=== PATIENT | female | born 1980 | race African-American/Black ===

== ENCOUNTER 2024-04-05 18:01 | Inpatient (IN) | payer OTHER, SELFPAY ==
--- NOTE | ~2024-04-05 | XR_ITS ---
EXAMINATION: LEFT KNEE, LEFT TIB-FIB, LEFT FOOT CLINICAL INFORMATION: Trauma with fall COMPARISON: None available. TECHNIQUE: 2 views left knee, 2 views left tib-fib, 3 views left foot FINDINGS: Knee and tib-fib: Mild tricompartmental degenerative changes are seen. A small joint effusion is present. No fractures or chondrocalcinosis. Foot: There is an avulsion fracture involving the medial cuboid. No other fractures are seen. XR/XR foot LT 2V IMPRESSION: 1. Avulsion fracture medial cuboid. 2. Mild tricompartmental degenerative changes in the knee with small joint effusion. Electronically signed by: Joseph Morelos MD 04/14/2024 06:46 PM EST
--- NOTE | ~2024-04-05 | US_ITS ---
EXAMINATION: US TRIPLEX LOWER EXTREMITY, LEFT CLINICAL INFORMATION: Left lower extremity edema. Evaluate for deep vein thrombosis. COMPARISON: None available. TECHNIQUE: Color-flow triplex imaging with spectral analysis and compression Doppler were performed on the left lower extremity. FINDINGS: Respiratory variation, normal compression and augmented flow are noted throughout the left lower extremity. The visualized common femoral vein, superficial femoral vein, profunda femoral vein, popliteal vein and midcalf peroneal and posterior tibial venous segments show no evidence of deep venous thrombosis. There is no Cabrera's cyst. Unremarkable left inguinal lymph nodes. US/US venous duplex LE LT IMPRESSION: No evidence of deep venous thrombosis involving the left lower extremity. Electronically signed by: Freddie Chavez MD 04/14/2024 04:44 PM [facility]
--- NOTE | ~2024-04-05 | XR_ITS ---
EXAMINATION: LEFT KNEE, LEFT TIB-FIB, LEFT FOOT CLINICAL INFORMATION: Trauma with fall COMPARISON: None available. TECHNIQUE: 2 views left knee, 2 views left tib-fib, 3 views left foot FINDINGS: Knee and tib-fib: Mild tricompartmental degenerative changes are seen. A small joint effusion is present. No fractures or chondrocalcinosis. Foot: There is an avulsion fracture involving the medial cuboid. No other fractures are seen. XR/XR knee LT 2V IMPRESSION: 1. Avulsion fracture medial cuboid. 2. Mild tricompartmental degenerative changes in the knee with small joint effusion. Electronically signed by: Joseph Morelos MD 04/14/2024 06:46 PM EST
--- NOTE | ~2024-04-05 | XR_ITS ---
EXAMINATION: LEFT KNEE, LEFT TIB-FIB, LEFT FOOT CLINICAL INFORMATION: Trauma with fall COMPARISON: None available. TECHNIQUE: 2 views left knee, 2 views left tib-fib, 3 views left foot FINDINGS: Knee and tib-fib: Mild tricompartmental degenerative changes are seen. A small joint effusion is present. No fractures or chondrocalcinosis. Foot: There is an avulsion fracture involving the medial cuboid. No other fractures are seen. XR/XR tibia fibula LT 2V IMPRESSION: 1. Avulsion fracture medial cuboid. 2. Mild tricompartmental degenerative changes in the knee with small joint effusion. Electronically signed by: Joseph Morelos MD 04/14/2024 06:46 PM [facility]
--- NOTE | 2024-04-05 18:33 | ED.GENADULT ---
HPI - General Adult General Chief complaint: Psychiatric Symptoms Stated complaint: BEHAVIORAL ISSUES Time Seen by Provider: 04/05/24 18:26 Source: patient, EMS and RN notes reviewed Limitations: other ( disorganized) History of Present Illness HPI narrative: 44-year-old female presents via EMS after she was found outside of [facility]. Apparently the patient was just discharged from there. The patient is thought process is very disorganized. Patient denies any suicidal homicidal ideation. Patient also reports that she is 2 months . She is refusing any further evaluation. Related Data Home Medications ?Medication ?Instructions ?Recorded ?Confirmed aripiprazole 20 mg tablet 20 mg PO DAILY 04/05/24 04/05/24 bictegravir 50 mg-emtricitabine 1 tab PO DAILY 04/05/24 04/05/24 200 mg-tenofovir alafenam 25 mg tablet clonidine HCl 0.1 mg tablet 0.1 mg PO BID 04/05/24 04/05/24 divalproex 125 mg tablet,delayed 125 mg PO BIDWM@0800,1700 Mood 04/05/24 04/05/24 release gabapentin 300 mg capsule 300 mg PO TID 04/05/24 04/05/24 hydroxyzine pamoate 50 mg capsule 50 mg PO Q4H PRN Pain, 04/05/24 04/05/24 Moderate-Severe prazosin 2 mg capsule 2 mg PO BEDTIME 04/05/24 04/05/24 rifaximin 550 mg tablet 550 mg PO Q12H 04/05/24 04/05/24 Allergies Allergy/AdvReac Type Severity Reaction Status Date / Time No Known Allergies Allergy Verified 04/05/24 18:41 Review of Systems Review of Systems: Yes Unobtainable due to mental status [facility] Past Medical History Source: unable to obtain Social History Social History Unable to assess alcohol history related to: Refusing to respond Use of substances other than those prescribed or required for medical reasons: Refusing to respond Advance Directives: No Advance Directives Information Provided: No Patient : No Physical Exam ED Vital Signs: Vital Signs - 24 hr 04/05/24 18:37 04/05/24 18:43 Temperature 98.4 F Pulse Rate 102 H Respiratory Rate 16 16 Blood Pressure 131/84 Pulse Oximetry 99 Oxygen Delivery Method Room Air BMI result Body Mass Index 19.4 Const Other: Alert and awake, semi cooperative. Resp Auscultation: clear to auscultation bilaterally Cardio Rate: regular rate Psych Other: Alert to person and place Course Course Course Narrative: patient was seen and evaluated by the behavioral team. Patient will be brought into the hospital for further evaluation and psychiatric management. Medications Administered Discontinued Medications Generic Name Dose Route Start Last Admin Trade Name Humbleq PRN Reason Stop Dose Admin Ketorolac Tromethamine 15 mg 04/05/24 22:45 04/05/24 23:41 Ketorolac Tromethamine 15 Mg/Ml Vial IM 04/05/24 22:46 Not Given ONCE ONE Lorazepam 2 mg 04/05/24 22:45 04/05/24 22:58 Lorazepam 1 Mg Tablet PO 04/05/24 22:46 2 mg ONCE ONE Administration Medical Decision Making Medical Decision Making [facility] Narrative: 44-year-old female with recent admission to [facility]. Disorganized behavior at this time refusing all labs and interventions. She will be seen by the behavioral health team. Differential Diagnosis Differential Diagnoses: The differential diagnosis associated with the presentation includes Acute psychosis Disorganized behavior Polysubstance use Metabolic abnormality Admission/Observation Consideration of admission/observation: Escalation of care including admission/observation considered Consult Healthcare Provider Management of the patient was discussed with: Behavioral Health Provider Lab Data Patient refused all imaging and labs Social Determinants Patient?s care significantly limited by Social Determinants of Health including: Problems related to primary support group Discharge Plan Discharge Clinical Impression: Schizophrenia, acute Patient Disposition: Admitted As Inpatient Interventions: [place]-Suicide Risk Severity Scale Last Done: 04/05/24 18:43 Admission Worksheet (ED) Last Done: 04/05/24 23:43 Discharge Date/Time: 04/05/24 23:46
[2024-04-05 18:37] VITALS: BP 131/84; BP 137/78; PULSE 102; PULSE 105; RESP 16; TEMP 36.9; O2SAT 99; BMI 19.4
[2024-04-05 18:43] VITALS: RESP 16
--- NOTE | 2024-04-05 18:44 | PC.NURSE ---
Patient comes in from [facility]. Apparently she was discharged at 11am this morning, she received a lyft back to her house in [place] but exited the lyft because she believed the lyft was bringing her to the wrong place. Pt reports she made it back to [facility] and was trying to communicate with people to get home. However, she reports she was communicating telepathically . Pt appears disorganized upon arrival, hyperfocused on her belongings. Pt initially refused to give up her belongings, security needed to go hands on with patient. Patient did eventually tire changer with this RN and Security. Pt also appears to be having auditory hallucinations in regards to her . Pt is sitting in chair by nurses station, refusing to get up at this time. PA came to bedside to eval patient
--- NOTE | 2024-04-05 19:09 | PC.NURSE ---
patient seated in milieu nonverbal, uncooperative presently refusing to move from chair after triage. patient appears in no acute distress presently.
--- NOTE | 2024-04-05 19:44 | PC.NURSE ---
patient wanted me to inform registration not to add her social security number to chart. she alleges shes and provided med list but states shes on 150mg methadone, med list doesnt include methadone. continuing research.
--- NOTE | 2024-04-05 19:49 | PC.NURSE ---
client adjourned to room, provided snacks and warm malgorzata
--- NOTE | 2024-04-05 20:38 | PC.NURSE ---
client approached again for labs met w resistance i need to drink mores fluids . will continue to approach.
--- NOTE | 2024-04-05 21:51 | PHA.MEDREC ---
Addendum entered by William Steiner RPh 04/05/24 21:56: Med rec reviewed Original Note: Pharmacy Consult ? Medication Reconciliation Pharmacy has completed the medication reconciliation. Confirmed med rec with list provided by Alise.
[2024-04-05] MEDS: LORazepam 1 MG TABLET 2 MG PO (22:58)
[2024-04-06] VITALS: BP 143/73; PULSE 68; RESP 16; TEMP 36.7; O2SAT 97
--- NOTE | 2024-04-06 05:26 | PC.ADMIT ---
Pt is a 44yo female who arrived from ED BH pod at 2345 for disorganized behavior. Pt oriented to self and situation only at this time. Per report pt was D/C from [facility] 04/05/24 at 0800. During transport back home pt left Lyft vehicle because pt believed the vehicle was taking pt to the wrong place. Pt managed to find a way back to [facility] where pt was picked up by police. Per report pt told police that she was trying to ask for another ride home by way of telepathy. Pt is cooperative with admission, skin check remarkable for multiple scars to upper forearms and antecubitals which pt says are related to prior drug use. Pt also states I'm two months along, you know, so I need to do whatever is best for the baby , pt refused labwork multiple times in ED, HCG quant ordered. Pt requesting methadone and lorazepam throughout admission. No methadone was given to patient during stay per [facility]. Pt walks mostly bent forward due to chronic back pain In three places for which pt is requesting to add oxycodone and lorazepam to regimen. Pt repeating answered questions throughout admission process, but easily redirected to conversation. Placed on 15 minute checks.
[2024-04-06 08:00] VITALS: BP 129/62; PULSE 101; RESP 16; TEMP 36.9; O2SAT 100
[2024-04-06 08:50] VITALS: BP 129/62
[2024-04-06] MEDS: ARIPiprazole 20 MG TABLET PO (08:50)
[2024-04-06] MEDS: cloNIDine HCL 0.1 MG TABLET PO ×2 (08:50→21:16)
[2024-04-06] MEDS: Gabapentin 300 MG CAPSULE PO ×3 (08:50→21:17)
[2024-04-06] MEDS: rifAXIMin 550 MG TABLET PO ×2 (08:50→21:18)
[2024-04-06 08:52] LABS: Estimated Average Glucose 94 mg/dL; Hemoglobin A1C 72.9002 umol/L; Hemoglobin A1c % 4.9 % (<6.0); Total Hemoglobin (HGBA1C) 2462.1884 umol/L
[2024-04-06] MEDS: Acetaminophen 325 MG TABLET 650 MG PO ×3 (08:53→21:27)
[2024-04-06] MEDS: Divalproex Sodium Sprinkles 125 MG CAP.DR.SPR PO (08:53)
[2024-04-06] MEDS: hydrOXYzine HCL 25 MG TABLET PO ×3 (08:53→21:28)
[2024-04-06 09:07] LABS: Cholesterol 81 mg/dL (<200); HDL Cholesterol 29 mg/dL (>40); LDL Cholesterol Calculated 40 mg/dL (<100); Triglycerides 61 mg/dL (<150)
[2024-04-06 09:18] LABS: HCG Quantitative < 2 mIU/mL
[2024-04-06 09:25] LABS: Free T4 (Free Thyroxine) 1.18 ng/dL (0.71-1.85); Thyroid Stimulating Hormone 3.31 uIU/mL (0.32-4.0)
[2024-04-06 10:07] LABS: Folate 17.9 ng/mL (> or = 4.0); Vitamin B12 1173 pg/mL (200-900)
--- NOTE | 2024-04-06 10:29 | HO.PSYADMNOT ---
HPI Date of Service: 04/06/24 Chief Complaint: mental health crisis Sources of Information: patient interviewed, chart reviewed and crisis/core team assessment reviewed HPI Subjective Notes: Section 12B Healthcare Proxy: No Guardianship: No Medical Problems Affecting Mental Status: Yes (co pain - ) Narrative: 44 yo AAF who just got dced from [facility] and then jumped out of ride to home when she thought she was being brought to wrong address, ended up walking back to [facility] and was picked up by ambulance and brought to [facility]- where patient was found to be psychotic and delusional co of being 2 months and bent over in pain-- Also discussing telepathy and requesting methadone, curtis Says she is on a show called killing time and that the content producer was giving her methadone who was a nurse at [facility]. Pt was fairly focused on getting methadone or some pain med toradol - bent over in jones had a paper bag with left of her lunch When we went to her room, very disorganzied, lunch tray on bed and remnants to food there as well - Past Psychiatric History: Recent [facility] hospitalization Medical Evaluation Reviewed: Yes pt was uncooperative with exam would be helpful to get [facility] record pt from [facility] Narrative: not clear- Family History: unknown patient not good historian at this time Social History: unknown patient not good historian at this time Substance History: denies Trauma History: unknown patient not good historian at this time Diagnostics Vital Signs (24Hr): Vital Signs - 24 hr 04/05/24 18:37 04/05/24 18:43 04/06/24 00:00 Temperature 98.4 F 98.0 F Pulse Rate 102 H 68 Respiratory Rate 16 16 16 Blood Pressure 131/84 143/73 H Pulse Oximetry 99 97 Oxygen Delivery Method Room Air Room Air 04/06/24 08:00 04/06/24 08:50 Temperature 98.5 F Pulse Rate 101 H Respiratory Rate 16 Blood Pressure 129/62 129/62 Pulse Oximetry 100 Oxygen Delivery Method BMI result Body Mass Index 19.4 Labs Labs: Laboratory Results - last 48 hr 04/06/24 08:31 Estimat Average Glucose 94 Hemoglobin A1c % 4.9 Triglycerides 61 Cholesterol 81 LDL Cholesterol, Calc 40 HDL Cholesterol 29 L Vitamin B12 1173 H Folate 17.9 TSH 3.31 Free T4 1.18 Beta HCG, Quant < 2 Meds/Allergies Meds Home Medications ?Medication ?Instructions ?Recorded ?Confirmed ?Type aripiprazole 20 mg tablet 20 mg PO DAILY 04/05/24 04/05/24 History bictegravir 50 mg-emtricitabine 1 tab PO DAILY 04/05/24 04/05/24 History 200 mg-tenofovir alafenam 25 mg tablet clonidine HCl 0.1 mg tablet 0.1 mg PO BID 04/05/24 04/05/24 History divalproex 125 mg tablet,delayed 125 mg PO BIDWM@0800,1700 Mood 04/05/24 04/05/24 History release gabapentin 300 mg capsule 300 mg PO TID 04/05/24 04/05/24 History hydroxyzine pamoate 50 mg capsule 50 mg PO Q4H PRN Pain, 04/05/24 04/05/24 History Moderate-Severe prazosin 2 mg capsule 2 mg PO BEDTIME 04/05/24 04/05/24 History rifaximin 550 mg tablet 550 mg PO Q12H 04/05/24 04/05/24 History Narrative: ? bacterial treatment for ecoli with rifaximin hx of hiv med also high B12 concerning Allergies Allergies Allergy/AdvReac Type Severity Reaction Status Date / Time No Known Allergies Allergy Verified 04/05/24 18:41 Mental Status Exam Mental Status Exam Patient Appearance: Disheveled, Unkempt and Bizarre (standing bent over in jones, or when walking) Patient Orientation: Person Level of Consciousness: Awake Patient Behavior: Resistive to Care and Poor Eye Contact Behavior Comments: odd posture, odd behavior Mood Description: Blunted Ability to Follow Directions: Poor Speech Pattern: Mumbled and Poor Articulation Delusions: Grandiose Thought Process: Disoriented (disorganized not disoriented) Thought Content: positive for Disorganized Depressive Symptoms: Difficulty Concentrating and Back Pain Abnormal Motor Activity Signs and Symptoms: Restlessness Judgement: Poor Assessment & Plan Assessment & Plan (1) Schizophrenia, acute undifferentiated: Status: Acute Code(s): F20.3 - Undifferentiated schizophrenia (2) Back pain: Status: Acute Code(s): M54.9 - Dorsalgia, unspecified Assessment and Plan: requesting methadone- ? 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 [place] Plan Very confused 44 yo with ? hx hiv/bacterial ecoli- with very bizarre and disorganzied behavior and thoughts, believes she is on a show on [employer]time with a content producer and that content producer was giving her methadone- Pt very poor historian further information needed from collateral- Abilify 20mg doesn't seem to be making much of a dent- also we need to discover if underlying hiv how long and if there are any links with that and her mental state- generally we have very little information except for bizarre behavior and disorganization of thought. This behavior puts patient at risk due to jumping out of car and thoughts so disorganized not able to communicate or follow through on dc plan from [facility] Patient educated on: medical condition (told her I would give her dicoflenac for back pain) Informed Consent: further education needed Reason for continued inpatient stay Substantial Risk for: harm to self, inability to function and rapid decompensation Statement Statement: I have reviewed the history and physical and performed a pertinent examination on my patient. No changes have occurred unless specified. If the History and Physical was not performed prior to admission, the Hospitalist's service will be consulted for completing the admission physical. Time Spent With Patient Time: Total time managing care of this patient today ____ minutes.
[2024-04-06] MEDS: Nicotine 14 MG PATCH.TD24 TRANSDERMA (14:05)
[2024-04-06] MEDS: Bictegrav/Emtricit/Tenofov Ala TABLET 1 TAB PO (17:34)
[2024-04-06] MEDS: Diclofenac Sodium Delayed Rel 50 MG TABLET.DR PO (17:34)
[2024-04-06 21:10] VITALS: BP 111/58; PULSE 97; TEMP 36.8
[2024-04-06 21:16] VITALS: BP 111/58
[2024-04-06 21:18] VITALS: BP 111/58
[2024-04-06] MEDS: Prazosin HCL 1 MG CAPSULE 2 MG PO (21:18)
[2024-04-07] MEDS: hydrOXYzine HCL 25 MG TABLET PO ×2 (04:44→15:18)
[2024-04-07] MEDS: Acetaminophen 325 MG TABLET 975 MG PO ×3 (04:44→21:08)
[2024-04-07 08:00] VITALS: BP 153/96; PULSE 112; RESP 16; TEMP 36.5; O2SAT 100
[2024-04-07 08:37] VITALS: BP 153/96
[2024-04-07] MEDS: Diclofenac Sodium Delayed Rel 50 MG TABLET.DR PO ×2 (08:37→17:34)
[2024-04-07] MEDS: rifAXIMin 550 MG TABLET PO ×2 (08:37→20:58)
[2024-04-07] MEDS: Gabapentin 300 MG CAPSULE PO ×3 (08:37→20:58)
[2024-04-07] MEDS: ARIPiprazole 20 MG TABLET PO (08:37)
[2024-04-07] MEDS: cloNIDine HCL 0.1 MG TABLET PO ×2 (08:37→20:58)
[2024-04-07] MEDS: Nicotine 14 MG PATCH.TD24 TRANSDERMA (08:46)
[2024-04-07] MEDS: Bictegrav/Emtricit/Tenofov Ala TABLET 1 TAB PO (08:52)
--- NOTE | 2024-04-07 12:02 | P.PNPSI_ITS ---
Subjective Subjective Date of Service: 04/07/24 Reason For Visit: mental health crisis Subjective Notes: Conditional Voluntary Healthcare Proxy: No Guardianship: No Medical Problems Affecting Mental Status: No Interim History: 44 yo AAF who continues to be bent over most of the time- reports wanting 3 day- though I thought she was on 12b the ER doc put her on cv- brought that to her- she also reported various medications she was supposed to be on and wasn't continuing to insist she is on methadone- had nurses call [facility] where she says she [facility] - but no information was forwarded from [facility] reporting methadone- and pt does not appear in withdrawl from opiates- She does however continue quite psychotic saying things likethat numerous people where trying to kill her- nurse showed me list of people she thinks - including someone named ki who she thinks is going to shoot her- When I asked patient about this she said no Ki is a friend who is coming to visit her today- - Medication Compliance: Yes Side effects from medications: No Attending Groups: No Review of Systems Acute medical concerns: Yes ongoing co back pain patient walks around unit bent over- Medical Review of Systems: unchanged Mental Status Exam Mental Status Exam Patient Appearance: Unkempt Patient Orientation: Person, Place and Situation Level of Consciousness: Awake Patient Behavior: Guarded, Posturing, Suspicious, Wandering and Anxious Mood Description: Apprehensive Affect Description: Blunted Patient Cognition Impaired: No Ability to Follow Directions: Fair Speech Pattern: Mumbled Hallucinations: None Delusions: Paranoid Ideation Thought Process: Illogical and Distracted Thought Content: positive for Disorganized Depressive Symptoms: Muscle Tension and Back Pain Abnormal Motor Activity Signs and Symptoms: Muscle Rigidity Judgement: Poor Diagnostics Vital Signs (24Hr): Vital Signs - 24 hr 04/06/24 21:10 04/06/24 21:16 04/06/24 21:18 Temperature 98.2 F Pulse Rate 97 Respiratory Rate Blood Pressure 111/58 L 111/58 L 111/58 L Pulse Oximetry 04/07/24 08:00 04/07/24 08:37 Temperature 97.7 F Pulse Rate 112 H Respiratory Rate 16 Blood Pressure 153/96 H 153/96 H Pulse Oximetry 100 BMI result Body Mass Index 19.4 Labs Labs: Laboratory Results - last 48 hr 04/06/24 08:31 Estimat Average Glucose 94 Hemoglobin A1c % 4.9 Triglycerides 61 Cholesterol 81 LDL Cholesterol, Calc 40 HDL Cholesterol 29 L Vitamin B12 1173 H Folate 17.9 TSH 3.31 Free T4 1.18 Beta HCG, Quant < 2 Medications Medications Current Medications Acetaminophen (Acetaminophen 325 Mg Tablet) 975 mg PO Q6H PRN PRN Reason: pain (pain scale 1-10) Last Admin: 04/07/24 04:44 Dose: 975 mg Al Hydroxide/Mg Hydroxide (Magnesium Hydrox/Alum Hydrox 30 Ml Oral.Susp) 30 ml PO Q6H PRN PRN Reason: Heartburn/Nausea Aripiprazole (Aripiprazole 20 Mg Tablet) 20 mg PO DAILY [facility] Last Admin: 04/07/24 08:37 Dose: 20 mg Bictegravir/Emtricitabine/Tenofovir (Bictegrav/Emtricit/Tenofov Ala Tablet) 1 tab PO DAILY [facility] Last Admin: 04/07/24 08:52 Dose: 1 tab Clonidine HCl (Clonidine Hcl 0.1 Mg Tablet) 0.1 mg PO BID [facility]; Protocol Last Admin: 04/07/24 08:37 Dose: 0.1 mg Diclofenac Sodium (Diclofenac Sodium Delayed Rel 50 Mg Tablet.) 50 mg PO BIDWM [facility] Last Admin: 04/07/24 08:37 Dose: 50 mg Divalproex Sodium (Divalproex Sodium Sprinkles 125 Mg Cap.Spr) 125 mg PO BIDWM@0800,1700 [facility] Last Admin: 04/07/24 08:52 Dose: Not Given Gabapentin (Gabapentin 300 Mg Capsule) 300 mg PO TID [facility] Last Admin: 04/07/24 08:37 Dose: 300 mg Hydroxyzine HCl (Hydroxyzine Hcl 25 Mg Tablet) 25 mg PO Q6H PRN PRN Reason: Anxiety Last Admin: 04/07/24 04:44 Dose: 25 mg Magnesium Hydroxide (Milk Of Magnesia 30 Ml Oral.Susp) 30 ml PO DAILY PRN PRN Reason: Constipation Nicotine (Nicotine 14 Mg Patch.Td24) 14 mg TRANSDERMA DAILY [facility] Last Admin: 04/07/24 08:46 Dose: 14 mg Nicotine Polacrilex (Nicotine Polacrilex 2 Mg Gum) 2 mg BUCCAL Q2H PRN PRN Reason: Nicotine Cravings Nicotine Polacrilex (Nicotine Polacrilex 2 Mg Gum) 4 mg BUCCAL Q2H PRN PRN Reason: Nicotine Cravings Prazosin HCl (Prazosin Hcl 1 Mg Capsule) 2 mg PO BEDTIME [facility]; Protocol Last Admin: 04/06/24 21:18 Dose: 2 mg Rifaximin (Rifaximin 550 Mg Tablet) 550 mg PO BID [facility] Last Admin: 04/07/24 08:37 Dose: 550 mg Trazodone HCl (Trazodone Hcl 50 Mg Tablet) 50 mg PO BEDTIME MRX1 PRN PRN Reason: Insomnia Allergies Allergies Allergy/AdvReac Type Severity Reaction Status Date / Time No Known Allergies Allergy Verified 04/05/24 18:41 Assessment & Plan Assessment & Plan (1) Schizophrenia, acute undifferentiated: Status: Acute Code(s): F20.3 - Undifferentiated schizophrenia (2) Back pain: Status: Acute Code(s): M54.9 - Dorsalgia, unspecified Assessment and Plan: requesting methadone- ? 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 [place] 04/07- we need [facility] call [facility] and see if she was on methadone what she was on and when last dose- Plan Very confused 44 yo with ? hx hiv/bacterial ecoli- with very bizarre and disorganzied behavior and thoughts, believes she is on a show on [employer] with a digital content producer and that digital content producer was giving her methadone- Pt very poor historian further information needed from collateral- Abilify 20mg doesn't seem to be making much of a dent- also we need to discover if underlying hiv how long and if there are any links with that and her mental state- generally we have very little information except for bizarre behavior and disorganization of thought. This behavior puts patient at risk due to jumping out of car and thoughts so disorganized not able to communicate or follow through on dc plan from [facility] 04/07- given lidocaine patches and flexeril- will request hospitalist to come assess back pain- fu with collateral data tomorrow- Patient educated on: medication risk/benefits Informed Consent: further education needed Reason for continued inpatient stay Substantial Risk for: inability to function and rapid decompensation Time Spent With Patient Time: Total time managing care of this patient today ____ minutes.
--- NOTE | 2024-04-07 19:04 | PC.NURSE ---
Per María she should be on the following medications--baclofen, flexeril, aldactone, lasix, lactulose, vyvanse, (will take adderall at equivalent dose if vyvanse not available) ativan, olanzepine, percocet, lidocaine patches and methadone. She reports she used to dose at [facility] in [place] months ago, my broadcast producer has been giving it to me herself since then . Dr Osmel modi.
[2024-04-07 19:50] VITALS: BP 130/80; PULSE 111; RESP 15; O2SAT 98
--- NOTE | 2024-04-07 20:30 | PC.NURSE ---
pt approached this remote mortgage underwriter
[2024-04-07] MEDS: Prazosin HCL 1 MG CAPSULE 2 MG PO (20:58)
[2024-04-07] MEDS: Cyclobenzaprine HCl 5 MG TABLET PO (21:07)
[2024-04-07] MEDS: Lidocaine 4 % Patch ADH..PATCH 2 PATCH TRANSDERMA (21:09)
--- NOTE | 2024-04-08 00:11 | PC.NURSE ---
At approximately 2305 on 04/07/24, patient made multiple calls to 911 reporting that her life was in danger due to a firearm being present on the unit. She reports a aerodynamic consultant by the name of Herlinda has said firearm and she was holding onto it because she was trying to steal a check for $20 millon. Security arrived to unit to assess situation, spoke with patient and this law writer. Patient admitted to knowing that there was no firearm on unit, but continued to make paranoid nonsensical statements. This law writer spoke with Edgar GAUTAM and notified overnight supervisor reactor fueling. This law writer also spoke with patient and reassured safety, and if she had any concerns throughout the night to please notify this law writer instead of calling police. Patient agreed.
[2024-04-08] MEDS: Nicotine Polacrilex 2 MG GUM 4 MG BUCCAL (05:05)
[2024-04-08] MEDS: Acetaminophen 325 MG TABLET 975 MG PO ×3 (05:07→21:33)
[2024-04-08] MEDS: hydrOXYzine HCL 25 MG TABLET PO ×3 (05:07→17:36)
[2024-04-08 08:00] VITALS: BP 122/68; PULSE 99; RESP 16; TEMP 36.3; O2SAT 100
[2024-04-08] MEDS: rifAXIMin 550 MG TABLET PO ×2 (08:40→21:20)
[2024-04-08] MEDS: ARIPiprazole 20 MG TABLET PO (08:40)
[2024-04-08] MEDS: Bictegrav/Emtricit/Tenofov Ala TABLET 1 TAB PO (08:40)
[2024-04-08] MEDS: Gabapentin 300 MG CAPSULE PO ×3 (08:40→21:20)
[2024-04-08] MEDS: cloNIDine HCL 0.1 MG TABLET PO ×2 (08:40→21:20)
[2024-04-08] MEDS: Diclofenac Sodium Delayed Rel 50 MG TABLET.DR PO ×2 (08:40→17:36)
[2024-04-08] MEDS: Nicotine 14 MG PATCH.TD24 TRANSDERMA (08:41)
[2024-04-08] MEDS: Lidocaine 4 % Patch ADH..PATCH 2 PATCH TRANSDERMA (08:46)
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
[2024-04-08 20:00] VITALS: BP 135/72; PULSE 123; TEMP 36.9; O2SAT 100
[2024-04-08 21:20] VITALS: BP 135/72
[2024-04-08 21:21] VITALS: BP 135/72
[2024-04-08] MEDS: Prazosin HCL 1 MG CAPSULE 2 MG PO (21:21)
[2024-04-08 21:30] VITALS: PULSE 116; O2SAT 98
[2024-04-08] MEDS: Cyclobenzaprine HCl 5 MG TABLET PO (21:34)
[2024-04-09] MEDS: Acetaminophen 325 MG TABLET 975 MG PO ×2 (05:41→14:25)
[2024-04-09] MEDS: Gabapentin 300 MG CAPSULE PO ×3 (09:12→20:57)
[2024-04-09] MEDS: Bictegrav/Emtricit/Tenofov Ala TABLET 1 TAB PO (09:12)
[2024-04-09] MEDS: ARIPiprazole 20 MG TABLET PO (09:12)
[2024-04-09] MEDS: Diclofenac Sodium Delayed Rel 50 MG TABLET.DR PO ×2 (09:12→17:31)
[2024-04-09] MEDS: rifAXIMin 550 MG TABLET PO ×2 (09:12→20:57)
[2024-04-09 09:13] VITALS: BP 137/67
[2024-04-09] MEDS: Nicotine 14 MG PATCH.TD24 TRANSDERMA (09:13)
[2024-04-09] MEDS: cloNIDine HCL 0.1 MG TABLET PO ×2 (09:13→20:57)
[2024-04-09] MEDS: Lidocaine 4 % Patch ADH..PATCH 2 PATCH TRANSDERMA (09:13)
[2024-04-09 09:28] VITALS: BP 137/67; PULSE 111; TEMP 36.8; O2SAT 100
--- NOTE | 2024-04-09 09:42 | P.PNPSI_ITS ---
Subjective Subjective Date of Service: 04/09/24 Reason For Visit: mental health crisis Interim History: Met with patient; discussed with team Patient difficult with which to engage, irritable and dismissive. Patient does not want to talk and refused to sign any release of information for us to get collateral. Later she reported that while in the shower she had a bloody clot fall from her vagina and said it was spotting from her . Patient did not respond to reality testing that her test is negative. UA ordered Mental Status Exam Mental Status Exam Narrative: Pt is alert and oriented; behavior is guarded, irritable, though calm; patient is not in distress; dressed in casual attire, unkempt and malodorous; walks with back hunched; mood is described as ok though affect constricted; eye contact limited; Speech is normal rate, volume and prosody and not pressured; no psychomotor agitation/retardation present; thought process is goal directed; Thought content is on various delusional thinking, some grandiose; denies any SI/HI. Internally preoccupied though denies AH. Patients insight and judgment impaired Diagnostics Vital Signs (24Hr): Vital Signs - 24 hr 04/08/24 20:00 04/08/24 21:20 04/08/24 21:21 Temperature 98.5 F Pulse Rate 123 H Blood Pressure 135/72 135/72 135/72 Pulse Oximetry 100 Oxygen Delivery Method Room Air 04/08/24 21:30 04/09/24 09:13 04/09/24 09:28 Temperature 98.2 F Pulse Rate 116 H 111 H Blood Pressure 137/67 137/67 Pulse Oximetry 98 100 Oxygen Delivery Method Room Air Room Air BMI result Body Mass Index 19.4 Medications Medications Current Medications Acetaminophen (Acetaminophen 325 Mg Tablet) 975 mg PO Q6H PRN PRN Reason: pain (pain scale 1-10) Last Admin: 04/09/24 05:41 Dose: 975 mg Al Hydroxide/Mg Hydroxide (Magnesium Hydrox/Alum Hydrox 30 Ml Oral.Susp) 30 ml PO Q6H PRN PRN Reason: Heartburn/Nausea Aripiprazole (Aripiprazole 20 Mg Tablet) 20 mg PO DAILY [facility] Last Admin: 04/09/24 09:12 Dose: 20 mg Bictegravir/Emtricitabine/Tenofovir (Bictegrav/Emtricit/Tenofov Ala Tablet) 1 tab PO DAILY [facility] Last Admin: 04/09/24 09:12 Dose: 1 tab Clonidine HCl (Clonidine Hcl 0.1 Mg Tablet) 0.1 mg PO BID [facility]; Protocol Last Admin: 04/09/24 09:13 Dose: 0.1 mg Cyclobenzaprine HCl (Cyclobenzaprine Hcl 5 Mg Tablet) 5 mg PO BEDTIME PRN PRN Reason: back spasm Last Admin: 04/08/24 21:34 Dose: 5 mg Diclofenac Sodium (Diclofenac Sodium Delayed Rel 50 Mg Tablet.Dr) 50 mg PO BIDWM [facility] Last Admin: 04/09/24 09:12 Dose: 50 mg Divalproex Sodium (Divalproex Sodium Sprinkles 125 Mg Cap.Dr.Spr) 125 mg PO BIDWM@0800,1700 [facility] Last Admin: 04/08/24 18:01 Dose: Not Given Gabapentin (Gabapentin 300 Mg Capsule) 300 mg PO TID [facility] Last Admin: 04/09/24 09:12 Dose: 300 mg Hydroxyzine HCl (Hydroxyzine Hcl 25 Mg Tablet) 25 mg PO Q6H PRN PRN Reason: Anxiety Last Admin: 04/08/24 17:36 Dose: 25 mg Lidocaine (Lidocaine 4 % Patch Adh..Patch) 2 patch TRANSDERMA DAILY [facility]; Protocol Last Admin: 04/09/24 09:13 Dose: 2 patch Magnesium Hydroxide (Milk Of Magnesia 30 Ml Oral.Susp) 30 ml PO DAILY PRN PRN Reason: Constipation Nicotine (Nicotine 14 Mg Patch.Td24) 14 mg TRANSDERMA DAILY [facility] Last Admin: 04/09/24 09:13 Dose: 14 mg Nicotine Polacrilex (Nicotine Polacrilex 2 Mg Gum) 2 mg BUCCAL Q2H PRN PRN Reason: Nicotine Cravings Nicotine Polacrilex (Nicotine Polacrilex 2 Mg Gum) 4 mg BUCCAL Q2H PRN PRN Reason: Nicotine Cravings Last Admin: 04/08/24 05:05 Dose: 4 mg Prazosin HCl (Prazosin Hcl 1 Mg Capsule) 2 mg PO BEDTIME [facility]; Protocol Last Admin: 04/08/24 21:21 Dose: 2 mg Rifaximin (Rifaximin 550 Mg Tablet) 550 mg PO BID [facility] Last Admin: 04/09/24 09:12 Dose: 550 mg Trazodone HCl (Trazodone Hcl 50 Mg Tablet) 50 mg PO BEDTIME MRX1 PRN PRN Reason: Insomnia Allergies Allergies Allergy/AdvReac Type Severity Reaction Status Date / Time No Known Allergies Allergy Verified 04/05/24 18:41 Assessment & Plan Assessment & Plan (1) Schizophrenia, acute undifferentiated: Status: Acute Code(s): F20.3 - Undifferentiated schizophrenia (2) Back pain: Status: Acute Code(s): M54.9 - Dorsalgia, unspecified Assessment and Plan: requesting methadone- ? of hx of opiate do , agreed to give patient diclofenac- with meals- last opiate on real estate valuer was 2022 for oxy - Pt reports moved from ? [place] 04/07- we need to call [facility] and see if she was on methadone what she was on and when last dose- Plan Very confused 44 yo with ? hx hiv/bacterial ecoli- with very bizarre and disorganzied behavior and thoughts, believes she is on a show on showtime with a morning show newscast producer and that morning show newscast producer was giving her methadone- Pt very poor historian further information needed from collateral- Abilify 20mg doesn't seem to be making much of a dent- also we need to discover if underlying hiv how long and if there are any links with that and her mental state- generally we have very little information except for bizarre behavior and disorganization of thought. This behavior puts patient at risk due to jumping out of car and thoughts so disorganized not able to communicate or follow through on dc plan from [facility] COURSE: 04/07- given lidocaine patches and flexeril- will request hospitalist to come assess back pain- fu with collateral data tomorrow- 04/08 last evening called 911, saying staff had firearm, that staff was stealing $20,000,000. Grabbed trash bag of nurse stand, looking for 20million check. Patient remains confused and disorganized; she tells typewriter operator automatic that she is on a TV show. When asked where she wants to go to when she leaves the hospital, she says she owns 4 houses which she bought this past week, with the help of her training and development assistant whom is also a part of the TV show; typewriter operator automatic asked how this was possible given the fact that she was on an inpatient unit however patient dismissed this inquiry. Patient also says she has a device under her skin that her family put their that lets people know how she is doing. She says she does not mind the device however it should be a legal. Patient says she thinks she is being discharged today. Director [employer] explained this was not the case. About 5 minutes later she again said I am being discharged today; typewriter operator automatic inquired however patient did not remember previous conversation. -Regarding medication she said she thinks Abilify is helpful, that perhaps it helps her to think more clearly since she has ADHD and is supposed to be on Vyvanse. She agrees to long-acting injectable 04/09 Later she reported that while in the shower she had a bloody clot fall from her vagina and said it was spotting from her . Patient did not respond to reality testing that her test is negative. UA ordered -proving difficult to get collateral find historical information Formulation/clinical reasoning: Patient remains delusional and does not appear to be able to take care of herself in the community hence her quick return to the hospital. Could really use collateral. Not sure if current medication regimen is what was started at [facility] or if it is a regimen she has been stabilized in the past. Will continue for now Plan: CV Q 15 minute checks Continue Abilify 20 mg daily Continue Clonidine 0.1 mg b.i.d. Continue Depakote Sprinkles 125 mg b.i.d. Continue Gabapentin 300 mg t.i.d. Continue Prazosin 2 mg q.h.s. Continue Rifaximin 550 mg b.i.d. Continue Biktarvy 1 mg daily Patient educated on: diagnosis and medication risk/benefits Informed Consent: understands, does not understand and further education needed Reason for continued inpatient stay Substantial Risk for: inability to function Time Spent With Patient Time: Total time managing care of this patient today ____ minutes.
[2024-04-09] MEDS: hydrOXYzine HCL 25 MG TABLET PO (14:25)
[2024-04-09 19:36] VITALS: BP 130/70; PULSE 110; RESP 16; TEMP 36.8; O2SAT 100
[2024-04-09] MEDS: Prazosin HCL 1 MG CAPSULE 2 MG PO (20:57)
[2024-04-10 08:00] VITALS: BP 140/69; PULSE 104; TEMP 36.8; O2SAT 100
[2024-04-10] MEDS: Lidocaine 4 % Patch ADH..PATCH 2 PATCH TRANSDERMA (08:40)
[2024-04-10] MEDS: Nicotine 14 MG PATCH.TD24 TRANSDERMA (08:40)
[2024-04-10] MEDS: Acetaminophen 325 MG TABLET 975 MG PO ×2 (08:41→15:38)
[2024-04-10] MEDS: Bictegrav/Emtricit/Tenofov Ala TABLET 1 TAB PO (08:41)
[2024-04-10] MEDS: cloNIDine HCL 0.1 MG TABLET PO (08:42)
[2024-04-10] MEDS: ARIPiprazole 20 MG TABLET PO (08:42)
[2024-04-10] MEDS: rifAXIMin 550 MG TABLET PO ×2 (08:42→20:16)
[2024-04-10] MEDS: Gabapentin 300 MG CAPSULE PO ×3 (08:42→20:16)
[2024-04-10] MEDS: Diclofenac Sodium Delayed Rel 50 MG TABLET.DR PO ×2 (08:42→17:18)
[2024-04-10] MEDS: Divalproex Sodium Sprinkles 125 MG CAP.DR.SPR PO ×2 (08:51→18:51)
[2024-04-10] MEDS: Cyclobenzaprine HCl 10 MG TABLET PO (14:54)
[2024-04-10] MEDS: hydrOXYzine HCL 25 MG TABLET PO (15:39)
--- NOTE | 2024-04-10 17:49 | P.PNPSI_ITS ---
Subjective Subjective Date of Service: 04/10/24 Reason For Visit: mental health crisis Interim History: Met with patient; discussed with team Patient more pleasant today and agreed to sign release of information. Also gave permission to call her uncle.. Dad Uche Harmon whom she says lives locally and gave typewriter assembler a phone number. Initially typewriter assembler asked about the TV program she had mentioned earlier. She says it is ongoing but she is not involved in it right now. Later patient came up and found typewriter assembler to explain that she is still involved in an asked if typewriter assembler could make an accommodation for her while on the unit. Patient says Abilizfy was started at [facility]; she is not sure if it is helping her mood, though she increase it has improved a little, and asks for to be increased. She gave a list of other medications she has been on including lactulose which she says is for her liver, saying she has liver cirrhosis from history of alcoholism; clonidine, gabapentin, baclofen and Ativan. Typing Bookkeeper listed several antipsychotic medications but patient denies having taken any of them Mental Status Exam Mental Status Exam Narrative: Pt is alert and oriented; behavior is cooperative, calm, friendly; patient is not in distress; dressed in casual attire, with adequate hygiene; walks with back hunched; mood is described as ok and affect constricted; eye contact limited; Speech is normal rate, volume and prosody and not pressured; no psychomotor agitation/retardation present; thought process is goal directed; Thought content is on various delusional thoughts (; implanted device; part of a reality TV show called killers ); denies any SI/HI. Internally preoccupied though denies AH. Patients insight and judgment impaired Diagnostics Vital Signs (24Hr): Vital Signs - 24 hr 04/09/24 19:36 04/10/24 08:00 Temperature 98.3 F 98.3 F Pulse Rate 110 H 104 H Respiratory Rate 16 Blood Pressure 130/70 140/69 H Pulse Oximetry 100 100 Oxygen Delivery Method Room Air Room Air BMI result Body Mass Index 19.4 Medications Medications Current Medications Acetaminophen (Acetaminophen 325 Mg Tablet) 975 mg PO Q6H PRN PRN Reason: pain (pain scale 1-10) Last Admin: 04/10/24 15:38 Dose: 975 mg Al Hydroxide/Mg Hydroxide (Magnesium Hydrox/Alum Hydrox 30 Ml Oral.Susp) 30 ml PO Q6H PRN PRN Reason: Heartburn/Nausea Aripiprazole (Aripiprazole 20 Mg Tablet) 20 mg PO DAILY [facility] Last Admin: 04/10/24 08:42 Dose: 20 mg Bictegravir/Emtricitabine/Tenofovir (Bictegrav/Emtricit/Tenofov Ala Tablet) 1 tab PO DAILY [facility] Last Admin: 04/10/24 08:41 Dose: 1 tab Clonidine HCl (Clonidine Hcl 0.1 Mg Tablet) 0.1 mg PO BID [facility]; Protocol Last Admin: 04/10/24 08:42 Dose: 0.1 mg Cyclobenzaprine HCl (Cyclobenzaprine Hcl 5 Mg Tablet) 5 mg PO BEDTIME PRN PRN Reason: back spasm Last Admin: 04/08/24 21:34 Dose: 5 mg Cyclobenzaprine HCl (Cyclobenzaprine Hcl 10 Mg Tablet) 10 mg PO TID PRN PRN Reason: Muscle Spasm Last Admin: 04/10/24 14:54 Dose: 10 mg Diclofenac Sodium (Diclofenac Sodium Delayed Rel 50 Mg Tablet.) 50 mg PO BIDWM [facility] Last Admin: 04/10/24 17:18 Dose: 50 mg Divalproex Sodium (Divalproex Sodium Sprinkles 125 Mg Cap.Spr) 125 mg PO BIDWM@0800,1700 [facility] Last Admin: 04/10/24 08:51 Dose: 125 mg Gabapentin (Gabapentin 300 Mg Capsule) 300 mg PO TID [facility] Last Admin: 04/10/24 14:54 Dose: 300 mg Hydroxyzine HCl (Hydroxyzine Hcl 25 Mg Tablet) 25 mg PO Q6H PRN PRN Reason: Anxiety Last Admin: 04/10/24 15:39 Dose: 25 mg Lidocaine (Lidocaine 4 % Patch Adh..Patch) 2 patch TRANSDERMA DAILY [facility]; Protocol Last Admin: 04/10/24 08:40 Dose: 2 patch Magnesium Hydroxide (Milk Of Magnesia 30 Ml Oral.Susp) 30 ml PO DAILY PRN PRN Reason: Constipation Nicotine (Nicotine 14 Mg Patch.Td24) 14 mg TRANSDERMA DAILY [facility] Last Admin: 04/10/24 08:40 Dose: 14 mg Nicotine Polacrilex (Nicotine Polacrilex 2 Mg Gum) 2 mg BUCCAL Q2H PRN PRN Reason: Nicotine Cravings Nicotine Polacrilex (Nicotine Polacrilex 2 Mg Gum) 4 mg BUCCAL Q2H PRN PRN Reason: Nicotine Cravings Last Admin: 04/08/24 05:05 Dose: 4 mg Prazosin HCl (Prazosin Hcl 1 Mg Capsule) 2 mg PO BEDTIME [facility]; Protocol Last Admin: 04/09/24 20:57 Dose: 2 mg Rifaximin (Rifaximin 550 Mg Tablet) 550 mg PO BID [facility] Last Admin: 04/10/24 08:42 Dose: 550 mg Trazodone HCl (Trazodone Hcl 50 Mg Tablet) 50 mg PO BEDTIME MRX1 PRN PRN Reason: Insomnia Allergies Allergies Allergy/AdvReac Type Severity Reaction Status Date / Time No Known Allergies Allergy Verified 04/05/24 18:41 Assessment & Plan Assessment & Plan (1) Schizophrenia, acute undifferentiated: Status: Acute Code(s): F20.3 - Undifferentiated schizophrenia (2) Back pain: Status: Acute Code(s): M54.9 - Dorsalgia, unspecified Assessment and Plan: requesting methadone- ? of hx of opiate do , agreed to give patient diclofenac- with meals- last opiate on bereavement counselor was 2022 for oxy - Pt reports moved from [facility] 04/07- we need to call [employer] and see if she was on methadone what she was on and when last dose- Plan Very confused 44 yo with ? hx hiv/bacterial ecoli- with very bizarre and disorganzied behavior and thoughts, believes she is on a show on [employer]time with a marketing producer and that marketing producer was giving her methadone- Pt very poor historian further information needed from collateral- Abilify 20mg doesn't seem to be making much of a dent- also we need to discover if underlying hiv how long and if there are any links with that and her mental state- generally we have very little information except for bizarre behavior and disorganization of thought. This behavior puts patient at risk due to jumping out of car and thoughts so disorganized not able to communicate or follow through on dc plan from [facility] COURSE: 04/07- given lidocaine patches and flexeril- will request hospitalist to come assess back pain- fu with collateral data tomorrow- 04/08 last evening called 911, saying staff had firearm, that staff was stealing $[id number],000. Grabbed trash bag of nurse stand, looking for 20million check. Patient remains confused and disorganized; she tells typewriter assembler that she is on a TV show. When asked where she wants to go to when she leaves the hospital, she says she owns 4 houses which she bought this past week, with the help of her recreational assistant whom is also a part of the TV show; typewriter assembler asked how this was possible given the fact that she was on an inpatient unit however patient dismissed this inquiry. Patient also says she has a device under her skin that her family put their that lets people know how she is doing. She says she does not mind the device however it should be a legal. Patient says she thinks she is being discharged today. Typing Bookkeeper explained this was not the case. About 5 minutes later she again said I am being discharged today; typewriter assembler inquired however patient did not remember previous conversation. -Regarding medication she said she thinks Abilify is helpful, that perhaps it helps her to think more clearly since she has ADHD and is supposed to be on Vyvanse. She agrees to long-acting injectable 04/09 Later she reported that while in the shower she had a bloody clot fall from her vagina and said it was spotting from her . Patient did not respond to reality testing that her test is negative. UA ordered -proving difficult to get collateral find historical information 04/10 Patient more pleasant today and agreed to sign release of information. Also gave permission to call her uncle.. Dad Uche Harmon whom she says lives locally and gave typewriter assembler a phone number. Remains internally preoccupied and with grandiose delusion that she is part of a television show called [employer]. (various delusional thoughts (; implanted device; part of a reality TV show called [employer] ). However today she did not mention delusions until they were asked about. Patient signed release of information and seems a little more congenial today. She agreed to increase in Abilify which she said was started at [facility]; denies other history of antipsychotic medication trials -reports history of liver cirrhosis due to alcoholism and asks to be restarted on lactulose; also asks to be restarted on gabapentin, baclofen (for muscle/back spasms; says Flexaril not effective) and Ativan (will not restart at this time). Formulation/clinical reasoning: Patient remains delusional and does not appear to be able to take care of herself in the community hence her quick return to the hospital. History of HIV; not clear on adherence with antiretrovirals and this could be a possible contribution to confusion. Will likely consult with ID. Plan: CV Q 15 minute checks Increase to Abilify 30 mg daily Increase to Clonidine 0.1 mg t.i.d., up from b.i.d. Continue Depakote Sprinkles 125 mg b.i.d. Continue Gabapentin 300 mg t.i.d. (pt said was taking 400mg tid) Continue Prazosin 2 mg q.h.s. Continue Rifaximin 550 mg b.i.d. Continue Biktarvy 1 mg daily Start lactulose which patient says she takes regularly for liver cirrhosis Start baclofen; will DC Flexeril since patient says ineffective; typewriter assembler reviewed risks/side effects of baclofen Reports history of taking Vyvanse/Adderall Patient educated on: diagnosis, medication risk/benefits, substance abuse and medical condition Informed Consent: understands Reason for continued inpatient stay Substantial Risk for: inability to function Time Spent With Patient Time: Total time managing care of this patient today ____ minutes.
[2024-04-10] MEDS: Lactulose 20 GM/30 ML SOLUTION 10 GM PO (18:51)
[2024-04-10] MEDS: ARIPiprazole 10 MG TABLET PO (18:51)
[2024-04-10] MEDS: Baclofen 10 MG TABLET PO (18:51)
[2024-04-11 09:03] VITALS: BP 150/74; PULSE 107; RESP 16; TEMP 36.9; O2SAT 100
--- NOTE | 2024-04-11 09:40 | P.PNPSI_ITS ---
Subjective Subjective Date of Service: 04/11/24 Reason For Visit: mental health crisis Interim History: Met with patient; discussed with team. Patient remains disorganized and psychotic. I am in fear for my life from Freddie Chavez. Believes that this person is on the unit. I am all packed up and ready to go. Can you release me then bring me back? Reports she is feeling melancholy . Tolerating medication changes well. No side effects. Denies SI. Denies AVH. Review of Systems Review of Systems Pt co pain and wanting methdone- Says she got it from invertebrate paleontologist but also report she got it from [facility] which we could fu on - does not appear in withdrawal Also reports she is despite negative test- Yes Unobtainable due to mental status Mental Status Exam Mental Status Exam Narrative: Pt is alert and oriented; behavior is cooperative, calm, friendly; patient is not in distress; dressed in casual attire, with adequate hygiene; walks with back hunched; mood is described as ok and affect constricted; eye contact limited; Speech is normal rate, volume and prosody and not pressured; no psychomotor agitation/retardation present; thought process is goal directed; Thought content is on various delusional thoughts (; implanted device; part of a reality TV show called killers ); denies any SI/HI. Internally preoccupied though denies AH. Patients insight and judgment impaired Patient Appearance: Unkempt Patient Orientation: Person, Place and Situation Level of Consciousness: Awake Patient Behavior: Guarded, Posturing, Suspicious, Wandering and Anxious Behavior Comments: odd posture, odd behavior Mood Description: Apprehensive Affect Description: Blunted Patient Cognition Impaired: No Ability to Follow Directions: Fair Speech Pattern: Mumbled Diagnostics Vital Signs (24Hr): Vital Signs - 24 hr 04/11/24 09:03 Temperature 98.5 F Pulse Rate 107 H Respiratory Rate 16 Blood Pressure 150/74 H Pulse Oximetry 100 Oxygen Delivery Method Room Air BMI result Body Mass Index 19.4 Medications Medications Current Medications Acetaminophen (Acetaminophen 325 Mg Tablet) 975 mg PO Q6H PRN PRN Reason: pain (pain scale 1-10) Last Admin: 04/10/24 15:38 Dose: 975 mg Al Hydroxide/Mg Hydroxide (Magnesium Hydrox/Alum Hydrox 30 Ml Oral.Susp) 30 ml PO Q6H PRN PRN Reason: Heartburn/Nausea Aripiprazole (Aripiprazole 30 Mg Tablet) 30 mg PO DAILY [facility] Baclofen (Baclofen 10 Mg Tablet) 10 mg PO TID PRN PRN Reason: back/muscle spasm Bictegravir/Emtricitabine/Tenofovir (Bictegrav/Emtricit/Tenofov Ala Tablet) 1 tab PO DAILY [facility] Last Admin: 04/10/24 08:41 Dose: 1 tab Clonidine HCl (Clonidine Hcl 0.1 Mg Tablet) 0.1 mg PO TID [facility]; Protocol Last Admin: 04/10/24 20:17 Dose: Not Given Diclofenac Sodium (Diclofenac Sodium Delayed Rel 50 Mg Tablet.) 50 mg PO BIDWM [facility] Last Admin: 04/10/24 17:18 Dose: 50 mg Divalproex Sodium (Divalproex Sodium Sprinkles 125 Mg Cap.Dr.Spr) 125 mg PO BIDWM@0800,1700 [facility] Last Admin: 04/10/24 18:51 Dose: 125 mg Gabapentin (Gabapentin 300 Mg Capsule) 300 mg PO TID [facility] Last Admin: 04/10/24 20:16 Dose: 300 mg Hydroxyzine HCl (Hydroxyzine Hcl 25 Mg Tablet) 25 mg PO Q6H PRN PRN Reason: Anxiety Last Admin: 04/11/24 00:00 Dose: 25 mg Lactulose (Lactulose 20 Gm/30 Ml Solution) 10 gm PO DAILY [facility] Lidocaine (Lidocaine 4 % Patch Adh..Patch) 2 patch TRANSDERMA DAILY [facility]; Protocol Last Admin: 04/10/24 08:40 Dose: 2 patch Magnesium Hydroxide (Milk Of Magnesia 30 Ml Oral.Susp) 30 ml PO DAILY PRN PRN Reason: Constipation Nicotine (Nicotine 14 Mg Patch.Td24) 14 mg TRANSDERMA DAILY [facility] Last Admin: 04/10/24 08:40 Dose: 14 mg Nicotine Polacrilex (Nicotine Polacrilex 2 Mg Gum) 2 mg BUCCAL Q2H PRN PRN Reason: Nicotine Cravings Nicotine Polacrilex (Nicotine Polacrilex 2 Mg Gum) 4 mg BUCCAL Q2H PRN PRN Reason: Nicotine Cravings Last Admin: 04/08/24 05:05 Dose: 4 mg Prazosin HCl (Prazosin Hcl 1 Mg Capsule) 2 mg PO BEDTIME [facility]; Protocol Last Admin: 04/10/24 20:17 Dose: Not Given Rifaximin (Rifaximin 550 Mg Tablet) 550 mg PO BID [facility] Last Admin: 04/10/24 20:16 Dose: 550 mg Trazodone HCl (Trazodone Hcl 50 Mg Tablet) 50 mg PO BEDTIME MRX1 PRN PRN Reason: Insomnia Allergies Allergies Allergy/AdvReac Type Severity Reaction Status Date / Time No Known Allergies Allergy Verified 04/05/24 18:41 Assessment & Plan Assessment & Plan (1) Schizophrenia, acute undifferentiated: Status: Acute Code(s): F20.3 - Undifferentiated schizophrenia (2) Back pain: Status: Acute Code(s): M54.9 - Dorsalgia, unspecified Assessment and Plan: requesting methadone- ? of hx of opiate do , agreed to give patient diclofenac- with meals- last opiate on light fixture servicer was 2022 for oxy - Pt reports moved from [facility] 04/07- we need to call [facility] and see if she was on methadone what she was on and when last dose- Plan Very confused 44 yo with ? hx hiv/bacterial ecoli- with very bizarre and disorganzied behavior and thoughts, believes she is on a show on showtime with a invertebrate paleontologist and that invertebrate paleontologist was giving her methadone- Pt very poor historian further information needed from collateral- Abilify 20mg doesn't seem to be making much of a dent- also we need to discover if underlying hiv how long and if there are any links with that and her mental state- generally we have very little information except for bizarre behavior and disorganization of thought. This behavior puts patient at risk due to jumping out of car and thoughts so disorganized not able to communicate or follow through on dc plan from [facility] COURSE: 04/07- given lidocaine patches and flexeril- will request hospitalist to come as sess back pain- fu with collateral data tomorrow- 04/08 last evening called 911, saying staff had firearm, that staff was stealing $20,000,000. Grabbed trash bag of nurse stand, looking for 20million check. Patient remains confused and disorganized; she tells race and sports book writer that she is on a TV show. When asked where she wants to go to when she leaves the hospital, she says she owns 4 houses which she bought this past week, with the help of her special education educational assistant whom is also a part of the TV show; race and sports book writer asked how this was possible given the fact that she was on an inpatient unit however patient dismissed this inquiry. Patient also says she has a device under her skin that her family put their that lets people know how she is doing. She says she does not mind the device however it should be a legal. Patient says she thinks she is being discharged today. Radar Engineering Teacher explained this was not the case. About 5 minutes later she again said I am being discharged today; race and sports book writer inquired however patient did not remember previous conversation. -Regarding medication she said she thinks Abilify is helpful, that perhaps it helps her to think more clearly since she has ADHD and is supposed to be on Vyvanse. She agrees to long-acting injectable 04/09 Later she reported that while in the shower she had a bloody clot fall from her vagina and said it was spotting from her . Patient did not respond to reality testing that her test is negative. UA ordered -proving difficult to get collateral find historical information 04/10 Patient more pleasant today and agreed to sign release of information. Also gave permission to call her uncle.. Dad Uche Harmon whom she says lives locally and gave race and sports book writer a phone number. Remains internally preoccupied and with grandiose delusion that she is part of a television show called [employer]. (various delusional thoughts (; implanted device; part of a reality TV show called [employer] ). However today she did not mention delusions until they were asked about. Patient signed release of information and seems a little more congenial today. She agreed to increase in Abilify which she said was started at [facility]; denies other history of antipsychotic medication trials -reports history of liver cirrhosis due to alcoholism and asks to be restarted on lactulose; also asks to be restarted on gabapentin, baclofen (for muscle/back spasms; says Flexaril not effective) and Ativan (will not restart at this time). 04/11: Monitoring response to recent med changes. Continue current management and treatment plan. Formulation/clinical reasoning: Patient remains delusional and does not appear to be able to take care of herself in the community hence her quick return to the hospital. History of HIV; not clear on adherence with antiretrovirals and this could be a possible contribution to confusion. Will likely consult with ID. Plan: CV Q 15 minute checks Increase to Abilify 30 mg daily Increase to Clonidine 0.1 mg t.i.d., up from b.i.d. Continue Depakote Sprinkles 125 mg b.i.d. Continue Gabapentin 300 mg t.i.d. (pt said was taking 400mg tid) Continue Prazosin 2 mg q.h.s. Continue Rifaximin 550 mg b.i.d. Continue Biktarvy 1 mg daily Start lactulose which patient says she takes regularly for liver cirrhosis Start baclofen; will DC Flexeril since patient says ineffective; race and sports book writer reviewed risks/side effects of baclofen Reports history of taking Vyvanse/Adderall Reason for continued inpatient stay Substantial Risk for: inability to function and rapid decompensation Time Spent With Patient Time: Total time managing care of this patient today ____ minutes.
--- NOTE | 2024-04-11 10:03 | PC.NURSE ---
pt refused all morning scheduled medications except Tylenol and gabapentin . Pt educated on importance of medication adherence to overall mental health. Pt then agreed to take all her medication, put them into her mouth, took a sip of water, then spit them back into the cup reporting these don't taste right, just give me the Tylenol and gabapentin . Tylenol and gabapentin being obtained. Will reapproach w/ morning scheduled medication in 1hr
[2024-04-11] MEDS: Acetaminophen 325 MG TABLET 975 MG PO ×2 (10:15→16:08)
[2024-04-11] MEDS: Gabapentin 300 MG CAPSULE PO ×3 (10:16→20:53)
[2024-04-11] MEDS: Nicotine 14 MG PATCH.TD24 TRANSDERMA (10:22)
[2024-04-11] MEDS: Lidocaine 4 % Patch ADH..PATCH 2 PATCH TRANSDERMA (10:24)
[2024-04-11] MEDS: Diclofenac Sodium Delayed Rel 50 MG TABLET.DR PO (16:08)
[2024-04-11 16:09] VITALS: BP 130/86
[2024-04-11] MEDS: cloNIDine HCL 0.1 MG TABLET PO ×2 (16:09→20:53)
[2024-04-11] MEDS: Baclofen 10 MG TABLET PO ×2 (16:10→20:58)
[2024-04-11] MEDS: Divalproex Sodium Sprinkles 125 MG CAP.DR.SPR PO (18:36)
--- NOTE | 2024-04-11 18:51 | PC.NURSE ---
pt was reminded numerous times through out the shift that there was a UA+CC ordered and to approach RN when she hadto urintate. One 2 occasions she benedict to the nurse and reported, I peed and forgot to tell you . UA=CC has been uncollected.
[2024-04-11 20:00] VITALS: BP 137/82; PULSE 104; TEMP 36.2; O2SAT 99
[2024-04-11 20:52] VITALS: BP 132/82
[2024-04-11] MEDS: Prazosin HCL 1 MG CAPSULE 2 MG PO (20:52)
[2024-04-11 20:53] VITALS: BP 137/82
[2024-04-11] MEDS: rifAXIMin 550 MG TABLET PO (20:53)
[2024-04-11] MEDS: hydrOXYzine HCL 25 MG TABLET PO ×2 (20:57)
--- NOTE | 2024-04-12 02:02 | PC.NURSE ---
This mortgage loan underwriter was notified that this patient was awake at the time of this writing, and checked in with patient to see if she wanted any PRN medications. Patient stated Well, I'm just finding out that I have a brain tumor, and it presses on parts of my brain and it makes me not remember things. I'm , and I live in [place], and have twins. Now people are telling me that I write crazy letters, and that I smoke crack, and I don't remember ever smoking crack, and I'm only known here because I have an ex here.... At that point, observing that this conversation was agitating the patient, this mortgage loan underwriter gently interrupted and asked the patient if she would like a PRN medication to help her sleep. Patient declined, stating I don't like to sleep much, I like to be aware like I'm dozing but I want to know what's going on around me. I got about 2 hours after being up for the last couple days. I feel really rested after that! This mortgage loan underwriter excused herself at that time.
[2024-04-12 08:00] VITALS: BP 151/78; PULSE 109; RESP 18; TEMP 36.8; O2SAT 100
[2024-04-12] MEDS: Nicotine 14 MG PATCH.TD24 TRANSDERMA (08:30)
[2024-04-12] MEDS: Lidocaine 4 % Patch ADH..PATCH 2 PATCH TRANSDERMA (08:31)
[2024-04-12] MEDS: ARIPiprazole 30 MG TABLET PO (08:31)
[2024-04-12] MEDS: Diclofenac Sodium Delayed Rel 50 MG TABLET.DR PO (08:31)
[2024-04-12 08:32] VITALS: BP 151/78
[2024-04-12] MEDS: cloNIDine HCL 0.1 MG TABLET PO ×3 (08:32→21:37)
[2024-04-12] MEDS: Gabapentin 300 MG CAPSULE PO ×3 (08:32→21:45)
[2024-04-12] MEDS: rifAXIMin 550 MG TABLET PO ×2 (08:32→21:36)
[2024-04-12] MEDS: Lactulose 20 GM/30 ML SOLUTION 10 GM PO (08:33)
[2024-04-12] MEDS: Bictegrav/Emtricit/Tenofov Ala TABLET 1 TAB PO (08:33)
[2024-04-12] MEDS: Baclofen 10 MG TABLET PO (08:41)
[2024-04-12] MEDS: Acetaminophen 325 MG TABLET 975 MG PO (08:41)
[2024-04-12] MEDS: Divalproex Sodium Sprinkles 125 MG CAP.DR.SPR PO (11:23)
[2024-04-12 14:26] VITALS: BP 153/93
[2024-04-12] MEDS: OLANZapine 5 MG TABLET PO ×2 (14:26→21:37)
--- NOTE | 2024-04-12 15:03 | P.PNPSI_ITS ---
Subjective Subjective Date of Service: 04/12/24 Reason For Visit: mental health crisis Subjective Notes: Conditional Voluntary Healthcare Proxy: No Guardianship: No Medical Problems Affecting Mental Status: No Interim History: Team reports medicine refusal. Today, fearful, psychotic, feels there is a person on the unit who will shoot her. Paranoid, asking tw about commitment, wanting discharge, not wanting discharge for fear she will be harmed in community. Attempted reassurance. Pt has a wound on her Left leg. Wound Care Consult is ordered. Medication Compliance: Intermittent Side effects from medications: No Attending Groups: No Review of Systems Acute medical concerns: No Review of Systems: Wound L Leg-wound care consult is ordered. Review of Systems Review of Systems Yes Unobtainable due to mental status Mental Status Exam Mental Status Exam Narrative: Alert, oriented to person, place, time, not so much to situation. Fears being shot on the unit today. Paranoid with persecutory delusions Affect and Mood are constricted, anxious, fearful. Insight and Judgment are poor. Diagnostics Vital Signs (24Hr): Vital Signs - 24 hr 04/11/24 16:09 04/11/24 20:00 04/11/24 20:52 Temperature 97.1 F Pulse Rate 104 H Respiratory Rate Blood Pressure 130/86 137/82 132/82 Pulse Oximetry 99 Oxygen Delivery Method Room Air 04/11/24 20:53 04/12/24 08:00 04/12/24 08:32 Temperature 98.2 F Pulse Rate 109 H Respiratory Rate 18 Blood Pressure 137/82 151/78 H 151/78 H Pulse Oximetry 100 Oxygen Delivery Method Room Air 04/12/24 14:26 Temperature Pulse Rate Respiratory Rate Blood Pressure 153/93 H Pulse Oximetry Oxygen Delivery Method BMI result Body Mass Index 19.4 Medications Medications Current Medications Acetaminophen (Acetaminophen 325 Mg Tablet) 975 mg PO Q6H PRN PRN Reason: pain (pain scale 1-10) Last Admin: 04/12/24 08:41 Dose: 975 mg Al Hydroxide/Mg Hydroxide (Magnesium Hydrox/Alum Hydrox 30 Ml Oral.Susp) 30 ml PO Q6H PRN PRN Reason: Heartburn/Nausea Aripiprazole (Aripiprazole 30 Mg Tablet) 30 mg PO DAILY [facility] Last Admin: 04/12/24 08:31 Dose: 30 mg Baclofen (Baclofen 10 Mg Tablet) 10 mg PO TID PRN PRN Reason: back/muscle spasm Last Admin: 04/12/24 08:41 Dose: 10 mg Bictegravir/Emtricitabine/Tenofovir (Bictegrav/Emtricit/Tenofov Ala Tablet) 1 tab PO DAILY [facility] Last Admin: 04/12/24 08:33 Dose: 1 tab Clonidine HCl (Clonidine Hcl 0.1 Mg Tablet) 0.1 mg PO TID [facility]; Protocol Last Admin: 04/12/24 14:26 Dose: 0.1 mg Diclofenac Sodium (Diclofenac Sodium Delayed Rel 50 Mg Tablet.Dr) 50 mg PO BIDWM [facility] Last Admin: 04/12/24 08:31 Dose: 50 mg Divalproex Sodium (Divalproex Sodium Sprinkles 125 Mg Cap.Dr.Spr) 125 mg PO BIDWM@0800,1700 [facility] Last Admin: 04/12/24 11:23 Dose: 125 mg Gabapentin (Gabapentin 300 Mg Capsule) 300 mg PO TID [facility] Last Admin: 04/12/24 14:26 Dose: 300 mg Hydroxyzine HCl (Hydroxyzine Hcl 25 Mg Tablet) 25 mg PO Q6H PRN PRN Reason: Anxiety Last Admin: 04/11/24 20:57 Dose: 25 mg Lactulose (Lactulose 20 Gm/30 Ml Solution) 10 gm PO DAILY [facility] Last Admin: 04/12/24 08:33 Dose: 10 gm Lidocaine (Lidocaine 4 % Patch Adh..Patch) 2 patch TRANSDERMA DAILY [facility]; Protocol Last Admin: 04/12/24 08:31 Dose: 2 patch Magnesium Hydroxide (Milk Of Magnesia 30 Ml Oral.Susp) 30 ml PO DAILY PRN PRN Reason: Constipation Nicotine (Nicotine 14 Mg Patch.Td24) 14 mg TRANSDERMA DAILY [facility] Last Admin: 04/12/24 08:30 Dose: 14 mg Nicotine Polacrilex (Nicotine Polacrilex 2 Mg Gum) 2 mg BUCCAL Q2H PRN PRN Reason: Nicotine Cravings Nicotine Polacrilex (Nicotine Polacrilex 2 Mg Gum) 4 mg BUCCAL Q2H PRN PRN Reason: Nicotine Cravings Last Admin: 04/08/24 05:05 Dose: 4 mg Olanzapine (Olanzapine 5 Mg Tablet) 5 mg PO Q4H PRN PRN Reason: psychosis,agitation Last Admin: 04/12/24 14:26 Dose: 5 mg Olanzapine (Olanzapine 5 Mg Tablet) 5 mg PO BID [facility] Prazosin HCl (Prazosin Hcl 1 Mg Capsule) 2 mg PO BEDTIME [facility]; Protocol Last Admin: 04/11/24 20:52 Dose: 2 mg Rifaximin (Rifaximin 550 Mg Tablet) 550 mg PO BID [facility] Last Admin: 04/12/24 08:32 Dose: 550 mg Trazodone HCl (Trazodone Hcl 50 Mg Tablet) 50 mg PO BEDTIME MRX1 PRN PRN Reason: Insomnia Allergies Allergies Allergy/AdvReac Type Severity Reaction Status Date / Time No Known Allergies Allergy Verified 04/05/24 18:41 Assessment & Plan Assessment & Plan (1) Schizophrenia, acute undifferentiated: Status: Acute Code(s): F20.3 - Undifferentiated schizophrenia (2) Back pain: Status: Acute Code(s): M54.9 - Dorsalgia, unspecified Assessment and Plan: requesting methadone- ? of hx of opiate do , agreed to give patient diclofenac- with meals- last opiate on talent acquisition operations manager was 2022 for oxy - Pt reports moved from [facility] 04/07- we need to call [employer] and see if she was on methadone what she was on and when last dose- Plan Very confused 44 yo with ? hx hiv/bacterial ecoli- with very bizarre and disorganzied behavior and thoughts, believes she is on a show on showtime with a stage producer and that stage producer was giving her methadone- Pt very poor historian further information needed from collateral- Abilify 20mg doesn't seem to be making much of a dent- also we need to discover if underlying hiv how long and if there are any links with that and her mental state- generally we have very little information except for bizarre behavior and disorganization of thought. This behavior puts patient at risk due to jumping out of car and thoughts so disorganized not able to communicate or follow through on dc plan from [facility] COURSE: 04/07- given lidocaine patches and flexeril- will request hospitalist to come assess back pain- fu with collateral data tomorrow- 04/08 last evening called 911, saying staff had firearm, that staff was stealing $20,000,000. Grabbed trash bag of nurse stand, looking for 20million check. Patient remains confused and disorganized; she tells movie writer that she is on a TV show. When asked where she wants to go to when she leaves the hospital, she says she owns 4 houses which she bought this past week, with the help of her dental assistant whom is also a part of the TV show; movie writer asked how this was possible given the fact that she was on an inpatient unit however patient dismissed this inquiry. Patient also says she has a device under her skin that her family put their that lets people know how she is doing. She says she does not mind the device however it should be a legal. Patient says she thinks she is being discharged today. Shipping Agent explained this was not the case. About 5 minutes later she again said I am being discharged today; movie writer inquired however patient did not remember previous conversation. -Regarding medication she said she thinks Abilify is helpful, that perhaps it helps her to think more clearly since she has ADHD and is supposed to be on Vyvanse. She agrees to long-acting injectable 04/09 Later she reported that while in the shower she had a bloody clot fall from her vagina and said it was spotting from her . Patient did not respond to reality testing that her test is negative. UA ordered -proving difficult to get collateral find historical information 04/10 Patient more pleasant today and agreed to sign release of information. Also gave permission to call her uncle.. Dad Uche Harmon whom she says lives locally and gave movie writer a phone number. Remains internally preoccupied and with grandiose delusion that she is part of a television show called [employer]. (various delusional thoughts (; implanted device; part of a reality TV show called [employer] ). However today she did not mention delusions until they were asked about. Patient signed release of information and seems a little more congenial today. She agreed to increase in Abilify which she said was started at [facility]; jd capellanies other history of antipsychotic medication trials -reports history of liver cirrhosis due to alcoholism and asks to be restarted on lactulose; also asks to be restarted on gabapentin, baclofen (for muscle/back spasms; says Flexaril not effective) and Ativan (will not restart at this time). 04/11: Monitoring response to recent med changes. Continue current management and treatment plan. 04/12: Olanzapine 5 mg bid and prn Delusional, Fearful of being shot on the unit. L Lower Leg Wound-wound consult is ordered. HTN-?anxiety, psychosis-continue to monitor Formulation/clinical reasoning: Patient remains delusional and does not appear to be able to take care of herself in the community hence her quick return to the hospital. History of HIV; not clear on adherence with antiretrovirals and this could be a possible contribution to confusion. Will likely consult with ID. Plan: CV Q 15 minute checks Increase to Abilify 30 mg daily Increase to Clonidine 0.1 mg t.i.d., up from b.i.d. Continue Depakote Sprinkles 125 mg b.i.d. Continue Gabapentin 300 mg t.i.d. (pt said was taking 400mg tid) Continue Prazosin 2 mg q.h.s. Continue Rifaximin 550 mg b.i.d. Continue Biktarvy 1 mg daily Start lactulose which patient says she takes regularly for liver cirrhosis Start baclofen; will DC Flexeril since patient says ineffective; movie writer reviewed risks/side effects of baclofen Reports history of taking Vyvanse/Adderall Reason for continued inpatient stay Substantial Risk for: rapid decompensation and med/psych decompensation Time Spent With Patient Time: Total time managing care of this patient today ____ minutes.
[2024-04-12 21:36] VITALS: BP 148/86
[2024-04-12] MEDS: Prazosin HCL 1 MG CAPSULE 2 MG PO (21:36)
[2024-04-12 21:37] VITALS: BP 148/86
--- NOTE | 2024-04-12 21:59 | P.EN_ITS ---
Event Note Date of Service: 04/13/24 Event Note: Patient is a 44-year-old female admitted [facility] with hospitalist consult for assessment of possible antibiotic use for left lower leg wound. Patient reports initial injury occurred approximately 1 month ago when she cut her leg on a motorcycle bracket that was sitting in a box on the floor. Did not seek any medical treatment at that time but just ?kept on ongoing . Wound apparently scabbed over a few times but scab kept falling off. Used bacitracin a few times but mostly covered with a dry bandage. Wound does not appear grossly infected. No erythema, warmth, or purulent discharge, as pictured below. Pt has remained afebrile during her current stay. Given length of injury without any apparent infection, no indication for empiric antibiotic use at this time. Pt has already been seen by clinical nursing general car supervisor yard who cleaned and dressed wound. Per her management while awaiting wound care evaluation. Time Spent With Patient Time: Total time managing care of this patient today ____ minutes.
[2024-04-13] MEDS: Acetaminophen 325 MG TABLET 975 MG PO ×3 (03:17→16:01)
[2024-04-13] MEDS: hydrOXYzine HCL 25 MG TABLET PO ×2 (03:17→21:23)
[2024-04-13] MEDS: Baclofen 10 MG TABLET PO ×2 (03:26→15:07)
[2024-04-13 03:33] VITALS: TEMP 37.4
--- NOTE | 2024-04-13 03:56 | PC.NURSE ---
Patient c/o 10/10 L ankle pain. PRN medication was requested and administered. Baclofen GUTIERREZ, Hydroxyzine GUTIERREZ and Tylenol given. Patient given hot pack as requested. Will continue to monitor.
[2024-04-13] MEDS: Bictegrav/Emtricit/Tenofov Ala TABLET 1 TAB PO (09:31)
[2024-04-13] MEDS: Gabapentin 300 MG CAPSULE PO ×2 (09:33→21:25)
[2024-04-13] MEDS: Lactulose 20 GM/30 ML SOLUTION 10 GM PO (09:34)
[2024-04-13] MEDS: Nicotine 14 MG PATCH.TD24 TRANSDERMA (09:38)
--- NOTE | 2024-04-13 10:41 | P.PNPSI_ITS ---
Subjective Subjective Date of Service: 04/13/24 Reason For Visit: mental health crisis Interim History: Patient remains confused, withdrawn. Says she has pain in her leg and back. She is difficult to engage. Just says she is sad. Appears internally preoccupied. Seen by wound nurse and no evidence of infection or drainage from ankle wound. Eating and drinking well. Refusing meds other than baclofen. Denies SI. Later told nurse she is complaining of pain in her legs. Doesn't want to get out of bed. She told nurse she may have fallen out of bed last night but I don't remember. Medication Compliance: No Review of Systems Review of Systems Pt co pain and wanting methdone- Says she got it from agent producer but also report she got it from [facility] which we could fu on - does not appear in withdrawal Also reports she is despite negative test- Yes Unobtainable due to mental status Mental Status Exam Mental Status Exam Narrative: Alert, oriented to person, place, time, not so much to situation. Fears being shot on the unit today. Paranoid with persecutory delusions Affect and Mood are constricted, anxious, fearful. Insight and Judgment are poor. Patient Appearance: Unkempt Patient Orientation: Person, Place and Situation Level of Consciousness: Awake Patient Behavior: Guarded, Posturing, Suspicious, Wandering and Anxious Behavior Comments: odd posture, odd behavior Mood Description: Apprehensive Affect Description: Blunted Patient Cognition Impaired: No Ability to Follow Directions: Fair Speech Pattern: Mumbled Diagnostics Vital Signs (24Hr): Vital Signs - 24 hr 04/12/24 14:26 04/12/24 21:36 04/12/24 21:37 Temperature Blood Pressure 153/93 H 148/86 H 148/86 H 04/13/24 03:33 04/13/24 09:33 Temperature 99.3 F Blood Pressure 110/70 BMI result Body Mass Index 19.4 Medications Medications Current Medications Acetaminophen (Acetaminophen 325 Mg Tablet) 975 mg PO Q6H PRN PRN Reason: pain (pain scale 1-10) Last Admin: 04/13/24 09:47 Dose: 975 mg Al Hydroxide/Mg Hydroxide (Magnesium Hydrox/Alum Hydrox 30 Ml Oral.Susp) 30 ml PO Q6H PRN PRN Reason: Heartburn/Nausea Aripiprazole (Aripiprazole 30 Mg Tablet) 30 mg PO DAILY [facility] Last Admin: 04/13/24 09:31 Dose: 30 mg Baclofen (Baclofen 10 Mg Tablet) 10 mg PO TID PRN PRN Reason: back/muscle spasm Last Admin: 04/13/24 03:26 Dose: 10 mg Bictegravir/Emtricitabine/Tenofovir (Bictegrav/Emtricit/Tenofov Ala Tablet) 1 tab PO DAILY [facility] Last Admin: 04/13/24 09:31 Dose: 1 tab Clonidine HCl (Clonidine Hcl 0.1 Mg Tablet) 0.1 mg PO TID [facility]; Protocol Last Admin: 04/13/24 09:33 Dose: 0.1 mg Diclofenac Sodium (Diclofenac Sodium Delayed Rel 50 Mg Tablet.Dr) 50 mg PO BIDWM [facility] Last Admin: 04/13/24 09:32 Dose: 50 mg Divalproex Sodium (Divalproex Sodium Sprinkles 125 Mg Cap.DrRutSpr) 125 mg PO BIDWM@0800,1700 [facility] Last Admin: 04/13/24 09:39 Dose: Not Given Gabapentin (Gabapentin 300 Mg Capsule) 300 mg PO TID [facility] Last Admin: 04/13/24 09:33 Dose: 300 mg Hydroxyzine HCl (Hydroxyzine Hcl 25 Mg Tablet) 25 mg PO Q6H PRN PRN Reason: Anxiety Last Admin: 04/13/24 03:17 Dose: 25 mg Lactulose (Lactulose 20 Gm/30 Ml Solution) 10 gm PO DAILY [facility] Last Admin: 04/13/24 09:34 Dose: 10 gm Lidocaine (Lidocaine 4 % Patch Adh..Patch) 2 patch TRANSDERMA DAILY [facility]; Protocol Last Admin: 04/12/24 08:31 Dose: 2 patch Magnesium Hydroxide (Milk Of Magnesia 30 Ml Oral.Susp) 30 ml PO DAILY PRN PRN Reason: Constipation Nicotine (Nicotine 14 Mg Patch.Td24) 14 mg TRANSDERMA DAILY [facility] Last Admin: 04/13/24 09:38 Dose: 14 mg Nicotine Polacrilex (Nicotine Polacrilex 2 Mg Gum) 2 mg BUCCAL Q2H PRN PRN Reason: Nicotine Cravings Nicotine Polacrilex (Nicotine Polacrilex 2 Mg Gum) 4 mg BUCCAL Q2H PRN PRN Reason: Nicotine Cravings Last Admin: 04/08/24 05:05 Dose: 4 mg Olanzapine (Olanzapine 5 Mg Tablet) 5 mg PO Q4H PRN PRN Reason: psychosis,agitation Last Admin: 04/12/24 14:26 Dose: 5 mg Olanzapine (Olanzapine 5 Mg Tablet) 5 mg PO BID [facility] Last Admin: 04/12/24 21:37 Dose: 5 mg Prazosin HCl (Prazosin Hcl 1 Mg Capsule) 2 mg PO BEDTIME [facility]; Protocol Last Admin: 04/12/24 21:36 Dose: 2 mg Rifaximin (Rifaximin 550 Mg Tablet) 550 mg PO BID [facility] Last Admin: 04/13/24 09:31 Dose: 550 mg Trazodone HCl (Trazodone Hcl 50 Mg Tablet) 50 mg PO BEDTIME MRX1 PRN PRN Reason: Insomnia Allergies Allergies Allergy/AdvReac Type Severity Reaction Status Date / Time No Known Allergies Allergy Verified 04/05/24 18:41 Assessment & Plan Assessment & Plan (1) Schizophrenia, acute undifferentiated: Status: Acute Code(s): F20.3 - Undifferentiated schizophrenia (2) Back pain: Status: Acute Code(s): M54.9 - Dorsalgia, unspecified Assessment and Plan: requesting methadone- ? of hx of opiate do , agreed to give patient diclofenac- with meals- last opiate on lag screwer was 2022 for oxy - Pt reports moved from ? [place] 04/07- we need to call [facility] and see if she was on methadone what she was on and when last dose- Plan Very confused 44 yo with ? hx hiv/bacterial ecoli- with very bizarre and disorganzied behavior and thoughts, believes she is on a show on [employer] with a agent producer and that agent producer was giving her methadone- Pt very poor historian further information needed from collateral- Abilify 20mg doesn't seem to be making much of a dent- also we need to discover if underlying hiv how long and if there are any links with that and her mental state- generally we have very little information except for bizarre behavior and disorganization of thought. This behavior puts patient at risk due to jumping out of car and thoughts so disorganized not able to communicate or follow through on dc plan from [facility] COURSE: 04/07- given lidocaine patches and flexeril- will request hospitalist to come assess back pain- fu with collateral data tomorrow- 04/08 last evening called 911, saying staff had firearm, that staff was stealing $20,000,000. Grabbed trash bag of nurse stand, looking for 20million check. Patient remains confused and disorganized; she tells business writer that she is on a TV show. When asked where she wants to go to when she leaves the hospital, she says she owns 4 houses which she bought this past week, with the help of her physicians assistant whom is also a part of the TV show; business writer asked how this was possible given the fact that she was on an inpatient unit however patient dismissed this inquiry. Patient also says she has a device under her skin that her family put their that lets people know how she is doing. She says she does not mind the device however it should be a legal. Patient says she thinks she is being discharged today. Registry Rn explained this was not the case. About 5 minutes later she again said I am being discharged today; business writer inquired however patient did not remember previous conversation. -Regarding medication she said she thinks Abilify is helpful, that perhaps it helps her to think more clearly since she has ADHD and is supposed to be on Vyvanse. She agrees to long-acting injectable 04/09 Later she reported that while in the shower she had a bloody clot fall from her vagina and said it was spotting from her . Patient did not respond to reality testing that her test is negative. UA ordered -proving difficult to get collateral find historical information 04/10 Patient more pleasant today and agreed to sign release of information. Also gave permission to call her uncle.. Dad Uche Harmon whom she says lives locally and gave business writer a phone number. Remains internally preoccupied and with grandiose delusion that she is part of a television show called [employer]. (various delusional thoughts (; implanted device; part of a reality TV show called [employer] ). However today she did not mention delusions until they were asked about. Patient signed release of information and seems a little more congenial today. She agreed to increase in Abilify which she said was started at [facility]; denies other history of antipsychotic medication trials -reports history of liver cirrhosis due to alcoholism and asks to be restarted on lactulose; also asks to be restarted on gabapentin, baclofen (for muscle/back spasms; says Flexaril not effective) and Ativan (will not restart at this time). 04/11: Monitoring response to recent med changes. Continue current management and treatment plan. 04/12: Olanzapine 5 mg bid and prn Delusional, Fearful of being shot on the unit. L Lower Leg Wound-wound consult is ordered. HTN-?anxiety, psychosis-continue to monitor 04/13: patient refused medications today other than Baclofen. Complaining of generalized pain in legs and back. Encourage adherence and OOB. Formulation/clinical reasoning: Patient remains delusional and does not appear to be able to take care of herself in the community hence her quick return to the hospital. History of HIV; not clear on adherence with antiretrovirals and this could be a possible c ontribution to confusion. Will likely consult with ID. Plan: CV Q 15 minute checks Increase to Abilify 30 mg daily Increase to Clonidine 0.1 mg t.i.d., up from b.i.d. Continue Depakote Sprinkles 125 mg b.i.d. Continue Gabapentin 300 mg t.i.d. (pt said was taking 400mg tid) Continue Prazosin 2 mg q.h.s. Continue Rifaximin 550 mg b.i.d. Continue Biktarvy 1 mg daily Start lactulose which patient says she takes regularly for liver cirrhosis Start baclofen; will DC Flexeril since patient says ineffective; business writer reviewed risks/side effects of baclofen Reports history of taking Vyvanse/Adderall Reason for continued inpatient stay Substantial Risk for: inability to function, rapid decompensation and med/psych decompensation Time Spent With Patient Time: Total time managing care of this patient today ____ minutes.
--- NOTE | 2024-04-13 15:20 | PC.ADMIT ---
dressing dry and intact.
[2024-04-13 20:00] VITALS: BP 116/60; PULSE 111; RESP 16; TEMP 36.8; O2SAT 100
[2024-04-13] MEDS: Prazosin HCL 1 MG CAPSULE 2 MG PO (21:24)
[2024-04-13] MEDS: rifAXIMin 550 MG TABLET PO (21:24)
[2024-04-13] MEDS: cloNIDine HCL 0.1 MG TABLET PO (21:24)
[2024-04-13] MEDS: OLANZapine 5 MG TABLET PO (21:25)
[2024-04-14] MEDS: Ondansetron ODT 4 MG TAB.RAPDIS TRANSLINGU ×2 (00:29→16:32)
[2024-04-14] MEDS: Baclofen 10 MG TABLET PO ×2 (04:33→21:05)
[2024-04-14] MEDS: Acetaminophen 325 MG TABLET 975 MG PO ×2 (04:38→21:06)
[2024-04-14] MEDS: hydrOXYzine HCL 25 MG TABLET PO (04:38)
--- NOTE | 2024-04-14 06:05 | HO.PSYEVENT2 ---
Event Note Date of Service: 04/14/24 Psych On-Call Event Note: Pt c/o wound pain vomiting labs ordered ankle pain afebrile Time Spent With Patient Time: Total time managing care of this patient today ____ minutes.
--- NOTE | 2024-04-14 06:47 | PC.NURSE ---
Patient c/o pain and nausea. The nurse assigned to this patient had given medication for pain and vomiting. However patient has been unable to keep the medicines down with vomiting. Dr. Mendes notified via [place] [employer] at [id number]. The patient has pain to her right ankle (question of fracture) and left lower leg wound. Orders were received for Toradol IM and Compazine rectally, hospitalist consult, lab work also to be done. Patient informed of the plan. She is afebrile at 98.4 via skin scan.
[2024-04-14] MEDS: Prochlorperazine 25 MG SUPP.RECT PR (07:02)
[2024-04-14] MEDS: Ketorolac Tromethamine 15 MG/ML VIAL IM (07:03)
[2024-04-14 08:00] VITALS: BP 95/55; PULSE 117; RESP 18; TEMP 37; O2SAT 99
[2024-04-14 08:07] LABS: Hematocrit 27.5 % (37.0-47.0); Hemoglobin 8.7 g/dl (12.0-16.0); Mean Corpuscular HGB Conc 31.6 g/dl (31.0-35.0); Mean Corpuscular Volume 69.6 fL (80.0-98.0); Red Blood Count 3.95 X10*6/uL (4.20-5.50); Red Cell Distribution Width 24.1 % (11.0-16.0)
[2024-04-14 08:09] LABS: Platelet Count 77 X10*3/uL (160-400); WBC ABN SCTR FOR CBC 1; White Blood Count 9.2 X10*3/uL (4.8-10.8)
[2024-04-14] MEDS: Gabapentin 300 MG CAPSULE PO ×2 (08:11→20:50)
[2024-04-14] MEDS: Diclofenac Sodium Delayed Rel 50 MG TABLET.DR PO (08:11)
[2024-04-14] MEDS: rifAXIMin 550 MG TABLET PO ×2 (08:11→20:50)
[2024-04-14] MEDS: Bictegrav/Emtricit/Tenofov Ala TABLET 1 TAB PO (08:12)
[2024-04-14] MEDS: Lactulose 20 GM/30 ML SOLUTION 10 GM PO (08:12)
[2024-04-14] MEDS: ARIPiprazole 30 MG TABLET PO (08:12)
[2024-04-14] MEDS: OLANZapine 5 MG TABLET PO ×2 (08:12→20:50)
[2024-04-14 08:14] VITALS: BP 99/55
[2024-04-14] MEDS: Lidocaine 4 % Patch ADH..PATCH 2 PATCH TRANSDERMA (08:15)
[2024-04-14] MEDS: Nicotine 14 MG PATCH.TD24 TRANSDERMA (08:15)
[2024-04-14 08:22] LABS: Alanine Aminotransferase 20 U/L (0-31); Albumin Level 2.5 g/dL (3.5-5.0); Alkaline Phosphatase 51 U/L (39-117); Anion Gap 11 (12-20); Aspartate Amino Transferase 40 U/L (5-31); Bilirubin Total 1.4 mg/dL (0.0-1.0); Blood Urea Nitrogen 18 mg/dL (9-16); Calcium 8.2 mg/dL (8.4-10.2); Carbon Dioxide 18 mmol/L (22-29); Chloride 110 mmol/L (96-108); Creatinine Clr Calc Pharmacy 79.2; Estimated Glomerular Filt Rate > 60; Glucose Fasting 87 mg/dL (60-99); Potassium 4.3 mmol/L (3.3-5.1); Sodium 135 mmol/L (135-145); Total Protein 5.8 g/dL (6.5-8.0)
[2024-04-14 08:27] LABS: Amylase 24 U/L (28-100)
[2024-04-14 08:31] LABS: Band Neutrophils Percent 29 % (3-5); Lymphocytes Absolute Manual 0.3 X10*3/uL (1.2-4.9); Lymphocytes Percent Manual 3 % (20-40); Metamyelocytes Absolute 0.6 X10*3/uL; Metamyelocytes Percent 7 %; Monocytes Absolute Manual 0.4 X10*3/uL (0.1-1.2); Monocytes Percent Manual 4 % (2-11); Neutrophils Absolute Manual 7.9 X10*3/uL (2.0-8.3); Neutrophils Percent Manual 57 % (45-73)
[2024-04-14 08:36] LABS: Acanthocytes 3+ (>5) /OIF; Burr Cells 2+ (3-5) /OIF; Dohle Bodies PRESENT; Hypochromasia 2+ (15-30) /OIF; Microcytosis 2+ (15-30) /OIF; RBC Morphology NOTED; Schistocytes 1+ (0-2) /OIF; Target Cells 1+ (5-14) /OIF; Toxic Vacuolation PRESENT
[2024-04-14 08:37] LABS: Platelet Estimate DECREASED (NORMAL); Platelet Morphology Comment NORMAL
[2024-04-14] MEDS: Divalproex Sodium Sprinkles 125 MG CAP.DR.SPR PO (08:39)
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
--- NOTE | 2024-04-14 15:49 | PC.NURSE ---
Pt with unwitnessed fall at 1535 in bedroom (508-2). Pt stated her left leg gave out from under her and she fell onto her left side. Pt denies any head strike. Denies any new acute pain to left side of body. Dr. Hayes notified. New order for 5 minute safety checks & walker for ambulation. Vital signs stable. Staff assisted patient off of floor. Will continue to monitor.
[2024-04-14 15:51] VITALS: BP 132/68; PULSE 118; RESP 18; O2SAT 100
--- NOTE | 2024-04-14 18:01 | PM.EVENT ---
Event Note Date of Service: 04/14/24 Event Note: Patient is a 44-year-old female with a PMH significant for liver cirrhosis, HIV, unspecified anemia, and mood disorder admitted to [facility] with hospitalist consult for left lower leg and wound pain as well as abnormal blood work. Patient is a rather poor and imprecise historian. Complains of left lower leg pain after falling out of bed either last night or the night before. Patient apparently thinks medications are ?poison in her blood and attempted to counteract that process by rolling around in her bed but went too far and fell. Reports hitting left lower leg on either the floor or the chair. Also complains of having chlamydia that someone recently gave her. Complains of vaginal smell and discharge not alleviated by showering. Physical examination reveals left lower leg diffuse tenderness, swelling, and erythema as pictured below. Concerning for cellulitis secondary to left lower leg wound sustained over 1 month ago. This is a marked difference in appearance since previous examination of the area 2 days prior. Plan: Left lower extremity cellulitis Pt with erythema, warmth, and swelling likely secondary to chronic wound No sepsis: Tachycardia chronic, no tachypnea or fever Will treat with clindamycin 300 mg q.6 H x7 days Venous duplex ultrasound of left lower extremity negative for DVT If patient's leg does not show improvement on oral antibiotics within the next 2-3 days, will reassess for need for IV antibiotics Recent fall on the unit X-ray of left knee and left tibia/fibula pending Abnormal CBC Patient with microcytic anemia of 8.7/27.5, MCV 69.6 Abnormal peripheral smear Will check CBC, CRP, CD4 count, iron studies, and PT and INR ?Chlamydia Will test for gonorrhea, chlamydia, and syphilis via self swab Time Spent With Patient Time: Total time managing care of this patient today ____ minutes.
[2024-04-14] MEDS: Clindamycin HCL 300 MG CAPSULE PO ×2 (18:26→23:10)
--- NOTE | 2024-04-14 18:54 | PC.NURSE ---
Addendum entered by Bethany Ma RN 04/14/24 18:57: MD to order Orthopedic Consult. Non-weight bearing for now per MD. Original Note: Avulsion fracture medial cuboid noted on Left foot XRAY. Dr. Lim notified at 1855.
[2024-04-14 20:00] VITALS: BP 129/79; PULSE 116; TEMP 36.4; O2SAT 95
[2024-04-14 20:48] VITALS: BP 129/79
[2024-04-14] MEDS: Prazosin HCL 1 MG CAPSULE 2 MG PO (20:48)
[2024-04-14 20:52] VITALS: BP 129/74
[2024-04-14] MEDS: cloNIDine HCL 0.1 MG TABLET PO (20:52)
[2024-04-14] MEDS: traMADoL HCL 50 MG TABLET 25 MG PO (21:04)
[2024-04-15] MEDS: Acetaminophen 325 MG TABLET 975 MG PO (06:28)
[2024-04-15] MEDS: Clindamycin HCL 300 MG CAPSULE PO (06:29)
[2024-04-15] MEDS: traMADoL HCL 50 MG TABLET 25 MG PO (06:30)
[2024-04-15 08:10] VITALS: BP 120/57; PULSE 105; RESP 26; TEMP 39.2; O2SAT 99
--- NOTE | 2024-04-15 08:17 | PM.EVENT ---
Event Note Date of Service: 04/15/24 Event Note: 44 yo with admitted to psych-ortho consulted for left foot Left foot xray 04/14/24 IMPRESSION: 1. Avulsion fracture medial cuboid. 2. Mild tricompartmental degenerative changes in the knee with small joint effusion. Boot wbat-outpatient fu if symptoms persist or worsen Time Spent With Patient Time: Total time managing care of this patient today ____ minutes.
--- NOTE | 2024-04-15 08:38 | HO.PSYCHPN ---
Subjective Subjective Date of Service: 04/15/24 Reason For Visit: mental health crisis Interim History: Met with patient; discussed with team; reviewed chart Patient has remained delusional. Yesterday she was started on antibiotic for cellulitis. Today she spiked a fever Temperature 102.5, respiratory rate 26, heart rate 105?, Low platelets, elevated CRP Although patient has been delusional since admission, today it seems to have worsened and she is having visual hallucinations, thinking she is talking to her whom she says is in the room. Tried to discuss this with patient and regarding her infection however she moderate to herself only. Ordered labs; Placed consult and Contacted hospitalist Diagnostics Vital Signs (24Hr): Vital Signs - 24 hr 04/14/24 15:51 04/14/24 20:00 04/14/24 20:48 Temperature 97.5 F Pulse Rate 118 H 116 H Respiratory Rate 18 Blood Pressure 132/68 129/79 129/79 Pulse Oximetry 100 95 Oxygen Delivery Method Room Air Room Air 04/14/24 20:52 04/15/24 08:10 Temperature 102.5 F H Pulse Rate 105 H Respiratory Rate 26 H Blood Pressure 129/74 120/57 L Pulse Oximetry 99 Oxygen Delivery Method Room Air BMI result Body Mass Index 19.4 Labs 04/15/24 09:40 04/15/24 09:40 Labs: Laboratory Results - last 48 hr 04/14/24 07:52 WBC 9.2 RBC 3.95 L Hgb 8.7 L Hct 27.5 L MCV 69.6 L MCH 22.0 L MCHC 31.6 RDW 24.1 H Plt Count 77 L MPV Not Reportable Immature Gran % (Auto) Cancelled Neut % (Auto) Cancelled Lymph % (Auto) Cancelled [place] % (Auto) Cancelled Eos % (Auto) Cancelled Baso % (Auto) Cancelled Lymph # (Auto) Cancelled [place] # (Auto) Cancelled Eos # (Auto) Cancelled Baso # (Auto) Cancelled Abs Immat Gran (auto) Cancelled Absolute Neuts (auto) Cancelled Absolute Nucleated RBC 0.000 Nucleated RBC % (auto) 0.0 Neutrophils % (Manual) 57 Band Neutrophils % 29 H Lymphocytes % (Manual) 3 L Monocytes % (Manual) 4 Metamyelocytes % 7 Abs Neuts (Manual) 7.9 Lymphocytes # (Manual) 0.3 L Monocytes # (Manual) 0.4 Metamyelocytes # 0.6 Toxic Vacuolation PRESENT Dohle Bodies PRESENT Platelet Estimate DECREASED Plt Morphology Comment NORMAL RBC Morphology NOTED Hypochromasia 2+ (15-30) Microcytosis 2+ (15-30) Target Cells 1+ (5-14) Watson Cells 2+ (3-5) Acanthocytes (Spur) 3+ (>5) Schistocytes 1+ (0-2) Sodium 135 Potassium 4.3 Chloride 110 H Carbon Dioxide 18 L Anion Gap 11 L BUN 18 H Creatinine 0.77 Estim Creat Clear Calc 79.2 Estimated GFR > 60 Fasting Glucose 87 Calcium 8.2 L Total Bilirubin 1.4 H AST 40 H ALT 20 Alkaline Phosphatase 51 Total Protein 5.8 L Albumin 2.5 L Amylase 24 L Imaging Radiology Impressions: ITS Impressions Foot X-Ray 04/14/24 13:30 IMPRESSION: 1. Avulsion fracture medial cuboid. 2. Mild tricompartmental degenerative changes in the knee with small joint effusion. Electronically signed by: Joseph Morelos MD 04/14/2024 06:46 PM EST RP Knee X-Ray 04/14/24 13:30 IMPRESSION: 1. Avulsion fracture medial cuboid. 2. Mild tricompartmental degenerative changes in the knee with small joint effusion. Electronically signed by: Joseph Morelos MD 04/14/2024 06:46 PM EST RP Tibia/Fibula X-Ray 04/14/24 13:30 IMPRESSION: 1. Avulsion fracture medial cuboid. 2. Mild tricompartmental degenerative changes in the knee with small joint effusion. Electronically signed by: Joseph Morelos MD 04/14/2024 06:46 PM EST RP Venous Duplex 04/14/24 13:35 IMPRESSION: No evidence of deep venous thrombosis involving the left lower extremity. Electronically signed by: Freddie Chavez MD 04/14/2024 04:44 PM EST RP Medications Medications Current Medications Acetaminophen (Acetaminophen 325 Mg Tablet) 975 mg PO Q6H PRN PRN Reason: pain (pain scale 1-10) Last Admin: 04/15/24 06:28 Dose: 975 mg Al Hydroxide/Mg Hydroxide (Magnesium Hydrox/Alum Hydrox 30 Ml Oral.Susp) 30 ml PO Q6H PRN PRN Reason: Heartburn/Nausea Aripiprazole (Aripiprazole 30 Mg Tablet) 30 mg PO DAILY [facility] Last Admin: 04/14/24 08:12 Dose: 30 mg Baclofen (Baclofen 10 Mg Tablet) 10 mg PO TID PRN PRN Reason: back/muscle spasm Last Admin: 04/14/24 21:05 Dose: 10 mg Bictegravir/Emtricitabine/Tenofovir (Bictegrav/Emtricit/Tenofov Ala Tablet) 1 tab PO DAILY [facility] Last Admin: 04/14/24 08:12 Dose: 1 tab Clindamycin HCl (Clindamycin Hcl 300 Mg Capsule) 300 mg PO Q6H [facility] Stop: 04/21/24 17:59 Last Admin: 04/15/24 06:29 Dose: 300 mg Clonidine HCl (Clonidine Hcl 0.1 Mg Tablet) 0.1 mg PO TID [facility]; Protocol Last Admin: 04/14/24 20:52 Dose: 0.1 mg Diclofenac Sodium (Diclofenac Sodium Delayed Rel 50 Mg Tablet.) 50 mg PO BIDWM [facility] Last Admin: 04/14/24 16:30 Dose: Not Given Divalproex Sodium (Divalproex Sodium Sprinkles 125 Mg Cap.Spr) 125 mg PO BIDWM@0800,1700 [facility] Last Admin: 04/14/24 16:32 Dose: Not Given Gabapentin (Gabapentin 300 Mg Capsule) 300 mg PO TID [facility] Last Admin: 04/14/24 20:50 Dose: 300 mg Hydroxyzine HCl (Hydroxyzine Hcl 25 Mg Tablet) 25 mg PO Q6H PRN PRN Reason: Anxiety Last Admin: 04/14/24 04:38 Dose: 25 mg Lactulose (Lactulose 20 Gm/30 Ml Solution) 10 gm PO DAILY [facility] Last Admin: 04/14/24 08:12 Dose: 10 gm Lidocaine (Lidocaine 4 % Patch Adh..Patch) 2 patch TRANSDERMA DAILY [facility]; Protocol Last Admin: 04/14/24 08:15 Dose: 2 patch Magnesium Hydroxide (Milk Of Magnesia 30 Ml Oral.Susp) 30 ml PO DAILY PRN PRN Reason: Constipation Nicotine (Nicotine 14 Mg Patch.Td24) 14 mg TRANSDERMA DAILY [facility] Last Admin: 04/14/24 08:15 Dose: 14 mg Nicotine Polacrilex (Nicotine Polacrilex 2 Mg Gum) 2 mg BUCCAL Q2H PRN PRN Reason: Nicotine Cravings Nicotine Polacrilex (Nicotine Polacrilex 2 Mg Gum) 4 mg BUCCAL Q2H PRN PRN Reason: Nicotine Cravings Last Admin: 04/08/24 05:05 Dose: 4 mg Olanzapine (Olanzapine 5 Mg Tablet) 5 mg PO Q4H PRN PRN Reason: psychosis,agitation Last Admin: 04/12/24 14:26 Dose: 5 mg Olanzapine (Olanzapine 5 Mg Tablet) 5 mg PO BID [facility] Last Admin: 04/14/24 20:50 Dose: 5 mg Ondansetron HCl (Ondansetron Odt 4 Mg Tab.Rapdis) 4 mg TRANSLINGU Q6H PRN PRN Reason: Nausea and Vomiting Last Admin: 04/14/24 16:32 Dose: 4 mg Prazosin HCl (Prazosin Hcl 1 Mg Capsule) 2 mg PO BEDTIME [facility]; Protocol Last Admin: 04/14/24 20:48 Dose: 2 mg Prochlorperazine (Prochlorperazine 25 Mg Supp.Rect) 25 mg CA Q12H PRN PRN Reason: Vomiting Last Admin: 04/14/24 07:02 Dose: 25 mg Rifaximin (Rifaximin 550 Mg Tablet) 550 mg PO BID [facility] Last Admin: 04/14/24 20:50 Dose: 550 mg Tramadol HCl (Tramadol Hcl 50 Mg Tablet) 25 mg PO Q6H PRN PRN Reason: Pain, Severe (Pain Scale 7-10) Last Admin: 04/15/24 06:30 Dose: 25 mg Trazodone HCl (Trazodone Hcl 50 Mg Tablet) 50 mg PO BEDTIME MRX1 PRN PRN Reason: Insomnia Allergies Allergies Allergy/AdvReac Type Severity Reaction Status Date / Time No Known Allergies Allergy Verified 04/05/24 18:41 Assessment & Plan Assessment & Plan (1) Schizophrenia, acute undifferentiated: Status: Acute Code(s): F20.3 - Undifferentiated schizophrenia (2) Back pain: Status: Acute Code(s): M54.9 - Dorsalgia, unspecified Assessment and Plan: requesting methadone- ? of hx of opiate do , agreed to give patient diclofenac- with meals- last opiate on [facility] was 2022 for oxy - Pt reports moved from [facility] 04/07- we need to call [facility] and see if she was on methadone what she was on and when last dose- Plan Very confused 44 yo with ? hx hiv/bacterial ecoli- with very bizarre and disorganzied behavior and thoughts, believes she is on a show on [employer] with a print producer and that print producer was giving her methadone- Pt very poor historian further information needed from collateral- Abilify 20mg doesn't seem to be making much of a dent- also we need to discover if underlying hiv how long and if there are any links with that and her mental state- generally we have very little information except for bizarre behavior and disorganization of thought. This behavior puts patient at risk due to jumping out of car and thoughts so disorganized not able to communicate or follow through on dc plan from [facility] COURSE: 04/07- given lidocaine patches and flexeril- will request hospitalist to come assess back pain- fu with collateral data tomorrow- 04/08 last evening called 911, saying staff had firearm, that staff was stealing $[phone]. Grabbed trash bag of nurse stand, looking for 20million check. Patient remains confused and disorganized; she tells writer editor that she is on a TV show. When asked where she wants to go to when she leaves the hospital, she says she owns 4 houses which she bought this past week, with the help of her resident care assistant whom is also a part of the TV show; writer editor asked how this was possible given the fact that she was on an inpatient unit however patient dismissed this inquiry. Patient also says she has a device under her skin that her family put their that lets people know how she is doing. She says she does not mind the device however it should be a legal. Patient says she thinks she is being discharged today. Decorative Engraver Apprentice explained this was not the case. About 5 minutes later she again said I am being discharged today; writer editor inquired however patient did not remember previous conversation. -Regarding medication she said she thinks Abilify is helpful, that perhaps it helps her to think more clearly since she has ADHD and is supposed to be on Vyvanse. She agrees to long-acting injectable 04/09 Later she reported that while in the shower she had a bloody clot fall from her vagina and said it was spotting from her . Patient did not respond to reality testing that her test is negative. UA ordered -proving difficult to get collateral find historical information 04/10 Patient more pleasant today and agreed to sign release of information. Also gave permission to call her uncle.. Dad Uche Harmon whom she says lives locally and gave writer editor a phone number. Remains internally preoccupied and with grandiose delusion that she is part of a television show called [facility]. (various delusional thoughts (; implanted device; part of a reality TV show called [employer] ). However today she did not mention delusions until they were asked about. Patient signed release of information and seems a little more congenial today. She agreed to increase in Abilify which she said was started at [facility]; denies other history of antipsychotic medication trials -reports history of liver cirrhosis due to alcoholism and asks to be restarted on lactulose; also asks to be restarted on gabapentin, baclofen (for muscle/back spasms; says Flexaril not effective) and Ativan (will not restart at this time). 04/11: Monitoring response to recent med changes. Continue current management and treatment plan. 04/12: Olanzapine 5 mg bid and prn Delusional, Fearful of being shot on the unit. L Lower Leg Wound-wound consult is ordered. HTN-?anxiety, psychosis-continue to monitor 04/13: patient refused medications today other than Baclofen. Complaining of generalized pain in legs and back. Encourage adherence and OOB. 04/14: Will check Xrays of LT LE. Doppler LT LE. Reconsulted medicine. Tramadol for pain. Formulation/clinical reasoning: Patient remains delusional and does not appear to be able to take care of herself in the community hence her quick return to the hospital. History of HIV; not clear on adherence with antiretrovirals and this could be a possible contribution to confusion. Will likely consult with ID. Plan: CV Q 15 minute checks Increase to Abilify 30 mg daily Increase to Clonidine 0.1 mg t.i.d., up from b.i.d. Continue Depakote Sprinkles 125 mg b.i.d. Continue Gabapentin 300 mg t.i.d. (pt said was taking 400mg tid) Continue Prazosin 2 mg q.h.s. Continue Rifaximin 550 mg b.i.d. Continue Biktarvy 1 mg daily Start lactulose which patient says she takes regularly for liver cirrhosis Start baclofen; will DC Flexeril since patient says ineffective; writer editor reviewed risks/side effects of baclofen Reports history of taking Vyvanse/Adderall Time Spent With Patient Time: Total time managing care of this patient today ____ minutes.
[2024-04-15 09:57] LABS: Hematocrit 24.7 % (37.0-47.0); Hemoglobin 7.9 g/dl (12.0-16.0); Mean Corpuscular Hemoglobin 21.8 pg (27.0-33.0); Mean Corpuscular Volume 68.2 fL (80.0-98.0); Red Blood Count 3.62 X10*6/uL (4.20-5.50); Red Cell Distribution Width 24.2 % (11.0-16.0)
[2024-04-15 09:58] LABS: Platelet Count 80 X10*3/uL (160-400); WBC ABN SCTR FOR CBC 1; White Blood Count 6.9 X10*3/uL (4.8-10.8)
[2024-04-15] MEDS: Ketorolac Tromethamine 15 MG/ML VIAL IM (09:58)
[2024-04-15 10:02] LABS: INTERNATIONAL NORM RATIO 1.7 (0.9-1.1); Prothrombin Time 19.8 SEC (10.9-12.4)
[2024-04-15 10:12] LABS: Ammonia 50 umol/L (13-55)
[2024-04-15 10:20] LABS: C Reactive Protein 13.13 mg/dL (< or = 0.50); Iron 13 mcg/dL (30-160); Percent Iron Saturation 5 % (15-50); Total Iron Binding Capacity 276 mcg/dL (228-428); Unsaturated Iron Binding 263 ug/dL
[2024-04-15 10:25] LABS: Alanine Aminotransferase 17 U/L (0-31); Albumin Level 2.6 g/dL (3.5-5.0); Alkaline Phosphatase 69 U/L (39-117); Anion Gap 8 (12-20); Aspartate Amino Transferase 34 U/L (5-31); Bilirubin Total 1.2 mg/dL (0.0-1.0); Blood Urea Nitrogen 16 mg/dL (9-16); Calcium 8.2 mg/dL (8.4-10.2); Carbon Dioxide 24 mmol/L (22-29); Chloride 110 mmol/L (96-108); Creatinine Clr Calc Pharmacy 83.6; Estimated Glomerular Filt Rate > 60; Glucose Random 86 mg/dL (60-115); Lactate Dehydrogenase 154 U/L (122-220); Potassium 3.7 mmol/L (3.3-5.1); Sodium 138 mmol/L (135-145)
[2024-04-15 10:41] LABS: Syphilis Screen Nonreactive (Nonreactive)
[2024-04-15 10:59] LABS: Atypical Lymph Absolute Manual 0.2 x10*3/uL; Atypical Lymphs Percent Manual 3 % (0-6); Band Neutrophils Percent 4 % (3-5); Eosinophils Absolute Manual 0.1 X10*3/uL (0.0-0.4); Eosinophils Percent Manual 1 % (0-4); Lymphocytes Absolute Manual 0.3 X10*3/uL (1.2-4.9); Lymphocytes Percent Manual 4 % (20-40); Metamyelocytes Absolute 0.1 X10*3/uL; Metamyelocytes Percent 1 %; Monocytes Absolute Manual 0.3 X10*3/uL (0.1-1.2); Monocytes Percent Manual 5 % (2-11); Neutrophils Absolute Manual 5.9 X10*3/uL (2.0-8.3); Neutrophils Percent Manual 82 % (45-73)
[2024-04-15 11:00] LABS: RBC Morphology NOTED
[2024-04-15 11:01] LABS: Microcytosis 1+ (5-14) /OIF
[2024-04-15 11:02] LABS: Burr Cells 2+ (3-5) /OIF; Hypochromasia 2+ (15-30) /OIF
[2024-04-15 11:03] LABS: Schistocytes 1+ (0-2) /OIF
[2024-04-15 11:04] LABS: Dohle Bodies PRESENT; Toxic Granulation PRESENT
[2024-04-15 11:05] LABS: Platelet Estimate DECREASED (NORMAL); Platelet Morphology Comment NORMAL
[2024-04-15 12:05] VITALS: BP 122/70; PULSE 112; RESP 24; TEMP 37.6
--- NOTE | 2024-04-15 12:11 | P.DS_ITS ---
DS: Providers Provider Date of Service: 04/15/24 Date of admission: 04/05/24 23:15 Date of discharge: 04/15/24 Primary care physician: Unknown Physician Consults: 04/06/24 02:12 Consult to Hospitalist Routine Comment: Consulting Provider: [facility] Reason For Exam: OSH admission 04/07/24 21:41 Consult to Hospitalist Routine Comment: [facility] Reason For Exam: patient complaining of back pain 04/12/24 12:04 Consult to Wound Care Routine Reason for consultation: Left lower leg 04/12/24 16:47 Consult to Hospitalist Routine Comment: Consulting Provider: [facility] Reason For Exam: L Leg wound, wound consult ordered, ?antibiotic rx 04/14/24 06:03 Consult to Hospitalist Routine Comment: Consulting Provider: [facility] Reason For Exam: c/o severe wound pain LLE VOMITING 04/14/24 18:05 Consult to Hematology / Oncology Routine Consulting Provider: [facility] [place] [facility] Oncology/Hematology Reason for consultation: Unspecified anemia, abnormal bloodwork/smear 04/14/24 19:07 Consult to Orthopedics Routine Consulting Provider: [facility] [place] [facility] Orthopedic Surgeons Reason for consultation: Avulsion fracture left medial cuboid Has provider been notified: No 04/15/24 08:30 Consult to Hospitalist Routine Comment: Consulting Provider: [facility] [place] Hospitalists Reason For Exam: Sepsis critiera-LLL cellulitis T102.5, HR105, RR24 DS: Diagnosis Discharge Diagnosis (1) Schizophrenia, acute undifferentiated: Status: Acute (2) Back pain: Status: Acute DS: Medications Discharge Medications Home Medications: Home Medications ?Medication ?Instructions ?Recorded ?Confirmed bictegravir 50 mg-emtricitabine 1 tab PO DAILY 04/05/24 04/05/24 200 mg-tenofovir alafenam 25 mg tablet divalproex 125 mg tablet,delayed 125 mg PO BIDWM@0800,1700 Mood 04/05/24 04/05/24 release gabapentin 300 mg capsule 300 mg PO TID 04/05/24 04/05/24 prazosin 2 mg capsule 2 mg PO BEDTIME 04/05/24 04/05/24 rifaximin 550 mg tablet 550 mg PO Q12H 04/05/24 04/05/24 Previous Rx's ?Medication ?Instructions ?Recorded acetaminophen 325 mg tablet 975 mg (3 x 325 mg) PO Q6H PRN 04/15/24 pain (pain scale 1-10) #0 tabs aripiprazole 30 mg tablet (Abilify) 30 mg PO DAILY #0 tabs 04/15/24 baclofen 10 mg tablet 10 mg PO TID PRN back/muscle spasm 04/15/24 #0 tabs clindamycin HCl 300 mg capsule 300 mg PO Q6H #0 caps 04/15/24 clonidine HCl 0.1 mg tablet 0.1 mg PO TID #0 tabs 04/15/24 diclofenac sodium 50 mg 50 mg PO BIDWM #0 tabs 04/15/24 tablet,delayed release lactulose 20 gram/30 mL oral 10 g (15 mL) PO DAILY #0 mL 04/15/24 solution lidocaine 4 % topical patch 2 patch transdermal DAILY #0 ea 04/15/24 (Lidocaine Pain Relief) nicotine (polacrilex) 2 mg gum 4 mg buccal Q2H PRN Nicotine 04/15/24 Cravings #0 ea nicotine 14 mg/24 hr daily 14 mg transdermal DAILY #0 ea 04/15/24 transdermal patch olanzapine 5 mg tablet 5 mg PO BID #0 tabs 04/15/24 olanzapine 5 mg tablet 5 mg PO Q4H PRN 04/15/24 psychosis,agitation #0 tabs ondansetron 4 mg disintegrating 4 mg translingual Q6H PRN Nausea 04/15/24 tablet And Vomiting #0 tabs prochlorperazine 25 mg rectal 25 mg AR Q12H PRN Vomiting #0 ea 04/15/24 suppository tramadol 50 mg tablet 25 mg (1/2 x 50 mg) PO Q6H PRN 04/15/24 Pain, Severe (Pain Scale 7-10) #0 tabs Data Data Completed and Pending Completed studies during hospitalization [Text1]: 04/14/24 04/15/24 04/15/24 07:52 09:40 09:40 WBC 9.2 Cancelled 6.9 RBC 3.95 L Cancelled Hgb 8.7 L Hct 27.5 L MCV 69.6 L MCH 22.0 L MCHC 31.6 RDW 24.1 H Plt Count 77 L MPV Not Reportable Immature Gran % (Auto) Cancelled Neut % (Auto) Cancelled Lymph % (Auto) Cancelled Nicholas % (Auto) Cancelled Eos % (Auto) Cancelled Baso % (Auto) Cancelled Lymph # (Auto) Cancelled Nicholas # (Auto) Cancelled Eos # (Auto) Cancelled Baso # (Auto) Cancelled Abs Immat Gran (auto) Cancelled Absolute Neuts (auto) Cancelled Absolute Nucleated RBC 0.000 Nucleated RBC % (auto) 0.0 Neutrophils % (Manual) 57 Band Neutrophils % 29 H Lymphocytes % (Manual) 3 L Atypical Lymphs % (Man) Monocytes % (Manual) 4 Eosinophils % (Manual) Metamyelocytes % 7 Abs Neuts (Manual) 7.9 Lymphocytes # (Manual) 0.3 L Atyp Lymphs # (Manual) Monocytes # (Manual) 0.4 Eosinophils # (Manual) Metamyelocytes # 0.6 Toxic Granulation Toxic Vacuolation PRESENT Dohle Bodies PRESENT Platelet Estimate DECREASED Plt Morphology Comment NORMAL RBC Morphology NOTED Hypochromasia 2+ (15-30) Microcytosis 2+ (15-30) Target Cells 1+ (5-14) Watson Cells 2+ (3-5) Acanthocytes (Spur) 3+ (>5) Schistocytes 1+ (0-2) PT INR Sodium 135 Potassium 4.3 Chloride 110 H Carbon Dioxide 18 L Anion Gap 11 L BUN 18 H Creatinine 0.77 Estim Creat Clear Calc 79.2 Estimated GFR > 60 Random Glucose Fasting Glucose 87 Calcium 8.2 L Iron TIBC % Saturation Unsat Iron Binding Total Bilirubin 1.4 H AST 40 H ALT 20 Alkaline Phosphatase 51 Ammonia Lactate Dehydrogenase C-Reactive Protein Total Protein 5.8 L Albumin 2.5 L Amylase 24 L Lymphocyte Subset Cmmnt Total Lymphocytes % CD3 Cells Absolute CD3 Count % CD4 Cells Absolute CD4 Count CD4/CD8 Ratio % CD8 Cells Absolute CD8 Count T.pallidum Ab (EIA) C. pneumoniae IgG Ab C. pneumoniae IgA Ab C. pneumoniae IgM Ab C. pneumoniae Ab Interp C. trachomatis IgG Ab C. trachomatis IgA Ab C. trachomatis IgM Ab C.trachomatis Ab Interp C. psittaci IgG Ab C. psittaci IgA Ab C. psittaci IgM Ab C. psittaci Ab Interp 04/15/24 04/15/24 04/15/24 09:40 09:40 09:40 WBC RBC 3.62 L Hgb Cancelled 7.9 L Hct Cancelled 24.7 L MCV Cancelled MCH MCHC RDW Plt Count MPV Immature Gran % (Auto) Neut % (Auto) Lymph % (Auto) Nicholas % (Auto) Eos % (Auto) Baso % (Auto) Lymph # (Auto) Nicholas # (Auto) Eos # (Auto) Baso # (Auto) Abs Immat Gran (auto) Absolute Neuts (auto) Absolute Nucleated RBC Nucleated RBC % (auto) Neutrophils % (Manual) Band Neutrophils % Lymphocytes % (Manual) Atypical Lymphs % (Man) Monocytes % (Manual) Eosinophils % (Manual) Metamyelocytes % Abs Neuts (Manual) Lymphocytes # (Manual) Atyp Lymphs # (Manual) Monocytes # (Manual) Eosinophils # (Manual) Metamyelocytes # Toxic Granulation Toxic Vacuolation Dohle Bodies Platelet Estimate Plt Morphology Comment RBC Morphology Hypochromasia Microcytosis Target Cells Watson Cells Acanthocytes (Spur) Schistocytes PT INR Sodium Potassium Chloride Carbon Dioxide Anion Gap BUN Creatinine Estim Creat Clear Calc Estimated GFR Random Glucose Fasting Glucose Calcium Iron TIBC % Saturation Unsat Iron Binding Total Bilirubin AST ALT Alkaline Phosphatase Ammonia Lactate Dehydrogenase C-Reactive Protein Total Protein Albumin Amylase Lymphocyte Subset Cmmnt Total Lymphocytes % CD3 Cells Absolute CD3 Count % CD4 Cells Absolute CD4 Count CD4/CD8 Ratio % CD8 Cells Absolute CD8 Count T.pallidum Ab (EIA) C. pneumoniae IgG Ab C. pneumoniae IgA Ab C. pneumoniae IgM Ab C. pneumoniae Ab Interp C. trachomatis IgG Ab C. trachomatis IgA Ab C. trachomatis IgM Ab C.trachomatis Ab Interp C. psittaci IgG Ab C. psittaci IgA Ab C. psittaci IgM Ab C. psittaci Ab Interp 04/15/24 04/15/24 04/15/24 09:40 09:40 09:40 WBC RBC Hgb Hct MCV 68.2 L MCH Cancelled 21.8 L MCHC Cancelled 32.0 RDW Cancelled Plt Count MPV Immature Gran % (Auto) Neut % (Auto) Lymph % (Auto) Nicholas % (Auto) Eos % (Auto) Baso % (Auto) Lymph # (Auto) Nicholas # (Auto) Eos # (Auto) Baso # (Auto) Abs Immat Gran (auto) Absolute Neuts (auto) Absolute Nucleated RBC Nucleated RBC % (auto) Neutrophils % (Manual) Band Neutrophils % Lymphocytes % (Manual) Atypical Lymphs % (Man) Monocytes % (Manual) Eosinophils % (Manual) Metamyelocytes % Abs Neuts (Manual) Lymphocytes # (Manual) Atyp Lymphs # (Manual) Monocytes # (Manual) Eosinophils # (Manual) Metamyelocytes # Toxic Granulation Toxic Vacuolation Dohle Bodies Platelet Estimate Plt Morphology Comment RBC Morphology Hypochromasia Microcytosis Target Cells [place] Cells Acanthocytes (Spur) Schistocytes PT INR Sodium Potassium Chloride Carbon Dioxide Anion Gap BUN Creatinine Estim Creat Clear Calc Estimated GFR Random Glucose Fasting Glucose Calcium Iron TIBC % Saturation Unsat Iron Binding Total Bilirubin AST ALT Alkaline Phosphatase Ammonia Lactate Dehydrogenase C-Reactive Protein Total Protein Albumin Amylase Lymphocyte Subset Cmmnt Total Lymphocytes % CD3 Cells Absolute CD3 Count % CD4 Cells Absolute CD4 Count CD4/CD8 Ratio % CD8 Cells Absolute CD8 Count T.pallidum Ab (EIA) C. pneumoniae IgG Ab C. pneumoniae IgA Ab C. pneumoniae IgM Ab C. pneumoniae Ab Interp C. trachomatis IgG Ab C. trachomatis IgA Ab C. trachomatis IgM Ab C.trachomatis Ab Interp C. psittaci IgG Ab C. psittaci IgA Ab C. psittaci IgM Ab C. psittaci Ab Interp 04/15/24 04/15/24 04/15/24 09:40 09:40 09:40 WBC RBC Hgb Hct MCV MCH MCHC RDW 24.2 H Plt Count Cancelled 80 L MPV Cancelled Not Reportable Immature Gran % (Auto) Cancelled Neut % (Auto) Cancelled Lymph % (Auto) Cancelled Nicholas % (Auto) Cancelled Eos % (Auto) Cancelled Baso % (Auto) Cancelled Lymph # (Auto) Cancelled Nicholas # (Auto) Cancelled Eos # (Auto) Cancelled Baso # (Auto) Cancelled Abs Immat Gran (auto) Cancelled Absolute Neuts (auto) Cancelled Absolute Nucleated RBC Cancelled Nucleated RBC % (auto) Neutrophils % (Manual) Band Neutrophils % Lymphocytes % (Manual) Atypical Lymphs % (Man) Monocytes % (Manual) Eosinophils % (Manual) Metamyelocytes % Abs Neuts (Manual) Lymphocytes # (Manual) Atyp Lymphs # (Manual) Monocytes # (Manual) Eosinophils # (Manual) Metamyelocytes # Toxic Granulation Toxic Vacuolation Dohle Bodies Platelet Estimate Plt Morphology Comment RBC Morphology Hypochromasia Microcytosis Target Cells Watson Cells Acanthocytes (Spur) Schistocytes PT INR Sodium Potassium Chloride Carbon Dioxide Anion Gap BUN Creatinine Estim Creat Clear Calc Estimated GFR Random Glucose Fasting Glucose Calcium Iron TIBC % Saturation Unsat Iron Binding Total Bilirubin AST ALT Alkaline Phosphatase Ammonia Lactate Dehydrogenase C-Reactive Protein Total Protein Albumin Amylase Lymphocyte Subset Cmmnt Total Lymphocytes % CD3 Cells Absolute CD3 Count % CD4 Cells Absolute CD4 Count CD4/CD8 Ratio % CD8 Cells Absolute CD8 Count T.pallidum Ab (EIA) C. pneumoniae IgG Ab C. pneumoniae IgA Ab C. pneumoniae IgM Ab C. pneumoniae Ab Interp C. trachomatis IgG Ab C. trachomatis IgA Ab C. trachomatis IgM Ab C.trachomatis Ab Interp C. psittaci IgG Ab C. psittaci IgA Ab C. psittaci IgM Ab C. psittaci Ab Interp 04/15/24 04/15/24 09:40 09:40 WBC RBC Hgb Hct MCV MCH MCHC RDW Plt Count MPV Immature Gran % (Auto) Neut % (Auto) Lymph % (Auto) Nicholas % (Auto) Eos % (Auto) Baso % (Auto) Lymph # (Auto) Nicholas # (Auto) Eos # (Auto) Baso # (Auto) Abs Immat Gran (auto) Absolute Neuts (auto) Absolute Nucleated RBC 0.000 Nucleated RBC % (auto) Cancelled 0.0 Neutrophils % (Manual) 82 H Band Neutrophils % 4 Lymphocytes % (Manual) 4 L Atypical Lymphs % (Man) 3 Monocytes % (Manual) 5 Eosinophils % (Manual) 1 Metamyelocytes % 1 Abs Neuts (Manual) 5.9 Lymphocytes # (Manual) 0.3 L Atyp Lymphs # (Manual) 0.2 Monocytes # (Manual) 0.3 Eosinophils # (Manual) 0.1 Metamyelocytes # 0.1 Toxic Granulation PRESENT Toxic Vacuolation Dohle Bodies PRESENT Platelet Estimate DECREASED Plt Morphology Comment NORMAL RBC Morphology NOTED Hypochromasia 2+ (15-30) Microcytosis 1+ (5-14) Target Cells [place] Cells 2+ (3-5) Acanthocytes (Spur) Schistocytes 1+ (0-2) PT 19.8 H INR 1.7 H Sodium 138 Potassium 3.7 Chloride 110 H Carbon Dioxide 24 Anion Gap 8 L BUN 16 Creatinine 0.73 Estim Creat Clear Calc 83.6 Estimated GFR > 60 Random Glucose 86 Fasting Glucose Calcium 8.2 L Iron 13 L TIBC 276 % Saturation 5 L Unsat Iron Binding 263 Total Bilirubin 1.2 H AST 34 H ALT 17 Alkaline Phosphatase 69 Ammonia 50 Lactate Dehydrogenase 154 C-Reactive Protein 13.13 H Total Protein 6.0 L Albumin 2.6 L Amylase Lymphocyte Subset Cmmnt Pending Total Lymphocytes Pending % CD3 Cells Pending Absolute CD3 Count Pending % CD4 Cells Pending Absolute CD4 Count Pending CD4/CD8 Ratio Pending % CD8 Cells Pending Absolute CD8 Count Pending T.pallidum Ab (EIA) Nonreactive C. pneumoniae IgG Ab Pending C. pneumoniae IgA Ab Pending C. pneumoniae IgM Ab Pending C. pneumoniae Ab Interp Pending C. trachomatis IgG Ab Pending C. trachomatis IgA Ab Pending C. trachomatis IgM Ab Pending C.trachomatis Ab Interp Pending C. psittaci IgG Ab Pending C. psittaci IgA Ab Pending C. psittaci IgM Ab Pending C. psittaci Ab Interp Pending 04/15/24 09:40 Blood - Venous Blood Culture - Pending 04/15/24 08:31 Blood - Venous Blood Culture - Pending Imaging Diagnostic Imaging Impressions Foot X-Ray 04/14/24 13:30 IMPRESSION: 1. Avulsion fracture medial cuboid. 2. Mild tricompartmental degenerative changes in the knee with small joint effusion. Electronically signed by: Joseph Morelos MD 04/14/2024 06:46 PM EST RP Knee X-Ray 04/14/24 13:30 IMPRESSION: 1. Avulsion fracture medial cuboid. 2. Mild tricompartmental degenerative changes in the knee with small joint effusion. Electronically signed by: Joseph Morelos MD 04/14/2024 06:46 PM EST RP Tibia/Fibula X-Ray 04/14/24 13:30 IMPRESSION: 1. Avulsion fracture medial cuboid. 2. Mild tricompartmental degenerative changes in the knee with small joint effusion. Electronically signed by: Joseph Morelos MD 04/14/2024 06:46 PM EST RP Venous Duplex 04/14/24 13:35 IMPRESSION: No evidence of deep venous thrombosis involving the left lower extremity. Electronically signed by: Freddie Chavez MD 04/14/2024 04:44 PM EST RP DS: Summary Time Spent with Patient Time attestation: Total time managing care of this patient today ____ minutes. Discharge Plan Discharge Anticipated Discharge Date/Time: 04/15/24 12:11 Patient Disposition: Xfer Other Discharge Diagnosis: Schizophrenia (provisional) Referrals: Physician,Unknown J [Primary Care Provider] - 1 Week Discharge Medications: New clonidine HCl 0.1 mg Tablet 0.1 mg PO TID Qty: 0 0RF Protocol: Hold for SBP< HOLD for SBP < : 90 acetaminophen 325 mg Tablet 975 mg PO Q6H PRN (Reason: pain (pain scale 1-10)) Qty: 0 0RF nicotine 14 mg/24 hr Patch 24 Hour 14 mg transdermal DAILY Qty: 0 0RF lidocaine [Lidocaine Pain Relief] 4 % Adhesive Patch,Medicated 2 patch transdermal DAILY Qty: 0 0RF Protocol: Apply to: Apply to: back clindamycin HCl 300 mg Capsule 300 mg PO Q6H Qty: 0 0RF nicotine (polacrilex) 2 mg Gum 4 mg buccal Q2H PRN (Reason: Nicotine Cravings) Qty: 0 0RF olanzapine 5 mg Tablet 5 mg PO Q4H PRN (Reason: psychosis,agitation) Qty: 0 0RF olanzapine 5 mg Tablet 5 mg PO BID Qty: 0 0RF tramadol 50 mg Tablet 25 mg PO Q6H PRN (Reason: Pain, Severe (Pain Scale 7-10)) Qty: 0 0RF prochlorperazine 25 mg Suppository 25 mg AR Q12H PRN (Reason: Vomiting) Qty: 0 0RF baclofen 10 mg Tablet 10 mg PO TID PRN (Reason: back/muscle spasm) Qty: 0 0RF diclofenac sodium 50 mg Tablet,Delayed Release (Dr/Ec) 50 mg PO BIDWM Qty: 0 0RF ondansetron 4 mg Tablet,Disintegrating 4 mg translingual Q6H PRN (Reason: Nausea And Vomiting) Qty: 0 0RF aripiprazole [Abilify] 30 mg Tablet 30 mg PO DAILY Qty: 0 0RF lactulose 20 gram/30 mL Solution 10 g PO DAILY Qty: 0 0RF Continued divalproex 125 mg Tablet,Delayed Release (Dr/Ec) 125 mg PO BIDWM@0800,1700 gabapentin 300 mg Capsule 300 mg PO TID prazosin 2 mg Capsule 2 mg PO BEDTIME rifaximin 550 mg Tablet 550 mg PO Q12H [id number] ala 50-200-25 mg Tablet 1 tab PO DAILY Discontinued clonidine HCl 0.1 mg Tablet 0.1 mg PO BID hydroxyzine pamoate 50 mg Capsule 50 mg PO Q4H PRN (Reason: Pain, Moderate-Severe) aripiprazole 20 mg Tablet 20 mg PO DAILY Discharge Orders: Discharge Order (Routine); Ordered 04/15/24 Ordered By: Long Reddy Diet: per medical team Activity on Discharge: walker Stand Alone Forms: Patient Portal Discharge page Print Language: [place]anian Care Plan Goals: Transferred to medical floor Health Concerns: Transferred to medical floor Plan of Treatment: Transferred to medical floor Assessment: Transferred to medical floor
[2024-04-18 17:32] LABS: Absolute CD3 Count 447 cells/uL (840-3060); Absolute CD4 Count 216 cells/uL (490-1740); Absolute CD8 Count 232 cells/uL (180-1170); Absolute Lymphocytes 666 cells/uL (850-3900); CD4 CD8 Ratio 0.93 (0.86-5.00); Percent CD3 Cells 67 % (57-85); Percent CD4 Cells 32 % (30-61); Percent CD8 Cells 35 % (12-42)
[2024-04-19 21:53] LABS: Chlamydia Pneumoniae IgA <1:16 titer (<1:16); Chlamydia Pneumoniae IgG <1:64 titer (<1:64); Chlamydia Pneumoniae IgM <1:10 titer (<1:10); Chlamydia Psittaci IgA <1:16 titer (<1:16); Chlamydia Psittaci IgG <1:64 titer (<1:64); Chlamydia Psittaci IgM <1:10 titer (<1:10); Chlamydia Trachomatis IgA <1:16 titer (<1:16); Chlamydia Trachomatis IgG <1:64 titer (<1:64); Chlamydia Trachomatis IgM <1:10 titer (<1:10)
== END 2024-04-15 14:51 | disposition other institution (70) | DRG 750 ==
LOC: HO.ED 22:07 → HO.PM5 23:18
PROVIDERS: Psychiatry & Neurology Psychiatry; Student in an Organized Health Care Education/Training Program; Admitting Provider Psychiatry & Neurology Psychiatry; Emergency Provider Internal Medicine; Visit Provider Psychiatry & Neurology Psychiatry
DX: F20.3 Undifferentiated schizophrenia (principal); L03.116 Cellulitis of left lower limb; K70.30 Alcoholic cirrhosis of liver without ascites; Z21 Asymptomatic human immunodeficiency virus [HIV] infection status; S92.212A Displaced fracture of cuboid bone of left foot, initial encounter for closed fracture; X58.XXXA Exposure to other specified factors, initial encounter; G62.9 Polyneuropathy, unspecified; M54.9 Dorsalgia, unspecified; Z87.891 Personal history of nicotine dependence; Z79.899 Other long term (current) drug therapy
CPT/HCPCS: 36415; 73560; 73590; 73620; 80053; 80061; 82140; 82150; 82607; 82746; 83036; 83540; 83615; 84439; 84443; 84702; 85007; 85025; 85027; 85610; 86140; 86359; 86360; 86631; 86632; 86780; 87040; 93971; 99285; J1885

== ENCOUNTER → 2024-04-05 23:15 | Outpatient (BNV) | payer OTHER, SELFPAY | PROVIDERS: Admitting Provider Psychiatry & Neurology Psychiatry; Emergency Provider Internal Medicine; Visit Provider Psychiatry & Neurology Psychiatry | DX: F20.3 Undifferentiated schizophrenia (principal); M54.9 Dorsalgia, unspecified | CPT/HCPCS: 99231; 99232 ==

== ENCOUNTER 2024-04-15 12:38 | Inpatient (IN) | payer MEDICAID, SELFPAY ==
--- NOTE | ~2024-04-15 | CT_ITS ---
EXAMINATION: CT LOWER LEG WITH CONTRAST, LEFT CLINICAL INFORMATION: Evaluate for abscess or osteomyelitis COMPARISON: Ultrasound and radiographs 04/14/2024 TECHNIQUE: CT of the left lower extremity performed following intravenous administration of 85 mL Omnipaque [address] examination was performed using dose optimization techniques as appropriate, variously including the following: *Automated exposure control *Adjustment of mA and/or kV according to patient size (this includes techniques or standardized protocols for targeted exams where dose is matched to indication/reason for exam; i.e. extremities or head) *Use of iterative reconstruction technique Dose Length Product: 428 mGycm. FINDINGS: There is a large knee joint effusion. Diffuse subcutaneous edema and areas of skin thickening which may represent cellulitis. No focal fluid collection to suggest an abscess. No acute osseous abnormality. CT/CT lower leg LT w IV con IMPRESSION: Large knee joint effusion with diffuse subcutaneous edema and skin thickening which may represent cellulitis. No focal fluid collection to suggest an abscess. No evidence of osteomyelitis. Electronically signed by: Rusty Linda MD 04/19/2024 11:28 AM [facility]
--- NOTE | 2024-04-15 12:47 | P.HPHOSP_ITS ---
History of Present Illness Date of Service: 04/15/24 <Jo Ann Yanez PA-C - Last Filed: 04/15/24 16:08> Attending physician on admission: Nuno Nunez <Jo Ann Yanez PA-C - Last Filed: 04/15/24 16:08> Chief Complaint: cellulitis <Jo Ann Yanez PA-C - Last Filed: 04/15/24 16:08> Event note from 04/14/24 By Johnny Aparicio PA-C Patient is a 44-year-old female with a PMH significant for liver cirrhosis, HIV, unspecified anemia, and mood disorder admitted to [facility] with hospitalist consult for left lower leg and wound pain as well as abnormal blood work. Patient is a rather poor and imprecise historian. Complains of left lower leg pain after falling out of bed either last night or the night before. Patient apparently thinks medications are ?poison in her blood and attempted to counteract that process by rolling around in her bed but went too far and fell. Reports hitting left lower leg on either the floor or the chair. Also complains of having chlamydia that someone recently gave her. Complains of vaginal smell and discharge not alleviated by showering. Physical examination reveals left lower leg diffuse tenderness, swelling, and erythema as pictured below. Concerning for cellulitis secondary to left lower leg wound sustained over 1 month ago. This is a marked difference in appearance since previous examination of the area 2 days prior. Today, we were contacted by the psych floor that the pt is now meeting sepsis criteria. She is tachycardic, tachypneic and with fever of 102.5, +bands on CBC. <Jo Ann Yanez PA-C - Last Filed: 04/15/24 16:08> [facility] Social History: Social History Household Members: Spouse and Children Housing: House Do you presently have visiting nurse or other home services: No Unable to assess alcohol history related to: Refusing to respond Patient Tobacco Use Status: Former Tobacco user Tobacco use type: Cigarette Cigarette Packs Per Day: 1 Cigarettes Per Day: 20.0 Smoked in Last 30 Days: No e-Cigarette/Vaping Use: Former Use Patient Interested in Nicotine Replacement: No Patient Given Instructions on How to Stop Smoking: No Second Hand Smoke Exposure: No Use of substances other than those prescribed or required for medical reasons: No Currently Displaying Signs/Symptoms of Drug Intoxication Withdrawal: No Any prior treatment program specific to substance use: No Have you been hit, kicked, punched, or otherwise hurt by someone within the past year? If so, by whom?: No Do you feel safe in your current relationship?: Yes Is there a partner from a previous relationship who is making you feel unsafe now?: No Are you made to feel afraid or neglected: No Advance Directives: No Do you have a plan to hurt others: No Plan Recently lost weight without trying: No Eating poorly because of decreased appetite: No Nutrition Risks: No Nutritional Risk Patient : No : No Poor oral hygiene: No service: No Sexual orientation: Straight/Heterosexual <Jo Ann Yanez PA-C - Last Filed: 04/15/24 16:08> Meds Allergies/Adverse reactions: Allergies Allergy/AdvReac Type Severity Reaction Status Date / Time No Known Allergies Allergy Verified 04/05/24 18:41 <Jo Ann Yanez PA-C - Last Filed: 04/15/24 16:08> Active Medications: Current Medications Calcium Carbonate (Calcium Carbonate 750 Mg Tab.Chew) 750 mg PO Q4H PRN PRN Reason: Heartburn Enoxaparin Sodium (Enoxaparin Sodium 40 Mg/0.4 Ml Syringe) 40 mg SUBCUT Q24H [facility] Ketorolac Tromethamine (Ketorolac Tromethamine 30 Mg/Ml Vial) 30 mg IVPUSH Q6H PRN PRN Reason: Pain, Moderate(Pain Scale 4-6) Stop: 04/20/24 12:37 Melatonin (Melatonin 3 Mg Tablet) 6 mg PO BEDTIME PRN PRN Reason: Insomnia Ondansetron HCl (Ondansetron Hcl 4 Mg/2 Ml Vial) 4 mg IVPUSH Q8H PRN PRN Reason: Nausea and Vomiting Sodium Chloride (0.9 % Sodium Chloride Flush 3 Ml Syringe) 3 ml IVFLUSH QSHIFT [facility] <Jo Ann Yanez PA-C - Last Filed: 04/15/24 16:08> Home medications: Home Medications ?Medication ?Instructions ?Recorded ?Confirmed ?Last Taken ?Type bictegravir 50 mg-emtricitabine 1 tab PO DAILY 04/05/24 04/15/24 Unknown History 200 mg-tenofovir alafenam 25 mg tablet divalproex 125 mg tablet,delayed 125 mg PO BIDWM@0800,1700 Mood 04/05/24 04/15/24 Unknown History release gabapentin 300 mg capsule 300 mg PO TID 04/05/24 04/15/24 Unknown History prazosin 2 mg capsule 2 mg PO BEDTIME 04/05/24 04/15/24 Unknown History rifaximin 550 mg tablet 550 mg PO Q12H 04/05/24 04/15/24 Unknown History aripiprazole 30 mg tablet (Abilify) 30 mg PO DAILY 04/15/24 04/15/24 Unknown History <Jo Ann Yanez PA-C - Last Filed: 04/15/24 16:08> Assessment and Plan (1) Sepsis: Status: Acute <Jo Ann Yanez PA-C - Last Filed: 04/15/24 16:08> (2) Cellulitis: Status: Acute <Jo Ann Yanez PA-C - Last Filed: 04/15/24 16:08> Patient is a 44-year-old female with a PMH significant for liver cirrhosis, HIV, unspecified anemia, and mood disorder admitted to [facility] with hospitalist consult on 04/14 for left lower leg and wound pain as well as abnormal blood work. She was started on clindamycin. CBC this morning with bandemia. Vitals with tachycardia, tachypnea and fever. Sepsis secondary to cellulitis, not severe - CBC with bandemia and vitals significant for sepsis, not severe - check lactic acid, blood cultures pending - venous duplex negative for DVT - Xray leg, knee and foot - Avulsion fracture medial cuboid, mild tricompartmental degenerative changes in the knee with small joint effusion. - start vancomycin and Zosyn, discontinue PO clindamycin - admit to med surg - monitor CBC and BMP Avulsion fx medial cuboid - ortho consulted, recommended boot weight bearing as tolerated and outpt f/u cirrhosis - continue xifaxan, lactulose HIV - conitnue Biktarvy - HIV, STI panel pending. add RPR anemia- stable - monitor CBC mood disorder - prazosin, olanzapine, gabapentin, depakote, abilify Full code VTE prophylaxis: Lovenox Patient admitted from psychiatry floor to medical floor due to sepsis secondary to cellulitis, we will require admission for at least 2 midnights stay for IV antibiotics. <Jo Ann Yanez PA-C - Last Filed: 04/15/24 16:08> Patient is a 44-year-old female with a PMH significant for liver cirrhosis, HIV, unspecified anemia, and mood disorder admitted to Psychiatric unit with hospitalist consult on 04/14 for left lower leg and wound pain as well as abnormal blood work. She was started on clindamycin. CBC this morning with bandemia. Vitals with tachycardia, tachypnea and fever. Sepsis secondary to cellulitis, not severe - CBC with bandemia and vitals significant for sepsis, not severe - check lactic acid, blood cultures pending - venous duplex negative for DVT - Xray leg, knee and foot - Avulsion fracture medial cuboid, mild tricompartmental degenerative changes in the knee with small joint effusion. - start vancomycin and Zosyn, discontinue PO clindamycin - admit to med surg - monitor CBC and BMP Avulsion fx medial cuboid - ortho consulted, recommended boot weight bearing as tolerated and outpt f/u cirrhosis - continue xifaxan, lactulose HIV - conitnue Biktarvy - HIV, STI panel pending. add RPR anemia- stable - monitor CBC mood disorder - prazosin, olanzapine, gabapentin, depakote, abilify Full code VTE prophylaxis: Lovenox Patient admitted from psychiatry floor to medical floor due to sepsis secondary to cellulitis, we will require admission for at least 2 midnights stay for IV antibiotics. The patient was seen and evaluated with LEIF Almonte. I agree with his note, assessment and plan with the following. The patient was seen and evaluated. she refuses an IV line. noticed to have chronic tachycardia not due to Sepsis. Bandemia resolved this morning with repeat blood work. Will start her on PO Clindamycin and monitor response. She is psychotic and believe she should be leaving the hospital soon. As long as she is not septic i will hold on giving IV antibiotics as she carries risk of self\other injuries. I do not think she is septic at this point as Bandemia resolved and her Tachycardia is chronic. Rest of evaluations by LEIF note. <Nuno Nunez MD - Last Filed: 04/15/24 17:11> Quality Stroke Does the patient have a stroke diagnosis?: No <Jo Ann Yanez PA-C - Last Filed: 04/15/24 16:08> VTE Prior VTE?: No <Jo Ann Yanez PA-C - Last Filed: 04/15/24 16:08> VTE Risk Level:: Medical - moderate - high <Jo Ann Yanez PA-C - Last Filed: 04/15/24 16:08> VTE Device Contraindication: Treatment Not Indicated <Jo Ann Yanez PA-C - Last Filed: 04/15/24 16:08> VTE Drug Contraindication: N/A - Med Ordered <Jo Ann Yanez PA-C - Last Filed: 04/15/24 16:08>
--- NOTE | 2024-04-15 15:55 | PHA.MEDREC ---
Pharmacy Consult ? Medication Reconciliation Pharmacy has completed the medication reconciliation. Patient transferred from
[2024-04-15 15:57] VITALS: BP 116/67; PULSE 102; RESP 16; TEMP 35.9; O2SAT 100
[2024-04-15 15:59] VITALS: BP 116/67; PULSE 102; RESP 16; TEMP 35.9; O2SAT 100
--- NOTE | 2024-04-15 16:27 | PC.NURSE ---
Camera in patients room r/t Flight Risk. Security called and notified.
[2024-04-15] MEDS: Ferrous Sulfate 324 MG TABLET.DR PO (17:05)
[2024-04-15] MEDS: Lactulose 20 GM/30 ML SOLUTION 10 GM PO (17:06)
[2024-04-15] MEDS: ARIPiprazole 30 MG TABLET PO (17:08)
[2024-04-15] MEDS: Clindamycin HCL 300 MG CAPSULE PO ×2 (17:44→23:39)
[2024-04-15] MEDS: Bictegrav/Emtricit/Tenofov Ala TABLET 1 TAB PO (17:50)
[2024-04-15] MEDS: Divalproex Sodium Sprinkles 125 MG CAP.DR.SPR PO (17:50)
[2024-04-15] MEDS: traMADoL HCL 50 MG TABLET 25 MG PO (17:50)
[2024-04-15 19:24] VITALS: BP 120/59; PULSE 103; RESP 14; TEMP 36.3; O2SAT 100
[2024-04-15 19:34] VITALS: BP 120/59; PULSE 103; RESP 14; TEMP 36.3; O2SAT 100
[2024-04-15] MEDS: Prazosin HCL 1 MG CAPSULE 2 MG PO (21:03)
[2024-04-15] MEDS: Gabapentin 300 MG CAPSULE PO (21:04)
[2024-04-15] MEDS: rifAXIMin 550 MG TABLET PO (21:04)
[2024-04-15] MEDS: cloNIDine HCL 0.1 MG TABLET PO (21:04)
[2024-04-15] MEDS: OLANZapine 5 MG TABLET PO (21:04)
[2024-04-16] MEDS: traMADoL HCL 50 MG TABLET 25 MG PO ×3 (00:14→13:06)
[2024-04-16 03:04] VITALS: BP 123/71; PULSE 94; RESP 16; TEMP 36; O2SAT 99
[2024-04-16] MEDS: oxyCODONE HCl Immed Release 5 MG TABLET 10 MG PO (03:09)
[2024-04-16] MEDS: Clindamycin HCL 300 MG CAPSULE PO (05:58)
--- NOTE | 2024-04-16 06:24 | PC.NURSE ---
Pt has not voided overnight, stating she does not have to void, refusing to get out of bed to the commode, refusing to use the bed jameson and refusing to be bladder scanned. Yo pass along to the oncoming shift.
[2024-04-16 07:00] LABS: MANUAL DIFF FLAG NO
[2024-04-16 07:06] LABS: Basophils Percent Auto 0.6 % (0-2); Eosinophils Percent Auto 0.6 % (0-4); Hematocrit 27.5 % (37.0-47.0); Hemoglobin 8.7 g/dl (12.0-16.0); Imm Gran Abs Auto 0.03 X10*3/uL (0.00-0.03); Imm Gran Pct Auto 0.6 % (0.0-0.4); Lymphocytes Absolute Auto 0.9 X10*3/uL (1.2-4.9); Lymphocytes Percent Auto 19.5 % (20-40); Mean Corpuscular HGB Conc 31.6 g/dl (31.0-35.0); Mean Corpuscular Hemoglobin 21.8 pg (27.0-33.0); Mean Corpuscular Volume 68.9 fL (80.0-98.0); Monocytes Absolute Auto 0.6 X10*3/uL (0.1-1.2); Monocytes Percent Auto 12.2 % (2-11); Neutrophils Absolute Auto 3.2 x10*3/uL (2.0-8.3); Neutrophils Percent Auto 66.5 % (45-73); Red Blood Count 3.99 X10*6/uL (4.20-5.50); Red Cell Distribution Width 24.5 % (11.0-16.0); White Blood Count 4.8 X10*3/uL (4.8-10.8)
[2024-04-16 07:08] LABS: Platelet Count 78 X10*3/uL (160-400)
[2024-04-16 07:32] LABS: Anion Gap 10 (12-20); Blood Urea Nitrogen 15 mg/dL (9-16); Calcium 8.1 mg/dL (8.4-10.2); Carbon Dioxide 24 mmol/L (22-29); Chloride 110 mmol/L (96-108); Estimated Glomerular Filt Rate > 60; Glucose Random 105 mg/dL (60-115); Potassium 3.7 mmol/L (3.3-5.1); Sodium 140 mmol/L (135-145)
[2024-04-16 07:49] VITALS: BP 126/67; PULSE 109; RESP 18; TEMP 37.3; O2SAT 100
[2024-04-16] MEDS: Acetaminophen 325 MG TABLET 975 MG PO (07:52)
[2024-04-16 07:53] LABS: Syphilis Screen Nonreactive (Nonreactive)
[2024-04-16] MEDS: Bictegrav/Emtricit/Tenofov Ala TABLET 1 TAB PO (09:32)
[2024-04-16] MEDS: OLANZapine 5 MG TABLET PO ×2 (09:32→22:59)
[2024-04-16] MEDS: rifAXIMin 550 MG TABLET PO ×2 (09:32→22:59)
[2024-04-16] MEDS: cloNIDine HCL 0.1 MG TABLET PO ×3 (09:32→22:58)
[2024-04-16] MEDS: Ferrous Sulfate 324 MG TABLET.DR PO ×2 (09:32→17:31)
[2024-04-16] MEDS: Gabapentin 300 MG CAPSULE PO ×3 (09:33→22:59)
[2024-04-16] MEDS: ARIPiprazole 30 MG TABLET PO (09:33)
[2024-04-16] MEDS: Nicotine 14 MG PATCH.TD24 TRANSDERMA (09:35)
[2024-04-16] MEDS: Divalproex Sodium Sprinkles 125 MG CAP.DR.SPR PO ×2 (09:38→17:31)
[2024-04-16] MEDS: Ampicillin Sodium/Sulbactam Na 3 GM in 0.9 % Sodium Chloride 100 ML IV ×2 (10:33→17:35)
[2024-04-16 10:39] VITALS: BMI 26.2
[2024-04-16] MEDS: vancomycin HCL 1,250 MG in 0.9 % Sodium Chloride 250 ML 166.67 MG IV (11:09)
[2024-04-16] MEDS: 0.9 % Sodium Chloride Flush 3 ML SYRINGE IVFLUSH ×2 (11:10→17:32)
[2024-04-16] MEDS: Ketorolac Tromethamine 30 MG/ML VIAL IVPUSH ×2 (11:13→17:34)
--- NOTE | 2024-04-16 11:56 | PHA.PROG ---
Admission Date/Time: April 15, 2024 12:38 Indication: Skin Weight in k.8 kg Serum Creatinine - Last 168 Hours 04/16/24 06:00 Creatinine 0.69 Estimated CrCl and GFR - Last 168 Hours 04/16/24 06:00 Estim Creat Clear Calc TNP Estimated GFR > 60 Vancomycin Loading Dose: 1,250 mg Current Vancomycin Dosing Regimen: 750mg q12h Vancomycin Monitoring using AUC goal of 400 - 600 range with trough as surrogate marker: 422, predicted trough 12.6 Date and Time for next Vancomycin Level to be drawn: 04/17 @ 2100 Pharmacist Comments on Vancomycin Plan: Vancomycin dosing will take advantage of [employer] as a clinical decision support tool that uses Bayesian modeling to calculate individual patient's pharmacokinetic parameters and forecast the patient's drug concentration time course with the target goal AUC 24 range of 400 - 600 mg/L/hr.
[2024-04-16] MEDS: Enoxaparin Sodium 40 MG/0.4 ML SYRINGE SUBCUT (14:04)
--- NOTE | 2024-04-16 15:25 | P.PNIM_ITS ---
Subjective Subjective Date of Service: 04/16/24 Interval History: seen and evaluated this morning reports pain in LLE with swelling no fever or chills Review of Systems Review of Systems: Yes all other systems are reviewed and are negative Physical Exam 2 Vital Signs: Vital Signs: Last Vital Signs Temp 99.1 F 04/16/24 07:49 Pulse 109 H 04/16/24 07:49 Resp 18 04/16/24 07:49 BP 126/67 04/16/24 07:49 Pulse Ox 100 04/16/24 07:49 O2 Del Method Room Air 04/16/24 07:49 BMI result Body Mass Index 26.2 Const: Other: Constitutional : Awake, interactive, not in distress Neck : Normal inspection, Supple Cardiovascular : RRR, no JVP, no lower extremity edema Respiratory : good bilateral air entry, no crackles, wheezes or rhonchi Gastrointestinal: soft, lax, Normal bowel sounds, Non tender Skin : Warm, Dry, LLE edema and warmth with tenderness Neurological : Alert & oriented, No focal deficit Objective Data Active Medications Acetaminophen (Acetaminophen 325 Mg Tablet) 975 mg PO Q6H PRN PRN Reason: Pain, Mild (Pain Scale 1-3) Last Admin: 04/16/24 07:52 Dose: 975 mg Documented By: LYNN Aripiprazole (Aripiprazole 30 Mg Tablet) 30 mg PO DAILY [facility] Last Admin: 04/16/24 09:33 Dose: 30 mg Documented By: LYNN Baclofen (Baclofen 10 Mg Tablet) 10 mg PO TID PRN PRN Reason: back/muscle spasm Bictegravir/Emtricitabine/Tenofovir (Bictegrav/Emtricit/Tenofov Ala Tablet) 1 tab PO DAILY [facility] Last Admin: 04/16/24 09:32 Dose: 1 tab Documented By: LYNN Calcium Carbonate (Calcium Carbonate 750 Mg Tab.Chew) 750 mg PO Q4H PRN PRN Reason: Heartburn Clonidine HCl (Clonidine Hcl 0.1 Mg Tablet) 0.1 mg PO TID [facility]; Protocol Last Admin: 04/16/24 14:35 Dose: 0.1 mg Documented By: LYNN Divalproex Sodium (Divalproex Sodium Sprinkles 125 Mg ) 125 mg PO BIDWM@0800,1700 [facility] Last Admin: 04/16/24 09:38 Dose: 125 mg Documented By: LYNN Enoxaparin Sodium (Enoxaparin Sodium 40 Mg/0.4 Ml Syringe) 40 mg SUBCUT Q24H [facility] Last Admin: 04/16/24 14:04 Dose: 40 mg Documented By: LYNN Ferrous Sulfate (Ferrous Sulfate 324 Mg Tablet.) 324 mg PO BIDWM [facility] Last Admin: 04/16/24 09:32 Dose: 324 mg Documented By: LYNN Gabapentin (Gabapentin 300 Mg Capsule) 300 mg PO TID [facility] Last Admin: 04/16/24 14:35 Dose: 300 mg Documented By: LYNN Ampicillin Sodium/Sulbactam (Sodium 3 gm/ Sodium Chloride) 100 mls @ 200 mls/hr IV Q8H [facility] Last Infusion: 04/16/24 11:26 Dose: Infused Documented By: LYNN Vancomycin HCl 750 mg/ Sodium (Chloride) 265 mls @ 265 mls/hr IV Q12H [facility] Ketorolac Tromethamine (Ketorolac Tromethamine 30 Mg/Ml Vial) 30 mg IVPUSH Q6H PRN PRN Reason: Pain, Moderate(Pain Scale 4-6) Stop: 04/20/24 12:37 Last Admin: 04/16/24 11:13 Dose: 30 mg Documented By: LYNN Lactulose (Lactulose 20 Gm/30 Ml Solution) 10 gm PO DAILY [facility] Last Admin: 04/16/24 10:41 Dose: Not Given Documented By: LYNN Non-Admin Reason: Patient Refused Lidocaine (Lidocaine 4 % Patch Adh..Patch) 2 patch TRANSDERMA DAILY [facility]; Protocol Last Admin: 04/16/24 09:36 Dose: Not Given Documented By: LYNN Non-Admin Reason: Patient Refused Melatonin (Melatonin 3 Mg Tablet) 6 mg PO BEDTIME PRN PRN Reason: Insomnia Nicotine (Nicotine 14 Mg Patch.Td24) 14 mg TRANSDERMA DAILY [facility] Last Admin: 04/16/24 09:35 Dose: 14 mg Documented By: LYNN Nicotine Polacrilex (Nicotine Polacrilex 2 Mg Gum) 4 mg BUCCAL Q2H PRN PRN Reason: Nicotine Cravings Olanzapine (Olanzapine 5 Mg Tablet) 5 mg PO Q4H PRN PRN Reason: psychosis,agitation Olanzapine (Olanzapine 5 Mg Tablet) 5 mg PO BID [facility] Last Admin: 04/16/24 09:32 Dose: 5 mg Documented By: LYNN Ondansetron HCl (Ondansetron Hcl 4 Mg/2 Ml Vial) 4 mg IVPUSH Q8H PRN PRN Reason: Nausea and Vomiting Pharmacy Consult (Consult Rx Vancomycin Dosing) 1 each MISCELLANE DAILY PRN PRN Reason: Consult order Prazosin HCl (Prazosin Hcl 1 Mg Capsule) 2 mg PO BEDTIME [facility]; Protocol Last Admin: 04/15/24 21:03 Dose: 2 mg Documented By: SUE Prochlorperazine (Prochlorperazine 25 Mg Supp.Rect) 25 mg [place] Q12H PRN PRN Reason: Vomiting Rifaximin (Rifaximin 550 Mg Tablet) 550 mg PO BID [facility] Last Admin: 04/16/24 09:32 Dose: 550 mg Documented By: LYNN Sodium Chloride (0.9 % Sodium Chloride Flush 3 Ml Syringe) 3 ml IVFLUSH QSHIFT [facility] Last Admin: 04/16/24 11:10 Dose: 3 ml Documented By: LYNN Tramadol HCl (Tramadol Hcl 50 Mg Tablet) 25 mg PO Q6H PRN PRN Reason: Pain, Severe (Pain Scale 7-10) Last Admin: 04/16/24 13:06 Dose: 25 mg Documented By: LYNN Labs 04/16/24 06:00 04/16/24 06:00 Labs: Laboratory Results - last 24 hr 04/16/24 06:00 MCV 68.9 L MCH 21.8 L MCHC 31.6 RDW 24.5 H Plt Count 78 L MPV Not Reportable Immature Gran % (Auto) 0.6 H Neut % (Auto) 66.5 Lymph % (Auto) 19.5 L [place] % (Auto) 12.2 H Eos % (Auto) 0.6 Baso % (Auto) 0.6 Lymph # (Auto) 0.9 L [place] # (Auto) 0.6 Eos # (Auto) 0.0 Baso # (Auto) 0.0 Abs Immat Gran (auto) 0.03 Absolute Neuts (auto) 3.2 Absolute Nucleated RBC 0.000 Nucleated RBC % (auto) 0.0 Anion Gap 10 L Estim Creat Clear Calc TNP Estimated GFR > 60 Random Glucose 105 Calcium 8.1 L T.pallidum Ab (EIA) Nonreactive Assessment and Plan (1) Cellulitis: Status: Acute (2) Back pain: Status: Acute (3) Schizophrenia, acute undifferentiated: Status: Acute Plan Patient is a 44-year-old female with a PMH significant for liver cirrhosis, HIV, unspecified anemia, and mood disorder admitted to [facility] with hospitalist consult on 04/14 for left lower leg and wound pain as well as abnormal blood work. She was started on clindamycin. CBC this morning with bandemia. Vitals with tachycardia, tachypnea and fever. LLE cellulitis not septic venous duplex negative for DVT Xray leg, knee and foot - Avulsion fracture medial cuboid, mild tricompartmental degenerative changes in the knee with small joint effusion which will contribute to her swelling Continue vancomycin and Zosyn 04/16 discontinue PO clindamycin monitor CBC and BMP Vancomycin trough pending cultures Avulsion fx medial cuboid ortho consulted, recommended boot weight bearing as tolerated and outpt f/u cirrhosis continue xifaxan, lactulose HIV conitnue Biktarvy HIV, STI panel pending. add RPR anemia- stable monitor CBC mood disorder prazosin, olanzapine, gabapentin, depakote, abilify Full code VTE prophylaxis: Lovenox Patient admitted from psychiatry floor to medical floor due to sepsis secondary to cellulitis, we will require overnight stay for IV antibiotics. Quality Stroke Does the patient have a stroke diagnosis?: No VTE Prior VTE?: No VTE Risk Level:: Medical - moderate - high VTE Device Contraindication: Treatment Not Indicated VTE Drug Contraindication: N/A - Med Ordered
[2024-04-16 15:30] VITALS: BP 115/64; PULSE 102; RESP 18; TEMP 36.9; O2SAT 99
[2024-04-16 19:51] VITALS: BP 130/75; PULSE 121; RESP 20; TEMP 36.8
[2024-04-16] MEDS: Prazosin HCL 1 MG CAPSULE 2 MG PO (22:59)
[2024-04-17] MEDS: traMADoL HCL 50 MG TABLET 25 MG PO ×2 (01:36→22:27)
[2024-04-17 03:04] VITALS: BP 138/77; PULSE 97; RESP 16; TEMP 37; O2SAT 100
--- NOTE | 2024-04-17 06:05 | PC.NURSE ---
Pt refusing IV access and AM blood draw. Dr Duarte notifed.
--- NOTE | 2024-04-17 06:29 | PM.EVENT ---
Event Note Date of Service: 04/16/24 Event Note: I was called by patient's RN because the patient wanted to leave the hospital against medical advice. She was restless during the early half of the night, had removed her IV line and refused all care. I discussed her with her primary team earlier in the night who indicated that she had not been cleared by our MH team and as such could not be allowed to leave the hospital and if need be, then we could section her. When I got to see her, she was all dressed up and ready to leave. I spoke to her at length but she appeared confused and so I was no clear if she understood anything i told her. She did not make a move until around midnight when I was again called and this time, she was at the elevators and had to be held back. I again tried to talk to her but could not convince her to stay. We got the Security team to come up to the floor and this helped calm her down and she finally agreed to stay but had her room changed. I did not receive any additional calls during the rest of the night. Time Spent With Patient Time: Total time managing care of this patient today ____ minutes.
[2024-04-17 07:57] VITALS: BP 111/55; PULSE 105; RESP 16; TEMP 39.1; O2SAT 99
[2024-04-17] MEDS: Bictegrav/Emtricit/Tenofov Ala TABLET 1 TAB PO (08:22)
[2024-04-17] MEDS: cloNIDine HCL 0.1 MG TABLET PO ×2 (08:23→16:19)
[2024-04-17] MEDS: Ferrous Sulfate 324 MG TABLET.DR PO ×2 (08:23→16:19)
[2024-04-17] MEDS: OLANZapine 5 MG TABLET PO (08:23)
[2024-04-17] MEDS: Ibuprofen 400 MG TABLET PO ×3 (08:23→16:21)
[2024-04-17] MEDS: ARIPiprazole 30 MG TABLET PO (08:24)
[2024-04-17] MEDS: rifAXIMin 550 MG TABLET PO (08:24)
[2024-04-17] MEDS: Gabapentin 300 MG CAPSULE PO ×2 (08:24→16:20)
[2024-04-17] MEDS: Nicotine 14 MG PATCH.TD24 TRANSDERMA (08:24)
[2024-04-17] MEDS: Clindamycin HCL 300 MG CAPSULE PO (08:24)
[2024-04-17] MEDS: Acetaminophen 325 MG TABLET 975 MG PO (08:24)
[2024-04-17] MEDS: Lactulose 20 GM/30 ML SOLUTION 10 GM PO (08:25)
[2024-04-17] MEDS: Lidocaine 4 % Patch ADH..PATCH 2 PATCH TRANSDERMA (08:34)
[2024-04-17] MEDS: Divalproex Sodium Sprinkles 125 MG CAP.DR.SPR PO (08:43)
--- NOTE | 2024-04-17 08:45 | MHC.CARE ---
CARE team consult received however shortly after cancelled due to not being medically cleared at this time.
[2024-04-17 09:13] LABS: Basophils Percent Auto 0.5 % (0-2); Eosinophils Percent Auto 0.5 % (0-4); Hematocrit 26.2 % (37.0-47.0); Hemoglobin 8.4 g/dl (12.0-16.0); Imm Gran Abs Auto 0.04 X10*3/uL (0.00-0.03); Lymphocytes Absolute Auto 0.9 X10*3/uL (1.2-4.9); Lymphocytes Percent Auto 22.9 % (20-40); MANUAL DIFF FLAG SCAN; Mean Corpuscular HGB Conc 32.1 g/dl (31.0-35.0); Mean Corpuscular Hemoglobin 21.7 pg (27.0-33.0); Mean Corpuscular Volume 67.7 fL (80.0-98.0); Monocytes Absolute Auto 0.8 X10*3/uL (0.1-1.2); Monocytes Percent Auto 21.1 % (2-11); Neutrophils Absolute Auto 2.1 x10*3/uL (2.0-8.3); Red Blood Count 3.87 X10*6/uL (4.20-5.50); Red Cell Distribution Width 24.7 % (11.0-16.0); SCAN SMEAR FLAG 1; White Blood Count 3.9 X10*3/uL (4.8-10.8)
[2024-04-17 09:16] LABS: Platelet Count 88 X10*3/uL (160-400)
[2024-04-17 09:28] LABS: Anion Gap 11 (12-20); Blood Urea Nitrogen 13 mg/dL (9-16); Calcium 8.4 mg/dL (8.4-10.2); Carbon Dioxide 23 mmol/L (22-29); Chloride 110 mmol/L (96-108); Creatinine Clr Calc Pharmacy 119.8; Estimated Glomerular Filt Rate > 60; Glucose Random 89 mg/dL (60-115); Sodium 140 mmol/L (135-145)
--- NOTE | 2024-04-17 09:33 | P.PNIM_ITS ---
Subjective Subjective Date of Service: 04/17/24 Interval History: seen and evaluated this morning reports pain in LLE with swelling Spiked fever this morning Tried to leave overnight, sectioned and stayed in hospital no other events Review of Systems Review of Systems: Yes all other systems are reviewed and are negative Physical Exam 2 Vital Signs: Vital Signs: Last Vital Signs Temp 102.3 F H 04/17/24 07:57 Pulse 105 H 04/17/24 07:57 Resp 16 04/17/24 07:57 BP 111/55 L 04/17/24 07:57 Pulse Ox 99 04/17/24 07:57 O2 Del Method Room Air 04/17/24 07:57 BMI result Body Mass Index 26.2 Const: Other: Constitutional : Awake, interactive, not in distress Neck : Normal inspection, Supple Cardiovascular : RRR, no JVP, no lower extremity edema Respiratory : good bilateral air entry, no crackles, wheezes or rhonchi Gastrointestinal: soft, lax, Normal bowel sounds, Non tender Skin : Warm, Dry, LLE edema and warmth with tenderness Neurological : Alert & oriented, No focal deficit Objective Data Active Medications Acetaminophen (Acetaminophen 325 Mg Tablet) 975 mg PO Q6H PRN PRN Reason: Pain, Mild (Pain Scale 1-3) Last Admin: 04/17/24 08:24 Dose: 975 mg Documented By: FRANSISCO Aripiprazole (Aripiprazole 30 Mg Tablet) 30 mg PO DAILY [facility] Last Admin: 04/17/24 08:24 Dose: 30 mg Documented By: FRANSISCO Baclofen (Baclofen 10 Mg Tablet) 10 mg PO TID PRN PRN Reason: back/muscle spasm Bictegravir/Emtricitabine/Tenofovir (Bictegrav/Emtricit/Tenofov Ala Tablet) 1 tab PO DAILY [facility] Last Admin: 04/17/24 08:22 Dose: 1 tab Documented By: FRANSISCO Calcium Carbonate (Calcium Carbonate 750 Mg Tab.Chew) 750 mg PO Q4H PRN PRN Reason: Heartburn Clindamycin HCl (Clindamycin Hcl 300 Mg Capsule) 300 mg PO Q6H [facility] Last Admin: 04/17/24 08:24 Dose: 300 mg Documented By: FRANSISCO Clonidine HCl (Clonidine Hcl 0.1 Mg Tablet) 0.1 mg PO TID [facility]; Protocol Last Admin: 04/17/24 08:23 Dose: 0.1 mg Documented By: FRANSISCO Divalproex Sodium (Divalproex Sodium Sprinkles 125 Mg Cap.) 125 mg PO BIDWM@0800,1700 [facility] Last Admin: 04/17/24 08:43 Dose: 125 mg Documented By: FRANSISCO Enoxaparin Sodium (Enoxaparin Sodium 40 Mg/0.4 Ml Syringe) 40 mg SUBCUT Q24H [facility] Last Admin: 04/16/24 14:04 Dose: 40 mg Documented By: LYNN Ferrous Sulfate (Ferrous Sulfate 324 Mg Tablet.) 324 mg PO BIDWM [facility] Last Admin: 04/17/24 08:23 Dose: 324 mg Documented By: FRANSISCO Gabapentin (Gabapentin 300 Mg Capsule) 300 mg PO TID [facility] Last Admin: 04/17/24 08:24 Dose: 300 mg Documented By: FRANSISCO Ibuprofen (Ibuprofen 400 Mg Tablet) 400 mg PO TIDWM [facility] Last Admin: 04/17/24 08:23 Dose: 400 mg Documented By: FRANSISCO Lactulose (Lactulose 20 Gm/30 Ml Solution) 10 gm PO DAILY [facility] Last Admin: 04/17/24 08:25 Dose: 10 gm Documented By: FRANSISCO Lidocaine (Lidocaine 4 % Patch Adh..Patch) 2 patch TRANSDERMA DAILY [facility]; Protocol Last Admin: 04/17/24 08:34 Dose: 2 patch Documented By: FRANSISCO Melatonin (Melatonin 3 Mg Tablet) 6 mg PO BEDTIME PRN PRN Reason: Insomnia Nicotine (Nicotine 14 Mg Patch.Td24) 14 mg TRANSDERMA DAILY [facility] Last Admin: 04/17/24 08:24 Dose: 14 mg Documented By: FRANSISCO Nicotine Polacrilex (Nicotine Polacrilex 2 Mg Gum) 4 mg BUCCAL Q2H PRN PRN Reason: Nicotine Cravings Olanzapine (Olanzapine 5 Mg Tablet) 5 mg PO Q4H PRN PRN Reason: psychosis,agitation Olanzapine (Olanzapine 5 Mg Tablet) 5 mg PO BID [facility] Last Admin: 04/17/24 08:23 Dose: 5 mg Documented By: FRANSISCO Ondansetron HCl (Ondansetron Hcl 4 Mg/2 Ml Vial) 4 mg IVPUSH Q8H PRN PRN Reason: Nausea and Vomiting Prazosin HCl (Prazosin Hcl 1 Mg Capsule) 2 mg PO BEDTIME [facility]; Protocol Last Admin: 04/16/24 22:59 Dose: 2 mg Documented By: LAXMI Prochlorperazine (Prochlorperazine 25 Mg Supp.Rect) 25 mg [place] Q12H PRN PRN Reason: Vomiting Rifaximin (Rifaximin 550 Mg Tablet) 550 mg PO BID [facility] Last Admin: 04/17/24 08:24 Dose: 550 mg Documented By: FRANSISCO Sodium Chloride (0.9 % Sodium Chloride Flush 3 Ml Syringe) 3 ml IVFLUSH QSHIFT [facility] Last Admin: 04/17/24 08:32 Dose: Not Given Documented By: FRANSISCO Non-Admin Reason: No Access Tramadol HCl (Tramadol Hcl 50 Mg Tablet) 25 mg PO Q6H PRN PRN Reason: Pain, Severe (Pain Scale 7-10) Last Admin: 04/17/24 01:36 Dose: 25 mg Documented By: LAXMI Labs 04/17/24 08:30 04/17/24 08:30 Labs: Laboratory Results - last 24 hr 04/17/24 08:30 MPV Not Reportable Anion Gap 11 L Estim Creat Clear Calc 119.8 Estimated GFR > 60 Random Glucose 89 Calcium 8.4 Assessment and Plan (1) Cellulitis: Status: Acute (2) Avulsion fracture of ankle: Status: Acute Plan Patient is a 44-year-old female with a PMH significant for liver cirrhosis, HIV, unspecified anemia, and mood disorder admitted to [facility] with hospitalist consult on 04/14 for left lower leg and wound pain as well as abnormal blood work. She was started on clindamycin. CBC this morning with bandemia. Vitals with tachycardia, tachypnea and fever. LLE cellulitis No evidence of sepsis at this point, leukopenia and tachycardia chronic from other psych medications venous duplex negative for DVT Xray leg, knee and foot - Avulsion fracture medial cuboid, mild tricompartmental degenerative changes in the knee with small joint effusion which will contribute to her lower extremity pain and swelling ripped off her IV overnight Start PO Doxycycline and Augmentin restart IV vancomycin if she agrees to IV line Tylenol and Ibuprofen ATC monitor CBC and BMP Vancomycin trough pending cultures Avulsion fx medial cuboid ortho consulted, recommended boot weight bearing as tolerated and outpt f/u cirrhosis continue xifaxan, lactulose HIV conitnue Biktarvy HIV, STI panel pending. add RPR anemia- stable monitor CBC mood disorder prazosin, olanzapine, gabapentin, depakote, abilify Full code VTE prophylaxis: Lovenox Patient admitted from psychiatry floor to medical floor due to sepsis secondary to cellulitis, we will require overnight stay for IV antibiotics pending final cultures and fever cessation. Quality Stroke Does the patient have a stroke diagnosis?: No VTE Prior VTE?: No VTE Risk Level:: Medical - moderate - high VTE Device Contraindication: Treatment Not Indicated VTE Drug Contraindication: N/A - Med Ordered
[2024-04-17 10:00] LABS: SLIDE REVIEW VERIFIED
[2024-04-17] MEDS: Amoxicillin/Potassium Clav 875 MG TABLET PO (12:16)
[2024-04-17] MEDS: Morphine Sulfate 2 MG/ML CARTRIDGE IVPUSH (12:16)
[2024-04-17] MEDS: vancomycin/NS 2,000 MG/500 ML PLAST..BAG 250 MG IV (12:26)
--- NOTE | 2024-04-17 12:44 | PHA.PROG ---
Admission Date/Time: April 15, 2024 12:38 Indication: skin + skin structure Weight in k.8 kg Adjusted body weight in Kg: [place] body weight in Kg: Obesity Dosing Indication % IBW: BMI 26.2 Serum Creatinine - Last 168 Hours 04/16/24 04/17/24 06:00 08:30 Creatinine 0.69 0.63 Estimated CrCl and GFR - Last 168 Hours 04/16/24 04/17/24 06:00 08:30 Estim Creat Clear Calc TNP 119.8 Estimated GFR > 60 > 60 Vancomycin Loading Dose: 2000mg X1 Current Vancomycin Dosing Regimen: 1250mg Q12H Vancomycin Monitoring using AUC goal of 400 - 600 range with trough as surrogate marker: 503 Date and Time for next Vancomycin Level to be drawn: 04/18 @1100 Pharmacist Comments on Vancomycin Plan: patient was d/c'ed and hasn't recieved dose since 04/16. Patient reloaded and predicted trough for new dosing 14.7. Patient renal function is still stable, to be monitored and adjusted based on renal and troughs. Vancomycin dosing will take advantage of [employer] as a clinical decision support tool that uses Bayesian modeling to calculate individual patient's pharmacokinetic parameters and forecast the patient's drug concentration time course with the target goal AUC 24 range of 400 - 600 mg/L/hr.
--- NOTE | 2024-04-17 13:50 | P.CDIM_ITS ---
PROVIDER RESPONSE TEXT: To clarify, the appropriate diagnosis supported by the clinical indicators: Other (explain): Not septic. explained in progress note QUERY TEXT: PHYSICIAN'S DOCUMENTATION REQUEST Date of Query: 04/17/2024 01:17 PM EST Patient Name: María Harmon Admit Date: 04/15/2024 Dear Nuno Nunez MD, A review of the medical record indicates additional documentation may be needed. Please review below and update the documentation accordingly. Documentation on progress note dated 04/17/24 included the diagnosis of sepsis. This same not also states no evidence of septis The patient's infectious clinical indicators include: WBC 3.9 T 102.3 p 105 On Augmentin, Vibramycin, and Vancomycin for cellulitis left lower limb Recognized standard criteria for this condition and other infectious definitions includes: Sepsis Systemic manifestations of infection, with 2 or more SIRS criteria which include: Fever > 100.4?F or hypothermia < 96.8?F Leukocytosis - WBC > 12,000 or leukopenia, WBC < 4,000, or > 10% bands Tachycardia- > 90 beats/minute Tachypnea- RR > 20 breaths/minute or PaCO2 < 32mmHg Source: Merck Manual 2013 Documentation should include the known or suspected organism, and the underlying infection, such as U TI or pneumonia Severe Sepsis Sepsis with associated acute organ dysfunction, such as renal or respiratory failure Documentation should indicate the association between the sepsis and the organ dysfunction Septic Shock Severe sepsis with associated with circulatory failure, evidenced by hypotension and hypoperfusion Based on the above information and the recognized standard for sepsis, could you please clarify if th is diagnoses is still accurate and reflective of the patient's condition to ensure quality of the medical record. Sepsis is/was present and is a clinical diagnosis based on After study (the condition) has been ruled out Other (explain) Clinically unable to determine (explain) Thank you, Shirley Gaffney RN Use of terms such as suspected, likely, concern for, or probable (associated with a specific diagnosi s that is being evaluated, monitored, or treated as if it exists) are acceptable and can be coded in the inpatient se tting, when documented at the time of discharge. Please use your independent medical judgment in providing your response. THIS QUERY IS PART OF THE PERMANENT MEDICAL RECORD
[2024-04-17 15:06] VITALS: BP 129/80; PULSE 108; RESP 18; TEMP 36.7; O2SAT 97
--- NOTE | 2024-04-17 15:34 | MHC.CM.PN ---
PT FROM [facility] CAME FROM [facility] WILL BE FOLLOWING PT FOR DC PLANNING
[2024-04-17] MEDS: Acetaminophen 325 MG TABLET 650 MG PO (16:20)
[2024-04-17] MEDS: Baclofen 10 MG TABLET PO (16:21)
[2024-04-17] MEDS: OLANZapine 10 MG VIAL 5 MG IM (18:20)
--- NOTE | 2024-04-17 18:27 | PC.NURSE ---
Pt becoming belligerent and combative with staff, refusing to stay in room, wandered in jones refusing to go back to room. Convinced her to return, only to have her attempt to leave again. Security were called to help deescalate. Pt threatened RN and security, refused to take PRN IM Zyprexa willingly, injection given with security present. Nursing Cooling Machine Operator aware. Dr Nunez made aware.
--- NOTE | 2024-04-17 18:39 | HO.BHRESTREX ---
Behavioral Restraint Exam Behavioral Health Restraint Exam Type of Restraint: Medication Reason for Restraint: Substantial Risk Medical Concerns for Restraint: No medical concerns, pt w/o acute inj / no noted resp/VS abnormalities Behavioral Assessment / Plan: No further behavioral concerns, continue current plan.
[2024-04-17 19:02] VITALS: BP 122/86; PULSE 113; RESP 20; TEMP 36.9; O2SAT 98
--- NOTE | 2024-04-17 21:23 | PC.NURSE ---
Pt refused all medications for 2100 and 2200. Educated pt on importance of these medications, pt refused 3x. Phylicia MANE and nursing electrical prospecting supervisor about pt's refusal of meds. She has a camera and 1:1 sitter bedside.
[2024-04-18] VITALS (11 sets, daily range): BP systolic 128–138; BP diastolic 65–85; PULSE 100–115; RESP 16–18; TEMP 37.1–37.5; O2SAT 98–99
[2024-04-18] MEDS: oxyCODONE HCl Immed Release 5 MG TABLET 10 MG PO (00:18)
--- NOTE | 2024-04-18 06:19 | PC.NURSE ---
Approx 0545 pt requested to see this RN. Pt requested her LLE be rewrapped, scabs are now open, wrapped w/ABD pad and gauze, taped gauze to gauze to not further irritate pt's skin. Pt noted an off smell coming from that leg and the boot. Encouraged pt to elevate leg, leave off boot for now unless walking. Placed WOCN consult since areas are now open. LLE and L foot swollen. Pt is now requesting and IV for IV pain meds and ABX. Floor educator currently trying to gain IV access on pt. Pt did not sleep all night. 1:1 sitter and camera remain bedside.
[2024-04-18] MEDS: Morphine Sulfate 2 MG/ML CARTRIDGE IVPUSH ×4 (06:35→21:11)
[2024-04-18] MEDS: 0.9 % Sodium Chloride Flush 3 ML SYRINGE IVFLUSH ×3 (09:30→21:16)
[2024-04-18] MEDS: Nicotine 14 MG PATCH.TD24 TRANSDERMA (09:31)
--- NOTE | 2024-04-18 10:23 | MHC.RECOVRN ---
Spoke with nursing at [facility] in [place], pt last dosed 03/04/24, 104 mg.
[2024-04-18] MEDS: Lactulose 20 GM/30 ML SOLUTION 10 GM PO (10:25)
[2024-04-18] MEDS: Acetaminophen 325 MG TABLET 650 MG PO ×2 (10:25→17:07)
[2024-04-18] MEDS: Gabapentin 300 MG CAPSULE PO ×3 (10:25→20:56)
[2024-04-18] MEDS: Amoxicillin/Potassium Clav 875 MG TABLET PO ×2 (10:26→21:11)
[2024-04-18] MEDS: rifAXIMin 550 MG TABLET PO ×2 (10:26→20:57)
[2024-04-18] MEDS: ARIPiprazole 30 MG TABLET PO (10:26)
[2024-04-18] MEDS: Bictegrav/Emtricit/Tenofov Ala TABLET 1 TAB PO (10:27)
[2024-04-18] MEDS: OLANZapine 5 MG TABLET PO ×2 (10:27→20:57)
[2024-04-18] MEDS: Ferrous Sulfate 324 MG TABLET.DR PO ×2 (10:27→17:07)
[2024-04-18] MEDS: Doxycycline Monohydrate 100 MG CAPSULE PO ×2 (10:27→21:11)
[2024-04-18] MEDS: cloNIDine HCL 0.1 MG TABLET PO ×3 (10:29→20:57)
[2024-04-18] MEDS: Divalproex Sodium Sprinkles 125 MG CAP.DR.SPR PO (10:36)
[2024-04-18 11:09] LABS: Basophils Absolute Auto 0.1 X10*3/uL (0.0-0.2); Basophils Percent Auto 0.9 % (0-2); Eosinophils Percent Auto 0.3 % (0-4); Hematocrit 27.5 % (37.0-47.0); Hemoglobin 8.7 g/dl (12.0-16.0); Imm Gran Abs Auto 0.15 X10*3/uL (0.00-0.03); Imm Gran Pct Auto 1.7 % (0.0-0.4); Lymphocytes Absolute Auto 1.5 X10*3/uL (1.2-4.9); Lymphocytes Percent Auto 17.7 % (20-40); MANUAL DIFF FLAG SCAN; Mean Corpuscular HGB Conc 31.6 g/dl (31.0-35.0); Mean Corpuscular Hemoglobin 21.7 pg (27.0-33.0); Mean Corpuscular Volume 68.6 fL (80.0-98.0); Monocytes Absolute Auto 1.5 X10*3/uL (0.1-1.2); Monocytes Percent Auto 17.7 % (2-11); Neutrophils Absolute Auto 5.3 x10*3/uL (2.0-8.3); Neutrophils Percent Auto 61.7 % (45-73); Platelet Count 125 X10*3/uL (160-400); Red Blood Count 4.01 X10*6/uL (4.20-5.50); Red Cell Distribution Width 24.8 % (11.0-16.0); SCAN SMEAR FLAG 1; White Blood Count 8.6 X10*3/uL (4.8-10.8)
[2024-04-18 11:19] LABS: Anion Gap 12 (12-20); Blood Urea Nitrogen 7 mg/dL (9-16); Calcium 8.8 mg/dL (8.4-10.2); Carbon Dioxide 24 mmol/L (22-29); Chloride 107 mmol/L (96-108); Creatinine Clr Calc Pharmacy 109.3; Estimated Glomerular Filt Rate > 60; Glucose Random 87 mg/dL (60-115); Potassium 3.9 mmol/L (3.3-5.1); Sodium 139 mmol/L (135-145)
[2024-04-18 11:29] LABS: Vancomycin Random < 2.0 mcg/mL (15-20)
[2024-04-18 11:44] LABS: SLIDE REVIEW VERIFIED
[2024-04-18] MEDS: Ibuprofen 400 MG TABLET PO ×2 (12:25→17:07)
[2024-04-18] MEDS: vancomycin HCL 1,250 MG in 0.9 % Sodium Chloride 250 ML 166.67 MG IV (12:31)
--- NOTE | 2024-04-18 12:49 | HO.WOUND ---
Wound Consult: Initial 44yr old?female admitted to [facility] on 04/15/24 from the behavioral health unit - See progress notes and H&P for detailed history.? Wound consult placed for left lower leg.? Patient agreeable to assessment and photo documentation.? Left leg noted for significant warmth and heat, swelling, redness and pain. There are two open lesions noted with full thickness tissue loss, slough noted to wound bed. +pp noted. The patient reports she does not elevate the lower leg throughout the day - she was educated and encouraged to elevate the lower leg throughout the day to aid in swelling reduction and this will lead to increased comfort. The patient reports she has been wearing the walking boot even while in bed - discussed the benefits of removing the boot when in bed and nonambulatory - Dr Nunez confirmed patient can remove boot while not ambulating. Of note while at bedside patient did experience auditory hallucinations and carried on a conversation independently. Recommendations: 1. Turn and Reposition every 2 hours and as needed for patient comfort.? Use pillows or wedges to support off loading positions. 2. Off Load all bony prominences with use of pillows and heel boots if needed.? Apply Preventative foams where needed. ? 3. Monitor for incontinence and moisture control, use barrier creams when needed for prevention and treatment. 4. Provide adequate and supplemental nutrition.? 5. When applicable maintain blood glucose levels per Providers order. 6. Left Leg - Elevate lower Leg on pillows throughout the day. Remove boot when in bed. Cleanse with NS, pat dry. Cover leg with lotion or vaseline, apply Durafiber to open wounds, cover with dry gauze, ABD pad and Wrap. Complete with Tarun wrap. Change Daily while inpatient. At time of d/c may change every other day. Re-consult wound care Nurse for wound deterioration or wound changes.
--- NOTE | 2024-04-18 13:02 | HO.PM.IMPN ---
Subjective Subjective Date of Service: 04/18/24 Interval History: seen and evaluated this morning improving swelling and pain in LLE No fever Tried to leave overnight, Had Zyprexa and security Not following commands; needs to keep leg up no other events Review of Systems Review of Systems: Yes all other systems are reviewed and are negative Physical Exam Vital Signs: Vital Signs: Last Vital Signs Temp 99.5 F 04/18/24 08:00 Pulse 106 H 04/18/24 08:00 Resp 18 04/18/24 10:36 BP 128/79 04/18/24 10:29 Pulse Ox 98 04/18/24 08:00 O2 Del Method Room Air 04/18/24 08:00 BMI result Body Mass Index 26.2 Const: Other: Constitutional : Awake, interactive, not in distress Neck : Normal inspection, Supple Cardiovascular : RRR, no JVP, no lower extremity edema Respiratory : good bilateral air entry, no crackles, wheezes or rhonchi Gastrointestinal: soft, lax, Normal bowel sounds, Non tender Skin : Warm, Dry, improving LLE edema and warmth with tenderness Neurological : Alert & oriented, No focal deficit Objective Data Active Medications Acetaminophen (Acetaminophen 325 Mg Tablet) 650 mg PO QSHIFT [facility] Last Admin: 04/18/24 10:25 Dose: 650 mg Documented By: INDIRA Amoxicillin/Clavulanate Potassium (Amoxicillin/Potassium Clav 875 Mg Tablet) 875 mg PO Q12H [facility] Last Admin: 04/18/24 10:26 Dose: 875 mg Documented By: INDIRA Aripiprazole (Aripiprazole 30 Mg Tablet) 30 mg PO DAILY [facility] Last Admin: 04/18/24 10:26 Dose: 30 mg Documented By: INDIRA Baclofen (Baclofen 10 Mg Tablet) 10 mg PO TID PRN PRN Reason: back/muscle spasm Last Admin: 04/17/24 16:21 Dose: 10 mg Documented By: FRANSISCO Bictegravir/Emtricitabine/Tenofovir (Bictegrav/Emtricit/Tenofov Ala Tablet) 1 tab PO DAILY [facility] Last Admin: 04/18/24 10:27 Dose: 1 tab Documented By: INDIRA Calcium Carbonate (Calcium Carbonate 750 Mg Tab.Chew) 750 mg PO Q4H PRN PRN Reason: Heartburn Clonidine HCl (Clonidine Hcl 0.1 Mg Tablet) 0.1 mg PO TID [facility]; Protocol Last Admin: 04/18/24 10:29 Dose: 0.1 mg Documented By: INDIRA Divalproex Sodium (Divalproex Sodium Sprinkles 125 Mg Cap.) 125 mg PO BIDWM@0800,1700 [facility] Last Admin: 04/18/24 10:36 Dose: 125 mg Documented By: INDIRA Doxycycline Monohydrate (Doxycycline Monohydrate 100 Mg Capsule) 100 mg PO Q12H [facility] Last Admin: 04/18/24 10:27 Dose: 100 mg Documented By: INDIRA Enoxaparin Sodium (Enoxaparin Sodium 40 Mg/0.4 Ml Syringe) 40 mg SUBCUT Q24H [facility] Last Admin: 04/17/24 14:54 Dose: Not Given Documented By: FRANSISCO Non-Admin Reason: Patient Refused Ferrous Sulfate (Ferrous Sulfate 324 Mg Tablet.) 324 mg PO BIDWM [facility] Last Admin: 04/18/24 10:27 Dose: 324 mg Documented By: INDIRA Gabapentin (Gabapentin 300 Mg Capsule) 300 mg PO TID [facility] Last Admin: 04/18/24 10:25 Dose: 300 mg Documented By: INDIRA Vancomycin HCl 1,250 mg/ (Sodium Chloride) 250 mls @ 166.667 mls/hr IV Q8H [facility] Last Admin: 04/18/24 12:31 Dose: 166.67 mls/hr Documented By: INDIRA Ibuprofen (Ibuprofen 400 Mg Tablet) 400 mg PO TIDWM [facility] Last Admin: 04/18/24 12:25 Dose: 400 mg Documented By: INDIRA Lactulose (Lactulose 20 Gm/30 Ml Solution) 10 gm PO DAILY [facility] Last Admin: 04/18/24 10:25 Dose: 10 gm Documented By: INDIRA Lidocaine (Lidocaine 4 % Patch Adh..Patch) 2 patch TRANSDERMA DAILY [facility]; Protocol Last Admin: 04/18/24 11:05 Dose: Not Given Documented By: INDIRA Non-Admin Reason: Patient Refused Melatonin (Melatonin 3 Mg Tablet) 6 mg PO BEDTIME PRN PRN Reason: Insomnia Morphine Sulfate (Morphine Sulfate 2 Mg/Ml Cartridge) 2 mg IVPUSH Q4H PRN; Protocol PRN Reason: Pain, Severe (Pain Scale 7-10) Last Admin: 04/18/24 10:36 Dose: 2 mg Documented By: INDIRA Nicotine (Nicotine 14 Mg Patch.Td24) 14 mg TRANSDERMA DAILY [facility] Last Admin: 04/18/24 09:31 Dose: 14 mg Documented By: INDIRA Nicotine Polacrilex (Nicotine Polacrilex 2 Mg Gum) 4 mg BUCCAL Q2H PRN PRN Reason: Nicotine Cravings Olanzapine (Olanzapine 5 Mg Tablet) 5 mg PO Q4H PRN PRN Reason: psychosis,agitation Olanzapine (Olanzapine 5 Mg Tablet) 5 mg PO BID [facility] Last Admin: 04/18/24 10:27 Dose: 5 mg Documented By: INDIRA Olanzapine (Olanzapine 10 Mg Vial) 5 mg IM ONCE PRN PRN Reason: anxiety/restlessness Last Admin: 04/17/24 18:20 Dose: 5 mg Documented By: FRANSISCO Ondansetron HCl (Ondansetron Hcl 4 Mg/2 Ml Vial) 4 mg IVPUSH Q8H PRN PRN Reason: Nausea and Vomiting Pharmacy Consult (Consult Rx Vancomycin Dosing) 1 each MISCELLANE DAILY PRN PRN Reason: Consult order Prazosin HCl (Prazosin Hcl 1 Mg Capsule) 2 mg PO BEDTIME [facility]; Protocol Last Admin: 04/17/24 20:56 Dose: Not Given Documented By: AMADO Non-Admin Reason: Patient Refused Prochlorperazine (Prochlorperazine 25 Mg Supp.Rect) 25 mg [place] Q12H PRN PRN Reason: Vomiting Rifaximin (Rifaximin 550 Mg Tablet) 550 mg PO BID [facility] Last Admin: 04/18/24 10:26 Dose: 550 mg Documented By: INDIRA Sodium Chloride (0.9 % Sodium Chloride Flush 3 Ml Syringe) 3 ml IVFLUSH QSHIFT [facility] Last Admin: 04/18/24 09:30 Dose: 3 ml Documented By: INDIRA Tramadol HCl (Tramadol Hcl 50 Mg Tablet) 25 mg PO Q6H PRN PRN Reason: Pain, Severe (Pain Scale 7-10) Last Admin: 04/17/24 22:27 Dose: 25 mg Documented By: AMADO Labs 04/18/24 10:58 04/18/24 10:58 Labs: Laboratory Results - last 24 hr 12/05/24 10:58 MCV 68.6 L MCH 21.7 L MCHC 31.6 RDW 24.8 H Plt Count 125 L D MPV Not Reportable Immature Gran % (Auto) 1.7 H Neut % (Auto) 61.7 Lymph % (Auto) 17.7 L [place] % (Auto) 17.7 H Eos % (Auto) 0.3 Baso % (Auto) 0.9 Lymph # (Auto) 1.5 [place] # (Auto) 1.5 H Eos # (Auto) 0.0 Baso # (Auto) 0.1 Abs Immat Gran (auto) 0.15 H Absolute Neuts (auto) 5.3 Absolute Nucleated RBC 0.000 Nucleated RBC % (auto) 0.0 Smear Tech's Comments VERIFIED Anion Gap 12 Estim Creat Clear Calc 109.3 Estimated GFR > 60 Random Glucose 87 Calcium 8.8 Random Vancomycin < 2.0 L Assessment and Plan (1) Avulsion fracture of ankle: Status: Acute (2) Cellulitis: Status: Acute Plan Patient is a 44-year-old female with a PMH significant for liver cirrhosis, HIV, unspecified anemia, and mood disorder admitted to [facility] with hospitalist consult on 04/14 for left lower leg and wound pain as well as abnormal blood work. She was started on clindamycin. CBC this morning with bandemia. Vitals with tachycardia, tachypnea and fever. LLE cellulitis improving slowly, patient refusing optimum care and we had to switch her to PO Abx as she is rippin off her IV and barely finished 1/2 dose of loading Vanco two times. venous duplex negative for DVT Xray leg, knee and foot - Avulsion fracture medial cuboid, mild tricompartmental degenerative changes in the knee with small joint effusion which will contribute to her lower extremity pain and swelling continue PO Doxycycline and Augmentin dc IV vancomycin as she ripped off IV line again Tylenol and Ibuprofen ATC for the next 2-3 days monitor CBC and BMP check CT leg negative cultures pending DC to psych floor again Wound care eval, keep leg elevated, daily SHIRA wrap, off boot when in bed Avulsion fx medial cuboid ortho consulted, recommended boot weight bearing as tolerated and outpt f/u cirrhosis continue xifaxan, lactulose HIV conitnue Biktarvy HIV, STI panel pending. add RPR anemia- stable monitor CBC mood disorder prazosin, olanzapine, gabapentin, depakote, abilify Full code VTE prophylaxis: Lovenox Patient admitted from psychiatry floor to medical floor due to sepsis secondary to cellulitis, we will require overnight stay for IV antibiotics pending final cultures and fever cessation. Quality Stroke Does the patient have a stroke diagnosis?: No VTE Prior VTE?: No VTE Risk Level:: Medical - moderate - high VTE Device Contraindication: Treatment Not Indicated VTE Drug Contraindication: N/A - Med Ordered
--- NOTE | 2024-04-18 13:09 | PM.DS ---
DS: Providers Provider Date of Service: 04/18/24 Date of admission: 04/15/24 12:38 Date of discharge: 04/18/24 Primary care physician: Unknown Physician Consults: 04/17/24 09:34 Addiction Medicine Routine Consulting Provider: Addiction Covering Reason for consultation: Reported being on Methadone. eval and rec. 04/17/24 17:14 Consult to Psychiatry Routine Consulting Provider: [facility] Psych Covering Reason for consultation: psychotic symptoms 04/17/24 20:14 Consult for Sitter Routine Reason for consultation: Psychosis. Risk for Elopment Has provider been notified: Yes 04/18/24 06:12 Consult to Wound Care Routine Reason for consultation: Cellulitis 04/18/24 10:12 Consult to Care Team Routine Comment: Reason for consultation: Medically free, placement DS: Diagnosis Discharge Diagnosis (1) Avulsion fracture of ankle: Status: Acute (2) Cellulitis: Status: Acute (3) Sepsis: Status: Acute (4) Schizophrenia, acute undifferentiated: Status: Acute DS: Summary Hospital Course Hospital Course: Admission note HPI Patient is a 44-year-old female with a PMH significant for liver cirrhosis, HIV, unspecified anemia, and mood disorder admitted to [facility] Psych[facility] unit with hospitalist consult for left lower leg and wound pain as well as abnormal blood work. Patient is a rather poor and imprecise historian. Complains of left lower leg pain after falling out of bed either last night or the night before. Patient apparently thinks medications are ?poison in her blood and attempted to counteract that process by rolling around in her bed but went too far and fell. Reports hitting left lower leg on either the floor or the chair. Also complains of having chlamydia that someone recently gave her. Complains of vaginal smell and discharge not alleviated by showering. Physical examination reveals left lower leg diffuse tenderness, swelling, and erythema as pictured below. Concerning for cellulitis secondary to left lower leg wound sustained over 1 month ago. This is a marked difference in appearance since previous examination of the area 2 days prior. Today, we were contacted by the psych floor that the pt is now meeting sepsis criteria. She is tachycardic, tachypneic and with fever of 102.5, +bands on CBC. Hospital course The patient was admitted for treatment of sepsis secondary to LLE cellulitis which was improving slowly as the patient refused optimum care with IV antibiotics and we had to switch her to PO Abx as she is rippin off her IV and barely finished 1/2 dose of loading Vanco two times. venous duplex negative for DVT. Xray leg, knee and foot - Avulsion fracture medial cuboid, mild tricompartmental degenerative changes in the knee with small joint effusion which will contribute to her lower extremity pain and swelling. She was evaluated by orthopedic team for Avulsion fx medial cuboid, recommended boot weight bearing as tolerated and outpt follow up. Treated with PO Doxycycline and Augmentin and Tylenol and Ibuprofen ATC for the next 2-3 days with negative blood cultures. CT scan of left leg Wound care evaluated the patient and recommended to keep leg elevated, daily SHIRA wrap, off boot when in bed, Cleanse with NS, pat dry. Cover leg with lotion or vaseline, apply Durafiber to open wounds, cover with dry gauze, ABD pad and Wrap. Discharge plan Time Attestation Discharge Coordination Time (in mins): 43 Quality: Safe Use of Opioids Does Pt have an Active Cancer Diagnosis on the Problem List?: No Quality: Stroke Does the patient have a stroke diagnosis?: No Physical Exam Vital Signs: Vital Signs: Last Vital Signs Temp 99.5 F 04/18/24 08:00 Pulse 106 H 04/18/24 08:00 Resp 18 04/18/24 10:36 BP 128/79 04/18/24 10:29 Pulse Ox 98 04/18/24 08:00 O2 Del Method Room Air 04/18/24 08:00 BMI result Body Mass Index 26.2 Const: Other: Constitutional : Awake, interactive, not in distress Neck : Normal inspection, Supple Cardiovascular : RRR, no JVP, no lower extremity edema Respiratory : good bilateral air entry, no crackles, wheezes or rhonchi Gastrointestinal: soft, lax, Normal bowel sounds, Non tender Skin : Warm, Dry, improving LLE edema and warmth with tenderness covered with SHIRA wrap Neurological : Alert & oriented, No focal deficit DS: Data Data Completed and Pending Labs on day of discharge: Laboratory Results - last 24 hr 04/18/24 10:58 WBC 8.6 RBC 4.01 L Hgb 8.7 L Hct 27.5 L MCV 68.6 L MCH 21.7 L MCHC 31.6 RDW 24.8 H Plt Count 125 L D MPV Not Reportable Immature Gran % (Auto) 1.7 H Neut % (Auto) 61.7 Lymph % (Auto) 17.7 L [place] % (Auto) 17.7 H Eos % (Auto) 0.3 Baso % (Auto) 0.9 Lymph # (Auto) 1.5 [place] # (Auto) 1.5 H Eos # (Auto) 0.0 Baso # (Auto) 0.1 Abs Immat Gran (auto) 0.15 H Absolute Neuts (auto) 5.3 Absolute Nucleated RBC 0.000 Nucleated RBC % (auto) 0.0 Smear Tech's Comments VERIFIED Sodium 139 Potassium 3.9 Chloride 107 Carbon Dioxide 24 Anion Gap 12 BUN 7 L Creatinine 0.69 Estim Creat Clear Calc 109.3 Estimated GFR > 60 Random Glucose 87 Calcium 8.8 Random Vancomycin < 2.0 L Discharge Plan Discharge Anticipated Discharge Date/Time: 04/18/24 13:26 Patient Disposition: Xfer Psychiatric Hosp Referrals: Physician,Unknown J [Primary Care Provider] - 1 Week Discharge Medications: New doxycycline monohydrate 100 mg Capsule 100 mg PO Q12H Qty: 14 0RF amoxicillin-pot clavulanate 875-125 mg Tablet 1 tab PO Q12H Qty: 14 0RF ferrous sulfate 324 mg (65 mg iron) Tablet,Delayed Release (Dr/Ec) 324 mg PO BIDWM Qty: 60 0RF Continued aripiprazole [Abilify] 30 mg tablet 30 mg PO DAILY divalproex 125 mg Tablet,Delayed Release (Dr/Ec) 125 mg PO BIDWM@0800,1700 gabapentin 300 mg Capsule 300 mg PO TID prazosin 2 mg Capsule 2 mg PO BEDTIME rifaximin 550 mg Tablet 550 mg PO Q12H [id number]-[id number] ala 50-200-25 mg Tablet 1 tab PO DAILY clonidine HCl 0.1 mg Tablet 0.1 mg PO TID Qty: 0 0RF Protocol: Hold for SBP< HOLD for SBP < : 90 acetaminophen 325 mg Tablet 975 mg PO Q6H PRN (Reason: pain (pain scale 1-10)) Qty: 0 0RF nicotine 14 mg/24 hr Patch 24 Hour 14 mg transdermal DAILY Qty: 0 0RF lidocaine [Lidocaine Pain Relief] 4 % Adhesive Patch,Medicated 2 patch transdermal DAILY Qty: 0 0RF Protocol: Apply to: Apply to: back clindamycin HCl 300 mg Capsule 300 mg PO Q6H Qty: 0 0RF nicotine (polacrilex) 2 mg Gum 4 mg buccal Q2H PRN (Reason: Nicotine Cravings) Qty: 0 0RF olanzapine 5 mg Tablet 5 mg PO Q4H PRN (Reason: psychosis,agitation) Qty: 0 0RF olanzapine 5 mg Tablet 5 mg PO BID Qty: 0 0RF tramadol 50 mg Tablet 25 mg PO Q6H PRN (Reason: Pain, Severe (Pain Scale 7-10)) Qty: 0 0RF prochlorperazine 25 mg Suppository [address] Q12H PRN (Reason: Vomiting) Qty: 0 0RF baclofen 10 mg Tablet 10 mg PO TID PRN (Reason: back/muscle spasm) Qty: 0 0RF diclofenac sodium 50 mg Tablet,Delayed Release (Dr/Ec) 50 mg PO BIDWM Qty: 0 0RF ondansetron 4 mg Tablet,Disintegrating 4 mg translingual Q6H PRN (Reason: Nausea And Vomiting) Qty: 0 0RF lactulose 20 gram/30 mL Solution 10 g PO DAILY Qty: 0 0RF Diet: Advance to usual diet Activity on Discharge: As tolerated Stand Alone Forms: Patient Portal Discharge page Print Language: Uzbek
--- NOTE | 2024-04-18 13:27 | HO.ADDICT_ITS ---
History of Present Illness Date of Service: 04/18/2024 Chief Complaint: Cellulitis Reason for Consult: ?OUD ?restart methadone Sources of Information: patient interviewed and chart reviewed HPI Narrative: Patient is a 44 year old female medically admitted with ankle fracture and sepsis Consult requested as patient was reporting that she was on methadone and requesting it while here. Chart review shows that patient was admitted to unit from 04/06-04/15 until she was transferred to medical floor. While on unit patient was noted to be disorganized, with numerous delusions. Documentation shows that staff inquired with [facility] regarding patient's request for methadone and they reported that while there she did not receive any. It was documented that patient stated she was a patient of [facility], however it does not apper that this was followed up on. It is somewhat challenging to obtain history from patient due to ongoing delusions She was seen by t/w in room 363. Awake, alert, sitting up in recliner, engaged in interview When asked how she was feeling she replied, like lawrence . When asked about methadone, she stated she has been on methadone for 5 years and her dose used to be 154, but has been receiving 104mg. She reports her home clinic is in [place], and that she gets take home bottles. She then began to state that her bottles were in this facility and her has been watching them. She would like to restart methadone engine research engineer called [facility] and verified that patient was active with their clinic. Her last dose there was on February and she received 104mg. It is unclear when she was admitted to [facility] or [facility] (where she was before), and if she received methadone at either place as there are no medical records available to review. Past Psychiatric History: Recent [facility] hospitalization Review of Systems Constitutional: Reports as per HPI Diagnostics Vital Signs (24Hr): Vital Signs - 24 hr 04/17/24 15:06 04/17/24 19:02 04/18/24 03:58 Temperature 98.1 F 98.4 F 99.5 F Pulse Rate 108 H 113 H 108 H Respiratory Rate 18 20 16 Blood Pressure 129/80 122/86 138/76 Pulse Oximetry 97 98 99 Oxygen Delivery Method Room Air Room Air Room Air 04/18/24 08:00 04/18/24 10:29 04/18/24 10:36 Temperature 99.5 F Pulse Rate 106 H Respiratory Rate 16 18 Blood Pressure 135/65 128/79 Pulse Oximetry 98 Oxygen Delivery Method Room Air BMI result Body Mass Index 26.2 Labs 04/18/24 10:58 04/18/24 10:58 Labs: Laboratory Results - last 48 hr 04/17/24 04/18/24 08:30 10:58 WBC 3.9 L 8.6 RBC 3.87 L 4.01 L Hgb 8.4 L 8.7 L Hct 26.2 L 27.5 L MCV 67.7 L 68.6 L MCH 21.7 L 21.7 L MCHC 32.1 31.6 RDW 24.7 H 24.8 H Plt Count 88 L 125 L D MPV Not Reportable Not Reportable Immature Gran % (Auto) 1.0 H 1.7 H Neut % (Auto) 54.0 61.7 Lymph % (Auto) 22.9 17.7 L [place] % (Auto) 21.1 H 17.7 H Eos % (Auto) 0.5 0.3 Baso % (Auto) 0.5 0.9 Lymph # (Auto) 0.9 L 1.5 [place] # (Auto) 0.8 1.5 H Eos # (Auto) 0.0 0.0 Baso # (Auto) 0.0 0.1 Abs Immat Gran (auto) 0.04 H 0.15 H Absolute Neuts (auto) 2.1 5.3 Absolute Nucleated RBC 0.000 0.000 Nucleated RBC % (auto) 0.0 0.0 Smear Tech's Comments VERIFIED VERIFIED Sodium 140 139 Potassium 4.0 3.9 Chloride 110 H 107 Carbon Dioxide 23 24 Anion Gap 11 L 12 BUN 13 7 L Creatinine 0.63 0.69 Estim Creat Clear Calc 119.8 109.3 Estimated GFR > 60 > 60 Random Glucose 89 87 Calcium 8.4 8.8 Random Vancomycin < 2.0 L Mental Status Exam Mental Status Exam Level of Consciousness: Awake and Alert Patient Behavior: Talkative and Cooperative Medications Medications Current Medications Acetaminophen (Acetaminophen 325 Mg Tablet) 650 mg PO QSHIFT [facility] Last Admin: 04/18/24 10:25 Dose: 650 mg Amoxicillin/Clavulanate Potassium (Amoxicillin/Potassium Clav 875 Mg Tablet) 875 mg PO Q12H [facility] Last Admin: 04/18/24 10:26 Dose: 875 mg Aripiprazole (Aripiprazole 30 Mg Tablet) 30 mg PO DAILY [facility] Last Admin: 04/18/24 10:26 Dose: 30 mg Baclofen (Baclofen 10 Mg Tablet) 10 mg PO TID PRN PRN Reason: back/muscle spasm Last Admin: 04/17/24 16:21 Dose: 10 mg Bictegravir/Emtricitabine/Tenofovir (Bictegrav/Emtricit/Tenofov Ala Tablet) 1 tab PO DAILY [facility] Last Admin: 04/18/24 10:27 Dose: 1 tab Calcium Carbonate (Calcium Carbonate 750 Mg Tab.Chew) 750 mg PO Q4H PRN PRN Reason: Heartburn Clonidine HCl (Clonidine Hcl 0.1 Mg Tablet) 0.1 mg PO TID [facility]; Protocol Last Admin: 04/18/24 10:29 Dose: 0.1 mg Divalproex Sodium (Divalproex Sodium Sprinkles 125 Mg Cap.) 125 mg PO BIDWM@0800,1700 [facility] Last Admin: 04/18/24 10:36 Dose: 125 mg Doxycycline Monohydrate (Doxycycline Monohydrate 100 Mg Capsule) 100 mg PO Q12H [facility] Last Admin: 04/18/24 10:27 Dose: 100 mg Enoxaparin Sodium (Enoxaparin Sodium 40 Mg/0.4 Ml Syringe) 40 mg SUBCUT Q24H [facility] Last Admin: 04/17/24 14:54 Dose: Not Given Ferrous Sulfate (Ferrous Sulfate 324 Mg Tablet.) 324 mg PO BIDWM [facility] Last Admin: 04/18/24 10:27 Dose: 324 mg Gabapentin (Gabapentin 300 Mg Capsule) 300 mg PO TID [facility] Last Admin: 04/18/24 10:25 Dose: 300 mg Ibuprofen (Ibuprofen 400 Mg Tablet) 400 mg PO TIDWM [facility] Last Admin: 04/18/24 12:25 Dose: 400 mg Lactulose (Lactulose 20 Gm/30 Ml Solution) 10 gm PO DAILY [facility] Last Admin: 04/18/24 10:25 Dose: 10 gm Lidocaine (Lidocaine 4 % Patch Adh..Patch) 2 patch TRANSDERMA DAILY [facility]; Protocol Last Admin: 04/18/24 11:05 Dose: Not Given Melatonin (Melatonin 3 Mg Tablet) 6 mg PO BEDTIME PRN PRN Reason: Insomnia Morphine Sulfate (Morphine Sulfate 2 Mg/Ml Cartridge) 2 mg IVPUSH Q4H PRN; Protocol PRN Reason: Pain, Severe (Pain Scale 7-10) Last Admin: 04/18/24 10:36 Dose: 2 mg Nicotine (Nicotine 14 Mg Patch.Td24) 14 mg TRANSDERMA DAILY [facility] Last Admin: 04/18/24 09:31 Dose: 14 mg Nicotine Polacrilex (Nicotine Polacrilex 2 Mg Gum) 4 mg BUCCAL Q2H PRN PRN Reason: Nicotine Cravings Olanzapine (Olanzapine 5 Mg Tablet) 5 mg PO Q4H PRN PRN Reason: psychosis,agitation Olanzapine (Olanzapine 5 Mg Tablet) 5 mg PO BID [facility] Last Admin: 04/18/24 10:27 Dose: 5 mg Olanzapine (Olanzapine 10 Mg Vial) 5 mg IM ONCE PRN PRN Reason: anxiety/restlessness Last Admin: 04/17/24 18:20 Dose: 5 mg Ondansetron HCl (Ondansetron Hcl 4 Mg/2 Ml Vial) 4 mg IVPUSH Q8H PRN PRN Reason: Nausea and Vomiting Prazosin HCl (Prazosin Hcl 1 Mg Capsule) 2 mg PO BEDTIME [facility]; Protocol Last Admin: 04/17/24 20:56 Dose: Not Given Prochlorperazine (Prochlorperazine 25 Mg Supp.Rect) 25 mg CO Q12H PRN PRN Reason: Vomiting Rifaximin (Rifaximin 550 Mg Tablet) 550 mg PO BID [facility] Last Admin: 04/18/24 10:26 Dose: 550 mg Sodium Chloride (0.9 % Sodium Chloride Flush 3 Ml Syringe) 3 ml IVFLUSH QSHIFT [facility] Last Admin: 04/18/24 09:30 Dose: 3 ml Tramadol HCl (Tramadol Hcl 50 Mg Tablet) 25 mg PO Q6H PRN PRN Reason: Pain, Severe (Pain Scale 7-10) Last Admin: 04/17/24 22:27 Dose: 25 mg Allergies Allergies Allergy/AdvReac Type Severity Reaction Status Date / Time No Known Allergies Allergy Verified 04/05/24 18:41 Assessment & Plan Assessment & Plan (1) Opioid use disorder: Status: Acute Code(s): F11.90 - Opioid use, unspecified, uncomplicated Assessment and Plan: * restart methadone at 20mg with plan to titrate dose as appropriate since it has been at minimum 2 weeks with no methadone * methadone 35mg in AM and continue to follow * already established with [facility] * medical records still need to be obtained. Signed released in patient chart for different facilities and providers Total time managing care of this patient today _45___ minutes. PMFSH Social History Social History Household Members: Spouse and Children Housing: House Do you presently have visiting nurse or other home services: No Unable to assess alcohol history related to: Refusing to respond Comment: 1:1 sitter at bedside Patient Tobacco Use Status: Former Tobacco user Tobacco use type: Cigarette Cigarette Packs Per Day: 1 Cigarettes Per Day: 20.0 Smoked in Last 30 Days: No e-Cigarette/Vaping Use: Former Use Patient Interested in Nicotine Replacement: No Patient Given Instructions on How to Stop Smoking: No Second Hand Smoke Exposure: No Use of substances other than those prescribed or required for medical reasons: No Currently Displaying Signs/Symptoms of Drug Intoxication Withdrawal: No Any prior treatment program specific to substance use: No Have you been hit, kicked, punched, or otherwise hurt by someone within the past year? If so, by whom?: No Do you feel safe in your current relationship?: Yes Is there a partner from a previous relationship who is making you feel unsafe now?: No Are you made to feel afraid or neglected: No Advance Directives: No Do you have a plan to hurt others: No Plan Recently lost weight without trying: No Eating poorly because of decreased appetite: No Nutrition Risks: No Nutritional Risk Patient : No : No Poor oral hygiene: No service: No Sexual orientation: Straight/Heterosexual
--- NOTE | 2024-04-18 14:01 | MHC.CARE ---
patient seen by CARE team, she is appropriate to return to the inpatient psychiatry unit.
[2024-04-18] MEDS: methADONE HCl 20 MG/2 ML ORAL.CONC PO (14:39)
[2024-04-18] MEDS: Enoxaparin Sodium 40 MG/0.4 ML SYRINGE SUBCUT (14:39)
--- NOTE | 2024-04-18 14:59 | MHC.CM.PN ---
Patient is medically cleared. Careteam eval ordered. The Careteam assessment qualifies patient for IPLOC. DP [facility] .
[2024-04-18] MEDS: iohexoL 350 MG/ML 100 ML INFUS..BTL 85 ML IV (16:39)
[2024-04-18] MEDS: Prazosin HCL 1 MG CAPSULE 2 MG PO (20:56)
[2024-04-18] MEDS: Baclofen 10 MG TABLET PO (21:11)
[2024-04-19] MEDS: Morphine Sulfate 2 MG/ML CARTRIDGE IVPUSH (02:22)
[2024-04-19 04:00] VITALS: RESP 18
[2024-04-19 06:02] LABS: Creatinine Clr Calc Pharmacy 127.8; Estimated Glomerular Filt Rate > 60
[2024-04-19 06:15] VITALS: BP 139/74; PULSE 98; RESP 16; TEMP 36.4; O2SAT 99
--- NOTE | 2024-04-19 06:23 | PC.NURSE ---
Patient with a sitter at bedside thru-out this 12 hour shift, alert to self, with confusion, noted at times to turn head and talk to someone not present. Dressing intact to LLE, boot worn to left foot. Pt noted to go for a Ct Scan previous shift of left foot, still no report present. Encouraged many times to elevate her leg. Patient did take her scheduled medications as per JUL with the exception of Tylenol. Three occasions where she voiced she needed to sign papers and leave, once very insistent and security was called for assistance to escort her back to her room. Conversations held by this medical underwriter concerning the importance of staying in the hospital setting, receiving her antibiotics for her leg infection, and awaiting results of her CT scan. Hospitalist also came to talk to patient and reinforce her plan of care. Confusion of her situation was noted by her comments, however, she did return to her room, sat in chair, voided in bathroom, and finally went to bed near 0300 and rested quietly. Medicated times two with morphine for pain as per JUL. VSS, lung kwong clear, allowed safety and elopement prevention, however, noted she does not like to be touched and gets startled easily. Continued to monitor.
[2024-04-19 08:00] VITALS: BP 115/56; PULSE 102; RESP 16; TEMP 37.6; O2SAT 98
[2024-04-19] MEDS: oxyCODONE HCl Immed Release 5 MG TABLET PO ×2 (08:00→12:45)
[2024-04-19] MEDS: Lactulose 20 GM/30 ML SOLUTION 10 GM PO (08:00)
[2024-04-19] MEDS: methADONE HCl 20 MG/2 ML ORAL.CONC 35 MG PO (08:00)
[2024-04-19] MEDS: Ibuprofen 400 MG TABLET PO ×2 (08:01→12:45)
[2024-04-19] MEDS: Bictegrav/Emtricit/Tenofov Ala TABLET 1 TAB PO (08:01)
[2024-04-19] MEDS: Ferrous Sulfate 324 MG TABLET.DR PO (08:01)
[2024-04-19] MEDS: Acetaminophen 325 MG TABLET 650 MG PO (08:01)
[2024-04-19] MEDS: cloNIDine HCL 0.1 MG TABLET PO (08:01)
[2024-04-19] MEDS: Nicotine 14 MG PATCH.TD24 TRANSDERMA (08:02)
[2024-04-19] MEDS: OLANZapine 5 MG TABLET PO (08:02)
[2024-04-19] MEDS: rifAXIMin 550 MG TABLET PO (08:03)
[2024-04-19] MEDS: Gabapentin 300 MG CAPSULE PO (08:03)
[2024-04-19] MEDS: ARIPiprazole 30 MG TABLET PO (08:03)
[2024-04-19 08:06] LABS: C Reactive Protein 5.33 mg/dL (< or = 0.50)
[2024-04-19] MEDS: Divalproex Sodium Sprinkles 125 MG CAP.DR.SPR PO (08:08)
[2024-04-19] MEDS: Doxycycline Monohydrate 100 MG CAPSULE PO (08:08)
[2024-04-19] MEDS: Amoxicillin/Potassium Clav 875 MG TABLET PO (08:09)
[2024-04-19] MEDS: 0.9 % Sodium Chloride Flush 3 ML SYRINGE IVFLUSH (08:09)
[2024-04-19] MEDS: Baclofen 10 MG TABLET PO (08:15)
[2024-04-19] MEDS: Lidocaine 4 % Patch ADH..PATCH 2 PATCH TRANSDERMA (08:16)
--- NOTE | 2024-04-19 09:17 | MHC.CM.PN ---
Medical records received from [facility]. A copy of the medical records has been provided to the Recovery Team. DP [facility] bed search in progress.
--- NOTE | 2024-04-19 10:06 | MHC.RECOVRN ---
Met with pt in 363 to follow up after receiving 35 mg methadone this morning. Pt laying in bed, eyes closed, wakes to voice, appears comfortable. Pt reports feeling withdrawal symptoms including anxiety, nausea, agitation, and clammy. Pt requesting to continue methadone titration. Pt also requesting to discharge home to [place]; t/w informed pt that IPLOC was recommended. Pt denies other questions or concerns for t/w. Discussed with Chantel Hernandez APRN.
--- NOTE | 2024-04-19 12:39 | PM.DS ---
DS: Providers Provider Date of Service: 04/19/24 Date of admission: 04/15/24 12:38 Date of discharge: 04/19/24 Primary care physician: Unknown Physician Consults: 04/17/24 09:34 Addiction Medicine Routine Consulting Provider: Addiction Covering Reason for consultation: Reported being on Methadone. eval and rec. 04/17/24 17:14 Consult to Psychiatry Routine Consulting Provider: [facility] Psych Covering Reason for consultation: psychotic symptoms 04/17/24 20:14 Consult for Sitter Routine Reason for consultation: Psychosis. Risk for Elopment Has provider been notified: Yes 04/18/24 06:12 Consult to Wound Care Routine Reason for consultation: Cellulitis 04/18/24 10:12 Consult to Care Team Routine Comment: Reason for consultation: Medically free, placement DS: Diagnosis Discharge Diagnosis (1) Schizophrenia, acute: Status: Acute (2) Cellulitis: Status: Acute (3) Avulsion fracture of ankle: Status: Acute (4) Knee effusion, left: Status: Acute DS: Summary Hospital Course Hospital Course: From the history and physical by the admitting hospitalist, LEIF Almonte, 04/15/24: Patient is a 44-year-old female with a PMH significant for liver cirrhosis, HIV, unspecified anemia, and mood disorder admitted to [facility] with hospitalist consult for left lower leg and wound pain as well as abnormal blood work. Patient is a rather poor and imprecise historian. Complains of left lower leg pain after falling out of bed either last night or the night before. Patient apparently thinks medications are ?poison in her blood and attempted to counteract that process by rolling around in her bed but went too far and fell. Reports hitting left lower leg on either the floor or the chair. Also complains of having chlamydia that someone recently gave her. Complains of vaginal smell and discharge not alleviated by showering. Physical examination reveals left lower leg diffuse tenderness, swelling, and erythema as pictured below. Concerning for cellulitis secondary to left lower leg wound sustained over 1 month ago. This is a marked difference in appearance since previous examination of the area 2 days prior. Today, we were contacted by the psych floor that the pt is now meeting sepsis criteria. She is tachycardic, tachypneic and with fever of 102.5, +bands on CBC. She was admitted to the medical-surgical unit. Sepsis physiology resolved and the infection improved clinically. The patient refused optimum care with IV antibiotics and barely finished her loading dose of vancomycin. Ultimately, due to patient safety [she tried to rip out her IV], she was treated with oral antibiotics [doxycycline plus amoxicillin-clavulanate]. Venous duplex negative for DVT. X-ray did show an avulsion fracture of the medial cuboid. Per Orthopedics, a walking boot and weight bearing as tolerated was recommended, along with outpatient follow-up. A CT scan showed a large left knee effusion. As this is overlain by the area of cellulitis, it was not sampled. Once the infection resolves, repeat X-ray and Orthopedic consultation should be considered. Per Wound Care: keep leg elevated, daily SHIRA wrap, off boot when in bed, Cleanse with NS, pat dry. Cover leg with lotion or vaseline, apply Durafiber to open wounds, cover with dry gauze, ABD pad and Wrap. She was transferred [facility] to [facility]. CD4 count 216. Viral load pending at the time of transfer to psychiatry. T. pallidum EIA negative; urinary GC/CT NAAT pending. Discharge plan Time Attestation Discharge Coordination Time (in mins): 35 Quality: Safe Use of Opioids Does Pt have an Active Cancer Diagnosis on the Problem List?: No Quality: Stroke Does the patient have a stroke diagnosis?: No Physical Exam Vital Signs: Vital Signs: Last Vital Signs Temp 99.6 F 04/19/24 08:00 Pulse 102 H 04/19/24 08:00 Resp 16 04/19/24 08:00 BP 115/56 L 04/19/24 08:00 Pulse Ox 98 04/19/24 08:00 O2 Del Method Room Air 04/19/24 08:00 BMI result Body Mass Index 26.2 Gen: in no acute distress HEENT: sclera anicteric, moist mucus membranes Neck: supple Lungs: clear to auscultation bilaterally Heart: regular rate and rhythm, no murmurs Abd: soft, non-tender, non-distended Ext: no edema Skin: warm/well-perfused, LLE with warmth and swelling Neuro: alert, moving all extremities Psych: restricted affect DS: Data Data Completed and Pending Completed studies during hospitalization [Text1]: Laboratory Results WBC 8.6 X10*3/uL (4.8-10.8) 04/18/24 10:58 RBC 4.01 X10*6/uL (4.20-5.50) L 04/18/24 10:58 Hgb 8.7 g/dl (12.0-16.0) L 04/18/24 10:58 Hct 27.5 % (37.0-47.0) L 04/18/24 10:58 MCV 68.6 fL (80.0-98.0) L 04/18/24 10:58 MCH 21.7 pg (27.0-33.0) L 04/18/24 10:58 MCHC 31.6 g/dl (31.0-35.0) 04/18/24 10:58 RDW 24.8 % (11.0-16.0) H 04/18/24 10:58 Plt Count 125 X10*3/uL (160-400) L D 04/18/24 10:58 MPV Not Reportable 04/18/24 10:58 Immature Gran % (Auto) 1.7 % (0.0-0.4) H 04/18/24 10:58 Neut % (Auto) 61.7 % (45-73) 04/18/24 10:58 Lymph % (Auto) 17.7 % (20-40) L 04/18/24 10:58 Motley % (Auto) 17.7 % (2-11) H 04/18/24 10:58 Eos % (Auto) 0.3 % (0-4) 04/18/24 10:58 Baso % (Auto) 0.9 % (0-2) 04/18/24 10:58 Lymph # (Auto) 1.5 X10*3/uL (1.2-4.9) 04/18/24 10:58 Motley # (Auto) 1.5 X10*3/uL (0.1-1.2) H 04/18/24 10:58 Eos # (Auto) 0.0 X10*3/uL (0.0-0.4) 04/18/24 10:58 Baso # (Auto) 0.1 X10*3/uL (0.0-0.2) 04/18/24 10:58 Abs Immat Gran (auto) 0.15 X10*3/uL (0.00-0.03) H 04/18/24 10:58 Absolute Neuts (auto) 5.3 x10*3/uL (2.0-8.3) 04/18/24 10:58 Absolute Nucleated RBC 0.000 X10*3/uL (0.0-0.012) 04/18/24 10:58 Nucleated RBC % (auto) 0.0 /100WBC (0.0-0.2) 04/18/24 10:58 Smear Tech's Comments VERIFIED 04/18/24 10:58 Sodium 139 mmol/L (135-145) 04/18/24 10:58 Potassium 3.9 mmol/L (3.3-5.1) 04/18/24 10:58 Chloride 107 mmol/L (96-108) 04/18/24 10:58 Carbon Dioxide 24 mmol/L (22-29) 04/18/24 10:58 Anion Gap 12 (12-20) 04/18/24 10:58 BUN 7 mg/dL (9-16) L 04/18/24 10:58 Creatinine 0.59 mg/dL (0.5-1.4) 04/19/24 05:16 Estim Creat Clear Calc 127.8 04/19/24 05:16 Estimated GFR > 60 04/19/24 05:16 Random Glucose 87 mg/dL (60-115) 04/18/24 10:58 Calcium 8.8 mg/dL (8.4-10.2) 04/18/24 10:58 C-Reactive Protein 5.33 mg/dL (< or = 0.50) H 04/19/24 05:16 Random Vancomycin < 2.0 mcg/mL (15-20) L 04/18/24 10:58 T.pallidum Ab (EIA) Nonreactive (Nonreactive) 04/16/24 06:[address] 04/18/24 16:08 IMPRESSION: Large knee joint effusion with diffuse subcutaneous edema and skin thickening which may represent cellulitis. No focal fluid collection to suggest an abscess. No evidence of osteomyelitis. Electronically signed by: Rusty Linda MD 04/19/2024 11:28 AM EST RP Discharge Plan Discharge Anticipated Discharge Date/Time: 04/18/24 13:26 Patient Disposition: Xfer Psychiatric Hosp Discharge Diagnosis: Cellulitis Referrals: Physician,Unknown J [Primary Care Provider] - 1 Week Discharge Medications: New doxycycline monohydrate 100 mg Capsule 100 mg PO Q12H Qty: 14 0RF amoxicillin-pot clavulanate 875-125 mg Tablet 1 tab PO Q12H Qty: 14 0RF ferrous sulfate 324 mg (65 mg iron) Tablet,Delayed Release (Dr/Ec) 324 mg PO BIDWM Qty: 60 0RF Continued aripiprazole [Abilify] 30 mg tablet 30 mg PO DAILY divalproex 125 mg Tablet,Delayed Release (Dr/Ec) 125 mg PO BIDWM@0800,1700 gabapentin 300 mg Capsule 300 mg PO TID prazosin 2 mg Capsule 2 mg PO BEDTIME rifaximin 550 mg Tablet 550 mg PO Q12H [id number] ala 50-200-25 mg Tablet 1 tab PO DAILY clonidine HCl 0.1 mg Tablet 0.1 mg PO TID Qty: 0 0RF Protocol: Hold for SBP< HOLD for SBP < : 90 acetaminophen 325 mg Tablet 975 mg PO Q6H PRN (Reason: pain (pain scale 1-10)) Qty: 0 0RF nicotine 14 mg/24 hr Patch 24 Hour 14 mg transdermal DAILY Qty: 0 0RF lidocaine [Lidocaine Pain Relief] 4 % Adhesive Patch,Medicated 2 patch transdermal DAILY Qty: 0 0RF Protocol: Apply to: Apply to: back clindamycin HCl 300 mg Capsule 300 mg PO Q6H Qty: 0 0RF nicotine (polacrilex) 2 mg Gum 4 mg buccal Q2H PRN (Reason: Nicotine Cravings) Qty: 0 0RF olanzapine 5 mg Tablet 5 mg PO Q4H PRN (Reason: psychosis,agitation) Qty: 0 0RF olanzapine 5 mg Tablet 5 mg PO BID Qty: 0 0RF tramadol 50 mg Tablet 25 mg PO Q6H PRN (Reason: Pain, Severe (Pain Scale 7-10)) Qty: 0 0RF prochlorperazine 25 mg Suppository 25 mg IA Q12H PRN (Reason: Vomiting) Qty: 0 0RF baclofen 10 mg Tablet 10 mg PO TID PRN (Reason: back/muscle spasm) Qty: 0 0RF diclofenac sodium 50 mg Tablet,Delayed Release (Dr/Ec) 50 mg PO BIDWM Qty: 0 0RF ondansetron 4 mg Tablet,Disintegrating 4 mg translingual Q6H PRN (Reason: Nausea And Vomiting) Qty: 0 0RF lactulose 20 gram/30 mL Solution 10 g PO DAILY Qty: 0 0RF Discharge Orders: Discharge Order (Routine); Ordered 04/19/24 Ordered By: Paul Yu Diet: Advance to usual diet Activity on Discharge: As tolerated Stand Alone Forms: Patient Portal Discharge page Print Language: [facility] Concerns: cellulitis - continue doxycycline and amoxicillin-clavulanate twice daily for 7 days total medial cuboid avulsion fracture - walking boot, weight-bear as tolerated, follow up with Orthopedics in 1-2 weeks knee effusion - recommend X-ray and Orthopedic consultation after overlying cellulitis resolves. HIV infection - continue Biktarvy. CD4 count 216. viral load pending. - syphilis T. pallidum EIA negative. urine gonorrhea/chlamydia PCR pending. schizophrenia - inpatient psychiatry Plan of Treatment: see above Assessment: See Discharge Summary.
--- NOTE | 2024-04-19 14:25 | MHC.CM.PN ---
Patient has been discharged from for [place] [facility] [place] She will transport via to the floor.
[2024-04-19 14:26] LABS: CT PCR NOT DETECTED (Not Detect.); NG PCR NOT DETECTED (Not Detect.)
[2024-04-22 15:13] LABS: HIV RNA PCR Qn Copies NOT DETECTED copies/mL (NOT DETECTED); HIV RNA PCR Qn Log Copies NOT DETECTED (NOT DETECTED)
== END 2024-04-19 13:20 | DRG 383 ==
PROVIDERS: Physician Assistant; Student in an Organized Health Care Education/Training Program; Admitting Provider Psychiatry & Neurology Psychiatry; Visit Provider Family Medicine
DX: L03.115 Cellulitis of right lower limb (principal); K74.60 Unspecified cirrhosis of liver; F11.20 Opioid dependence, uncomplicated; S92.212A Displaced fracture of cuboid bone of left foot, initial encounter for closed fracture; D64.9 Anemia, unspecified; F20.9 Schizophrenia, unspecified; Z21 Asymptomatic human immunodeficiency virus [HIV] infection status; W06.XXXA Fall from bed, initial encounter; Z87.891 Personal history of nicotine dependence; Z79.899 Other long term (current) drug therapy
CPT/HCPCS: 36415; 73701; 80048; 80202; 82565; 85025; 86140; 86780; 87491; 87536; 87591; J0295; J1650; J1885; J2270; J2359; J3370; J3371; Q9967

== ENCOUNTER → 2024-04-15 12:38 | Outpatient (BNV) | payer MEDICAID, SELFPAY | PROVIDERS: Admitting Provider Psychiatry & Neurology Psychiatry; Visit Provider Nurse Practitioner Psychiatric/Mental Health | DX: F11.90 Opioid use, unspecified, uncomplicated (principal) | CPT/HCPCS: 99223 ==

== ENCOUNTER → 2024-04-15 12:38 | Outpatient (BNV) | payer MEDICAID, SELFPAY | PROVIDERS: Admitting Provider Psychiatry & Neurology Psychiatry; Visit Provider Physician Assistant | DX: F23 Brief psychotic disorder (principal); L03.90 Cellulitis, unspecified; S82.899A Other fracture of unspecified lower leg, initial encounter for closed fracture; M25.462 Effusion, left knee | CPT/HCPCS: 99223; 99232; 99239; 99499 ==

== ENCOUNTER 2024-04-19 14:42 | Inpatient (IN) | payer OTHER, SELFPAY ==
--- NOTE | 2024-04-19 | ECG_ITS ---
Test Reason : Unwitnessed fall Blood Pressure : / mmHG Vent. Rate : 120 BPM Atrial Rate : 120 BPM P-R Int : 134 ms QRS Dur : 066 ms QT Int : 336 ms P-R-T Axes : 062 006 000 degrees QTc Int : 474 ms Sinus tachycardia Otherwise normal ECG No previous ECGs available Referred By: Johnny Aparicio Electronically Signed By:Keegan Zaragoza
--- NOTE | ~2024-04-19 | CT_ITS ---
EXAMINATION: CT HEAD WITHOUT CONTRAST CLINICAL INFORMATION: Psychosis. History of coma. COMPARISON: None available. TECHNIQUE: Contiguous axial imaging was performed from the skull base to vertex without intravenous administration of contrast. This CT examination was performed using dose optimization techniques as appropriate, variously including the following: *Automated exposure control. *Adjustment of mA and/or kV according to patient size (this includes techniques or standardized protocols for targeted exams where dose is matched to indication/reason for exam; i.e. extremities or head). *Use of iterative reconstruction technique. DLP: 656 mGy-cm FINDINGS: There is no evidence of acute intracranial hemorrhage or edematous territorial infarction. Amrtines-white matter differentiation is preserved. Few scattered hypoattenuation throughout the periventricular and deep white matter. The ventricles are normal in morphology and size. No evidence for obstructive hydrocephalus. No abnormal mass effect or midline shift. No extra-axial fluid collections. No acute soft tissue or osseous abnormalities. Mild mucosal thickening of the paranasal sinuses. Dehiscence of the nasal septum. The mastoid air cells and middle ear cavities are clear. CT/CT head/brain wo IV con IMPRESSION: 1. No evidence of acute intracranial hemorrhage or edematous territorial infarction. 2. Mild nonspecific white matter changes. Electronically signed by: Ozzie Easley DO 04/25/2024 05:39 PM [facility]
--- NOTE | ~2024-04-19 | CT_ITS ---
EXAMINATION: CT LOWER LEG WITH CONTRAST, LEFT CLINICAL INFORMATION: Edema, erythema, purulent discharge COMPARISON: 04/18/2024 TECHNIQUE: CT of the left lower leg is performed following intravenous administration of 85 mL Omnipaque [address] examination was performed using dose optimization techniques as appropriate, variously including the following: *Automated exposure control *Adjustment of mA and/or kV according to patient size (this includes techniques or standardized protocols for targeted exams where dose is matched to indication/reason for exam; i.e. extremities or head) *Use of iterative reconstruction technique Dose Length Product: 282 mGycm. FINDINGS: There is marked subcutaneous edema throughout the left lower leg extending to the dorsum of the foot which could represent cellulitis. There is no focal fluid collection to indicate an abscess. No asymmetric muscle enhancement or soft tissue gas. There is a moderate knee joint effusion. No acute osseous abnormality. CT/CT lower leg LT w IV con IMPRESSION: 1. Marked subcutaneous edema throughout the left lower leg extending to the dorsum of the foot which could represent cellulitis. No abscess or soft tissue gas. 2. Moderate knee joint effusion. Electronically signed by: Rusty Linda MD 04/28/2024 11:[address] [facility]
--- NOTE | ~2024-04-19 | US_ITS ---
EXAMINATION: US TRIPLEX LOWER EXTREMITY, LEFT CLINICAL INFORMATION: Left lower extremity swelling, positive d-dimer COMPARISON: None available. TECHNIQUE: Color-flow triplex imaging with spectral analysis and compression Doppler were performed on the left lower extremity. FINDINGS: Respiratory variation, normal compression and augmented flow are noted throughout the left lower extremity. The visualized common femoral vein, superficial femoral vein, profunda femoral vein, popliteal vein and midcalf posterior tibial venous segments show no evidence of deep venous thrombosis. Peroneal vein is not well visualized due to overlying edema There is no Cabrera's cyst. US/US venous duplex LE LT IMPRESSION: No evidence of deep venous thrombosis involving the left lower extremity. Electronically signed by: Bertin Montano MD 04/20/2024 12:54 PM [facility]
[2024-04-19 15:20] VITALS: BP 123/89; PULSE 100; TEMP 36.9; O2SAT 99; BMI 25.3
[2024-04-19] MEDS: Acetaminophen 325 MG TABLET 975 MG PO (18:04)
--- NOTE | 2024-04-19 18:40 | PC.ADMIT ---
Ms. Harmon was admitted from 3rd floor medical to [facility] via wheelchair at 3:15pm from 3rd floor psychosis. She is well known to . Skin/ safety check completed and was unremarkable. She signed a CV. Belongings were inventoried. Placed on 5 minute safety checks because she uses a walker. She reported that she is a former smoker, thus not in need of a smoking cessation consultation. She also reported that she has already received the flu vaccine. Patient is on methadone maintenance and reported to this senior technical writer that she has not used heroin/ cocaine/ alcohol for 7 months. Cooperative with admission process
[2024-04-19 19:30] VITALS: BP 115/60; PULSE 108; O2SAT 100
[2024-04-19 19:44] LABS: Glucose, Whole Blood 85 mg/dL (60-115)
--- NOTE | 2024-04-19 19:49 | PC.NURSE ---
at 7:35pm patient was discovered on the floor of her room after having an unwitnessed fall. Rapid response called, EKG done, results pending.
--- NOTE | 2024-04-19 19:56 | P.EN_ITS ---
Event Note Date of Service: 04/19/24 Event Note: Rapid response called for an unwitnessed fall for a 44-year-old female patient admitted to [facility] unit. Patient was noted by nursing to be crawling on the floor into the hallway and calling out for help. Patient states that she was attempting to get out of bed when she felt ?fuzzy? after standing and fell to the floor before reaching her walker. Patient is actively psychotic and a poor historian. She is uncertain whether she had anything including her head. Patient's only complaint is diffuse left leg pain. Will get EKG, CBC, BMP, D- dimer, and magnesium. Will defer imaging for now pending on D-dimer results. Time Spent With Patient Time: Total time managing care of this patient today ____ minutes.
[2024-04-19 20:00] VITALS: BP 133/86; PULSE 105; RESP 14; TEMP 36.4; O2SAT 100
[2024-04-19 20:22] LABS: Mean Corpuscular Hemoglobin 22.2 pg (27.0-33.0); Mean Corpuscular Volume 69.3 fL (80.0-98.0); Platelet Count 119 X10*3/uL (160-400); Red Blood Count 3.61 X10*6/uL (4.20-5.50); Red Cell Distribution Width 25.3 % (11.0-16.0); White Blood Count 8.6 X10*3/uL (4.8-10.8)
[2024-04-19 20:28] LABS: D Dimer High Sensitivity 1332 NG/ML
[2024-04-19 20:33] VITALS: BP 115/60; PULSE 102; O2SAT 100
[2024-04-19 20:36] LABS: Anion Gap 11 (12-20); Blood Urea Nitrogen 10 mg/dL (9-16); Calcium 8.3 mg/dL (8.4-10.2); Carbon Dioxide 23 mmol/L (22-29); Chloride 107 mmol/L (96-108); Creatinine Clr Calc Pharmacy 116.8; Estimated Glomerular Filt Rate > 60; Glucose Random 105 mg/dL (60-115); Magnesium 1.7 mg/dL (1.6-2.6); Potassium 3.9 mmol/L (3.3-5.1); Sodium 137 mmol/L (135-145)
[2024-04-19 21:49] VITALS: BP 154/89; PULSE 110; RESP 15; TEMP 36.9; O2SAT 100
[2024-04-19] MEDS: cloNIDine HCL 0.1 MG TABLET PO (21:57)
[2024-04-19] MEDS: Gabapentin 300 MG CAPSULE PO (21:58)
[2024-04-19] MEDS: Amoxicillin/Potassium Clav 875 MG TABLET PO (21:58)
[2024-04-19] MEDS: OLANZapine 5 MG TABLET PO ×2 (21:58→23:54)
[2024-04-19] MEDS: Prazosin HCL 1 MG CAPSULE 2 MG PO (21:58)
[2024-04-19] MEDS: rifAXIMin 550 MG TABLET PO (21:58)
[2024-04-19] MEDS: Doxycycline Monohydrate 100 MG CAPSULE PO (21:58)
[2024-04-19] MEDS: hydrOXYzine HCL 25 MG TABLET PO (23:54)
[2024-04-19] MEDS: traZODone HCL 50 MG TABLET PO (23:55)
[2024-04-19] MEDS: traMADoL HCL 50 MG TABLET 25 MG PO (23:55)
[2024-04-20] MEDS: Acetaminophen 325 MG TABLET 975 MG PO ×3 (01:51→19:05)
[2024-04-20] MEDS: Baclofen 10 MG TABLET PO ×3 (01:51→16:19)
[2024-04-20 08:03] VITALS: BP 118/60; PULSE 115; RESP 20; TEMP 37.8; O2SAT 98
[2024-04-20] MEDS: Amoxicillin/Potassium Clav 875 MG TABLET PO ×2 (08:24→22:05)
[2024-04-20] MEDS: traMADoL HCL 50 MG TABLET 25 MG PO ×3 (08:24→22:07)
[2024-04-20] MEDS: Ferrous Sulfate 324 MG TABLET.DR PO (08:25)
[2024-04-20] MEDS: rifAXIMin 550 MG TABLET PO ×2 (08:25→22:06)
[2024-04-20] MEDS: Doxycycline Monohydrate 100 MG CAPSULE PO ×2 (08:26→22:06)
[2024-04-20] MEDS: Gabapentin 300 MG CAPSULE PO ×2 (08:27→22:06)
[2024-04-20] MEDS: ARIPiprazole 30 MG TABLET PO (08:27)
[2024-04-20] MEDS: Bictegrav/Emtricit/Tenofov Ala TABLET 1 TAB PO (08:27)
[2024-04-20] MEDS: cloNIDine HCL 0.1 MG TABLET PO ×3 (08:27→22:06)
[2024-04-20] MEDS: OLANZapine 5 MG TABLET PO (08:28)
[2024-04-20] MEDS: Diclofenac Sodium Delayed Rel 50 MG TABLET.DR PO ×2 (08:30→16:19)
[2024-04-20] MEDS: Lactulose 20 GM/30 ML SOLUTION 10 GM PO (08:30)
[2024-04-20] MEDS: Lidocaine 4 % Patch ADH..PATCH 2 PATCH TRANSDERMA (08:30)
[2024-04-20] MEDS: Nicotine 14 MG PATCH.TD24 TRANSDERMA (08:31)
--- NOTE | 2024-04-20 09:12 | HO.PSYADMNOT ---
HPI Date of Service: 04/20/24 Chief Complaint: Psychosis Sources of Information: patient interviewed, chart reviewed and crisis/core team assessment reviewed HPI Subjective Notes: [place] Warning and Conditional Voluntary Narrative: Patient is a 44-year-old woman with history of HIV, liver cirrhosis, anemia polysubstance abuse and recently psychotic symptoms (full history unknown) who 1st presented to the ED days after discharged from [facility] with continued bizarre, disorganized behavior and thoughts, delusional thinking that she is on a TV show called Kill[employer]. Patient developed cellulitis of left lower leg, started on antibiotics but became septic and was transferred to the medical floor. Patient treated with antibiotics and medically cleared and now returns back to the psychiatric for ongoing psychotic symptoms, maintained on her psychotropic medication regimen now on p.o. antibiotics. Initially On M5 patient was continued on Abilify which was raised to 30 mg and low-dose Depakote, though did not seem to help much; she was resistant to medication changes. Attempts at any collateral were unsuccessful. Patient continued with delusional thinking, calling 911 from the unit saying staff was stealing 20,000,000 dollars, talking about being on a TV show... Owning for houses which she bought the week prior, even though she was psychiatrically admitted at [facility]..., thinking she is despite negative test, that A device implanted in her skin that informs her family of things... Patient remain this way, worsening someone she became septic. Returning to the unit, Patient is cooperative but with significant thought blocking and latency speech, very internally preoccupied. She is pleasant and cooperative, though a little guarded, but difficult with which to engage due to significant thought blocking. Right now, she agrees to continue with Abilify, Zyprexa, Depakote; movie writer discussed possibly trying Risperdal which she considered but is ambivalent; she agreed to sign a CV. Patient was also restarted on methadone while on medical floor. Past Psychiatric History: Recent [facility] hospitalization Medical Evaluation Reviewed: Yes [facility] Family History: unknown patient not good historian at this time Social History: unknown patient not good historian at this time Trauma History: unknown patient not good historian at this time Diagnostics Vital Signs (24Hr): Vital Signs - 24 hr 04/19/24 15:20 04/19/24 19:30 04/19/24 20:00 Temperature 98.5 F 97.6 F Pulse Rate 100 108 H 105 H Respiratory Rate 14 Blood Pressure 123/89 115/60 133/86 Pulse Oximetry 99 100 100 Oxygen Delivery Method Room Air Room Air 04/19/24 20:33 04/19/24 21:49 04/20/24 08:03 Temperature 98.4 F 100.0 F Pulse Rate 102 H 110 H 115 H Respiratory Rate 15 20 Blood Pressure 115/60 154/89 H 118/60 Pulse Oximetry 100 100 98 Oxygen Delivery Method Room Air Room Air BMI result Body Mass Index 25.3 Labs 04/19/24 20:14 04/19/24 20:14 Labs: Laboratory Results - last 48 hr 04/19/24 04/19/24 19:38 20:14 WBC 8.6 RBC 3.61 L Hgb 8.0 L Hct 25.0 L MCV 69.3 L MCH 22.2 L MCHC 32.0 RDW 25.3 H Plt Count 119 L MPV Not Reportable Absolute Nucleated RBC 0.000 Nucleated RBC % (auto) 0.0 D-Dimer High Sensitivty 1332 Sodium 137 Potassium 3.9 Chloride 107 Carbon Dioxide 23 Anion Gap 11 L BUN 10 Creatinine 0.64 Estim Creat Clear Calc 116.8 Estimated GFR > 60 POC Glucose 85 Random Glucose 105 Calcium 8.3 L Magnesium 1.7 Meds/Allergies Meds Home Medications ?Medication ?Instructions ?Recorded ?Confirmed ?Type bictegravir 50 mg-emtricitabine 1 tab PO DAILY 04/05/24 04/19/24 History 200 mg-tenofovir alafenam 25 mg tablet divalproex 125 mg tablet,delayed 125 mg PO BIDWM@0800,1700 Mood 04/05/24 04/19/24 History release gabapentin 300 mg capsule 300 mg PO TID 04/05/24 04/19/24 History prazosin 2 mg capsule 2 mg PO BEDTIME 04/05/24 04/19/24 History rifaximin 550 mg tablet 550 mg PO Q12H 04/05/24 04/19/24 History aripiprazole 30 mg tablet (Abilify) 30 mg PO DAILY 04/15/24 04/19/24 History doxycycline monohydrate 100 PO BID 04/19/24 04/19/24 History Allergies Allergies Allergy/AdvReac Type Severity Reaction Status Date / Time No Known Allergies Allergy Verified 04/05/24 18:41 Mental Status Exam Mental Status Exam Narrative: Pt is alert and oriented; behavior is guarded but also cooperative, mostly calm but also disorganized, getting up, sitting down, fidgeting around with things in random way; patient is not in distress; dressed in casual attire, unkempt, hair dreadlocks; mood is described as good though affect congruent, constricted; eye contact limited, furtive glances; Speech is with significant speech latency; a little soft, not pressured; both psychomotor agitation/retardation present; thought process marred by significant thought blocking but is goal directed; Thought content is on delusional thoughts; denies any SI/HI. Denies AVH but patient significantly internally preoccupied. Patients insight and judgment impaired Assessment & Plan Assessment & Plan (1) Schizophrenia, acute undifferentiated: Status: Acute Code(s): F20.3 - Undifferentiated schizophrenia (2) Opioid use disorder: Status: Acute Code(s): F11.90 - Opioid use, unspecified, uncomplicated (3) Cellulitis: Status: Acute Code(s): L03.90 - Cellulitis, unspecified (4) Avulsion fracture of ankle: Status: Acute Code(s): S82.899A - Other fracture of unspecified lower leg, initial encounter for closed fracture (5) Knee effusion, left: Status: Acute Code(s): M25.462 - Effusion, left knee Plan Patient is a 44-year-old woman with history of HIV, liver cirrhosis, anemia polysubstance abuse and recently psychotic symptoms (full history unknown) who 1st presented to the ED days after discharged from [facility] with continued bizarre, disorganized behavior and thoughts, delusional thinking that she is on a TV show called Kill[employer]. Pt found with medial cuboid avulsion fracture. Patient developed cellulitis of left lower leg, started on antibiotics but became septic and was transferred to the medical floor. Patient treated with antibiotics and medically cleared and now returns back to the psychiatric for ongoing psychotic symptoms, maintained on her psychotropic medication regimen now on p.o. antibiotics. Initially On M5 patient was continued on Abilify which was raised to 30 mg and low-dose Depakote, though did not seem to help much; she was resistant to medication changes. Attempts at any collateral were unsuccessful. Patient continued with delusional thinking, calling 911 from the unit saying staff was stealing 20,000,000 dollars, talking about being on a TV show... Owning for houses which she bought the week prior, even though she was psychiatrically admitted at [facility]..., thinking she is despite negative test, that A device implanted in her skin that informs her family of things... Patient remain this way, worsening someone she became septic. Returning to the unit, Patient is cooperative but with significant thought blocking and latency speech, very internally preoccupied. She is pleasant and cooperative, though a little guarded, but difficult with which to engage due to significant thought blocking. Right now, she agrees to continue with Abilify, Zyprexa, Depakote; movie writer discussed possibly trying Risperdal which she considered but is ambivalent; she agreed to sign a CV. Patient was also restarted on methadone while on medical floor. Formulation/clinical reasoning: Patient remains delusional, without insight, disorganized in speech and behavior and unable to take care of herself in the community (hence her quick return to the hospital.) History of HIV; not clear on adherence with antiretrovirals and this could be a possible contribution to confusion. Patient signed release of information but team Unsuccessful gathering collateral. As far as can be determined patient does not have history of psychiatric admissions so it is not clear how long her psychotic symptoms have been present. Otherwise known is history of substance abuse and homelessness. Will see if Zyprexa can be more helpful Plan: CV Q 15 minute checks continue doxycycline and amoxicillin-clavulanate twice daily for 7 days total Continue methadone 50 mg; started while patient was on medical floor; patient has been on methadone in the past Continue Abilify 30 mg daily Continue Depakote Sprinkles 125 mg b.i.d. (likely not doing much) Continue Zyprexa 5 mg b.i.d.; will likely titrate Continue Clonidine 0.1 mg t.i.d., Continue Gabapentin 300 mg t.i.d. (pt said was taking 400mg tid) Continue Prazosin 2 mg q.h.s. Continue Rifaximin 550 mg b.i.d. Continue Biktarvy 1 mg daily Continue lactulose which patient says she takes regularly for liver cirrhosis Continue baclofen Reports history of taking Vyvanse/Adderall Health Concerns: cellulitis - continue doxycycline and amoxicillin-clavulanate twice daily for 7 days total medial cuboid avulsion fracture - walking boot, weight-bear as tolerated, follow up with Orthopedics in 1-2 weeks knee effusion - recommend X-ray and Orthopedic consultation after overlying cellulitis resolves. HIV infection - continue Biktarvy. CD4 count 216. viral load pending. - syphilis T. pallidum EIA negative. urine gonorrhea/chlamydia PCR pending. Patient educated on: diagnosis, medication risk/benefits and medical condition Informed Consent: understands, does not understand and further education needed Reason for continued inpatient stay Substantial Risk for: inability to function Statement Statement: I have reviewed the history and physical and performed a pertinent examination on my patient. No changes have occurred unless specified. If the History and Physical was not performed prior to admission, the Hospitalist's service will be consulted for completing the admission physical. Time Spent With Patient Time: Total time managing care of this patient today ____ minutes.
[2024-04-20] MEDS: Divalproex Sodium Sprinkles 125 MG CAP.DR.SPR PO (09:27)
[2024-04-20] MEDS: methADONE HCl 20 MG/2 ML ORAL.CONC 35 MG PO (11:29)
[2024-04-20 13:01] VITALS: BP 130/70; PULSE 110; RESP 20; TEMP 36.5; O2SAT 98
[2024-04-20 14:08] VITALS: BP 130/70
[2024-04-20] MEDS: Nicotine Polacrilex 2 MG GUM 4 MG BUCCAL (16:17)
[2024-04-20 22:05] VITALS: BP 137/67
[2024-04-20] MEDS: Prazosin HCL 1 MG CAPSULE 2 MG PO (22:05)
[2024-04-20 22:06] VITALS: BP 137/67
[2024-04-20] MEDS: OLANZapine ODT 10 MG TAB.RAPDIS 20 MG TRANSLINGU (22:08)
[2024-04-21] MEDS: traZODone HCL 50 MG TABLET PO (02:47)
[2024-04-21] MEDS: hydrOXYzine HCL 25 MG TABLET PO (02:47)
[2024-04-21] MEDS: Baclofen 10 MG TABLET PO (02:47)
[2024-04-21] MEDS: Acetaminophen 325 MG TABLET 975 MG PO (02:47)
[2024-04-21] MEDS: methADONE HCl 20 MG/2 ML ORAL.CONC 35 MG PO (07:39)
--- NOTE | 2024-04-21 10:35 | HO.PSYCHPN ---
Subjective Subjective Date of Service: 04/21/24 Reason For Visit: Psychosis Interim History: Met with patient; discussed with team Patient intermittently able to talk more fluidly; however mostly still remains with significant thought blocking and speech latency.? She remains with delusional thoughts, saying she owns a million dollar house where she was living for 10 years but now can not remember where was, had a brain tumor which she knows about because her friends have been telling her via the device implanted in her.? Again refers to being on a TV show the killers. Yesterday evening, staff found that patient has been spitting her medications into the trash and patient told nurse that someone had been ?messing? with her? (prior to psychiatric admission) and put transportation project manager in her vagina.? She is asking for an exam. This morning, Patient has been harassing staff, following staff up and down the jones, demanding staff give her their money and also give her her own money... Told staff that there is [employer] in her ear; earlier patient told nurse that someone had been ?messing? with her? (prior to psychiatric admission) and put transportation project manager in her vagina.? She is asking for an exam Patient is difficult with which to engage and will not talk much with check writer. She said she wants to discharge and there is no reason she should have been brought to [facility] in the 1st place. Training Generalist asked if she wanted to sign a 3 day notice; she declined but said she wanted to leave the hospital. Yesterday patient ended up agreeing to increasing Zyprexa and wanting to get off Depakote.? Discussed methadone and patient says she was on 165 mg for about 5 years; wants to be back on it now Mental Status Exam Mental Status Exam Narrative: Pt is alert and oriented; behavior is guarded, irritable, disorganized; patient is not in distress; dressed in casual attire, unkempt, hair dreadlocks; mood is described as irritable though affect congruent, constricted; eye contact limited, furtive glances; Speech is with significant speech latency; a little soft, not pressured; both psychomotor agitation/retardation present; thought process marred by significant thought blocking but is goal directed; Thought content is on delusional and paranoid ideations; denies any SI/HI. Denies AVH but patient significantly internally preoccupied. Patients insight and judgment impaired Diagnostics Vital Signs (24Hr): Vital Signs - 24 hr 04/20/24 13:01 04/20/24 14:08 04/20/24 22:05 Temperature 97.7 F Pulse Rate 110 H Respiratory Rate 20 Blood Pressure 130/70 130/70 137/67 Pulse Oximetry 98 Oxygen Delivery Method Room Air 04/20/24 22:06 Temperature Pulse Rate Respiratory Rate Blood Pressure 137/67 Pulse Oximetry Oxygen Delivery Method BMI result Body Mass Index 25.3 Labs 04/19/24 20:14 04/19/24 20:14 Labs: Laboratory Results - last 48 hr 04/19/24 04/19/24 19:38 20:14 WBC 8.6 RBC 3.61 L Hgb 8.0 L Hct 25.0 L MCV 69.3 L MCH 22.2 L MCHC 32.0 RDW 25.3 H Plt Count 119 L MPV Not Reportable Absolute Nucleated RBC 0.000 Nucleated RBC % (auto) 0.0 D-Dimer High Sensitivty 1332 Sodium 137 Potassium 3.9 Chloride 107 Carbon Dioxide 23 Anion Gap 11 L BUN 10 Creatinine 0.64 Estim Creat Clear Calc 116.8 Estimated GFR > 60 POC Glucose 85 Random Glucose 105 Calcium 8.3 L Magnesium 1.7 Imaging Radiology Impressions: ITS Impressions Venous Duplex 04/20/24 11:00 IMPRESSION: No evidence of deep venous thrombosis involving the left lower extremity. Electronically signed by: Bertin Montano MD 04/20/2024 12:54 PM [facility] Medications Medications Current Medications Acetaminophen (Acetaminophen 325 Mg Tablet) 975 mg PO Q6H PRN PRN Reason: pain (pain scale 1-10) Last Admin: 04/21/24 02:47 Dose: 975 mg Al Hydroxide/Mg Hydroxide (Magnesium Hydrox/Alum Hydrox 30 Ml Oral.Susp) 30 ml PO Q6H PRN PRN Reason: Heartburn/Nausea Amoxicillin/Clavulanate Potassium (Amoxicillin/Potassium Clav 875 Mg Tablet) 875 mg PO BID [facility] Stop: 04/26/24 09:01 Last Admin: 04/20/24 22:05 Dose: 875 mg Aripiprazole (Aripiprazole 30 Mg Tablet) 30 mg PO DAILY [facility] Last Admin: 04/20/24 08:27 Dose: 30 mg Baclofen (Baclofen 10 Mg Tablet) 10 mg PO TID PRN PRN Reason: back/muscle spasm Last Admin: 04/21/24 02:47 Dose: 10 mg Bictegravir/Emtricitabine/Tenofovir (Bictegrav/Emtricit/Tenofov Ala Tablet) 1 tab PO DAILY [facility] Last Admin: 04/20/24 08:27 Dose: 1 tab Clonidine HCl (Clonidine Hcl 0.1 Mg Tablet) 0.1 mg PO TID [facility]; Protocol Last Admin: 04/20/24 22:06 Dose: 0.1 mg Diclofenac Sodium (Diclofenac Sodium Delayed Rel 50 Mg Tablet.) 50 mg PO BIDWM [facility] Last Admin: 04/20/24 16:19 Dose: 50 mg Doxycycline Monohydrate (Doxycycline Monohydrate 100 Mg Capsule) 100 mg PO BID [facility] Stop: 04/26/24 09:01 Last Admin: 04/20/24 22:06 Dose: 100 mg Ferrous Sulfate (Ferrous Sulfate 324 Mg Tablet.) 324 mg PO BIDWM [facility] Last Admin: 04/20/24 17:23 Dose: Not Given Gabapentin (Gabapentin 300 Mg Capsule) 300 mg PO TID [facility] Last Admin: 04/20/24 22:06 Dose: 300 mg Hydroxyzine HCl (Hydroxyzine Hcl 25 Mg Tablet) 25 mg PO Q6H PRN PRN Reason: Anxiety Last Admin: 04/21/24 02:47 Dose: 25 mg Lactulose (Lactulose 20 Gm/30 Ml Solution) 10 gm PO DAILY [facility] Last Admin: 04/20/24 08:30 Dose: 10 gm Lidocaine (Lidocaine 4 % Patch Adh..Patch) 2 patch TRANSDERMA DAILY [facility]; Protocol Last Admin: 04/20/24 08:30 Dose: 2 patch Magnesium Hydroxide (Milk Of Magnesia 30 Ml Oral.Susp) 30 ml PO DAILY PRN PRN Reason: Constipation Methadone HCl (Methadone Hcl 20 Mg/2 Ml Oral.Conc) 35 mg PO DAILY@0800 [facility] Last Admin: 04/21/24 07:39 Dose: 35 mg Nicotine (Nicotine 14 Mg Patch.Td24) 14 mg TRANSDERMA DAILY [facility] Last Admin: 04/20/24 08:31 Dose: 14 mg Nicotine Polacrilex (Nicotine Polacrilex 2 Mg Gum) 4 mg BUCCAL Q2H PRN PRN Reason: Nicotine Cravings Last Admin: 04/20/24 16:17 Dose: 4 mg Olanzapine (Olanzapine 5 Mg Tablet) 5 mg PO Q4H PRN PRN Reason: psychosis,agitation Last Admin: 04/19/24 23:54 Dose: 5 mg Olanzapine (Olanzapine Odt 10 Mg Tab.Rapdis) 20 mg TRANSLINGU BEDTIME GUTIERREZ Last Admin: 04/20/24 22:08 Dose: 20 mg Ondansetron HCl (Ondansetron Odt 4 Mg Tab.Rapdis) 4 mg TRANSLINGU Q6H PRN PRN Reason: Nausea And Vomiting Prazosin HCl (Prazosin Hcl 1 Mg Capsule) 2 mg PO BEDTIME GUTIERREZ; Protocol Last Admin: 04/20/24 22:05 Dose: 2 mg Rifaximin (Rifaximin 550 Mg Tablet) 550 mg PO Q12H GUTIERREZ Last Admin: 04/20/24 22:06 Dose: 550 mg Tramadol HCl (Tramadol Hcl 50 Mg Tablet) 25 mg PO Q6H PRN PRN Reason: Pain, Severe (Pain Scale 7-10) Last Admin: 04/20/24 22:07 Dose: 25 mg Trazodone HCl (Trazodone Hcl 50 Mg Tablet) 50 mg PO BEDTIME MRX1 PRN PRN Reason: Insomnia Last Admin: 04/21/24 02:47 Dose: 50 mg Allergies Allergies Allergy/AdvReac Type Severity Reaction Status Date / Time No Known Allergies Allergy Verified 04/05/24 18:41 Assessment & Plan Assessment & Plan (1) Schizophrenia, acute undifferentiated: Status: Acute Code(s): F20.3 - Undifferentiated schizophrenia (2) Opioid use disorder: Status: Acute Code(s): F11.90 - Opioid use, unspecified, uncomplicated (3) Cellulitis: Status: Acute Code(s): L03.90 - Cellulitis, unspecified (4) Avulsion fracture of ankle: Status: Acute Code(s): S82.899A - Other fracture of unspecified lower leg, initial encounter for closed fracture (5) Knee effusion, left: Status: Acute Code(s): M25.462 - Effusion, left knee Plan Patient is a 44-year-old woman with history of HIV, liver cirrhosis, anemia polysubstance abuse and recently psychotic symptoms (full history unknown) who 1st presented to the ED days after discharged from [facility] with continued bizarre, disorganized behavior and thoughts, delusional thinking that she is on a TV show called Killers. Pt found with medial cuboid avulsion fracture. Patient developed cellulitis of left lower leg, started on antibiotics but became septic and was transferred to the medical floor. Patient treated with antibiotics and medically cleared and now returns back to the psychiatric for ongoing psychotic symptoms, maintained on her psychotropic medication regimen now on p.o. antibiotics. Initially On M5 patient was continued on Abilify which was raised to 30 mg and low-dose Depakote, though did not seem to help much; she was resistant to medication changes. Attempts at any collateral were unsuccessful. Patient continued with delusional thinking, calling 911 from the unit saying staff was stealing 20,000,000 dollars, talking about being on a TV show... Owning for houses which she bought the week prior, even though she was psychiatrically admitted at [facility]..., thinking she is despite negative test, that A device implanted in her skin that informs her family of things... Patient remain this way, worsening someone she became septic. Returning to the unit, Patient is cooperative but with significant thought blocking and latency speech, very internally preoccupied. She is pleasant and cooperative, though a little guarded, but difficult with which to engage due to significant thought blocking. Right now, she agrees to continue with Abilify, Zyprexa, Depakote; check writer discussed possibly trying Risperdal which she considered but is ambivalent; she agreed to sign a CV. Patient was also restarted on methadone while on medical floor. Formulation/clinical reasoning: Patient remains delusional, without insight, disorganized in speech and behavior and unable to take care of herself in the community (hence her quick return to the hospital.) History of HIV; not clear on adherence with antiretrovirals and this could be a possible contribution to confusion. Patient signed release of information but team Unsuccessful gathering collateral. As far as can be determined patient does not have history of psychiatric admissions so it is not clear how long her psychotic symptoms have been present. Otherwise known is history of substance abuse and homelessness. Will see if Zyprexa can be more helpful Hospital course: 04/21 Patient intermittently able to talk more fluidly; however mostly still remains with significant thought blocking and speech latency.? She remains with delusional thoughts, saying she owns a million dollar house where she was living for 10 years but now can not remember where was, had a brain tumor which she knows about because her friends have been telling her via the device implanted in her.? Again refers to being on a TV show the killers. Yesterday afternoon, staff found that patient has been spitting her medications into the trash and thus did not get her clonidine, gabapentin or Zyprexa dose; earlier patient told nurse that someone had been ?messing? with her? (prior to psychiatric admission) and put transportation project manager in her vagina.? She is asking for an exam. This morning, Patient has been harassing staff, following staff up and down the jones, demanding staff give her their money and also give her her own money... Told staff that there is [employer] in her ear; earlier patient told nurse that someone had been ?messing? with her? (prior to psychiatric admission) and put transportation project manager in her vagina.? She is asking for an exam -Patient is difficult with which to engage and will not talk much with check writer. She said she wants to discharge and there is no reason she should have been brought to [facility] in the 1st place. Training Generalist asked if she wanted to sign a 3 day notice; she declined but said she wanted discharge and to leave the hospital, saying she had things to do including things with her TV show. -Yesterday patient ended up agreeing to increasing Zyprexa and wanting to get off Depakote.? -lower limb ultrasound negative for DVT -will discuss with medical team regarding spironolactone/Lasix which patient said she was on in the past -HIV/viral load pending Plan: CV Q 15 minute checks continue doxycycline and amoxicillin-clavulanate twice daily for 7 days total Continue methadone 50 mg; started while patient was on medical floor; patient has been on methadone in the past Continue Abilify 30 mg daily Continue Depakote Sprinkles 125 mg b.i.d. (likely not doing much) Increase to Zyprexa/Zydis 20 mg q.h.s. Continue Clonidine 0.1 mg t.i.d., Continue Gabapentin 300 mg t.i.d. (pt said was taking 400mg tid) Continue Prazosin 2 mg q.h.s. Continue Rifaximin 550 mg b.i.d. Continue Biktarvy 1 mg daily Continue lactulose which patient says she takes regularly for liver cirrhosis Continue baclofen Reports history of taking Vyvanse/Adderall Health Concerns: cellulitis - continue doxycycline and amoxicillin-clavulanate twice daily for 7 days total medial cuboid avulsion fracture - walking boot, weight-bear as tolerated, follow up with Orthopedics in 1-2 weeks knee effusion - recommend X-ray and Orthopedic consultation after overlying cellulitis resolves. HIV infection - continue Biktarvy. CD4 count 216. viral load pending. - syphilis T. pallidum EIA negative. urine gonorrhea/chlamydia PCR negative Patient educated on: diagnosis Informed Consent: understands Reason for continued inpatient stay Substantial Risk for: inability to function Time Spent With Patient Time: Total time managing care of this patient today ____ minutes.
[2024-04-21] MEDS: Amoxicillin/Potassium Clav 875 MG TABLET PO (11:20)
[2024-04-21] MEDS: Lactulose 20 GM/30 ML SOLUTION 10 GM PO (11:20)
[2024-04-21] MEDS: Nicotine 14 MG PATCH.TD24 TRANSDERMA (11:22)
[2024-04-21] MEDS: traMADoL HCL 50 MG TABLET 25 MG PO ×2 (11:25→17:29)
[2024-04-21] MEDS: Gabapentin 300 MG CAPSULE PO (17:29)
[2024-04-21] MEDS: Diclofenac Sodium Delayed Rel 50 MG TABLET.DR PO (17:30)
[2024-04-21 22:00] VITALS: BP 111/57; PULSE 120; TEMP 36.4; O2SAT 99
[2024-04-22] MEDS: traMADoL HCL 50 MG TABLET 25 MG PO ×3 (02:00→21:15)
[2024-04-22] MEDS: Baclofen 10 MG TABLET PO (02:01)
[2024-04-22] MEDS: OLANZapine ODT 10 MG TAB.RAPDIS 20 MG TRANSLINGU ×2 (02:24→21:10)
[2024-04-22] MEDS: Acetaminophen 325 MG TABLET 975 MG PO ×3 (02:26→15:31)
[2024-04-22] MEDS: Ondansetron ODT 4 MG TAB.RAPDIS TRANSLINGU (02:36)
[2024-04-22] MEDS: methADONE HCl 20 MG/2 ML ORAL.CONC 35 MG PO (07:49)
[2024-04-22] MEDS: Lactulose 20 GM/30 ML SOLUTION 10 GM PO (08:22)
[2024-04-22] MEDS: rifAXIMin 550 MG TABLET PO ×2 (08:23→21:10)
[2024-04-22] MEDS: ARIPiprazole 30 MG TABLET PO (08:23)
[2024-04-22 08:24] VITALS: BP 159/95
[2024-04-22] MEDS: Bictegrav/Emtricit/Tenofov Ala TABLET 1 TAB PO (08:24)
[2024-04-22] MEDS: Gabapentin 300 MG CAPSULE PO ×3 (08:24→21:07)
[2024-04-22] MEDS: cloNIDine HCL 0.1 MG TABLET PO ×3 (08:24→21:08)
[2024-04-22] MEDS: Amoxicillin/Potassium Clav 875 MG TABLET PO ×2 (08:24→21:06)
[2024-04-22] MEDS: Doxycycline Monohydrate 100 MG CAPSULE PO ×2 (08:25→21:09)
[2024-04-22] MEDS: Ferrous Sulfate 324 MG TABLET.DR PO ×3 (08:25→21:07)
[2024-04-22] MEDS: Lidocaine 4 % Patch ADH..PATCH 2 PATCH TRANSDERMA (08:26)
[2024-04-22] MEDS: Diclofenac Sodium Delayed Rel 50 MG TABLET.DR PO ×2 (08:27→21:08)
--- NOTE | 2024-04-22 09:01 | PC.NURSE ---
Pulse 133 and blood pressure was 159/95. [place] texted , ordered methadone 10mg one time dose.
[2024-04-22] MEDS: methADONE HCl 20 MG/2 ML ORAL.CONC 10 MG PO (09:09)
[2024-04-22 11:33] VITALS: PULSE 111
--- NOTE | 2024-04-22 13:15 | HO.PSYCHPN ---
Subjective Subjective Date of Service: 04/22/24 Reason For Visit: Psychosis Interim History: Met with patient; discussed with team Patient remains floridly psychotic, disorganized in speech and behavior. Patient has been intermittently refusing medication, including last night refusing Biktarvy, and for 2 days refused antibiotics for ongoing cellulitis (post sepsis). Patient told nursing that she refused because was worried people were poisoning her. On inquiry, patient told investment underwriter the same, that she was worried people were poisoning her since it has happened before. Patient wants discharge, saying that she is needing to be a part of this TV show; she said that is why she was originally at [facility], that the TV show was filming there and that was the set. 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 Patient has been exit seeking throughout the day. refused meds abilify 04/21 biktarvy 04/21 Doxycline 2 doses Zyrpexa 04/21 clonidine Iron gabapentin Mental Status Exam Mental Status Exam Narrative: Pt is alert and oriented; behavior is guarded, irritable, disorganized; patient is not in distress; dressed in casual attire, unkempt, hair dreadlocks; mood is described as irritable though affect congruent, constricted; eye contact limited, furtive glances; Speech is with significant speech latency; a little soft, not pressured; both psychomotor agitation/retardation present; thought process marred by significant thought blocking but can be goal directed; Thought content is on delusional and paranoid ideations; denies any SI/HI. Denies AVH but patient significantly internally preoccupied. Patients insight and judgment impaired Diagnostics Vital Signs (24Hr): Vital Signs - 24 hr 04/21/24 22:00 04/22/24 08:24 04/22/24 11:33 Temperature 97.5 F Pulse Rate 120 H 111 H Blood Pressure 111/57 L 159/95 H Pulse Oximetry 99 Oxygen Delivery Method Room Air BMI result Body Mass Index 25.3 Labs 04/19/24 20:14 04/19/24 20:14 Imaging Radiology Impressions: ITS Impressions Venous Duplex 04/20/24 11:00 IMPRESSION: No evidence of deep venous thrombosis involving the left lower extremity. Electronically signed by: Bertin Montano MD 04/20/2024 12:54 PM [facility] Medications Medications Current Medications Acetaminophen (Acetaminophen 325 Mg Tablet) 975 mg PO Q6H PRN PRN Reason: pain (pain scale 1-10) Last Admin: 04/22/24 08:27 Dose: 975 mg Al Hydroxide/Mg Hydroxide (Magnesium Hydrox/Alum Hydrox 30 Ml Oral.Susp) 30 ml PO Q6H PRN PRN Reason: Heartburn/Nausea Amoxicillin/Clavulanate Potassium (Amoxicillin/Potassium Clav 875 Mg Tablet) 875 mg PO BID [facility] Stop: 04/26/24 09:01 Last Admin: 04/22/24 08:24 Dose: 875 mg Aripiprazole (Aripiprazole 30 Mg Tablet) 30 mg PO DAILY [facility] Last Admin: 04/22/24 08:23 Dose: 30 mg Baclofen (Baclofen 10 Mg Tablet) 10 mg PO TID PRN PRN Reason: back/muscle spasm Last Admin: 04/22/24 02:01 Dose: 10 mg Bictegravir/Emtricitabine/Tenofovir (Bictegrav/Emtricit/Tenofov Ala Tablet) 1 tab PO DAILY [facility] Last Admin: 04/22/24 08:24 Dose: 1 tab Clonidine HCl (Clonidine Hcl 0.1 Mg Tablet) 0.1 mg PO TID [facility]; Protocol Last Admin: 04/22/24 08:24 Dose: 0.1 mg Diclofenac Sodium (Diclofenac Sodium Delayed Rel 50 Mg Tablet.) 50 mg PO BIDWM [facility] Last Admin: 04/22/24 08:27 Dose: 50 mg Doxycycline Monohydrate (Doxycycline Monohydrate 100 Mg Capsule) 100 mg PO BID [facility] Stop: 04/26/24 09:01 Last Admin: 04/22/24 08:25 Dose: 100 mg Ferrous Sulfate (Ferrous Sulfate 324 Mg Tablet.) 324 mg PO BIDWM [facility] Last Admin: 04/22/24 08:25 Dose: 324 mg Gabapentin (Gabapentin 300 Mg Capsule) 300 mg PO TID [facility] Last Admin: 04/22/24 08:24 Dose: 300 mg Hydroxyzine HCl (Hydroxyzine Hcl 25 Mg Tablet) 25 mg PO Q6H PRN PRN Reason: Anxiety Last Admin: 04/21/24 02:47 Dose: 25 mg Lactulose (Lactulose 20 Gm/30 Ml Solution) 10 gm PO DAILY [facility] Last Admin: 04/22/24 08:22 Dose: 10 gm Lidocaine (Lidocaine 4 % Patch Adh..Patch) 2 patch TRANSDERMA DAILY [facility]; Protocol Last Admin: 04/22/24 08:26 Dose: 2 patch Magnesium Hydroxide (Milk Of Magnesia 30 Ml Oral.Susp) 30 ml PO DAILY PRN PRN Reason: Constipation Methadone HCl (Methadone Hcl 20 Mg/2 Ml Oral.Conc) 45 mg PO DAILY@0800 GUTIERREZ Nicotine (Nicotine 14 Mg Patch.Td24) 14 mg TRANSDERMA DAILY [facility] Last Admin: 04/22/24 11:00 Dose: Not Given Nicotine Polacrilex (Nicotine Polacrilex 2 Mg Gum) 4 mg BUCCAL Q2H PRN PRN Reason: Nicotine Cravings Last Admin: 04/20/24 16:17 Dose: 4 mg Olanzapine (Olanzapine 5 Mg Tablet) 5 mg PO Q4H PRN PRN Reason: psychosis,agitation Last Admin: 04/19/24 23:54 Dose: 5 mg Olanzapine (Olanzapine Odt 10 Mg Tab.Rapdis) 20 mg TRANSLINGU BEDTIME [facility] Last Admin: 04/22/24 02:24 Dose: 20 mg Ondansetron HCl (Ondansetron Odt 4 Mg Tab.Rapdis) 4 mg TRANSLINGU Q6H PRN PRN Reason: Nausea And Vomiting Last Admin: 04/22/24 02:36 Dose: 4 mg Prazosin HCl (Prazosin Hcl 1 Mg Capsule) 2 mg PO BEDTIME [facility]; Protocol Last Admin: 04/21/24 21:37 Dose: Not Given Rifaximin (Rifaximin 550 Mg Tablet) 550 mg PO Q12H [facility] Last Admin: 04/22/24 08:23 Dose: 550 mg Tramadol HCl (Tramadol Hcl 50 Mg Tablet) 25 mg PO Q6H PRN PRN Reason: Pain, Severe (Pain Scale 7-10) Last Admin: 04/22/24 02:00 Dose: 25 mg Trazodone HCl (Trazodone Hcl 50 Mg Tablet) 50 mg PO BEDTIME MRX1 PRN PRN Reason: Insomnia Last Admin: 04/21/24 02:47 Dose: 50 mg Allergies Allergies Allergy/AdvReac Type Severity Reaction Status Date / Time No Known Allergies Allergy Verified 04/05/24 18:41 Assessment & Plan Assessment & Plan (1) Schizophrenia, acute undifferentiated: Status: Acute Code(s): F20.3 - Undifferentiated schizophrenia (2) Opioid use disorder: Status: Acute Code(s): F11.90 - Opioid use, unspecified, uncomplicated (3) Cellulitis: Status: Acute Code(s): L03.90 - Cellulitis, unspecified (4) Avulsion fracture of ankle: Status: Acute Code(s): S82.899A - Other fracture of unspecified lower leg, initial encounter for closed fracture (5) Knee effusion, left: Status: Acute Code(s): M25.462 - Effusion, left knee Plan Patient is a 44-year-old woman with history of HIV, liver cirrhosis, anemia polysubstance abuse and recently psychotic symptoms (full history unknown) who 1st presented to the ED days after discharged from [facility] with continued bizarre, disorganized behavior and thoughts, delusional thinking that she is on a TV show called [employer]. Pt found with medial cuboid avulsion fracture. Patient developed cellulitis of left lower leg, started on antibiotics but became septic and was transferred to the medical floor. Patient treated with antibiotics and medically cleared and now returns back to the psychiatric for ongoing psychotic symptoms, maintained on her psychotropic medication regimen now on p.o. antibiotics. Initially On M5 patient was continued on Abilify which was raised to 30 mg and low-dose Depakote, though did not seem to help much; she was resistant to medication changes. Attempts at any collateral were unsuccessful. Patient continued with delusional thinking, calling 911 from the unit saying staff was stealing 20,000,000 dollars, talking about being on a TV show... Owning for houses which she bought the week prior, even though she was psychiatrically admitted at [facility]..., thinking she is despite negative test, that A device implanted in her skin that informs her family of things... Patient remain this way, worsening someone she became septic. Returning to the unit, Patient is cooperative but with significant thought blocking and latency speech, very internally preoccupied. She is pleasant and cooperative, though a little guarded, but difficult with which to engage due to significant thought blocking. Right now, she agrees to continue with Abilify, Zyprexa, Depakote; investment underwriter discussed possibly trying Risperdal which she considered but is ambivalent; she agreed to sign a CV. Patient was also restarted on methadone while on medical floor. Formulation/clinical reasoning: Patient remains delusional, without insight, disorganized in speech and behavior and unable to take care of herself in the community (hence her quick return to the hospital.) History of HIV; not clear on adherence with antiretrovirals and this could be a possible contribution to confusion. Patient signed release of information but team Unsuccessful gathering collateral. As far as can be determined patient does not have history of psychiatric admissions so it is not clear how long her psychotic symptoms have been present. Otherwise known is history of substance abuse and homelessness. Will see if Zyprexa can be more helpful Hospital course: 04/21 Patient intermittently able to talk more fluidly; however mostly still remains with significant thought blocking and speech latency.? She remains with delusional thoughts, saying she owns a million dollar house where she was living for 10 years but now can not remember where was, had a brain tumor which she knows about because her friends have been telling her via the device implanted in her.? Again refers to being on a TV show the killers. Yesterday afternoon, staff found that patient has been spitting her medications into the trash and thus did not get her clonidine, gabapentin or Zyprexa dose; earlier patient told nurse that someone had been ?messing? with her? (prior to psychiatric admission) and put acid etch operator in her vagina.? She is asking for an exam. This morning, Patient has been harassing staff, following staff up and down the jones, demanding staff give her their money and also give her her own money... Told staff that there is [employer] in her ear; earlier patient told nurse that someone had been ?messing? with her? (prior to psychiatric admission) and put acid etch operator in her vagina.? She is asking for an exam -Patient is difficult with which to engage and will not talk much with investment underwriter. She said she wants to discharge and there is no reason she should have been brought to [facility] in the 1st place. [employer] Helper asked if she wanted to sign a 3 day notice; she declined but said she wanted discharge and to leave the hospital, saying she had things to do including things with her TV show. -Yesterday patient ended up agreeing to increasing Zyprexa and wanting to get off Depakote.? -lower limb ultrasound negative for DVT -will discuss with medical team regarding spironolactone/Lasix which patient said she was on in the past -HIV/viral load pending 04/22 Patient remains floridly psychotic, disorganized in speech and behavior. Patient has been intermittently refusing medication, including last night refusing Biktarvy, and for 2 days refused antibiotics for ongoing cellulitis (post sepsis). Patient told nursing that she refused because was worried people were poisoning her. On inquiry, patient told investment underwriter the same, that she was worried people were poisoning her since it has happened before. Patient wants discharge, saying that she is needing to be a part of this TV show; she said that is why she was originally at [facility], that the TV show was filming there and that was the set. 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 Patient has been exit seeking throughout the day. -refused meds: abilify 04/21, biktarvy 04/21, Doxycline 2 doses, Zyrpexa 04/21, clonidine, Iron, gabapentin, -very concerning that patient has refused 2 doses of her antibiotic given that she has just recovered from sepsis. Impression: Patient says she wants to leave the hospital, she is refusing treatment due to her psychotic, paranoid delusions. Patient has no insight at all; she has a broken foot, ongoing cellulitis in leg, no where to live and no support in the community. She is intermittently refusing medication that is currently preventing decompensation back into sepsis which can be life-threatening. Patient is completely unable to take care of herself in the community. At this time will revoke her conditional voluntary as it is become clear she does not fulfill criteria. Will instead petition the court for involuntary commitment Plan: CV Q 15 minute checks continue doxycycline and amoxicillin-clavulanate twice daily for 7 days total (patient intermittently refusing doses; will need to extend duration of trial) Continue methadone 45 mg; started while patient was on medical floor; patient has been on methadone in the past; however will not titrate further given her delicate medical state. Continue Abilify 30 mg daily Continue Depakote Sprinkles 125 mg b.i.d. (likely not doing much) Increase to Zyprexa/Zydis 20 mg q.h.s. Continue Clonidine 0.1 mg t.i.d., Continue Gabapentin 300 mg t.i.d. (pt said was taking 400mg tid) Continue Prazosin 2 mg q.h.s. Continue Rifaximin 550 mg b.i.d. Continue Biktarvy 1 mg daily Continue lactulose which patient says she takes regularly for liver cirrhosis Continue baclofen Reports history of taking Vyvanse/Adderall Health Concerns: cellulitis - continue doxycycline and amoxicillin-clavulanate twice daily for 7 days total medial cuboid avulsion fracture - walking boot, weight-bear as tolerated, follow up with Orthopedics in 1-2 weeks knee effusion - recommend X-ray and Orthopedic consultation after overlying cellulitis resolves. HIV infection - continue Biktarvy. CD4 count 216. viral load pending. - syphilis T. pallidum EIA negative. urine gonorrhea/chlamydia PCR negative Patient educated on: diagnosis, medication risk/benefits, substance abuse and medical condition Informed Consent: does not understand Reason for continued inpatient stay Substantial Risk for: inability to function Time Spent With Patient Time: Total time managing care of this patient today ____ minutes.
[2024-04-22 15:32] VITALS: BP 149/76
[2024-04-22 21:07] VITALS: BP 146/86
[2024-04-22] MEDS: Prazosin HCL 1 MG CAPSULE 2 MG PO (21:07)
[2024-04-22 21:08] VITALS: BP 146/86
[2024-04-23] MEDS: Baclofen 10 MG TABLET PO ×2 (05:39→20:17)
[2024-04-23] MEDS: Acetaminophen 325 MG TABLET 975 MG PO ×3 (05:39→20:18)
[2024-04-23] MEDS: traMADoL HCL 50 MG TABLET 25 MG PO ×3 (05:43→20:17)
[2024-04-23] MEDS: methADONE HCl 20 MG/2 ML ORAL.CONC 45 MG PO (07:40)
[2024-04-23 08:01] VITALS: BP 128/71; PULSE 129; RESP 18; TEMP 36.9; O2SAT 98
[2024-04-23] MEDS: Nicotine 14 MG PATCH.TD24 TRANSDERMA (08:45)
[2024-04-23] MEDS: Diclofenac Sodium Delayed Rel 50 MG TABLET.DR PO ×2 (08:46→16:58)
[2024-04-23] MEDS: Lactulose 20 GM/30 ML SOLUTION 10 GM PO (10:39)
[2024-04-23] MEDS: Doxycycline Monohydrate 100 MG CAPSULE PO ×2 (10:40→20:18)
[2024-04-23] MEDS: Amoxicillin/Potassium Clav 875 MG TABLET PO ×2 (10:41→20:18)
[2024-04-23] MEDS: ARIPiprazole 30 MG TABLET PO (10:41)
[2024-04-23] MEDS: Bictegrav/Emtricit/Tenofov Ala TABLET 1 TAB PO (10:42)
[2024-04-23] MEDS: Gabapentin 300 MG CAPSULE PO ×3 (10:45→20:18)
[2024-04-23 12:47] VITALS: BP 135/79; PULSE 112; RESP 20; TEMP 36.4; O2SAT 97
[2024-04-23 13:59] VITALS: BP 142/71
[2024-04-23] MEDS: cloNIDine HCL 0.1 MG TABLET PO ×2 (13:59→20:18)
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
[2024-04-23] MEDS: rifAXIMin 550 MG TABLET PO (20:18)
[2024-04-23] MEDS: OLANZapine ODT 10 MG TAB.RAPDIS 20 MG TRANSLINGU (20:18)
[2024-04-23] MEDS: Prazosin HCL 1 MG CAPSULE 2 MG PO (20:18)
[2024-04-24] MEDS: methADONE HCl 20 MG/2 ML ORAL.CONC 45 MG PO (08:02)
[2024-04-24] MEDS: rifAXIMin 550 MG TABLET PO (09:42)
[2024-04-24] MEDS: Amoxicillin/Potassium Clav 875 MG TABLET PO ×2 (09:42→18:57)
[2024-04-24] MEDS: Gabapentin 300 MG CAPSULE PO (09:43)
[2024-04-24] MEDS: Bictegrav/Emtricit/Tenofov Ala TABLET 1 TAB PO (09:43)
[2024-04-24] MEDS: Acetaminophen 325 MG TABLET 975 MG PO ×2 (09:44→17:08)
[2024-04-24 09:45] VITALS: BP 132/72
[2024-04-24] MEDS: cloNIDine HCL 0.1 MG TABLET PO (09:45)
[2024-04-24] MEDS: Nicotine 14 MG PATCH.TD24 TRANSDERMA (09:48)
[2024-04-24] MEDS: Lidocaine 4 % Patch ADH..PATCH 2 PATCH TRANSDERMA (09:49)
--- NOTE | 2024-04-24 09:53 | HO.PSYCHPN ---
Subjective Subjective Date of Service: 04/24/24 Reason For Visit: Psychosis Interim History: met with patient; discussed with team remains delusional. still intermittently refusing meds. Circulator shows pt picture of one of houses for which she gave address (house listed with multiple rooms for rent) and pt recognized it, pointing to her bedroom, mailbox... She remains confused about it and can't not give any further details. She recognizes names of prior prescribers Dr. Mahad Reed and Stacy Ferrell and give permission to contact them reviewed notes from Aileen Hector explaining disorganized, psychotic at [facility] Diagnostics Vital Signs (24Hr): Vital Signs - 24 hr 04/23/24 12:47 04/23/24 13:59 Temperature 97.6 F Pulse Rate 112 H Respiratory Rate 20 Blood Pressure 135/79 142/71 H Pulse Oximetry 97 Oxygen Delivery Method Room Air BMI result Body Mass Index 25.3 Labs 04/19/24 20:14 04/19/24 20:14 Imaging Radiology Impressions: ITS Impressions Venous Duplex 04/20/24 11:00 IMPRESSION: No evidence of deep venous thrombosis involving the left lower extremity. Electronically signed by: Bertin Montano MD 04/20/2024 12:54 PM [facility] Medications Medications Current Medications Acetaminophen (Acetaminophen 325 Mg Tablet) 975 mg PO Q6H PRN PRN Reason: pain (pain scale 1-10) Last Admin: 04/23/24 20:18 Dose: 975 mg Al Hydroxide/Mg Hydroxide (Magnesium Hydrox/Alum Hydrox 30 Ml Oral.Susp) 30 ml PO Q6H PRN PRN Reason: Heartburn/Nausea Amoxicillin/Clavulanate Potassium (Amoxicillin/Potassium Clav 875 Mg Tablet) 875 mg PO BID GUTIERREZ Stop: 04/26/24 09:01 Last Admin: 04/23/24 20:18 Dose: 875 mg Aripiprazole (Aripiprazole 30 Mg Tablet) 30 mg PO DAILY GUTIERREZ Last Admin: 04/23/24 10:41 Dose: 30 mg Baclofen (Baclofen 10 Mg Tablet) 10 mg PO TID PRN PRN Reason: back/muscle spasm Last Admin: 04/23/24 20:17 Dose: 10 mg Bictegravir/Emtricitabine/Tenofovir (Bictegrav/Emtricit/Tenofov Ala Tablet) 1 tab PO DAILY [facility] Last Admin: 04/23/24 10:42 Dose: 1 tab Clonidine HCl (Clonidine Hcl 0.1 Mg Tablet) 0.1 mg PO TID [facility]; Protocol Last Admin: 04/23/24 20:18 Dose: 0.1 mg Diclofenac Sodium (Diclofenac Sodium Delayed Rel 50 Mg Tablet.) 50 mg PO BIDWM [facility] Last Admin: 04/23/24 16:58 Dose: 50 mg Doxycycline Monohydrate (Doxycycline Monohydrate 100 Mg Capsule) 100 mg PO BID [facility] Stop: 04/26/24 09:01 Last Admin: 04/23/24 20:18 Dose: 100 mg Ferrous Sulfate (Ferrous Sulfate 324 Mg Tablet.) 324 mg PO BIDWM [facility] Last Admin: 04/23/24 17:00 Dose: Not Given Gabapentin (Gabapentin 300 Mg Capsule) 300 mg PO TID [facility] Last Admin: 04/23/24 20:18 Dose: 300 mg Hydroxyzine HCl (Hydroxyzine Hcl 25 Mg Tablet) 25 mg PO Q6H PRN PRN Reason: Anxiety Last Admin: 04/21/24 02:47 Dose: 25 mg Lactulose (Lactulose 20 Gm/30 Ml Solution) 10 gm PO DAILY [facility] Last Admin: 04/23/24 10:39 Dose: 10 gm Lidocaine (Lidocaine 4 % Patch Adh..Patch) 2 patch TRANSDERMA DAILY [facility]; Protocol Last Admin: 04/23/24 10:44 Dose: Not Given Magnesium Hydroxide (Milk Of Magnesia 30 Ml Oral.Susp) 30 ml PO DAILY PRN PRN Reason: Constipation Methadone HCl (Methadone Hcl 20 Mg/2 Ml Oral.Conc) 45 mg PO DAILY@0800 [facility] Last Admin: 04/24/24 08:02 Dose: 45 mg Nicotine (Nicotine 14 Mg Patch.Td24) 14 mg TRANSDERMA DAILY [facility] Last Admin: 04/23/24 08:45 Dose: 14 mg Nicotine Polacrilex (Nicotine Polacrilex 2 Mg Gum) 4 mg BUCCAL Q2H PRN PRN Reason: Nicotine Cravings Last Admin: 04/20/24 16:17 Dose: 4 mg Olanzapine (Olanzapine 5 Mg Tablet) 5 mg PO Q4H PRN PRN Reason: psychosis,agitation Last Admin: 04/19/24 23:54 Dose: 5 mg Olanzapine (Olanzapine Odt 10 Mg Tab.Rapdis) 20 mg TRANSLINGU BEDTIME [facility] Last Admin: 04/23/24 20:18 Dose: 20 mg Ondansetron HCl (Ondansetron Odt 4 Mg Tab.Rapdis) 4 mg TRANSLINGU Q6H PRN PRN Reason: Nausea And Vomiting Last Admin: 04/22/24 02:36 Dose: 4 mg Prazosin HCl (Prazosin Hcl 1 Mg Capsule) 2 mg PO BEDTIME GUTIERREZ; Protocol Last Admin: 04/23/24 20:18 Dose: 2 mg Rifaximin (Rifaximin 550 Mg Tablet) 550 mg PO Q12H GUTIERREZ Last Admin: 04/23/24 20:18 Dose: 550 mg Tramadol HCl (Tramadol Hcl 50 Mg Tablet) 25 mg PO Q6H PRN PRN Reason: Pain, Severe (Pain Scale 7-10) Last Admin: 04/23/24 20:17 Dose: 25 mg Trazodone HCl (Trazodone Hcl 50 Mg Tablet) 50 mg PO BEDTIME MRX1 PRN PRN Reason: Insomnia Last Admin: 04/21/24 02:47 Dose: 50 mg Allergies Allergies Allergy/AdvReac Type Severity Reaction Status Date / Time No Known Allergies Allergy Verified 04/05/24 18:41 Assessment & Plan Assessment & Plan (1) Schizophrenia, acute undifferentiated: Status: Acute Code(s): F20.3 - Undifferentiated schizophrenia (2) Opioid use disorder: Status: Acute Code(s): F11.90 - Opioid use, unspecified, uncomplicated (3) Cellulitis: Status: Acute Code(s): L03.90 - Cellulitis, unspecified (4) Avulsion fracture of ankle: Status: Acute Code(s): S82.899A - Other fracture of unspecified lower leg, initial encounter for closed fracture (5) Knee effusion, left: Status: Acute Code(s): M25.462 - Effusion, left knee Plan Patient is a 44-year-old woman with history of HIV, liver cirrhosis, anemia polysubstance abuse and recently psychotic symptoms (full history unknown) who 1st presented to the ED days after discharged from [facility] with continued bizarre, disorganized behavior and thoughts, delusional thinking that she is on a TV show called [employer]. Pt found with medial cuboid avulsion fracture. Patient developed cellulitis of left lower leg, started on antibiotics but became septic and was transferred to the medical floor. Patient treated with antibiotics and medically cleared and now returns back to the psychiatric for ongoing psychotic symptoms, maintained on her psychotropic medication regimen now on p.o. antibiotics. Initially On M5 patient was continued on Abilify which was raised to 30 mg and low-dose Depakote, though did not seem to help much; she was resistant to medication changes. Attempts at any collateral were unsuccessful. Patient continued with delusional thinking, calling 911 from the unit saying staff was stealing 20,000,000 dollars, talking about being on a TV show... Owning for houses which she bought the week prior, even though she was psychiatrically admitted at [facility]..., thinking she is despite negative test, that A device implanted in her skin that informs her family of things... Patient remain this way, worsening someone she became septic. Returning to the unit, Patient is cooperative but with significant thought blocking and latency speech, very internally preoccupied. She is pleasant and cooperative, though a little guarded, but difficult with which to engage due to significant thought blocking. Right now, she agrees to continue with Abilify, Zyprexa, Depakote; financial underwriter discussed possibly trying Risperdal which she considered but is ambivalent; she agreed to sign a CV. Patient was also restarted on methadone while on medical floor. Formulation/clinical reasoning: Patient remains delusional, without insight, disorganized in speech and behavior and unable to take care of herself in the community (hence her quick return to the hospital.) History of HIV; not clear on adherence with antiretrovirals and this could be a possible contribution to confusion. Patient signed release of information but team Unsuccessful gathering collateral. As far as can be determined patient does not have history of psychiatric admissions so it is not clear how long her psychotic symptoms have been present. Otherwise known is history of substance abuse and homelessness. Will see if Zyprexa can be more helpful Hospital course: 04/21 Patient intermittently able to talk more fluidly; however mostly still remains with significant thought blocking and speech latency.? She remains with delusional thoughts, saying she owns a million dollar house where she was living for 10 years but now can not remember where was, had a brain tumor which she knows about because her friends have been telling her via the device implanted in her.? Again refers to being on a TV show the killers. Yesterday afternoon, staff found that patient has been spitting her medications into the trash and thus did not get her clonidine, gabapentin or Zyprexa dose; earlier patient told nurse that someone had been ?messing? with her? (prior to psychiatric admission) and put woolen suiting shrinker in her vagina.? She is asking for an exam. This morning, Patient has been harassing staff, following staff up and down the jones, demanding staff give her their money and also give her her own money... Told staff that there is [employer] in her ear; earlier patient told nurse that someone had been ?messing? with her? (prior to psychiatric admission) and put woolen suiting shrinker in her vagina.? She is asking for an exam -Patient is difficult with which to engage and will not talk much with financial underwriter. She said she wants to discharge and there is no reason she should have been brought to [facility] in the 1st place. Circulator asked if she wanted to sign a 3 day notice; she declined but said she wanted discharge and to leave the hospital, saying she had things to do including things with her TV show. -Yesterday patient ended up agreeing to increasing Zyprexa and wanting to get off Depakote.? -lower limb ultrasound negative for DVT -will discuss with medical team regarding spironolactone/Lasix which patient said she was on in the past -HIV/viral load pending 04/22 Patient remains floridly psychotic, disorganized in speech and behavior. Patient has been intermittently refusing medication, including last night refusing Biktarvy, and for 2 days refused antibiotics for ongoing cellulitis (post sepsis). Patient told nursing that she refused because was worried people were poisoning her. On inquiry, patient told financial underwriter the same, that she was worried people were poisoning her since it has happened before. Patient wants discharge, saying that she is needing to be a part of this TV show; she said that is why she was originally at [facility], that the TV show was filming there and that was the set. Patient told financial underwriter that she wants to go to 1 of her 2 houses that she owns and gave financial underwriter specific address is, 1 of which does not exist. Patient has been exit seeking throughout the day. -refused meds: abilify 04/21, biktarvy 04/21, Doxycline 2 doses, Zyrpexa 04/21, clonidine, Iron, gabapentin, -very concerning that patient has refused 2 doses of her antibiotic given that she has just recovered from sepsis. 04/23 remains psychotic, disorganized; refusing/spitting out various meds. Not letting nursing examine leg 06/25 no change in presentation; consider head CT Impression: Patient says she wants to leave the hospital, she is refusing treatment due to her psychotic, paranoid delusions. Patient has no insight at all; she has a broken foot, ongoing cellulitis in leg, no where to live and no support in the community. She is intermittently refusing medication that is currently preventing decompensation back into sepsis which can be life-threatening. Patient is completely unable to take care of herself in the community. At this time will revoke her conditional voluntary as it is become clear she does not fulfill criteria. Will instead petition the court for involuntary commitment Plan: CV Q 15 minute checks continue doxycycline and amoxicillin-clavulanate twice daily for 7 days total (patient intermittently refusing doses; will need to extend duration of trial) Continue methadone 45 mg; started while patient was on medical floor; patient has been on methadone in the past; however will not titrate further given her delicate medical state. Continue Abilify 30 mg daily Continue Depakote Sprinkles 125 mg b.i.d. (likely not doing much) Increase to Zyprexa/Zydis 20 mg q.h.s. Continue Clonidine 0.1 mg t.i.d., Continue Gabapentin 300 mg t.i.d. (pt said was taking 400mg tid) Continue Prazosin 2 mg q.h.s. Continue Rifaximin 550 mg b.i.d. Continue Biktarvy 1 mg daily Continue lactulose which patient says she takes regularly for liver cirrhosis Continue baclofen Reports history of taking Vyvanse/Adderall Health Concerns: cellulitis - continue doxycycline and amoxicillin-clavulanate twice daily for 7 days total medial cuboid avulsion fracture - walking boot, weight-bear as tolerated, follow up with Orthopedics in 1-2 weeks knee effusion - recommend X-ray and Orthopedic consultation after overlying cellulitis resolves. HIV infection - continue Biktarvy. CD4 count 216. viral load pending. - syphilis T. pallidum EIA negative. urine gonorrhea/chlamydia PCR negative Patient educated on: diagnosis Informed Consent: does not understand Reason for continued inpatient stay Substantial Risk for: inability to function Time Spent With Patient Time: Total time managing care of this patient today ____ minutes.
[2024-04-24] MEDS: Ondansetron ODT 4 MG TAB.RAPDIS TRANSLINGU (17:04)
[2024-04-24 17:46] VITALS: BP 143/74; PULSE 125; RESP 16; TEMP 36.8; O2SAT 100
[2024-04-24] MEDS: LORazepam 1 MG TABLET PO (18:54)
[2024-04-24] MEDS: Doxycycline Monohydrate 100 MG CAPSULE PO (18:57)
[2024-04-25] MEDS: traMADoL HCL 50 MG TABLET 25 MG PO ×3 (01:08→22:00)
[2024-04-25] MEDS: methADONE HCl 20 MG/2 ML ORAL.CONC 45 MG PO (07:52)
[2024-04-25 08:00] VITALS: BP 125/59; PULSE 130; RESP 17; TEMP 37.2; O2SAT 98
[2024-04-25 08:08] VITALS: BP 125/59
[2024-04-25] MEDS: Bictegrav/Emtricit/Tenofov Ala TABLET 1 TAB PO (08:08)
[2024-04-25] MEDS: Gabapentin 300 MG CAPSULE PO ×3 (08:08→21:51)
[2024-04-25] MEDS: cloNIDine HCL 0.1 MG TABLET PO ×3 (08:08→21:51)
[2024-04-25] MEDS: ARIPiprazole 30 MG TABLET PO (08:09)
[2024-04-25] MEDS: Amoxicillin/Potassium Clav 875 MG TABLET PO ×2 (08:09→21:51)
[2024-04-25] MEDS: Diclofenac Sodium Delayed Rel 50 MG TABLET.DR PO ×2 (08:09→16:08)
[2024-04-25] MEDS: rifAXIMin 550 MG TABLET PO ×2 (08:10→21:50)
[2024-04-25] MEDS: Doxycycline Monohydrate 100 MG CAPSULE PO ×2 (08:10→21:51)
[2024-04-25] MEDS: LORazepam 1 MG TABLET PO ×3 (08:10→21:50)
[2024-04-25] MEDS: Ferrous Sulfate 324 MG TABLET.DR PO ×2 (08:10→16:09)
[2024-04-25] MEDS: Lactulose 20 GM/30 ML SOLUTION 10 GM PO (08:13)
[2024-04-25] MEDS: Nicotine 14 MG PATCH.TD24 TRANSDERMA (08:16)
[2024-04-25] MEDS: Acetaminophen 325 MG TABLET 975 MG PO (08:19)
[2024-04-25 15:35] VITALS: BP 143/76; PULSE 117; TEMP 37.7
--- NOTE | 2024-04-25 16:45 | P.PNPSI_ITS ---
Subjective Subjective Date of Service: 04/25/24 Reason For Visit: Psychosis Interim History: met with pt; discussed with team pt allowed marketing writer to examine leg which looks quite swollen and tender to the touch. One area with some drainage. SW able to get more hx from collateral from her Ex-boyfriend and his mother with whom patient lived. Long hx of both opioid and alcohol abuse. They reports she had episodes with similar presentation...hard to move, latent speech, disorganized, unable to attend to ADL's, unable to do tasks, internally preoccupied...during one such episode pt was admitted to ICU for a metabolic encephalopathy from toxic level of alcohol ingestion and was in a coma for 2 months... marketing writer talked with pt about medications; she agrees to continuing ativan; she agrees to lowering and tapering down Abilify and increasing zyprexa marketing writer explained petition to court for involuntary commitment; she is not happy about it Mental Status Exam Mental Status Exam Narrative: Pt is alert and oriented; behavior is guarded, irritable, disorganized; patient is not in distress; dressed in casual attire, unkempt, hair dreadlocks; mood is described as irritable though affect congruent, constricted; eye contact limited, furtive glances; Speech is with significant speech latency; a little soft, not pressured; both psychomotor agitation/retardation present; thought process marred by significant thought blocking but can be goal directed; Thought content is on delusional and paranoid ideations; denies any SI/HI. Denies AVH but patient significantly internally preoccupied. Patients insight and judgment impaired Diagnostics Vital Signs (24Hr): Vital Signs - 24 hr 04/24/24 17:46 04/25/24 08:00 04/25/24 08:08 Temperature 98.3 F 98.9 F Pulse Rate 125 H 130 H Respiratory Rate 16 17 Blood Pressure 143/74 H 125/59 L 125/59 L Pulse Oximetry 100 98 Oxygen Delivery Method Room Air Room Air 04/25/24 15:35 Temperature 99.8 F Pulse Rate 117 H Respiratory Rate Blood Pressure 143/76 H Pulse Oximetry Oxygen Delivery Method BMI result Body Mass Index 25.3 Labs 04/19/24 20:14 04/19/24 20:14 Imaging Radiology Impressions: ITS Impressions Venous Duplex 04/20/24 11:00 IMPRESSION: No evidence of deep venous thrombosis involving the left lower extremity. Electronically signed by: Bertin Montano MD 04/20/2024 12:54 PM [facility] Medications Medications Current Medications Acetaminophen (Acetaminophen 325 Mg Tablet) 975 mg PO Q6H PRN PRN Reason: pain (pain scale 1-10) Last Admin: 04/25/24 08:19 Dose: 975 mg Al Hydroxide/Mg Hydroxide (Magnesium Hydrox/Alum Hydrox 30 Ml Oral.Susp) 30 ml PO Q6H PRN PRN Reason: Heartburn/Nausea Amoxicillin/Clavulanate Potassium (Amoxicillin/Potassium Clav 875 Mg Tablet) 875 mg PO BID [facility] Stop: 04/26/24 09:01 Last Admin: 04/25/24 08:09 Dose: 875 mg Aripiprazole (Aripiprazole 10 Mg Tablet) 10 mg PO DAILY [facility] Baclofen (Baclofen 10 Mg Tablet) 10 mg PO TID PRN PRN Reason: back/muscle spasm Last Admin: 04/23/24 20:17 Dose: 10 mg Bictegravir/Emtricitabine/Tenofovir (Bictegrav/Emtricit/Tenofov Ala Tablet) 1 tab PO DAILY [facility] Last Admin: 04/25/24 08:08 Dose: 1 tab Clonidine HCl (Clonidine Hcl 0.1 Mg Tablet) 0.1 mg PO TID [facility]; Protocol Last Admin: 04/25/24 15:35 Dose: 0.1 mg Diclofenac Sodium (Diclofenac Sodium Delayed Rel 50 Mg Tablet.) 50 mg PO BIDWM [facility] Last Admin: 04/25/24 16:08 Dose: 50 mg Doxycycline Monohydrate (Doxycycline Monohydrate 100 Mg Capsule) 100 mg PO BID [facility] Stop: 04/26/24 09:01 Last Admin: 04/25/24 08:10 Dose: 100 mg Ferrous Sulfate (Ferrous Sulfate 324 Mg Tablet.) 324 mg PO BIDWM [facility] Last Admin: 04/25/24 16:09 Dose: 324 mg Gabapentin (Gabapentin 300 Mg Capsule) 300 mg PO TID [facility] Last Admin: 04/25/24 15:35 Dose: 300 mg Hydroxyzine HCl (Hydroxyzine Hcl 25 Mg Tablet) 25 mg PO Q6H PRN PRN Reason: Anxiety Last Admin: 04/21/24 02:47 Dose: 25 mg Lactulose (Lactulose 20 Gm/30 Ml Solution) 10 gm PO DAILY [facility] Last Admin: 04/25/24 08:13 Dose: 10 gm Lidocaine (Lidocaine 4 % Patch Adh..Patch) 2 patch TRANSDERMA DAILY [facility]; Protocol Last Admin: 04/25/24 08:14 Dose: Not Given Lorazepam (Lorazepam 1 Mg Tablet) 1 mg PO TID [facility] Last Admin: 04/25/24 15:34 Dose: 1 mg Magnesium Hydroxide (Milk Of Magnesia 30 Ml Oral.Susp) 30 ml PO DAILY PRN PRN Reason: Constipation Methadone HCl (Methadone Hcl 20 Mg/2 Ml Oral.Conc) 45 mg PO DAILY@0800 [facility] Last Admin: 04/25/24 07:52 Dose: 45 mg Nicotine (Nicotine 14 Mg Patch.Td24) 14 mg TRANSDERMA DAILY [facility] Last Admin: 04/25/24 08:16 Dose: 14 mg Nicotine Polacrilex (Nicotine Polacrilex 2 Mg Gum) 4 mg BUCCAL Q2H PRN PRN Reason: Nicotine Cravings Last Admin: 04/20/24 16:17 Dose: 4 mg Olanzapine (Olanzapine 5 Mg Tablet) 5 mg PO Q4H PRN PRN Reason: psychosis,agitation Last Admin: 04/19/24 23:54 Dose: 5 mg Olanzapine (Olanzapine Odt 10 Mg Tab.Rapdis) 30 mg TRANSLINGU BEDTIME GUTIERREZ Ondansetron HCl (Ondansetron Odt 4 Mg Tab.Rapdis) 4 mg TRANSLINGU Q6H PRN PRN Reason: Nausea And Vomiting Last Admin: 04/24/24 17:04 Dose: 4 mg Prazosin HCl (Prazosin Hcl 1 Mg Capsule) 2 mg PO BEDTIME [facility]; Protocol Last Admin: 04/25/24 00:30 Dose: Not Given Rifaximin (Rifaximin 550 Mg Tablet) 550 mg PO Q12H [facility] Last Admin: 04/25/24 08:10 Dose: 550 mg Tramadol HCl (Tramadol Hcl 50 Mg Tablet) 25 mg PO Q6H PRN PRN Reason: Pain, Severe (Pain Scale 7-10) Last Admin: 04/25/24 08:07 Dose: 25 mg Trazodone HCl (Trazodone Hcl 50 Mg Tablet) 50 mg PO BEDTIME MRX1 PRN PRN Reason: Insomnia Last Admin: 04/21/24 02:47 Dose: 50 mg Allergies Allergies Allergy/AdvReac Type Severity Reaction Status Date / Time No Known Allergies Allergy Verified 04/05/24 18:41 Assessment & Plan Assessment & Plan (1) Schizophrenia, acute undifferentiated: Status: Acute Code(s): F20.3 - Undifferentiated schizophrenia (2) Opioid use disorder: Status: Acute Code(s): F11.90 - Opioid use, unspecified, uncomplicated (3) Cellulitis: Status: Acute Code(s): L03.90 - Cellulitis, unspecified (4) Avulsion fracture of ankle: Status: Acute Code(s): S82.899A - Other fracture of unspecified lower leg, initial encounter for closed fracture (5) Knee effusion, left: Status: Acute Code(s): M25.462 - Effusion, left knee Plan Patient is a 44-year-old woman with history of HIV, liver cirrhosis, anemia polysubstance abuse and recently psychotic symptoms (full history unknown) who 1st presented to the ED days after discharged from [facility] with continued bizarre, disorganized behavior and thoughts, delusional thinking that she is on a TV show called [employer]. Pt found with medial cuboid avulsion fracture. Patient developed cellulitis of left lower leg, started on antibiotics but became septic and was transferred to the medical floor. Patient treated with antibiotics and medically cleared and now returns back to the psychiatric for ongoing psychotic symptoms, maintained on her psychotropic medication regimen now on p.o. antibiotics. Initially On M5 patient was continued on Abilify which was raised to 30 mg and low-dose Depakote, though did not seem to help much; she was resistant to medication changes. Attempts at any collateral were unsuccessful. Patient continued with delusional thinking, calling 911 from the unit saying staff was stealing 20,000,000 dollars, talking about being on a TV show... Owning for houses which she bought the week prior, even though she was psychiatrically admitted at [facility]..., thinking she is despite negative test, that A device implanted in her skin that informs her family of things... Patient remain this way, worsening someone she became septic. Returning to the unit, Patient is cooperative but with significant thought blocking and latency speech, very internally preoccupied. She is pleasant and cooperative, though a little guarded, but difficult with which to engage due to significant thought blocking. Right now, she agrees to continue with Abilify, Zyprexa, Depakote; marketing writer discussed possibly trying Risperdal which she considered but is ambivalent; she agreed to sign a CV. Patient was also restarted on methadone while on medical floor. Formulation/clinical reasoning: Patient remains delusional, without insight, disorganized in speech and behavior and unable to take care of herself in the community (hence her quick return to the hospital.) History of HIV; not clear on adherence with antiretrovirals and this could be a possible contribution to confusion. Patient signed release of information but team Unsuccessful gathering collateral. As far as can be determined patient does not have history of psychiatric admissions so it is not clear how long her psychotic symptoms have been present. Otherwise known is history of substance abuse and homelessness. Will see if Zyprexa can be more helpful Hospital course: 04/21 Patient intermittently able to talk more fluidly; however mostly still remains with significant thought blocking and speech latency.? She remains with delusional thoughts, saying she owns a million dollar house where she was living for 10 years but now can not remember where was, had a brain tumor which she knows about because her friends have been telling her via the device implanted in her.? Again refers to being on a TV show the killers. Yesterday afternoon, staff found that patient has been spitting her medications into the trash and thus did not get her clonidine, gabapentin or Zyprexa dose; earlier patient told nurse that someone had been ?messing? with her? (prior to psychiatric admission) and put production line solderer in her vagina.? She is asking for an exam. This morning, Patient has been harassing staff, following staff up and down the jones, demanding staff give her their money and also give her her own money... Told staff that there is [employer] in her ear; earlier patient told nurse that someone had been ?messing? with her? (prior to psychiatric admission) and put production line solderer in her vagina.? She is asking for an exam -Patient is difficult with which to engage and will not talk much with marketing writer. She said she wants to discharge and there is no reason she should have been brought to [facility] in the 1st place. 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 -Yesterday patient ended up agreeing to increasing Zyprexa and wanting to get off Depakote.? -lower limb ultrasound negative for DVT -will discuss with medical team regarding spironolactone/Lasix which patient said she was on in the past -HIV/viral load pending 04/22 Patient remains floridly psychotic, disorganized in speech and behavior. Patient has been intermittently refusing medication, including last night refusing Biktarvy, and for 2 days refused antibiotics for ongoing cellulitis (post sepsis). Patient told nursing that she refused because was worried people were poisoning her. On inquiry, patient told marketing writer the same, that she was worried people were poisoning her since it has happened before. Patient wants discharge, saying that she is needing to be a part of this TV show; she said that is why she was originally at [facility], that the TV show was filming there and that was the set. Patient told marketing writer that she wants to go to 1 of her 2 houses that she owns and gave marketing writer specific address is, 1 of which does not exist. Patient has been exit seeking throughout the day. -refused meds: abilify 04/21, biktarvy 04/21, Doxycline 2 doses, Zyrpexa 04/21, clonidine, Iron, gabapentin, -very concerning that patient has refused 2 doses of her antibiotic given that she has just recovered from sepsis. 04/23 remains psychotic, disorganized; refusing/spitting out various meds. Not letting nursing examine leg 06/25 no change in presentation; consider head CT 04/25 SW able to get more hx from collateral from her Ex-boyfriend and his mother with whom patient lived. Long hx of both opioid and alcohol abuse. They reports she had episodes with similar presentation...hard to move, latent speech, disorganized, unable to attend to ADL's, unable to do tasks, internally preoccupied...during one such episode pt was admitted to ICU for a metabolic encephalopathy from toxic level of alcohol ingestion and was in a coma for 2 months... -marketing writer talked with pt about medications; she agrees to continuing ativan; she agrees to lowering and tapering down Abilify and increasing zyprexa -marketing writer explained petition to court for involuntary commitment; she is not happy about it 1.pt allowed marketing writer to examine leg which looks quite swollen and tender to the touch. One area with some drainage -Ordered surgical consult to assess for compartment syndrome lower left limb 2.started Ativan 1mg TID since some concern for Catatonic-like symptoms Impression: hx is confusing; episodes of disorganized, catatonic-psychotic behavior...long hx of severe substance abuse making it unclear if pt had actual episodes vs exacerbations... Currently, Patient says she wants to leave the hospital, she is refusing treatment due to her psychotic, paranoid delusions. Patient has no insight at all; she has a broken foot, ongoing cellulitis in leg, no where to live and no support in the community. She is intermittently refusing medication that is currently preventing decompensation back into sepsis which can be life- threatening. Patient is completely unable to take care of herself in the community. At this time will revoke her conditional voluntary as it is become clear she does not fulfill criteria. Will instead petition the court for involuntary commitment Plan: CV Q 15 minute checks Ordered surgical consult to assess for compartment syndrome lower left limb started Ativan 1mg TID since some concern for Catatonic-like symptoms Lowered to Abilify 10 mg daily Dc'd Depakote (pt said does not want) Increase to Zyprexa/Zydis 30 mg q.h.s. continue doxycycline and amoxicillin-clavulanate twice daily for 7 days total (patient intermittently refusing doses; will need to extend duration of trial) Continue methadone 45 mg; started while patient was on medical floor; patient has been on methadone in the past; however will not titrate further given her delicate medical state. Continue Clonidine 0.1 mg t.i.d., Continue Gabapentin 300 mg t.i.d. (pt said was taking 400mg tid) Continue Prazosin 2 mg q.h.s. Continue Rifaximin 550 mg b.i.d. Continue Biktarvy 1 mg daily Continue lactulose which patient says she takes regularly for liver cirrhosis Continue baclofen Reports history of taking Vyvanse/Adderall Health Concerns: cellulitis - continue doxycycline and amoxicillin-clavulanate twice daily for 7 days total medial cuboid avulsion fracture - walking boot, weight-bear as tolerated, follow up with Orthopedics in 1-2 weeks knee effusion - recommend X-ray and Orthopedic consultation after overlying cellulitis resolves. HIV infection - continue Biktarvy. CD4 count 216. viral load pending. - syphilis T. pallidum EIA negative. urine gonorrhea/chlamydia PCR negative Patient educated on: diagnosis, medication risk/benefits and medical condition Informed Consent: understands, does not understand and further education needed Reason for continued inpatient stay Substantial Risk for: inability to function Time Spent With Patient Time: Total time managing care of this patient today ____ minutes.
--- NOTE | 2024-04-25 19:01 | PM.EVENT ---
Event Note Date of Service: 04/25/24 Event Note: Pt is a 44-year-old female admitted to [facility] Psychiatric unit with hospitalist consult evaluation of left lower extremity cellulitis. Patient with initial laceration to left lower extremity approximately 6 weeks ago. While on the psych unit patient became febrile and was septic on 04/15/2024 and was brought to the medical floor for left leg cellulitis. Pt was noncompliant with optimal treatment, refusing IV antibiotics and ripping out her IV access. Was eventually discharged back to psychiatry on amoxicillin and doxycycline p.o. Patient continues to be actively manic and is a poor historian, but complains of left lower extremity pain. According to nursing and psychiatric providers patient has been occasionally refusing her Augmentin and doxycycline while on the unit. Upon physical examination, overall wound itself looks much improved and healing nicely as compared to 2 weeks prior. No discernible drainage noted on either dressing or from wound itself. Left lower extremity continues to be significantly swollen with 3+ pitting edema. As pictured below. Plan: Patient is currently not septic and continues to refused optimal treatment Currently no indication to bring to the medical floor Pt has already had two negative LE venous duplexes (04/18 and 04/20) and CT showing large knee joint effusion and likely cellulitis but no abscess Encourage finishing p.o. antibiotics For swelling, keep leg elevated, daily Tarun wrappings, and walking boot removed when in bed Continue to cleanse wound as per Wound Care: Cleanse with NS, pat dry. Cover leg with lotion or vaseline, apply Durafiber to open wounds, cover with dry gauze, ABD pad and Wrap. Time Spent With Patient Time: Total time managing care of this patient today ____ minutes.
[2024-04-25 19:18] VITALS: BP 131/71; PULSE 119; RESP 20; TEMP 37.1; O2SAT 98
[2024-04-25] MEDS: OLANZapine ODT 10 MG TAB.RAPDIS 30 MG TRANSLINGU (21:50)
[2024-04-25 21:51] VITALS: BP 134/81
[2024-04-25] MEDS: Prazosin HCL 1 MG CAPSULE 2 MG PO (21:51)
[2024-04-26] MEDS: Acetaminophen 325 MG TABLET 975 MG PO (05:21)
[2024-04-26] MEDS: methADONE HCl 20 MG/2 ML ORAL.CONC 45 MG PO (08:52)
[2024-04-26] MEDS: rifAXIMin 550 MG TABLET PO ×2 (08:57→21:12)
[2024-04-26] MEDS: Bictegrav/Emtricit/Tenofov Ala TABLET 1 TAB PO (08:57)
[2024-04-26] MEDS: LORazepam 1 MG TABLET PO (08:57)
[2024-04-26] MEDS: ARIPiprazole 10 MG TABLET PO (08:57)
[2024-04-26] MEDS: Gabapentin 300 MG CAPSULE PO ×3 (08:57→21:12)
[2024-04-26] MEDS: Amoxicillin/Potassium Clav 875 MG TABLET PO (08:57)
[2024-04-26] MEDS: Diclofenac Sodium Delayed Rel 50 MG TABLET.DR PO ×2 (08:57→16:16)
[2024-04-26] MEDS: Ferrous Sulfate 324 MG TABLET.DR PO ×2 (08:57→16:16)
[2024-04-26] MEDS: Doxycycline Monohydrate 100 MG CAPSULE PO (08:57)
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
[2024-04-26 10:00] VITALS: BP 96/52; PULSE 97; RESP 16; TEMP 36.5; O2SAT 96
[2024-04-26] MEDS: traMADoL HCL 50 MG TABLET 25 MG PO (10:24)
[2024-04-26] MEDS: OLANZapine 5 MG TABLET PO (10:25)
--- NOTE | 2024-04-26 14:24 | HO.PSYCHPN ---
Subjective Subjective Date of Service: 04/26/24 Reason For Visit: Psychosis Subjective Notes: Conditional Voluntary Interim History: Pt mostly in room. She appeared somewhat oversedated, with some difficulty keeping her eyes open and drooling. She did wake up and sat for a bit to talk with this communications writer prior to start again to nod off. She reports she is here for mental health treatment and to treat fracture. She denies feeling depressed. She denied VH or AH but does appear somewhat internally preoccupied. She denies SI/HI. She reports she feels medications work well for her, this communications writer pointed out some sedation at least today. She did not appear with catatonia like symptoms- no flexy waxibility, nor staring, speech is spontaneous despite sedation. Perhaps it has resolved. Her BP this morning was low- clonidine has been held- will d/c for now. Pt also seen by surgery to r/u compartment syndrome per Dr. Reddy. However, Dr. Lund ruled out compartment syndrome. Pt to follow up with ortho. Mental Status Exam Mental Status Exam Narrative: Pt appears somewhat disheveled. She is cooperative, limited by some sedation. She denies SI/HI. Her thought process seems limited in content but organized and pertinent questions asked. Her TC is on getting better and continuing tx (although her insight into reason for being here is limited). No SI/HI. Appears internally preoccupied. Limited insight and judgment but appears to show some slight improvement. No overt delusional content reported- but possibly there. Diagnostics Vital Signs (24Hr): Vital Signs - 24 hr 04/25/24 15:35 04/25/24 19:18 04/25/24 21:51 Temperature 99.8 F 98.7 F Pulse Rate 117 H 119 H Respiratory Rate 20 Blood Pressure 143/76 H 131/71 134/81 Pulse Oximetry 98 Oxygen Delivery Method Room Air 04/25/24 21:51 Temperature Pulse Rate Respiratory Rate Blood Pressure 134/81 Pulse Oximetry Oxygen Delivery Method BMI result Body Mass Index 25.3 Labs 04/19/24 20:14 04/19/24 20:14 Imaging Radiology Impressions: ITS Impressions Venous Duplex 04/20/24 11:00 IMPRESSION: No evidence of deep venous thrombosis involving the left lower extremity. Electronically signed by: Bertin Montano MD 04/20/2024 12:54 PM [facility] Head CT 04/25/24 09:53 IMPRESSION: 1. No evidence of acute intracranial hemorrhage or edematous territorial infarction. 2. Mild nonspecific white matter changes. Electronically signed by: Ozzie Easley DO 04/25/2024 05:39 PM [facility] Medications Medications Current Medications Acetaminophen (Acetaminophen 325 Mg Tablet) 975 mg PO Q6H PRN PRN Reason: pain (pain scale 1-10) Last Admin: 04/26/24 05:21 Dose: 975 mg Al Hydroxide/Mg Hydroxide (Magnesium Hydrox/Alum Hydrox 30 Ml Oral.Susp) 30 ml PO Q6H PRN PRN Reason: Heartburn/Nausea Aripiprazole (Aripiprazole 10 Mg Tablet) 10 mg PO DAILY [facility] Last Admin: 04/26/24 08:57 Dose: 10 mg Baclofen (Baclofen 10 Mg Tablet) 10 mg PO TID PRN PRN Reason: back/muscle spasm Last Admin: 04/23/24 20:17 Dose: 10 mg Bictegravir/Emtricitabine/Tenofovir (Bictegrav/Emtricit/Tenofov Ala Tablet) 1 tab PO DAILY [facility] Last Admin: 04/26/24 08:57 Dose: 1 tab Clonidine HCl (Clonidine Hcl 0.1 Mg Tablet) 0.1 mg PO TID [facility]; Protocol Last Admin: 04/26/24 08:59 Dose: Not Given Diclofenac Sodium (Diclofenac Sodium Delayed Rel 50 Mg Tablet.) 50 mg PO BIDWM [facility] Last Admin: 04/26/24 08:57 Dose: 50 mg Ferrous Sulfate (Ferrous Sulfate 324 Mg Tablet.) 324 mg PO BIDWM [facility] Last Admin: 04/26/24 08:57 Dose: 324 mg Gabapentin (Gabapentin 300 Mg Capsule) 300 mg PO TID [facility] Last Admin: 04/26/24 08:57 Dose: 300 mg Hydroxyzine HCl (Hydroxyzine Hcl 25 Mg Tablet) 25 mg PO Q6H PRN PRN Reason: Anxiety Last Admin: 04/21/24 02:47 Dose: 25 mg Lactulose (Lactulose 20 Gm/30 Ml Solution) 10 gm PO DAILY [facility] Last Admin: 04/26/24 10:37 Dose: Not Given Lidocaine (Lidocaine 4 % Patch Adh..Patch) 2 patch TRANSDERMA DAILY [facility]; Protocol Last Admin: 04/26/24 10:37 Dose: Not Given Lorazepam (Lorazepam 1 Mg Tablet) 1 mg PO TID [facility] Last Admin: 04/26/24 08:57 Dose: 1 mg Magnesium Hydroxide (Milk Of Magnesia 30 Ml Oral.Susp) 30 ml PO DAILY PRN PRN Reason: Constipation Methadone HCl (Methadone Hcl 20 Mg/2 Ml Oral.Conc) 45 mg PO DAILY@0800 [facility] Last Admin: 04/26/24 08:52 Dose: 45 mg Nicotine (Nicotine 14 Mg Patch.Td24) 14 mg TRANSDERMA DAILY [facility] Last Admin: 04/26/24 10:03 Dose: Not Given Nicotine Polacrilex (Nicotine Polacrilex 2 Mg Gum) 4 mg BUCCAL Q2H PRN PRN Reason: Nicotine Cravings Last Admin: 04/20/24 16:17 Dose: 4 mg Olanzapine (Olanzapine 5 Mg Tablet) 5 mg PO Q4H PRN PRN Reason: psychosis,agitation Last Admin: 04/26/24 10:25 Dose: 5 mg Olanzapine (Olanzapine Odt 10 Mg Tab.Rapdis) 30 mg TRANSLINGU BEDTIME [facility] Last Admin: 04/25/24 21:50 Dose: 30 mg Ondansetron HCl (Ondansetron Odt 4 Mg Tab.Rapdis) 4 mg TRANSLINGU Q6H PRN PRN Reason: Nausea And Vomiting Last Admin: 04/24/24 17:04 Dose: 4 mg Prazosin HCl (Prazosin Hcl 1 Mg Capsule) 2 mg PO BEDTIME [facility]; Protocol Last Admin: 04/25/24 21:51 Dose: 2 mg Rifaximin (Rifaximin 550 Mg Tablet) 550 mg PO Q12H [facility] Last Admin: 04/26/24 08:57 Dose: 550 mg Tramadol HCl (Tramadol Hcl 50 Mg Tablet) 25 mg PO Q6H PRN PRN Reason: Pain, Severe (Pain Scale 7-10) Last Admin: 04/26/24 10:24 Dose: 25 mg Trazodone HCl (Trazodone Hcl 50 Mg Tablet) 50 mg PO BEDTIME MRX1 PRN PRN Reason: Insomnia Last Admin: 04/21/24 02:47 Dose: 50 mg Allergies Allergies Allergy/AdvReac Type Severity Reaction Status Date / Time No Known Allergies Allergy Verified 04/05/24 18:41 Assessment & Plan Assessment & Plan (1) Schizophrenia, acute undifferentiated: Status: Acute Code(s): F20.3 - Undifferentiated schizophrenia Plan 04/26- pt has been on ativan 1mg po TID for catatonia like s/s. She is not showing this today and instead she seems quiet sedated. WIll lower to 0.5mg PO BID. will dc clonidine due to low BP. Reason for continued inpatient stay Substantial Risk for: inability to function Time Spent With Patient Time: Total time managing care of this patient today ____ minutes.
[2024-04-26] MEDS: LORazepam 0.5 MG TABLET PO (21:12)
[2024-04-26] MEDS: OLANZapine ODT 10 MG TAB.RAPDIS 30 MG TRANSLINGU (21:13)
[2024-04-26] MEDS: Prazosin HCL 1 MG CAPSULE 2 MG PO (21:14)
[2024-04-26 22:52] VITALS: BP 151/94; PULSE 104; RESP 16; TEMP 36.9; O2SAT 98
[2024-04-27] MEDS: methADONE HCl 20 MG/2 ML ORAL.CONC 45 MG PO (08:11)
[2024-04-27] MEDS: rifAXIMin 550 MG TABLET PO ×2 (10:00→22:12)
[2024-04-27] MEDS: ARIPiprazole 10 MG TABLET PO (10:00)
[2024-04-27] MEDS: Bictegrav/Emtricit/Tenofov Ala TABLET 1 TAB PO (10:00)
[2024-04-27] MEDS: Diclofenac Sodium Delayed Rel 50 MG TABLET.DR PO ×2 (10:00→15:57)
[2024-04-27] MEDS: Nicotine 14 MG PATCH.TD24 TRANSDERMA (10:01)
[2024-04-27] MEDS: Ferrous Sulfate 324 MG TABLET.DR PO ×2 (10:01→15:56)
[2024-04-27] MEDS: Gabapentin 300 MG CAPSULE PO ×3 (10:01→22:11)
[2024-04-27] MEDS: Lactulose 20 GM/30 ML SOLUTION 10 GM PO (10:02)
[2024-04-27] MEDS: Lidocaine 4 % Patch ADH..PATCH 2 PATCH TRANSDERMA (10:03)
--- NOTE | 2024-04-27 10:25 | HO.PSYCHPN ---
Subjective Subjective Date of Service: 04/27/24 Reason For Visit: Psychosis Interim History: Pt mostly in room. Still somewhat oversedated- able to wake up and talk briefly and again nods off- this is not new. Is mobilizing outside of room as per nursing. She denies SI/HI. Wound care follow up needed as per nursing, dressings are continuing to weep through wraps Medication Compliance: Yes Side effects from medications: Yes (?sedation) Attending Groups: No Review of Systems Acute medical concerns: No Review of Systems Review of Systems dressings are continuing to weep through wraps Mental Status Exam Mental Status Exam Narrative: Pt appears somewhat disheveled. She is cooperative, limited by some sedation. She denies SI/HI. Her thought process seems limited in content but organized and pertinent questions asked.No SI/HI. Appears internally preoccupied. Limited insight and judgment but appears to show some slight improvement. No overt delusions Diagnostics Vital Signs (24Hr): Vital Signs - 24 hr 04/26/24 22:52 Temperature 98.4 F Pulse Rate 104 H Respiratory Rate 16 Blood Pressure 151/94 H Pulse Oximetry 98 Oxygen Delivery Method Room Air BMI result Body Mass Index 25.3 Labs 04/19/24 20:14 04/19/24 20:14 Imaging Radiology Impressions: ITS Impressions Venous Duplex 04/20/24 11:00 IMPRESSION: No evidence of deep venous thrombosis involving the left lower extremity. Electronically signed by: Bertin Montano MD 04/20/2024 12:54 PM EST [facility] Head CT 04/25/24 09:53 IMPRESSION: 1. No evidence of acute intracranial hemorrhage or edematous territorial infarction. 2. Mild nonspecific white matter changes. Electronically signed by: Ozzie Easley DO 04/25/2024 05:39 PM EST [facility] Medications Medications Current Medications Acetaminophen (Acetaminophen 325 Mg Tablet) 975 mg PO Q6H PRN PRN Reason: pain (pain scale 1-10) Last Admin: 04/26/24 05:21 Dose: 975 mg Al Hydroxide/Mg Hydroxide (Magnesium Hydrox/Alum Hydrox 30 Ml Oral.Susp) 30 ml PO Q6H PRN PRN Reason: Heartburn/Nausea Aripiprazole (Aripiprazole 10 Mg Tablet) 10 mg PO DAILY [facility] Last Admin: 04/27/24 10:00 Dose: 10 mg Baclofen (Baclofen 10 Mg Tablet) 10 mg PO TID PRN PRN Reason: back/muscle spasm Last Admin: 04/23/24 20:17 Dose: 10 mg Bictegravir/Emtricitabine/Tenofovir (Bictegrav/Emtricit/Tenofov Ala Tablet) 1 tab PO DAILY [facility] Last Admin: 04/27/24 10:00 Dose: 1 tab Diclofenac Sodium (Diclofenac Sodium Delayed Rel 50 Mg Tablet.) 50 mg PO BIDWM [facility] Last Admin: 04/27/24 10:00 Dose: 50 mg Ferrous Sulfate (Ferrous Sulfate 324 Mg Tablet.) 324 mg PO BIDWM [facility] Last Admin: 04/27/24 10:01 Dose: 324 mg Gabapentin (Gabapentin 300 Mg Capsule) 300 mg PO TID [facility] Last Admin: 04/27/24 10:01 Dose: 300 mg Hydroxyzine HCl (Hydroxyzine Hcl 25 Mg Tablet) 25 mg PO Q6H PRN PRN Reason: Anxiety Last Admin: 04/21/24 02:47 Dose: 25 mg Lactulose (Lactulose 20 Gm/30 Ml Solution) 10 gm PO DAILY [facility] Last Admin: 04/27/24 10:02 Dose: 10 gm Lidocaine (Lidocaine 4 % Patch Adh..Patch) 2 patch TRANSDERMA DAILY [facility]; Protocol Last Admin: 04/27/24 10:03 Dose: 2 patch Lorazepam (Lorazepam 0.5 Mg Tablet) 0.5 mg PO BID@1200,2100 [facility] Last Admin: 04/26/24 21:12 Dose: 0.5 mg Magnesium Hydroxide (Milk Of Magnesia 30 Ml Oral.Susp) 30 ml PO DAILY PRN PRN Reason: Constipation Methadone HCl (Methadone Hcl 20 Mg/2 Ml Oral.Conc) 45 mg PO DAILY@0800 [facility] Last Admin: 04/27/24 08:11 Dose: 45 mg Nicotine (Nicotine 14 Mg Patch.Td24) 14 mg TRANSDERMA DAILY [facility] Last Admin: 04/27/24 10:01 Dose: 14 mg Nicotine Polacrilex (Nicotine Polacrilex 2 Mg Gum) 4 mg BUCCAL Q2H PRN PRN Reason: Nicotine Cravings Last Admin: 04/20/24 16:17 Dose: 4 mg Olanzapine (Olanzapine 5 Mg Tablet) 5 mg PO Q4H PRN PRN Reason: psychosis,agitation Last Admin: 04/26/24 10:25 Dose: 5 mg Olanzapine (Olanzapine Odt 10 Mg Tab.Rapdis) 30 mg TRANSLINGU BEDTIME [facility] Last Admin: 04/26/24 21:13 Dose: 30 mg Ondansetron HCl (Ondansetron Odt 4 Mg Tab.Rapdis) 4 mg TRANSLINGU Q6H PRN PRN Reason: Nausea And Vomiting Last Admin: 04/24/24 17:04 Dose: 4 mg Prazosin HCl (Prazosin Hcl 1 Mg Capsule) 2 mg PO BEDTIME [facility]; Protocol Last Admin: 04/26/24 21:14 Dose: 2 mg Rifaximin (Rifaximin 550 Mg Tablet) 550 mg PO Q12H [facility] Last Admin: 04/27/24 10:00 Dose: 550 mg Tramadol HCl (Tramadol Hcl 50 Mg Tablet) 25 mg PO Q6H PRN PRN Reason: Pain, Severe (Pain Scale 7-10) Last Admin: 04/26/24 10:24 Dose: 25 mg Trazodone HCl (Trazodone Hcl 50 Mg Tablet) 50 mg PO BEDTIME MRX1 PRN PRN Reason: Insomnia Last Admin: 04/21/24 02:47 Dose: 50 mg Allergies Allergies Allergy/AdvReac Type Severity Reaction Status Date / Time No Known Allergies Allergy Verified 04/05/24 18:41 Assessment & Plan Assessment & Plan (1) Schizophrenia, acute undifferentiated: Status: Acute Code(s): F20.3 - Undifferentiated schizophrenia Plan 04/26- pt has been on ativan 1mg po TID for catatonia like s/s. She is not showing this today and instead she seems quiet sedated. WIll lower to 0.5mg PO BID. will dc clonidine due to low BP. 04/27: dressings are continuing to weep through wraps- will request wound care re-evaluation. no other changes and will monitor sedation (ativan lowered yesterday) Reason for continued inpatient stay Substantial Risk for: inability to function Time Spent With Patient Time: Total time managing care of this patient today ____ minutes.
[2024-04-27] MEDS: traMADoL HCL 50 MG TABLET 25 MG PO (22:11)
[2024-04-27] MEDS: Prazosin HCL 1 MG CAPSULE 2 MG PO (22:12)
[2024-04-27] MEDS: hydrOXYzine HCL 25 MG TABLET PO (22:12)
[2024-04-27] MEDS: LORazepam 0.5 MG TABLET PO (22:12)
[2024-04-27] MEDS: Baclofen 10 MG TABLET PO (22:13)
[2024-04-27] MEDS: OLANZapine ODT 10 MG TAB.RAPDIS 30 MG TRANSLINGU (22:13)
--- NOTE | 2024-04-28 00:32 | PM.EVENT ---
Event Note Date of Service: 04/27/24 Event Note: 11:23 PM - Contacted by nursing to notify that the patient has developed a new open area in the posterior aspect of her left leg. It was also reported that her left lower extremity is increasing in size, has more erythema and very tender to palpation. I evaluate patient. Vital signs remarkable for ongoing tachycardia (seems chronic). Blood pressure is normal and there is no fever. Please see pictures above. There is 1 cm ulcer with spontaneous purulent discharge. The ulcer was cultured. We will obtain labs stat including CBC, CMP and lactic acid. According to nursing patient just completed a course of Augmentin and doxycycline. In the meanwhile we will start treatment with clindamycin orally and obtain left lower extremity CT scan with IV contrast to assess for necrotizing fasciitis and/or abscesses. Time Spent With Patient Time: Total time managing care of this patient today ____ minutes.
[2024-04-28 00:50] LABS: MANUAL DIFF FLAG NO
[2024-04-28 01:08] LABS: Lactic Acid 2.5 mmol/L (0.5-2.0)
[2024-04-28 01:23] LABS: Basophils Absolute Auto 0.1 X10*3/uL (0.0-0.2); Basophils Percent Auto 0.6 % (0-2); Eosinophils Absolute Auto 0.1 X10*3/uL (0.0-0.4); Eosinophils Percent Auto 0.6 % (0-4); Hematocrit 27.9 % (37.0-47.0); Hemoglobin 8.5 g/dl (12.0-16.0); Imm Gran Abs Auto 0.05 X10*3/uL (0.00-0.03); Imm Gran Pct Auto 0.6 % (0.0-0.4); Lymphocytes Absolute Auto 1.6 X10*3/uL (1.2-4.9); Lymphocytes Percent Auto 17.7 % (20-40); Mean Corpuscular HGB Conc 30.5 g/dl (31.0-35.0); Mean Corpuscular Hemoglobin 21.7 pg (27.0-33.0); Mean Corpuscular Volume 71.4 fL (80.0-98.0); Monocytes Absolute Auto 1.1 X10*3/uL (0.1-1.2); Monocytes Percent Auto 11.9 % (2-11); Neutrophils Absolute Auto 6.1 x10*3/uL (2.0-8.3); Neutrophils Percent Auto 68.6 % (45-73); Platelet Count 233 X10*3/uL (160-400); Red Blood Count 3.91 X10*6/uL (4.20-5.50); White Blood Count 8.9 X10*3/uL (4.8-10.8)
[2024-04-28 01:24] LABS: Alanine Aminotransferase 37 U/L (0-31); Albumin Level 2.6 g/dL (3.5-5.0); Alkaline Phosphatase 83 U/L (39-117); Anion Gap 15 (12-20); Aspartate Amino Transferase 167 U/L (5-31); Bilirubin Total 0.9 mg/dL (0.0-1.0); Blood Urea Nitrogen 11 mg/dL (9-16); Calcium 8.6 mg/dL (8.4-10.2); Carbon Dioxide 26 mmol/L (22-29); Chloride 103 mmol/L (96-108); Estimated Glomerular Filt Rate > 60; Glucose Random 76 mg/dL (60-115); Potassium 5.9 mmol/L (3.3-5.1); Sodium 138 mmol/L (135-145); Total Protein 9.1 g/dL (6.5-8.0)
[2024-04-28 02:49] LABS: Reflex Lactate? Lactic Acid Added
--- NOTE | 2024-04-28 02:53 | PM.EVENT ---
Event Note Date of Service: 04/28/24 Event Note: being discharged to medical floor for IV fluids with elevated lactic acid. Also getting CT to rule out necrotizing fascitis of lower limb wound Time Spent With Patient Time: Total time managing care of this patient today ____ minutes.
[2024-04-28 03:29] LABS: ~Lactic Acid-LAB USE ONLY 2.2 mmol/L (0.5-2.0)
[2024-04-28] MEDS: iohexoL 350 MG/ML 100 ML INFUS..BTL 85 ML IV (03:42)
--- NOTE | 2024-04-28 10:28 | P.DS_ITS ---
DS: Providers Provider Date of Service: 04/28/24 Date of admission: 04/19/24 14:42 Date of discharge: 04/28/24 Primary care physician: Unknown Physician Consults: 04/25/24 16:12 Consult to Hospitalist Routine Comment: Consulting Provider: [facility] Reason For Exam: assess right leg cellulitis; swelling; weepy Consult to Wound Care Routine Reason for consultation: left leg cellulitis 04/25/24 23:16 Consult to General Surgery Routine Consulting Provider: [facility] Reason for consultation: r/o compartment syndrome left lower leg due to edema (cellulitis) 04/27/24 16:09 Consult to Wound Care Routine Reason for consultation: reevaluation dressings are continuing to significantly weep through wraps DS: Diagnosis Discharge Diagnosis (1) Schizophrenia, acute undifferentiated: Status: Acute DS: Medications Discharge Medications Home Medications: Home Medications ?Medication ?Instructions ?Recorded ?Confirmed bictegravir 50 mg-emtricitabine 1 tab PO DAILY 04/05/24 04/28/24 200 mg-tenofovir alafenam 25 mg tablet gabapentin 300 mg capsule 300 mg PO TID 04/05/24 04/28/24 prazosin 2 mg capsule 2 mg PO BEDTIME 04/05/24 04/28/24 rifaximin 550 mg tablet 550 mg PO Q12H 04/05/24 04/28/24 aluminum-mag hydroxide-simethicone 30 ml PO Q6H PRN heartburn/gas 04/28/24 04/28/24 200 mg-200 mg-20 mg/5 mL oral susp aripiprazole 10 mg tablet (Abilify) 10 mg PO DAILY 04/28/24 04/28/24 clindamycin HCl 150 mg capsule 450 mg PO Q8H 04/28/24 04/28/24 hydroxyzine HCl 25 mg tablet 25 mg PO Q6H PRN Anxiety 04/28/24 04/28/24 lorazepam 0.5 mg tablet 0.5 mg PO BID@1200,2100 04/28/24 04/28/24 magnesium hydroxide 400 mg/5 mL 30 ml PO DAILY PRN Constipation 04/28/24 04/28/24 oral suspension (Milk of Magnesia) methadone 10 mg/mL oral 45 mg PO DAILY@0800 04/28/24 04/28/24 concentrate (Methadone Intensol) olanzapine 10 mg disintegrating 30 mg PO BEDTIME 04/28/24 04/28/24 tablet trazodone 50 mg tablet 50 mg PO BEDTIME PRN Insomnia 04/28/24 04/28/24 Previous Rx's ?Medication ?Instructions ?Recorded acetaminophen 325 mg tablet 975 mg (3 x 325 mg) PO Q6H PRN 04/15/24 pain (pain scale 1-10) #0 tabs baclofen 10 mg tablet 10 mg PO TID PRN back/muscle spasm 04/15/24 #0 tabs diclofenac sodium 50 mg 50 mg PO BIDWM #0 tabs 04/15/24 tablet,delayed release lactulose 20 gram/30 mL oral 10 g (15 mL) PO DAILY #0 mL 04/15/24 solution lidocaine 4 % topical patch 2 patch transdermal DAILY #0 ea 04/15/24 (Lidocaine Pain Relief) nicotine (polacrilex) 2 mg gum 4 mg buccal Q2H PRN Nicotine 04/15/24 Cravings #0 ea nicotine 14 mg/24 hr daily 14 mg transdermal DAILY #0 ea 04/15/24 transdermal patch olanzapine 5 mg tablet 5 mg PO Q4H PRN 04/15/24 psychosis,agitation #0 tabs ondansetron 4 mg disintegrating 4 mg translingual Q6H PRN Nausea 04/15/24 tablet And Vomiting #0 tabs tramadol 50 mg tablet 25 mg (1/2 x 50 mg) PO Q6H PRN 04/15/24 Pain, Severe (Pain Scale 7-10) #0 tabs ferrous sulfate 324 mg (65 mg 324 mg PO BIDWM #60 tabs 04/18/24 iron) tablet,delayed release Data Data Completed and Pending Completed studies during hospitalization [Text1]: 04/28/24 04/28/24 00:45 03:05 WBC 8.9 RBC 3.91 L Hgb 8.5 L Hct 27.9 L MCV 71.4 L MCH 21.7 L MCHC 30.5 L RDW 25.0 H Plt Count 233 D MPV Not Reportable Immature Gran % (Auto) 0.6 H Neut % (Auto) 68.6 Lymph % (Auto) 17.7 L Frio % (Auto) 11.9 H Eos % (Auto) 0.6 Baso % (Auto) 0.6 Lymph # (Auto) 1.6 Frio # (Auto) 1.1 Eos # (Auto) 0.1 Baso # (Auto) 0.1 Abs Immat Gran (auto) 0.05 H Absolute Neuts (auto) 6.1 Absolute Nucleated RBC 0.000 Nucleated RBC % (auto) 0.0 Sodium 138 Potassium 5.9 H D Chloride 103 Carbon Dioxide 26 Anion Gap 15 BUN 11 Creatinine 0.84 Estim Creat Clear Calc 89.0 Estimated GFR > 60 Random Glucose 76 Lactic Acid 2.5 H* Lactic Acid F/U @ 2Hr 2.2 H* Calcium 8.6 Total Bilirubin 0.9 AST 167 H ALT 37 H Alkaline Phosphatase 83 Total Protein 9.1 H Albumin 2.6 L Imaging Diagnostic Imaging Impressions Venous Duplex 04/20/24 11:00 IMPRESSION: No evidence of deep venous thrombosis involving the left lower extremity. Electronically signed by: Bertin Montano MD 04/20/2024 12:54 PM EST RP Head CT 04/25/24 09:53 IMPRESSION: 1. No evidence of acute intracranial hemorrhage or edematous territorial infarction. 2. Mild nonspecific white matter changes. Electronically signed by: Ozzie Easley DO 04/25/2024 05:39 PM EST RP DS: Summary Hospital Course Hospital Course: Sedate throughout admission, but able to mobilize and engage when needed. Had lower limb wound, that was being dressed and managed with PO antibiotics. Transferred from to medical floor overnight 04/27-04/28/24. As per med note last night on M5: Event Note: Seen and evaluated this morning Leg swollen and tender CT scan pending US LT LE pending to R\O DVT pending orthopedic and psych consult IV Vancomycin and Zosyn Echo ordered Time Spent with Patient Time attestation: Total time managing care of this patient today ____ minutes. Discharge Plan Discharge Anticipated Discharge Date/Time: 04/28/24 02:37 Patient Disposition: Xfer Acute Care Hospital Discharge Diagnosis: Schizoaffective disorder and elevated lactic acid Referrals: Physician,Unknown J [Primary Care Provider] - 1 Week Discharge Medications: Continued ferrous sulfate 324 mg (65 mg iron) Tablet,Delayed Release (Dr/Ec) 324 mg PO BIDWM Qty: 60 0RF gabapentin 300 mg Capsule 300 mg PO TID prazosin 2 mg Capsule 2 mg PO BEDTIME rifaximin 550 mg Tablet 550 mg PO Q12H hepqjovel-wwqtzont-icznhzz ala 50-200-25 mg Tablet 1 tab PO DAILY acetaminophen 325 mg Tablet 975 mg PO Q6H PRN (Reason: pain (pain scale 1-10)) Qty: 0 0RF nicotine 14 mg/24 hr Patch 24 Hour 14 mg transdermal DAILY Qty: 0 0RF lidocaine [Lidocaine Pain Relief] 4 % Adhesive Patch,Medicated 2 patch transdermal DAILY Qty: 0 0RF Protocol: Apply to: Apply to: back nicotine (polacrilex) 2 mg Gum 4 mg buccal Q2H PRN (Reason: Nicotine Cravings) Qty: 0 0RF olanzapine 5 mg Tablet 5 mg PO Q4H PRN (Reason: psychosis,agitation) Qty: 0 0RF tramadol 50 mg Tablet 25 mg PO Q6H PRN (Reason: Pain, Severe (Pain Scale 7-10)) Qty: 0 0RF baclofen 10 mg Tablet 10 mg PO TID PRN (Reason: back/muscle spasm) Qty: 0 0RF diclofenac sodium 50 mg Tablet,Delayed Release (Dr/Ec) 50 mg PO BIDWM Qty: 0 0RF ondansetron 4 mg Tablet,Disintegrating 4 mg translingual Q6H PRN (Reason: Nausea And Vomiting) Qty: 0 0RF lactulose 20 gram/30 mL Solution 10 g PO DAILY Qty: 0 0RF No Action aripiprazole [Abilify] 10 mg Tablet 10 mg PO DAILY trazodone 50 mg Tablet 50 mg PO BEDTIME PRN (Reason: Insomnia) clindamycin HCl 150 mg Capsule 450 mg PO Q8H lorazepam 0.5 mg Tablet 0.5 mg PO BID@1200,2100 magnesium hydroxide [Milk of Magnesia] 400 mg/5 mL Suspension 30 ml PO DAILY PRN (Reason: Constipation) olanzapine 10 mg Tablet,Disintegrating 30 mg PO BEDTIME hydroxyzine HCl 25 mg Tablet 25 mg PO Q6H PRN (Reason: Anxiety) methadone [Methadone Intensol] 10 mg/mL Concentrate 45 mg PO DAILY@0800 alum-mag hydroxide-simeth [Maalox] 200-200-20 mg/5 mL Suspension 30 ml PO Q6H PRN (Reason: heartburn/gas) Rx Instructions: administer between meals and at bedtime Discharge Orders: Discharge Order (Routine); Ordered 04/28/24 Ordered By: Michael Slainas Diet: Advance to usual diet Activity on Discharge: As tolerated Stand Alone Forms: Patient Portal Discharge page Print Language: Kazakh Care Plan Goals: IV fluids on medical floor for high lactic acid Health Concerns: IV fluids on medical floor for high lactic acid Plan of Treatment: IV fluids on medical floor for high lactic acid Assessment: see above Discharge Date/Time: 04/28/24 03:16
--- NOTE | 2024-04-28 10:28 | PM.PSYCN ---
History of Present Illness Date of Service: 04/28/24 Chief Complaint: Psychosis HPI Past Psychiatric History: Recent Aileen Frederick hospitalization [facility] Medical History (Updated 04/28/24 @ 04:26 by Taz Mccurdy MD) Leg edema, left Family History: unknown patient not good historian at this time Social History: unknown patient not good historian at this time Trauma History: unknown patient not good historian at this time Diagnostics Vital Signs (24Hr): BMI result Body Mass Index 25.3 Labs 04/28/24 00:45 04/28/24 00:45 Labs: Laboratory Results - last 48 hr 04/28/24 04/28/24 00:45 03:05 WBC 8.9 RBC 3.91 L Hgb 8.5 L Hct 27.9 L MCV 71.4 L MCH 21.7 L MCHC 30.5 L RDW 25.0 H Plt Count 233 D MPV Not Reportable Immature Gran % (Auto) 0.6 H Neut % (Auto) 68.6 Lymph % (Auto) 17.7 L [place] % (Auto) 11.9 H Eos % (Auto) 0.6 Baso % (Auto) 0.6 Lymph # (Auto) 1.6 [place] # (Auto) 1.1 Eos # (Auto) 0.1 Baso # (Auto) 0.1 Abs Immat Gran (auto) 0.05 H Absolute Neuts (auto) 6.1 Absolute Nucleated RBC 0.000 Nucleated RBC % (auto) 0.0 Sodium 138 Potassium 5.9 H D Chloride 103 Carbon Dioxide 26 Anion Gap 15 BUN 11 Creatinine 0.84 Estim Creat Clear Calc 89.0 Estimated GFR > 60 Random Glucose 76 Lactic Acid 2.5 H* Lactic Acid F/U @ 2Hr 2.2 H* Calcium 8.6 Total Bilirubin 0.9 AST 167 H ALT 37 H Alkaline Phosphatase 83 Total Protein 9.1 H Albumin 2.6 L Imaging Radiology Impressions: ITS Impressions Venous Duplex 04/20/24 11:00 IMPRESSION: No evidence of deep venous thrombosis involving the left lower extremity. Electronically signed by: Bertin Montano MD 04/20/2024 12:54 PM [facility] Head CT 04/25/24 09:53 IMPRESSION: 1. No evidence of acute intracranial hemorrhage or edematous territorial infarction. 2. Mild nonspecific white matter changes. Electronically signed by: Ozzie Easley DO 04/25/2024 05:39 PM [facility] Medications Allergies Allergies Allergy/AdvReac Type Severity Reaction Status Date / Time No Known Allergies Allergy Verified 04/05/24 18:41 Assessment & Plan Total time managing care of this patient today ____ minutes.
== END 2024-04-28 03:16 | disposition short-term general hospital (02) | DRG 750 ==
PROVIDERS: Internal Medicine; Student in an Organized Health Care Education/Training Program; Admitting Provider Psychiatry & Neurology Psychiatry; Visit Provider Psychiatry & Neurology Psychiatry
DX: F20.3 Undifferentiated schizophrenia (principal); L03.116 Cellulitis of left lower limb; Z21 Asymptomatic human immunodeficiency virus [HIV] infection status; F19.10 Other psychoactive substance abuse, uncomplicated; F17.210 Nicotine dependence, cigarettes, uncomplicated; F11.90 Opioid use, unspecified, uncomplicated; Z59.02 Unsheltered homelessness; Z71.6 Tobacco abuse counseling; Z79.899 Other long term (current) drug therapy
CPT/HCPCS: 36415; 70450; 73701; 80048; 80053; 82947; 83605; 83735; 85025; 85027; 85379; 93005; 93971; Q9967

== ENCOUNTER 2024-04-19 14:42 | Outpatient (BNV) | payer MEDICAID, SELFPAY | END 2024-04-19 19:48 | PROVIDERS: Admitting Provider Psychiatry & Neurology Psychiatry; Visit Provider Internal Medicine Cardiovascular Disease | DX: R00.0 Tachycardia, unspecified (principal) | CPT/HCPCS: 93010 ==

== ENCOUNTER → 2024-04-19 14:42 | Outpatient (BNV) | payer OTHER, SELFPAY | PROVIDERS: Admitting Provider Psychiatry & Neurology Psychiatry; Visit Provider Psychiatry & Neurology Psychiatry | DX: F20.3 Undifferentiated schizophrenia (principal); F11.90 Opioid use, unspecified, uncomplicated; L03.90 Cellulitis, unspecified; S82.899A Other fracture of unspecified lower leg, initial encounter for closed fracture; M25.462 Effusion, left knee | CPT/HCPCS: 99232 ==

== ENCOUNTER → 2024-04-19 14:42 | Outpatient (BNV) | payer MEDICAID, SELFPAY | PROVIDERS: Admitting Provider Psychiatry & Neurology Psychiatry; Visit Provider Surgery | DX: R60.0 Localized edema (principal) | CPT/HCPCS: 99222 ==

== ENCOUNTER 2024-04-28 03:40 | Outpatient (BNV) | payer MEDICAID, SELFPAY | END 2024-05-02 07:00 | PROVIDERS: Admitting Provider Internal Medicine; Visit Provider Internal Medicine | DX: I42.2 Other hypertrophic cardiomyopathy (principal) | CPT/HCPCS: 93306 ==

== ENCOUNTER 2024-04-28 03:40 | Inpatient (IN) | payer MEDICAID, SELFPAY ==
--- NOTE | ~2024-04-28 | US_ITS ---
EXAMINATION: US TRIPLEX LOWER EXTREMITY, LEFT CLINICAL INFORMATION: Rule out DVT COMPARISON: None available. TECHNIQUE: Color-flow triplex imaging with spectral analysis and compression Doppler were performed on the left lower extremity. FINDINGS: Respiratory variation, normal compression and augmented flow are noted throughout the left lower extremity. The visualized common femoral vein, superficial femoral vein, profunda femoral vein, popliteal vein and midcalf peroneal and posterior tibial venous segments show no evidence of deep venous thrombosis. There is no Cabrera's cyst. US/US venous duplex LE LT IMPRESSION: No evidence of deep venous thrombosis involving the left lower extremity. Electronically signed by: Mili Hanson MD 04/28/2024 01:06 PM [facility]CI[facility] EARL
--- OUTSIDE RECORDS SUMMARY | 2024-04-28 03:50 | XMS_ITS | Continuity of Care Document ---
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 Gear Name Role Phone [place] Alicia GONCALVES Unavailable Unavailable Allergies, Adverse Reactions, Alerts Substance Reaction Status Criticality No Known allergies Medications Medication Instructions Dosage Effective Dates (start - stop) Status Comments Tramadol 50 mg Tab take 1 - 2 tablet (50MG) by ORAL route 6 - 8 hours as needed - Active NuvaRing 0.12 mg -0.015 mg/24 hr Vaginal insert 1 vaginal ring by VAGINAL route every month leave in place for 3 weeks, remove for 1 week 1.00 vaginal ring - Active Percocet 5 mg-325 mg Tab take 1 - 2 tablet by ORAL route every day as needed - No Longer Active Procedures Procedure Date OFFICE/OUTPATIENT VISIT, EST OFFICE/OUTPATIENT VISIT, EST OFFICE/OUTPATIENT VISIT, EST Advance Directives Directive Yes / No Effective Date File Name No Information Encounters Encounter Description Practice Location Reason(s) For Visit Diagnoses Date Provider Providers Copied on Encounter OFFICE/OUTPA TIENT VISIT, EST [facility], [address] [address], [place], [place], [id number], [place] tel:[phone] [facility] musculoskelet al pain (chief complaint) Fracture of right foot 0 Suresh Vargas. [address] [place] [address], [place] [address], [place], [id number] , [place]. tel:[phone] [facility], [address] [address], [place], [place], [id number], [place] tel:[phone] [place] [facility] Nondependent alcohol abuse, continuous drinking behaviorOthe r, mixed, or unspecified drug abuse, unspecified useNondepend ent cocaine abuse 0 Suresh Alicia. [address] [facility], [id number], [place], [id number] , [place]. tel:[phone] OFFICE/OUTPA TIENT VISIT, [facility], [address] [address], [place], [place], [id number], [place] tel:[phone] [place] [facility] musculoskelet al pain (chief complaint) Other and unspecified injury to shoulder and upper arm 0 [place] Alicia. [address] [facility], [id number], [place], [id number] , [place]. tel:[phone] [facility], [address] [address], [place], [place], [id number], [place] tel:[phone] [place] [facility] No Information 0 Juliana Ochoa. [address] [place], [address], [place]. tel: [phone] OFFICE/OUTPA TIENT VISIT, [facility], [address] [address], [place], [id number], [place] tel:[phone] [place] [facility] Wound Infection (chief complaint) Shoulder injuryFacial injury 0 [place] Alicia. [address] [place] [address], [id number], [place], [id number] , [place]. tel: [phone] Family History Family Member Type Diagnosis Age At Onset Mother Problem (finding) malignant neop lasm of breast in first degree relative (Cause Of ) Father Problem (finding) Alive and well Mother Problem (finding) Payers Payer name Insurance type Covered republican ID Authoriza tion(s) No Information Social History Type Description Quantity Date Captured Comments Alcohol Use Details Caffeine Use Details coffee Tobacco Use Status Smoking Status No Information Sex Female Vital Signs Date / Time: Height Weight BMI Pulse Rate Blood Pressure Temperature Respiratory Rate Body Surface Area Head Circumference Head Circ. Percentile Wt./Derek. Percentile BMI percentile Pulse Ox Inhaled Ox 9:49 AM 67.00 in 191.00 lbs 29.9 1 kg/m eter (2) 102 /min 142/73 mm[Hg] 96.40 F 12 /min Chief Complaint And Reason For Visit From encounter dated 04/22/2010 09:20'. musculoskeletal pain (chief complaint) Reason For Referral Reason For Referral No Information Plan Of Treatment Date Type Action Status Referral Ordered: Sebastian Zafar MD (related to Fracture of right foot) ordered Referral Referred To: Sebastian Zafar MD [address] [place] [address] Rd
[address] [place], [phone] Ordered: Referral: Sebastian Zafar MD. Evaluate and treat. ordered Referral Ordered: Rodriguez Alcocer MD (related to Other and unspecified injury to shoulder and upper) ordered Referral Referred To: Rodriguez Alcocer MD [address] [place] [address]
[address] [place], [address] Ordered: Referral: Rodriguez Alcocer MD Evaluate and treat. ordered Referral Ordered: Sebastian Zafar MD (related to Shoulder injury) ordered Referral Referred To: Sebastian Zafar MD [address] [place] [address] Rd
[address] [place], [address] [phone] Ordered: Referral: Sebastian Zafar MD. Ortho Surg. Evaluate and treat. ordered History Of Present Illness Encounter Date Complaint History Of Prese nt Illness No Information Functional Status Date Functional Assessmen t No Information Instructions Date Instruction Additional Infor mation No Information Assessments Type Assessment Date No Information Mental Status Date Cognitive Assessment Orientation - [place] ed to time, place, person, situation. Patient Care Teams Name Effective Dates (start - stop) Status Members No Information
--- OUTSIDE RECORDS SUMMARY | 2024-04-28 03:50 | XMS_ITS | Continuity of Care Document ---
Author Organization [facility] [place] [place] [address] Care Team Providers Care Metal Burrer Name Role Phone IVANNA De La Vega, Scarlet Unavailable Steph vailable Allergies, Adverse Reactions, Alerts Substance Reaction Status Criticality No Known Drug Allergies Active No I nformation Procedures Procedure Date Class IIa Extraction 7 - 14 Days 2014 Noninvas Oximetry-o2 Sat; 1 De 15 Noninvas Oximetry-o2 Sat; 1 De 15 Noninvas Oximetry-o2 Sat; 1 15 Noninvas Oximetry-o2 Sat; 1 15 Noninvas Oximetry-o2 Sat; 1 15 Noninvas Oximetry-o2 Sat; 1 14 Noninvas Oximetry-o2 Sat; 1 14 Noninvas Oximetry-o2 Sat; 1 14 Noninvas Oximetry-o2 Sat; 1 14 Noninvas Oximetry-o2 Sat; 1 14 Noninvas Oximetry-o2 Sat; 1 14 Noninvas Oximetry-o2 Sat; 1 14 Noninvas Oximetry-o2 Sat; 1 14 Noninvas Oximetry-o2 Sat; 1 14 Noninvas Oximetry-o2 Sat; 1 14 Noninvas Oximetry-o2 Sat; 1 14 Noninvas Oximetry-o2 Sat; 1 14 Noninvas Oximetry-o2 Sat; 1 14 Noninvas Oximetry-o2 Sat; 1 14 Noninvas Oximetry-o2 Sat; 1 14 Noninvas Oximetry-o2 Sat; 1 14 Noninvas Oximetry-o2 Sat; 1 14 Noninvas Oximetry-o2 Sat; 1 14 Noninvas Oximetry-o2 Sat; 1 14 Noninvas Oximetry-o2 Sat; 1 14 Noninvas Oximetry-o2 Sat; 1 14 Noninvas Oximetry-o2 Sat; 1 14 Noninvas Oximetry-o2 Sat; 1 14 Noninvas Oximetry-o2 Sat; 1 14 Noninvas Oximetry-o2 Sat; 1 14 Noninvas Oximetry-o2 Sat; 1 14 Noninvas Oximetry-o2 Sat; 1 14 Noninvas Oximetry-o2 Sat; 1 14 Noninvas Oximetry-o2 Sat; 1 14 Noninvas Oximetry-o2 Sat; 1 14 Noninvas Oximetry-o2 Sat; 1 14 Noninvas Oximetry-o2 Sat; 1 14 Noninvas Oximetry-o2 Sat; 1 14 Noninvas Oximetry-o2 Sat; 1 14 Noninvas Oximetry-o2 Sat; 1 14 Noninvas Oximetry-o2 Sat; 1 14 Noninvas Oximetry-o2 Sat; 1 14 Noninvas Oximetry-o2 Sat; 1 14 Noninvas Oximetry-o2 Sat; 1 14 Noninvas Oximetry-o2 Sat; 1 14 Noninvas Oximetry-o2 Sat; 1 14 Noninvas Oximetry-o2 Sat; 1 14 Noninvas Oximetry-o2 Sat; 1 14 Noninvas Oximetry-o2 Sat; 1 14 Noninvas Oximetry-o2 Sat; 1 14 Noninvas Oximetry-o2 Sat; 1 14 Noninvas Oximetry-o2 Sat; 1 14 Noninvas Oximetry-o2 Sat; 1 14 Noninvas Oximetry-o2 Sat; 1 14 Noninvas Oximetry-o2 Sat; 1 14 Noninvas Oximetry-o2 Sat; 1 14 Noninvas Oximetry-o2 Sat; 1 14 Noninvas Oximetry-o2 Sat; 1 14 Noninvas Oximetry-o2 Sat; 1 14 Noninvas Oximetry-o2 Sat; 1 14 Noninvas Oximetry-o2 Sat; 1 14 Noninvas Oximetry-o2 Sat; 1 14 Noninvas Oximetry-o2 Sat; 1 14 Noninvas Oximetry-o2 Sat; 1 14 Noninvas Oximetry-o2 Sat; 1 14 Noninvas Oximetry-o2 Sat; 1 14 Noninvas Oximetry-o2 Sat; 1 14 Noninvas Oximetry-o2 Sat; 1 14 Noninvas Oximetry-o2 Sat; 1 14 Noninvas Oximetry-o2 Sat; 1 14 Noninvas Oximetry-o2 Sat; 1 14 Noninvas Oximetry-o2 Sat; 1 14 Noninvas Oximetry-o2 Sat; 1 14 Noninvas Oximetry-o2 Sat; 1 14 Noninvas Oximetry-o2 Sat; 1 14 Noninvas Oximetry-o2 Sat; 1 14 Noninvas Oximetry-o2 Sat; 1 14 Noninvas Oximetry-o2 Sat; 1 14 Noninvas Oximetry-o2 Sat; 1 14 Noninvas Oximetry-o2 Sat; 1 14 Noninvas Oximetry-o2 Sat; 1 14 Noninvas Oximetry-o2 Sat; 1 14 Noninvas Oximetry-o2 Sat; 1 14 Noninvas Oximetry-o2 Sat; 1 14 Noninvas Oximetry-o2 Sat; 1 14 Noninvas Oximetry-o2 Sat; 1 14 Noninvas Oximetry-o2 Sat; 1 14 Noninvas Oximetry-o2 Sat; 1 14 Noninvas Oximetry-o2 Sat; 1 14 Noninvas Oximetry-o2 Sat; 1 14 Noninvas Oximetry-o2 Sat; 1 14 Noninvas Oximetry-o2 Sat; 1 14 Noninvas Oximetry-o2 Sat; 1 14 Noninvas Oximetry-o2 Sat; 1 14 Noninvas Oximetry-o2 Sat; 1 14 Noninvas Oximetry-o2 Sat; 1 12 Noninvas Oximetry-o2 Sat; 1 12 Advance Directives Directive Yes / No Effective Date File Name Resuscitation Not Answered N/A N/A Life Support Not Answered N/A N/A Intubation Not Answered N/A N/A Antibiotics Not Answered N/A N/A IV Fluid Support Not Answered N/A N/A Tube Feed Not Answered N/A N/A Other Directive N/A N/A WARNING:The information contained in this section is historical and is provided for information only and does not constitute a legal document or any assurance that the information is still accurate. Please verify the information with the gudino of the legal document before using it for clinical purposes. Encounters Encounter Description Practice Location Reason(s) For Visit Diagnoses Date Provider Providers Copied on Encounter [place], , [facility] No Information 6 IVANNA Gallo Scarlet. . [place], [facility] No Information 5 No Information [place], [facility] Dental examination 5 EKTA Burdick. . [place], [facility] No Information 5 No Information [place], [facility] No Information 5 No Information [facility], [place], , [facility] No Information 5 No Information [facility], [place], , [facility] HIV (chief complaint)H CV (chief complaint) Hiv DiseaseHepatitis C viral w/o hepatic coma 5 MD Christopher Treadwell. . [facility], [place], , [facility] INF No Information 5 MD Christopher Treadwell. . [facility], [place], , [facility] INF DRUG WITHDRAWALalcohol withdrawalHiv DiseaseHepatitis C viral w/o hepatic coma 5 MD Savanah Arellano. . [place], , [facility] No Information 5 No Information [place], , [facility] (chief complaint)n urse assessment (chief complaint) No Information 5 No Information [place], [place], , [facility] No Information Apr-3 4 No Information [place], , [facility] round (chief complaint) Hiv DiseaseHepatitis C viral w/o hepatic coma Apr-3 4 MD Savanah Arellano. . [place], , [facility] No Information Dec-3 4 No Information [place], , [facility] No Information Dec-3 4 No Information [place], , [facility] round (chief complaint) No Information Dec-3 - 4 MD Zewdnesh. Rut Arellano [place], , [facility] No Information Dec-3 0- 4 No Information [place], , [facility] No Information Dec-2 4 No Information [place], [facility] round (chief complaint) Hiv DiseaseHepatitis C viral w/o hepatic coma Apr-2 4 MD Zewdnesh. Rut Arellano [place], , [facility] No Information Dec-2 9-201 4 No Information [facility], [place], , [facility] No Information Dec-2 9-201 4 No Information [facility], [place], , [facility] No Information Dec-2 8-201 4 Sangpedrito, AREA LOSS PREVENTION MANAGER Hayley. . [facility], [place], , [facility] No Information Dec-2 8-201 4 MD Savanah Arellano. . [facility], [place], , [facility] No Information Dec-2 8-201 4 Sangah, AREA LOSS PREVENTION MANAGER Hayley. . [facility], [place], , [facility] No Information Dec-2 7-201 4 [place], AREA LOSS PREVENTION MANAGER Hayley. . [facility], [place], , [facility] (chief complaint)n urse assessment (chief complaint) No Information Dec-2 7-201 4 No Information [facility], [place], , [facility] No Information Dec-2 6-201 4 No Information [facility], [place], , [facility] No Information Dec-2 6-201 4 No Information [facility], [place], , [facility] No Information Dec-2 5-201 4 No Information [facility], [place], , [facility] No Information Dec-2 5-201 4 No Information [facility], [place], , [place] [facility] (chief complaint) No Information Dec-2 5-201 4 Sergio Julien. . [facility], [place], , [facility] No Information Dec-2 4-201 4 No Information [facility], [place], , [place] [facility] No Information Dec-2 4-201 4 No Information [facility], [place], , [place] [facility] No Information Dec-2 4-201 4 No Information [facility], [place], , [place] [facility] round (chief complaint) No Information Dec-2 3-201 4 MD Savanah Arellano. . [facility] [place] , [facility] No Information Dec-2 3-201 4 No Information [facility], [place], , [facility] No Information Dec-2 2-201 4 No Information [facility], [place], [facility] round (chief complaint) Hiv Disease Dec-2 2- 4 MD Savanah Arellano. . [facility], [place], , [facility] No Information Dec-2 2 4 No Information [facility], [place], [facility] No Information Dec-2 2- 4 [place], AREA LOSS PREVENTION MANAGER Hayley. . [facility] [place] No Information Dec-2 1- 4 No Information [facility], [place], [facility] No Information Dec-2 1- 4 MD Savanah Arellano. . [facility], [place], [facility] No Information Dec-2 1- 4 [place], AREA LOSS PREVENTION MANAGER Hayley. . [facility], [place], [facility] No Information Dec-2 0- 4 [place], AREA LOSS PREVENTION MANAGER Hayley. . [facility], [place], [facility] No Information Dec-2 0- 4 No Information [place], [facility] (chief complaint)n urse assessment (chief complaint) No Information Dec-2 0- 4 No Information [facility], [place], [facility] No Information Dec-1 4 No Information [place], [facility] round (chief complaint) Hepatitis C viral w/o hepatic coma Dec- 4 MD Savanah Arellano. . [facility], [place], [facility] INF No Information Dec-1 4 No Information [place], [place], [facility] No Information Dec-1 4 No Information [place], [facility] round (chief complaint) Hiv Disease Dec-1 4 MD Savanah Arellano. . [facility], [place], [facility] No Information Dec-1 8- 4 [place], AREA LOSS PREVENTION MANAGER Hayley. . [place], [facility] INF No Information Dec-1 4 No Information [place], [facility] No Information Dec-1 4 No Information [facility], [place], , [facility] No Information Dec-1 4 No Information [facility], [place], , [facility] round (chief complaint) Hiv DiseaseHepatitis C viral w/o hepatic coma Dec-1 4 MD Savanah Arellano. . [facility], [place], , [facility] No Information Dec-1 4 No Information [facility], [place], , [facility] No Information Dec-1 4 No Information [facility], [place], , [facility] (chief complaint)N ursing Note (chief complaint) No Information Dec-1 4 No Information [facility], [place], , [facility] INF No Information Dec-1 4 No Information [place], [facility] No Information Dec-1 4 No Information [facility], [place], , [facility] round (chief complaint) Hiv Disease Dec-1 4 MD Savanah Arellano. . [facility], [place], , [facility] No Information Dec-1 4 No Information [facility], [place], [facility] No Information Dec-1 4 MONSERRAT Horta Hayley. . [facility], [place], , [facility] No Information Dec-1 4 No Information [facility], [place], , [facility] No Information Dec-1 4 MD Savanah Arellano. . [facility], [place], , [facility] No Information Dec-1 4 MONSERRAT Horta Hayley. . [facility], [place], , [facility] No Information Dec-1 4 MD Savanah Arellano. . [facility], [place], , [facility] No Information Dec-1 - 4 No Information [facility], [place], , [facility] No Information Dec-1 4 No Information [place], , [facility] (chief complaint) Hiv Disease Dec- 4 MD Savanah Arellano. Rut [place], [place], , [facility] Dx'ed as having HIV (chief complaint) Major Depressive Dis, Recurrent, ModerateANXIETY STATE NOSALCOH DEP NEC/NOS-UNSPECAbu se, cocaine, in remissionAbuse, cannabis, remission Dec- 4 MD Jeff Wild. . [place], , [facility] No Information Dec-1 4 No Information [place], , [facility] (chief complaint) No Information Dec-1 4 Sergio Julien. Rut [place], [place], , [facility] periodic physical exam (chief complaint) Hiv Disease Apr- 4 LEIF Page. . [place], , [facility] No Information Dec-1 4 No Information [place], , [facility] round (chief complaint) DRUG WITHDRAWALHiv Disease Apr- 4 MD Savanah Arellano. Rut [place], [place], , [facility] (chief complaint) No Information Dec-1 4 Sergio Julien. [place], , [facility] No Information Dec-1 - 4 No Information [place], , [facility] round (chief complaint) No Information Dec-1 0- 4 MD Savanah Arellano. Rut [place], [place], , [facility] No Information Dec-1 0- 4 No Information [place], , [facility] IN[facility] No Information Dec-0 4 No Information [place], [facility] round (chief complaint) No Information Dec-0 4 MD Savanah Arellano. Rut [place], [place], , [facility] No Information Dec-0 9-201 4 No Information [facility], [place], [place] [facility] (chief complaint) No Information Dec-0 9-201 4 Sergio Julien. . [facility], [place], [facility] No Information Dec-0 8-201 4 No Information [facility], [place], [facility] round (chief complaint) DRUG WITHDRAWAL Dec-0 8-201 4 MD Savanah Arellano. . [facility], [place], [facility] No Information Dec-0 8-201 4 No Information [facility], [place], [facility] No Information Dec-0 8-201 4 Sangpedrito, AREA LOSS PREVENTION MANAGER Hayley. . [facility], [place], [facility] No Information Dec-0 7-201 4 No Information [facility], [place], [facility] No Information Dec-0 7-201 4 MD Savanah Arellano. . [facility], [place], [facility] No Information Dec-0 7-201 4 [place], AREA LOSS PREVENTION MANAGER Hayley. . [facility], [place], [facility] No Information Dec-0 6-201 4 [place], AREA LOSS PREVENTION MANAGER Hayley. . [facility], [place], [facility] No Information Dec-0 6-201 4 No Information [facility], [place], [facility] No Information Dec-0 5-201 4 No Information [facility], [place], [facility] round (chief complaint) DRUG WITHDRAWAL Dec-0 5-201 4 MD Savanah Arellano. . [facility], [place], [facility] No Information Dec-0 5-201 4 No Information [facility], [place], [facility] No Information Dec-0 5-201 4 No Information [facility], [place], [place] [facility] No Information Dec-0 4-201 4 No Information [facility], [place], [facility] No Information Dec-0 4-201 4 No Information [facility], [place], [facility] No Information Dec-0 4-201 4 No Information [facility], [place], [facility] substance withdrawal (chief complaint) DRUG WITHDRAWAL Apr-0 4 MONSERRAT Horta Hayley. . [place], , [facility] No Information Apr-0 - 4 No Information [place], [place], , [facility] No Information Apr-0 - 4 MD Jeff Wild. . [place], , [facility] allergies (chief complaint) No Information Apr- 2 LEIF Workman Yolanda. . [place], , [facility] initial physical exam (chief complaint) RESPIRATORY ABNORM NEC 2 MONSERRAT Horta Hayley. . Family History Family Member Type Diagnosis Age At Onset Maternal grandfather Problem (finding) Aneurysm Mother Problem (finding) Cancer, breast Immunizations Vaccine Date Status Comments Hep A and Hep B, adult administered Sourc e: New Immunization Record Hep A and Hep B, adult administered Sourc e: New Immunization Record flu (split) (3 yrs or older) administered Source: New Immunization Record Hep A and Hep B, adult administered Sourc e: New Immunization Record RHT POSITIVE pending Source: New Imm unization Record Payers Payer name Insurance type Covered libertarian ID Authoriza tion(s) No Information Social History Type Description Quantity Date Captured Comments Alcohol Use Details Unknown Caffeine Use Details Unknown Tobacco Use Status Smoking Status No Information Sex Female Chief Complaint And Reason For Visit No Information Plan Of Treatment Date Type Action Status Goal TD Vaccine. Due on 16 due Goal FILM CRITIC exam. Due on due Goal AST. Due on due Goal Breast exam. Due on 014 due Goal ALT. Due on due Goal Influenza Vaccine. Due on due Goal H&P. Due on due Goal PAP. Due on due Unknown Immunization RHT POSITIVE ordered History Of Present Illness Encounter Date Complaint History Of Prese nt Illness No Information Instructions Date Instruction Additional Infor antonia Patient education pr ovided and patient voiced understanding Follow exercise program Reviewed medications Patient education pr ovided and patient voiced understanding activity as tolerated Patient education pr ovided and patient voiced understanding Patient education pr ovided and patient voiced understanding Patient education pr ovided and patient voiced understanding arrange for Flu vaccin with GRAYSON cole oordinator. Patient education pr ovided and patient voiced understanding Patient education pr ovided and patient voiced understanding Patient education pr ovided and patient voiced understanding Patient education pr ovided and patient voiced understanding Patient education pr ovided and patient voiced understanding Patient education pr ovided and patient voiced understanding HIV education provided and test offered Patient education pr ovided and patient voiced understanding Patient education pr ovided and patient voiced understanding Patient education pr ovided and patient voiced understanding Patient education pr ovided and patient voiced understanding Patient education pr ovided and patient voiced understanding CCC after she is d/jesus from the [facility]. Follow exercise program Discussed non compliance medicat ions Increase fluid intake patient is advised t o notify the staff in case of vomiting. Patient education pr ovided and patient voiced understanding Patient education pr ovided and patient voiced understanding Patient education pr ovided and patient voiced understanding Increase fluid intake Patient education pr ovided and patient voiced understanding continue with v/s q- shift, full code, [facility] medical hold. Labs done on 04/15/14-rewiewed wi th pt Discussed risk/ bene fits/ side effects of treatment Increase activity level Increase fluid intake Take new medication as prescribe d Reviewed medications Patient education pr ovided and patient voiced understanding NO ONIONS IN HER EDVIN L DIET ORDERED&PLACED IN HER CHART, A COPY GIVE TO PT TODAY labs obtained during intake screening CBC, Chem panell and UA Patient education pr ovided and patient voiced understanding notified on access to dental and medical care. Assessments Type Assessment Date No Information
[2024-04-28 04:00] VITALS: BP 132/72; PULSE 122; RESP 16; TEMP 36.7; O2SAT 98
--- NOTE | 2024-04-28 04:08 | P.HPHOSP_ITS ---
History of Present Illness Date of Service: 04/28/24 Attending physician on admission: Taz Mccurdy Chief Complaint: Left leg pain María Harmon is a 44 years old woman with past medical history significant for schizophrenia has been transferred from psychiatric to [facility] surg unit after her left lower extremity was noted to be more swollen and erythematous. Also a new open area was noted in the posterior aspect associated with spontaneous purulent discharge. At the beginning of this month the patient was admitted under of the hospitalist service due to sepsis secondary to left lower leg cellulitis. She has been noted to have persistent tachycardia. Blood pressure and temperature has been normal. Blood workup was remarkable for lactic acidosis. Review of Systems Review of Systems: Limited, poor historian [facility] Medical History (Updated 04/28/24 @ 04:26 by Taz Mccurdy MD) Leg edema, left Social History Household Members: Spouse and Children Household Members Other:: and 2 children ages 2.5 year old twins one son and one daughter Housing: Apartment Do you presently have visiting nurse or other home services: No Unable to assess alcohol history related to: Refusing to respond 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 at bedside Patient Tobacco Use Status: Former Tobacco user Tobacco use type: Cigarette Cigarette Packs Per Day: 1 Cigarettes Per Day: 20.0 e-Cigarette/Vaping Use: Former Use Second Hand Smoke Exposure: No Substance Use Type: Former Substance User Advance Directives: No Advance Directives Information Provided: No service: No Sexual orientation: Don't Know Meds Allergies Allergy/AdvReac Type Severity Reaction Status Date / Time No Known Allergies Allergy Verified 04/05/24 18:41 Active Medications: Current Medications Acetaminophen (Acetaminophen 325 Mg Tablet) 975 mg PO Q6H PRN PRN Reason: Pain, Mild (Pain Scale 1-3), fever or headache Enoxaparin Sodium (Enoxaparin Sodium 40 Mg/0.4 Ml Syringe) 40 mg SUBCUT Q24H GUTIERREZ Lactated Ringer's (Lr) 1,000 mls @ 999 mls/hr IV .Q1H1M GUTIERREZ Stop: 04/28/24 04:45 Piperacillin Sod/Tazobactam (Sod 3.375 gm/ Sodium Chloride) 50 mls @ 100 mls/hr IV Q6H GUTIERREZ Melatonin (Melatonin 3 Mg Tablet) 6 mg PO BEDTIME PRN PRN Reason: Insomnia Pharmacy Consult (Consult Rx Vancomycin Dosing) 1 each MISCELLANE DAILY PRN PRN Reason: Consult order Sodium Chloride (0.9 % Sodium Chloride Flush 3 Ml Syringe) [facility] Medications ?Medication ?Instructions ?Recorded ?Confirmed ?Last Taken ?Type bictegravir 50 mg-emtricitabine 1 tab PO DAILY 04/05/24 04/19/24 04/19/24 08:00 History 200 mg-tenofovir alafenam 25 mg tablet divalproex 125 mg tablet,delayed 125 mg PO BIDWM@0800,1700 Mood 04/05/24 04/19/24 04/19/24 08:00 History release gabapentin 300 mg capsule 300 mg PO TID 04/05/24 04/19/24 04/19/24 08:00 History prazosin 2 mg capsule 2 mg PO BEDTIME 04/05/24 04/19/24 04/18/24 21:00 History rifaximin 550 mg tablet 550 mg PO Q12H 04/05/24 04/19/24 04/19/24 08:00 History aripiprazole 30 mg tablet (Abilify) 30 mg PO DAILY 04/15/24 04/19/24 04/19/24 08:03 History doxycycline monohydrate 100 PO BID 04/19/24 04/19/24 Unknown History Physical Exam Vital Signs and Narrative: Constitutional - Awake and Alert, No apparent distress HEENT - PERRLA, EOMI Heart - tachycardic Lungs - Normal lung expansion, Normal respiratory effort, No respiratory distress, CTA bilaterally Abdomen - NT / ND; +BS; No rebound or guarding - No CVA tenderness Extremities - (see event notes for pictures). Musculoskeletal - Normal inspection, normal ROM Skin - Warm/Dry Neurological - Alert & oriented x3. No focal weakness grossly noted. Psychological - Anxious Assessment and Plan (1) Left leg cellulitis: Status: Acute Plan María Harmon is a 44 y/o woman admitted with: * Worsening cellulitis to the left lower extremity associated with infected wounds. Just completed a course of Augmentin and doxycycline. Admit to hospitalist service. Start empiric IV antibiotic therapy with vancomycin and Zosyn. Check blood cultures x2. Wound culture. Check nasal MRSA. Left lower extremity CT scan performed -awaiting results to assess for necrotizing fascitis and/or abscesses. Check venous ultrasound to assess for DVT. * Lactic acidosis. No SIRS criteria (tachycardia seems chronic). Will give 1 L bolus of LR. Continue to monitor. * Hyperkalemia. Will repeat K level. * HIV. Continue Biktarvy. * Mood disorder/schizophrenia. Continue prazosin, olanzapine, gabapentin, Depakote and Abilify. * Cirrhosis. Continue rifaximin and lactulose. * s/p avulsion fracture of the medial cuboid/left knee effusion. Evaluated by orthopedics. * Chronic sinus tachycardia. Check echocardiogram. DVT prophylaxis: Lovenox Code status: Full Patient will need hospitalization for at least 2 midnights for IV antibiotic therapy for worsening cellulitis of the left lower extremity. Patient has failed oral antibiotic therapy. Quality Stroke Does the patient have a stroke diagnosis?: No VTE Prior VTE?: No VTE Risk Level:: Medical - moderate - high VTE Device Contraindication: Treatment Not Indicated VTE Drug Contraindication: N/A - Med Ordered
[2024-04-28] MEDS: Lactated Ringers 1,000 ML 999 ML IV (04:34)
[2024-04-28 05:00] VITALS: BMI 29.2
--- NOTE | 2024-04-28 05:05 | PC.NURSE ---
Received patient from ed after RR was called on pt from M5. Patient arrived via wheel chair with instrumentation controls engineer and security. Ambulated 1 assist to bed. Hunched over reports pain to LLE due to cellulites and wounds. VSS stable with elevated HR. Night provider made aware. Patient alert and orient to person, place, and situation. IV fluids and antibiotics hung, see MAR. Patient sleeping in bed, even and unlabored breaths present. Camera in place, patient flight risk. Patient bed in lowest position, call roy in place. Bed alarm on.
[2024-04-28] MEDS: Piperacillin Sodium/Tazobactam 3.375 GM in 0.9 % Sodium Chloride 50 ML IV ×4 (05:32→22:48)
[2024-04-28 06:47] LABS: MANUAL DIFF FLAG NO
[2024-04-28 06:53] LABS: Basophils Percent Auto 0.4 % (0-2); Eosinophils Percent Auto 0.4 % (0-4); Hematocrit 24.7 % (37.0-47.0); Hemoglobin 7.7 g/dl (12.0-16.0); Imm Gran Abs Auto 0.08 X10*3/uL (0.00-0.03); Lymphocytes Absolute Auto 1.3 X10*3/uL (1.2-4.9); Lymphocytes Percent Auto 16.6 % (20-40); Mean Corpuscular HGB Conc 31.2 g/dl (31.0-35.0); Mean Corpuscular Hemoglobin 22.2 pg (27.0-33.0); Mean Corpuscular Volume 71.2 fL (80.0-98.0); Monocytes Absolute Auto 0.9 X10*3/uL (0.1-1.2); Monocytes Percent Auto 11.5 % (2-11); Neutrophils Absolute Auto 5.5 x10*3/uL (2.0-8.3); Neutrophils Percent Auto 70.1 % (45-73); Platelet Count 194 X10*3/uL (160-400); Red Blood Count 3.47 X10*6/uL (4.20-5.50); Red Cell Distribution Width 24.7 % (11.0-16.0); White Blood Count 7.8 X10*3/uL (4.8-10.8)
[2024-04-28 07:00] VITALS: BP 136/82; PULSE 109; RESP 20; TEMP 37.1; O2SAT 95
[2024-04-28 07:10] LABS: Lactic Acid 1.8 mmol/L (0.5-2.0)
[2024-04-28 07:11] LABS: Alanine Aminotransferase 27 U/L (0-31); Albumin Level 2.4 g/dL (3.5-5.0); Alkaline Phosphatase 74 U/L (39-117); Anion Gap 8 (12-20); Aspartate Amino Transferase 90 U/L (5-31); Bilirubin Total 0.8 mg/dL (0.0-1.0); Blood Urea Nitrogen 8 mg/dL (9-16); Calcium 8.2 mg/dL (8.4-10.2); Carbon Dioxide 28 mmol/L (22-29); Chloride 106 mmol/L (96-108); Creatinine Clr Calc Pharmacy 107.3; Estimated Glomerular Filt Rate > 60; Glucose Random 82 mg/dL (60-115); Potassium 3.7 mmol/L (3.3-5.1); Sodium 138 mmol/L (135-145); Total Protein 7.7 g/dL (6.5-8.0)
[2024-04-28] MEDS: vancomycin/NS 2,000 MG/500 ML PLAST..BAG 250 MG IV (07:41)
[2024-04-28] MEDS: 0.9 % Sodium Chloride Flush 3 ML SYRINGE IVFLUSH ×3 (07:42→21:16)
--- NOTE | 2024-04-28 08:40 | PHA.MEDREC ---
Pharmacy Consult ? Medication Reconciliation Pharmacy has completed the medication reconciliation. Med rec completed using orders from discharge from today.
--- NOTE | 2024-04-28 10:28 | PM.EVENT ---
Event Note Date of Service: 04/28/24 Event Note: Seen and evaluated this morning Leg swollen and tender CT scan pending US LT LE pending to R\O DVT pending orthopedic and psych consult IV Vancomycin and Zosyn Echo ordered Time Spent With Patient Time: Total time managing care of this patient today ____ minutes.
--- NOTE | 2024-04-28 10:42 | PHA.PROG ---
Admission Date/Time: April 28, 2024 03:40 Indication: SKIN Weight in k.6 kg Serum Creatinine - Last 168 Hours 04/28/24 06:39 Creatinine 0.69 Estimated CrCl and GFR - Last 168 Hours 04/28/24 06:39 Estim Creat Clear Calc 107.3 Estimated GFR > 60 Vancomycin Loading Dose: 2000 Current Vancomycin Dosing Regimen: 1250 Q 12 Vancomycin Monitoring using AUC goal of 400 - 600 range with trough as surrogate marker: 521 Date and Time for next Vancomycin Level to be drawn: 04/28 @ 1900 Pharmacist Comments on Vancomycin Plan: Vancomycin dosing will take advantage of [employer] as a clinical decision support tool that uses Bayesian modeling to calculate individual patient's pharmacokinetic parameters and forecast the patient's drug concentration time course with the target goal AUC 24 range of 400 - 600 mg/L/hr.
[2024-04-28] MEDS: Furosemide 20 MG/2 ML VIAL IVPUSH ×2 (11:13→18:16)
[2024-04-28] MEDS: Nicotine 14 MG PATCH.TD24 TRANSDERMA (11:13)
[2024-04-28] MEDS: methADONE HCl 20 MG/2 ML ORAL.CONC 45 MG PO (11:13)
[2024-04-28] MEDS: Enoxaparin Sodium 40 MG/0.4 ML SYRINGE SUBCUT (11:13)
[2024-04-28] MEDS: Lidocaine 4 % Patch ADH..PATCH 2 PATCH TRANSDERMA (11:14)
--- NOTE | 2024-04-28 11:51 | P.CONOP_ITS ---
History of Present Illness HPI Consult date: 04/28/24 Chief complaint: Left Lower Extremity Cellulitis, Infected Wound Narrative: Patient is a 44-year-old female who is admitted to the hospital for left lower extremity cellulitis and infected wound While in hospital, patient was discovered to have an avulsion fracture of the medial cuboid of the left foot Patient reports that she continues to experience pain in her left foot while weight-bearing, but this pain is relieved with rest and elevation Patient reports that she is experiencing pain and swelling throughout the left lower extremity likely secondary to the infection that she has Patient reports that this pain starts just distal to her left knee and radiates all the way down to the left ankle and foot No other acute complaints or concerns at this time Review of Systems 2 Review of Systems: Yes all other systems are reviewed and are negative PMFSH Past Medical History Medical History (Updated 04/28/24 @ 11:57 by LEIF Montero) Leg edema, left Social History Social History Household Members: Spouse and Children Household Members Other:: and 2 children ages 2.5 year old twins one son and one daughter Housing: Apartment Do you presently have visiting nurse or other home services: No Unable to assess alcohol history related to: Refusing to respond 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 at bedside Patient Tobacco Use Status: Former Tobacco user Tobacco use type: Cigarette Cigarette Packs Per Day: 1 Cigarettes Per Day: 20.0 e-Cigarette/Vaping Use: Former Use Second Hand Smoke Exposure: No Substance Use Type: Former Substance User Currently Displaying Signs/Symptoms of Drug Intoxication Withdrawal: No Advance Directives: No Advance Directives Information Provided: No service: No Sexual orientation: Don't Know Meds Allergies Allergy/AdvReac Type Severity Reaction Status Date / Time No Known Allergies Allergy Verified 04/05/24 18:41 Active Medications: Current Medications Acetaminophen (Acetaminophen 325 Mg Tablet) 975 mg PO Q6H PRN PRN Reason: Pain, Mild (Pain Scale 1-3), fever or headache Acetaminophen (Acetaminophen 325 Mg Tablet) 975 mg PO Q6H PRN PRN Reason: pain (pain scale 1-10) Al Hydroxide/Mg Hydroxide (Magnesium Hydrox/Alum Hydrox 30 Ml Oral.Susp) 30 ml PO Q6H PRN PRN Reason: heartburn/gas Aripiprazole (Aripiprazole 10 Mg Tablet) 10 mg PO DAILY [facility] Baclofen (Baclofen 10 Mg Tablet) 10 mg PO TID PRN PRN Reason: back/muscle spasm Bictegravir/Emtricitabine/Tenofovir (Bictegrav/Emtricit/Tenofov Ala Tablet) 1 tab PO DAILY [facility] Diclofenac Sodium (Diclofenac Sodium Delayed Rel 50 Mg Tablet.) 50 mg PO BIDWM [facility] Enoxaparin Sodium (Enoxaparin Sodium 40 Mg/0.4 Ml Syringe) 40 mg SUBCUT Q24H [facility] Last Admin: 04/28/24 11:13 Dose: 40 mg Ferrous Sulfate (Ferrous Sulfate 324 Mg Tablet.) 324 mg PO BIDWM [facility] Furosemide (Furosemide 20 Mg/2 Ml Vial) 20 mg IVPUSH DAILY [facility]; Protocol Last Admin: 04/28/24 11:13 Dose: 20 mg Gabapentin (Gabapentin 300 Mg Capsule) 300 mg PO TID [facility] Hydroxyzine HCl (Hydroxyzine Hcl 25 Mg Tablet) 25 mg PO Q6H PRN PRN Reason: Anxiety Piperacillin Sod/Tazobactam (Sod 3.375 gm/ Sodium Chloride) 50 mls @ 100 mls/hr IV Q6H [facility] Last Admin: 04/28/24 11:11 Dose: 100 mls/hr Vancomycin HCl 1,250 mg/ (Sodium Chloride) 250 mls @ 166.667 mls/hr IV Q12H [facility] Lactulose (Lactulose 20 Gm/30 Ml Solution) 10 gm PO DAILY [facility] Lidocaine (Lidocaine 4 % Patch Adh..Patch) 2 patch TRANSDERMA DAILY [facility]; Protocol Last Admin: 04/28/24 11:14 Dose: 2 patch Lorazepam (Lorazepam 0.5 Mg Tablet) 0.5 mg PO BID@1200,2100 [facility] Magnesium Hydroxide (Milk Of Magnesia 30 Ml Oral.Susp) 30 ml PO DAILY PRN PRN Reason: Constipation Melatonin (Melatonin 3 Mg Tablet) 6 mg PO BEDTIME PRN PRN Reason: Insomnia Methadone HCl (Methadone Hcl 20 Mg/2 Ml Oral.Conc) 45 mg PO DAILY@0800 [facility] Last Admin: 04/28/24 11:13 Dose: 45 mg Nicotine (Nicotine 14 Mg Patch.Td24) 14 mg TRANSDERMA DAILY [facility] Last Admin: 04/28/24 11:13 Dose: 14 mg Nicotine Polacrilex (Nicotine Polacrilex 2 Mg Gum) 4 mg BUCCAL Q2H PRN PRN Reason: Nicotine Cravings Olanzapine (Olanzapine 5 Mg Tablet) 5 mg PO Q4H PRN PRN Reason: psychosis,agitation Olanzapine (Olanzapine Odt 10 Mg Tab.Rapdis) 30 mg TRANSLINGU BEDTIME [facility] Ondansetron HCl (Ondansetron Odt 4 Mg Tab.Rapdis) 4 mg TRANSLINGU Q6H PRN PRN Reason: Nausea And Vomiting Pharmacy Consult (Consult Rx Vancomycin Dosing) 1 each MISCELLANE DAILY PRN PRN Reason: Consult order Prazosin HCl (Prazosin Hcl 1 Mg Capsule) 2 mg PO BEDTIME [facility]; Protocol Rifaximin (Rifaximin 550 Mg Tablet) 550 mg PO Q12H [facility] Sodium Chloride (0.9 % Sodium Chloride Flush 3 Ml Syringe) 3 ml IVFLUSH QSHIFT [facility] Last Admin: 04/28/24 07:42 Dose: 3 ml Tramadol HCl (Tramadol Hcl 50 Mg Tablet) 25 mg PO Q6H PRN PRN Reason: Pain, Severe (Pain Scale 7-10) Trazodone HCl (Trazodone Hcl 50 Mg Tablet) 50 mg PO BEDTIME PRN PRN Reason: Insomnia Home Medications ?Medication ?Instructions ?Recorded ?Confirmed ?Last Taken ?Type bictegravir 50 mg-emtricitabine 1 tab PO DAILY 04/05/24 04/28/24 04/19/24 08:00 History 200 mg-tenofovir alafenam 25 mg tablet gabapentin 300 mg capsule 300 mg PO TID 04/05/24 04/28/24 04/19/24 08:00 History prazosin 2 mg capsule 2 mg PO BEDTIME 04/05/24 04/28/24 04/18/24 21:00 History rifaximin 550 mg tablet 550 mg PO Q12H 04/05/24 04/28/24 04/19/24 08:00 History aluminum-mag hydroxide-simethicone 30 ml PO Q6H PRN heartburn/gas 04/28/24 04/28/24 Unknown History 200 mg-200 mg-20 mg/5 mL oral susp aripiprazole 10 mg tablet (Abilify) 10 mg PO DAILY 04/28/24 04/28/24 Unknown History clindamycin HCl 150 mg capsule 450 mg PO Q8H 04/28/24 04/28/24 Unknown History hydroxyzine HCl 25 mg tablet 25 mg PO Q6H PRN Anxiety 04/28/24 04/28/24 Unknown History lorazepam 0.5 mg tablet 0.5 mg PO BID@1200,2100 04/28/24 04/28/24 Unknown History magnesium hydroxide 400 mg/5 mL 30 ml PO DAILY PRN Constipation 04/28/24 04/28/24 Unknown History oral suspension (Milk of Magnesia) methadone 10 mg/mL oral 45 mg PO DAILY@0800 04/28/24 04/28/24 Unknown History concentrate (Methadone Intensol) olanzapine 10 mg disintegrating 30 mg PO BEDTIME 04/28/24 04/28/24 Unknown History tablet trazodone 50 mg tablet 50 mg PO BEDTIME PRN Insomnia 04/28/24 04/28/24 Unknown History Physical Exam 2 Vital Signs: Vital Signs: Last Vital Signs Temp 98.8 F 04/28/24 07:00 Pulse 109 H 04/28/24 07:00 Resp 20 04/28/24 07:00 BP 136/82 04/28/24 07:00 Pulse Ox 95 04/28/24 07:00 O2 Del Method Room Air 04/28/24 04:00 BMI result Body Mass Index 29.2 Extrem: Other: Tenderness to the dorsal and medial aspect of the right foot and ankle Patient reports tenderness to palpation diffusely throughout the left lower extremity Mild tenderness to palpation about the right knee No tenderness with axial loading of the right knee Patient is able to dorsiflex and plantar flex the right foot Distal sensation intact Capillary refill brisk Results Labs 04/28/24 06:39 04/28/24 06:39 Labs: Abnormal lab results 04/28/24 Range/Units 06:39 RBC 3.47 L (4.20-5.50) X10*6/uL Hgb 7.7 L (12.0-16.0) g/dl Hct 24.7 L (37.0-47.0) % MCV 71.2 L (80.0-98.0) fL MCH 22.2 L (27.0-33.0) pg RDW 24.7 H (11.0-16.0) % Immature Gran % (Auto) 1.0 H (0.0-0.4) % Lymph % (Auto) 16.6 L (20-40) % [place] % (Auto) 11.5 H (2-11) % Abs Immat Gran (auto) 0.08 H (0.00-0.03) X10*3/uL Anion Gap 8 L (12-20) BUN 8 L (9-16) mg/dL Calcium 8.2 L (8.4-10.2) mg/dL AST 90 H (5-31) U/L Albumin 2.4 L (3.5-5.0) g/dL H & H 04/28/24 Range/Units 06:39 Hgb 7.7 L (12.0-16.0) g/dl Hct 24.7 L (37.0-47.0) % All other labs normal. Assessment and Plan (1) Left cuboid fracture: Status: Acute Plan 1. Avulsion fracture of the medial cuboid of left foot Weight-bearing as tolerated in a boot When nonweightbearing, patient should elevate the left lower extremity to prevent swelling No acute orthopedic intervention indicated at this time Upon discharge from the hospital, patient can follow-up in our office for follow-up evaluation Continue with all other recommendations per Medicine Procedures Date of Service Date of Service: 04/28/24
[2024-04-28 12:00] VITALS: BP 129/73; PULSE 129; RESP 22; TEMP 37.8; O2SAT 98
[2024-04-28] MEDS: LORazepam 0.5 MG TABLET PO (12:19)
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
[2024-04-28] MEDS: ARIPiprazole 10 MG TABLET PO (16:47)
[2024-04-28] MEDS: Diclofenac Sodium Delayed Rel 50 MG TABLET.DR PO (16:47)
[2024-04-28] MEDS: Bictegrav/Emtricit/Tenofov Ala TABLET 1 TAB PO (16:48)
[2024-04-28] MEDS: Acetaminophen 325 MG TABLET 975 MG PO (18:17)
[2024-04-28 18:22] VITALS: TEMP 37.8
[2024-04-28 19:24] VITALS: BP 124/67; PULSE 113; RESP 20; TEMP 37.6; O2SAT 96
[2024-04-28] MEDS: OLANZapine ODT 10 MG TAB.RAPDIS TRANSLINGU (21:09)
[2024-04-28] MEDS: rifAXIMin 550 MG TABLET PO (21:09)
[2024-04-28] MEDS: vancomycin HCL 1,250 MG in 0.9 % Sodium Chloride 250 ML 166.67 MG IV (21:10)
[2024-04-28] MEDS: traMADoL HCL 50 MG TABLET 25 MG PO (21:20)
[2024-04-28 23:17] VITALS: BP 129/70; PULSE 107; RESP 16; TEMP 37.1; O2SAT 97
[2024-04-29] VITALS (7 sets, daily range): BP systolic 119–142; BP diastolic 71–80; PULSE 100–127; RESP 16–18; TEMP 36.6–38.1; O2SAT 96–98
[2024-04-29] MEDS: traMADoL HCL 50 MG TABLET 25 MG PO ×2 (04:10→18:49)
[2024-04-29] MEDS: Piperacillin Sodium/Tazobactam 3.375 GM in 0.9 % Sodium Chloride 50 ML IV ×3 (04:11→23:53)
[2024-04-29 05:44] LABS: MANUAL DIFF FLAG NO
[2024-04-29 05:56] LABS: Basophils Percent Auto 0.4 % (0-2); Eosinophils Absolute Auto 0.1 X10*3/uL (0.0-0.4); Eosinophils Percent Auto 0.9 % (0-4); Hematocrit 24.4 % (37.0-47.0); Hemoglobin 7.5 g/dl (12.0-16.0); Imm Gran Abs Auto 0.06 X10*3/uL (0.00-0.03); Imm Gran Pct Auto 0.8 % (0.0-0.4); Lymphocytes Absolute Auto 1.2 X10*3/uL (1.2-4.9); Lymphocytes Percent Auto 15.1 % (20-40); Mean Corpuscular HGB Conc 30.7 g/dl (31.0-35.0); Mean Corpuscular Hemoglobin 21.9 pg (27.0-33.0); Mean Corpuscular Volume 71.1 fL (80.0-98.0); Monocytes Absolute Auto 0.9 X10*3/uL (0.1-1.2); Monocytes Percent Auto 11.9 % (2-11); Neutrophils Absolute Auto 5.5 x10*3/uL (2.0-8.3); Neutrophils Percent Auto 70.9 % (45-73); Platelet Count 200 X10*3/uL (160-400); Red Blood Count 3.43 X10*6/uL (4.20-5.50); Red Cell Distribution Width 25.1 % (11.0-16.0); White Blood Count 7.8 X10*3/uL (4.8-10.8)
[2024-04-29 05:58] LABS: Anion Gap 13 (12-20); Blood Urea Nitrogen 9 mg/dL (9-16); Carbon Dioxide 28 mmol/L (22-29); Chloride 102 mmol/L (96-108); Creatinine Clr Calc Pharmacy 77.1; Estimated Glomerular Filt Rate > 60; Glucose Random 90 mg/dL (60-115); Potassium 3.8 mmol/L (3.3-5.1); Sodium 139 mmol/L (135-145)
[2024-04-29] MEDS: 0.9 % Sodium Chloride Flush 3 ML SYRINGE IVFLUSH ×2 (08:44→15:59)
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
[2024-04-29] MEDS: Nicotine 14 MG PATCH.TD24 TRANSDERMA (10:27)
[2024-04-29] MEDS: Diclofenac Sodium Delayed Rel 50 MG TABLET.DR PO ×2 (10:28→18:30)
[2024-04-29] MEDS: ARIPiprazole 10 MG TABLET PO (10:28)
[2024-04-29] MEDS: Bictegrav/Emtricit/Tenofov Ala TABLET 1 TAB PO (10:30)
[2024-04-29] MEDS: Ferrous Sulfate 324 MG TABLET.DR PO ×2 (10:30→18:31)
[2024-04-29] MEDS: Furosemide 20 MG/2 ML VIAL IVPUSH (10:31)
[2024-04-29] MEDS: Enoxaparin Sodium 40 MG/0.4 ML SYRINGE SUBCUT (10:32)
[2024-04-29] MEDS: Lactulose 20 GM/30 ML SOLUTION 10 GM PO (10:34)
[2024-04-29] MEDS: methADONE HCl 20 MG/2 ML ORAL.CONC 45 MG PO (10:48)
--- NOTE | 2024-04-29 11:39 | MHC.CM.PN ---
Addendum entered by Atul Sotelo 04/29/24 11:48: PER EMR, PT TRANSFERRED FROM [facility] [place] TO [facility] PENDING CARE TEAM EVALUATION. Original Note: MANAGER PARKING AND CM MET WITH PT AT BEDSIDE. MANAGER PARKING ASKED PT IF IT WAS OK TO ASK A FEW QUESTIONS. PT DECLARED SHE WAS NOT INTERESTED . CM CLARIFIED WITH PT WHO STATED SHE WAS NOT INTERESTED EVER
--- NOTE | 2024-04-29 14:03 | HO.WOUND ---
Wound Consult: Follow up 44yr old?[place] [facility] health unit with admissions back and forth from behavioral health to medical unit currently seen on Medical unit - See progress notes and H&P for detailed history.? Wound consult follow up for left lower leg.? Patient agreeable to assessment and photo documentation.? Left leg noted for significant warmth, swelling, dry skin. There are two open lesions noted with full thickness tissue loss, slough noted to wound bed. +pp noted. The patient reports she does elevate the lower leg throughout the day - she was educated and encouraged to elevate the lower leg throughout the day to aid in swelling reduction and this will lead to increased comfort. Chart review reveals there have been refusals and poor compliance with dressing and leg elevation during this admission. The patient reports she has been wearing the walking boot only while ambulating 04/18/24 04/29/24 - slight swelling decrease noted Left Lateral leg wound Left Medial leg wound Recommendations: 1. Turn and Reposition every 2 hours and as needed for patient comfort.? Use pillows or wedges to support off loading positions. 2. Off Load all bony prominences with use of pillows and heel boots if needed.? Apply Preventative foams where needed. ? 3. Monitor for incontinence and moisture control, use barrier creams when needed for prevention and treatment. 4. Provide adequate and supplemental nutrition.? 5. When applicable maintain blood glucose levels per Providers order. 6. Left Leg - Elevate lower Leg on pillows throughout the day. Remove boot when in bed. Cleanse with NS, pat dry. Apply skin prep to periwound around open wound. Apply Durafiber to open wounds, cover with foam dressing. Complete with Tarun wrap. Change every other day while inpatient. Re-consult wound care Nurse for wound deterioration or wound changes.
--- NOTE | 2024-04-29 14:41 | HO.PM.IMPN ---
Subjective Subjective Date of Service: 04/29/24 Interval History: seen and evaluated this morning tried to elope the floor refused IV antibiotics more sedated on occasions Leg looks better, no fever no other events Review of Systems Review of Systems: Yes all other systems are reviewed and are negative Physical Exam Vital Signs: Vital Signs: Last Vital Signs Temp 98.2 F 04/29/24 07:45 Pulse 106 H 04/29/24 07:45 Resp 16 04/29/24 07:45 BP 135/74 04/29/24 10:31 Pulse Ox 98 04/29/24 07:45 O2 Del Method Room Air 04/29/24 07:45 BMI result Body Mass Index 29.2 Const: Other: Constitutional : Awake, interactive, not in distress Neck : Normal inspection, Supple Cardiovascular : RRR, no JVP, no lower extremity edema Respiratory : good bilateral air entry, no crackles, wheezes or rhonchi Gastrointestinal: soft, lax, Normal bowel sounds, Non tender Skin : Warm, Dry, LLE with less edema and warmth with mild tenderness , no drainage noted Neurological : Alert & oriented, No focal deficit psych: calm, cooperative, lack insight and judgment Objective Data Active Medications Acetaminophen (Acetaminophen 325 Mg Tablet) 975 mg PO Q6H PRN PRN Reason: Pain, Mild (Pain Scale 1-3), fever or headache Last Admin: 04/28/24 18:17 Dose: 975 mg Documented By: ROMELIA Acetaminophen (Acetaminophen 325 Mg Tablet) 975 mg PO Q6H PRN PRN Reason: pain (pain scale 1-10) Al Hydroxide/Mg Hydroxide (Magnesium Hydrox/Alum Hydrox 30 Ml Oral.Susp) 30 ml PO Q6H PRN PRN Reason: heartburn/gas Aripiprazole (Aripiprazole 10 Mg Tablet) 10 mg PO DAILY [facility] Last Admin: 04/29/24 10:28 Dose: 10 mg Documented By: MARTIN Baclofen (Baclofen 10 Mg Tablet) 10 mg PO TID PRN PRN Reason: back/muscle spasm Bictegravir/Emtricitabine/Tenofovir (Bictegrav/Emtricit/Tenofov Ala Tablet) 1 tab PO DAILY [facility] Last Admin: 04/29/24 10:30 Dose: 1 tab Documented By: MARTIN Diclofenac Sodium (Diclofenac Sodium Delayed Rel 50 Mg Tablet.) 50 mg PO BIDWM [facility] Last Admin: 04/29/24 10:28 Dose: 50 mg Documented By: MARTIN Enoxaparin Sodium (Enoxaparin Sodium 40 Mg/0.4 Ml Syringe) 40 mg SUBCUT Q24H [facility] Last Admin: 04/29/24 10:32 Dose: 40 mg Documented By: MARTIN Ferrous Sulfate (Ferrous Sulfate 324 Mg Tablet.Dr) 324 mg PO BIDWM [facility] Last Admin: 04/29/24 10:30 Dose: 324 mg Documented By: MARTIN Furosemide (Furosemide 20 Mg/2 Ml Vial) 20 mg IVPUSH BID@0900,1800 [facility]; Protocol Last Admin: 04/29/24 10:31 Dose: 20 mg Documented By: MARTIN Gabapentin (Gabapentin 300 Mg Capsule) 300 mg PO TID [facility] Last Admin: 04/28/24 11:59 Dose: Not Given Documented By: ROMELIA Non-Admin Reason: Patient Refused Hydroxyzine HCl (Hydroxyzine Hcl 25 Mg Tablet) 25 mg PO Q6H PRN PRN Reason: Anxiety Piperacillin Sod/Tazobactam (Sod 3.375 gm/ Sodium Chloride) 50 mls @ 100 mls/hr IV Q6H [facility] Last Admin: 04/29/24 10:55 Dose: Not Given Documented By: MARTIN Non-Admin Reason: patient refused Vancomycin HCl 1,250 mg/ (Sodium Chloride) 250 mls @ 166.667 mls/hr IV Q12H [facility] Last Infusion: 04/28/24 22:51 Dose: Infused Documented By: JULIUS Lactulose (Lactulose 20 Gm/30 Ml Solution) 10 gm PO DAILY [facility] Last Admin: 04/29/24 10:34 Dose: 10 gm Documented By: MARTIN Lidocaine (Lidocaine 4 % Patch Adh..Patch) 2 patch TRANSDERMA DAILY [facility]; Protocol Last Admin: 04/29/24 10:38 Dose: Not Given Documented By: MARTIN Non-Admin Reason: Patient Refused Lorazepam (Lorazepam 0.5 Mg Tablet) 0.5 mg PO BID@1200,2100 [facility] Last Admin: 04/28/24 12:19 Dose: 0.5 mg Documented By: ROMELIA Magnesium Hydroxide (Milk Of Magnesia 30 Ml Oral.Susp) 30 ml PO DAILY PRN PRN Reason: Constipation Melatonin (Melatonin 3 Mg Tablet) 6 mg PO BEDTIME PRN PRN Reason: Insomnia Methadone HCl (Methadone Hcl 20 Mg/2 Ml Oral.Conc) 45 mg PO DAILY@0800 [facility] Last Admin: 04/29/24 10:48 Dose: 45 mg Documented By: MARTIN Co-signed By: ONEYDA Nicotine (Nicotine 14 Mg Patch.Td24) 14 mg TRANSDERMA DAILY [facility] Last Admin: 04/29/24 10:27 Dose: 14 mg Documented By: MARTIN Nicotine Polacrilex (Nicotine Polacrilex 2 Mg Gum) 4 mg BUCCAL Q2H PRN PRN Reason: Nicotine Cravings Olanzapine (Olanzapine 5 Mg Tablet) 5 mg PO Q4H PRN PRN Reason: psychosis,agitation Olanzapine (Olanzapine Odt 10 Mg Tab.Rapdis) 10 mg TRANSLINGU BEDTIME [facility] Last Admin: 04/28/24 21:09 Dose: 10 mg Documented By: JULIUS Olanzapine (Olanzapine 10 Mg Vial) 10 mg IM ONCE PRN PRN Reason: anxiety/restlessness Ondansetron HCl (Ondansetron Odt 4 Mg Tab.Rapdis) 4 mg TRANSLINGU Q6H PRN PRN Reason: Nausea And Vomiting Pharmacy Consult (Consult Rx Vancomycin Dosing) 1 each MISCELLANE DAILY PRN PRN Reason: Consult order Rifaximin (Rifaximin 550 Mg Tablet) 550 mg PO Q12H [facility] Last Admin: 04/29/24 10:51 Dose: Not Given Documented By: MARTIN Non-Admin Reason: Patient Refused Sodium Chloride (0.9 % Sodium Chloride Flush 3 Ml Syringe) 3 ml IVFLUSH QSMSFT [facility] Last Admin: 04/29/24 08:44 Dose: 3 ml Documented By: MARTIN Tramadol HCl (Tramadol Hcl 50 Mg Tablet) 25 mg PO Q6H PRN PRN Reason: Pain, Severe (Pain Scale 7-10) Last Admin: 04/29/24 04:10 Dose: 25 mg Documented By: JULIUS Trazodone HCl (Trazodone Hcl 50 Mg Tablet) 50 mg PO BEDTIME PRN PRN Reason: Insomnia Labs 04/29/24 05:29 04/29/24 05:29 Labs: Laboratory Results - last 24 hr 04/29/24 05:29 MCV 71.1 L MCH 21.9 L MCHC 30.7 L RDW 25.1 H Plt Count 200 MPV Not Reportable Immature Gran % (Auto) 0.8 H Neut % (Auto) 70.9 Lymph % (Auto) 15.1 L [place] % (Auto) 11.9 H Eos % (Auto) 0.9 Baso % (Auto) 0.4 Lymph # (Auto) 1.2 [place] # (Auto) 0.9 Eos # (Auto) 0.1 Baso # (Auto) 0.0 Abs Immat Gran (auto) 0.06 H Absolute Neuts (auto) 5.5 Absolute Nucleated RBC 0.000 Nucleated RBC % (auto) 0.0 Anion Gap 13 Estim Creat Clear Calc 77.1 Estimated GFR > 60 Random Glucose 90 Calcium 8.0 L Microbiology Microbiology Results: Microbiology 04/28/24 06:41 Blood Culture - Preliminary Blood - Venous No growth after 24 hours. 04/28/24 06:39 Blood Culture - Preliminary Blood - Venous No growth after 24 hours. Assessment and Plan (1) Left cuboid fracture: Status: Acute (2) Left leg cellulitis: Status: Acute Plan María Harmon is a 44 y/o woman admitted with: cellulitis to the left lower extremity associated with infected wounds. completed a course of Augmentin and doxycycline IV antibiotic therapy with vancomycin and Zosyn blood cultures x2 Wound culture Left lower extremity CT scan showed edema with no abscess or deep infection venous ultrasound negative for DVT. Wound care following Increase sedation Psych input appreciated, hold gabapentin and ativan, lower zyprexa to 10mg and DC prazosin. Avulsion fx medial cuboid ortho consulted, recommended boot weight bearing as tolerated and outpt f/u Lactic acidosis. resolved Hyperkalemia. resolved HIV. Continue Biktarvy. Mood disorder/schizophrenia. Continue prazosin, olanzapine, gabapentin, Depakote and Abilify. Cirrhosis. Continue rifaximin and lactulose. s/p avulsion fracture of the medial cuboid/left knee effusion. Evaluated by orthopedics. Chronic sinus tachycardia. Check echocardiogram. DVT prophylaxis: Lovenox Code status: Full Patient will need hospitalization overnight IV antibiotic therapy for worsening cellulitis of the left lower extremity. Quality Stroke Does the patient have a stroke diagnosis?: No VTE Prior VTE?: No VTE Risk Level:: Medical - moderate - high VTE Device Contraindication: Treatment Not Indicated VTE Drug Contraindication: N/A - Med Ordered
--- NOTE | 2024-04-29 19:26 | PC.NURSE ---
pt noted at 1830 to have elevated HR 127 and MD Reaves paged and down to see patient. IV lasix held and labs drawn as ordered. shortly after approx 1915 pt noted to have temp 100.5 temporal, MD Reaves then Hubert paged and oncoming RN aware.
[2024-04-29] MEDS: Albumin Human 25 % 100 ML 133.33 ML IV ×2 (19:37→21:15)
--- NOTE | 2024-04-29 20:04 | HE.PHANOTE ---
RE: VANCO DOSING Due to increase in sCr, dose of 1250 mg @0900 04/29/24 was held, trough @1908 came back as 10 mg/L. Dose is changed to 1500 mg q24h, starting @2100 04/29/24. Next trough is scheduled for 04/30/24 @1900.
[2024-04-29 21:07] LABS: Lactic Acid 2.5 mmol/L (0.5-2.0)
[2024-04-29] MEDS: vancomycin HCL 1,500 MG in 0.9 % Sodium Chloride 500 ML 333.33 MG IV (22:14)
[2024-04-29] MEDS: rifAXIMin 550 MG TABLET PO (22:18)
[2024-04-29] MEDS: OLANZapine ODT 10 MG TAB.RAPDIS TRANSLINGU (22:22)
[2024-04-29 22:34] LABS: Reflex Lactate? Lactic Acid Added
[2024-04-29 23:35] LABS: ~Lactic Acid-LAB USE ONLY 1.1 mmol/L (0.5-2.0)
[2024-04-30] VITALS (8 sets, daily range): BP systolic 128–158; BP diastolic 72–87; PULSE 88–129; RESP 16–20; TEMP 36–36.8; O2SAT 95–99
[2024-04-30] MEDS: Piperacillin Sodium/Tazobactam 3.375 GM in 0.9 % Sodium Chloride 50 ML IV ×4 (05:00→23:22)
[2024-04-30 06:55] LABS: Basophils Percent Auto 0.4 % (0-2); Eosinophils Absolute Auto 0.1 X10*3/uL (0.0-0.4); Eosinophils Percent Auto 0.9 % (0-4); Hemoglobin 7.5 g/dl (12.0-16.0); Imm Gran Abs Auto 0.05 X10*3/uL (0.00-0.03); Imm Gran Pct Auto 0.7 % (0.0-0.4); Lymphocytes Absolute Auto 1.3 X10*3/uL (1.2-4.9); Lymphocytes Percent Auto 19.6 % (20-40); MANUAL DIFF FLAG SCAN; Mean Corpuscular HGB Conc 31.3 g/dl (31.0-35.0); Mean Corpuscular Hemoglobin 22.3 pg (27.0-33.0); Mean Corpuscular Volume 71.4 fL (80.0-98.0); Monocytes Absolute Auto 0.7 X10*3/uL (0.1-1.2); Monocytes Percent Auto 10.7 % (2-11); Neutrophils Absolute Auto 4.5 x10*3/uL (2.0-8.3); Neutrophils Percent Auto 67.7 % (45-73); PLT CLUMP 1; Red Blood Count 3.36 X10*6/uL (4.20-5.50); Red Cell Distribution Width 25.3 % (11.0-16.0); SCAN SMEAR FLAG 1
[2024-04-30 07:05] LABS: Anion Gap 12 (12-20); Blood Urea Nitrogen 8 mg/dL (9-16); Calcium 8.1 mg/dL (8.4-10.2); Carbon Dioxide 23 mmol/L (22-29); Chloride 106 mmol/L (96-108); Creatinine Clr Calc Pharmacy 77.9; Estimated Glomerular Filt Rate > 60; Glucose Random 77 mg/dL (60-115); Potassium 4.3 mmol/L (3.3-5.1); Sodium 137 mmol/L (135-145)
[2024-04-30 07:40] LABS: SLIDE REVIEW VERIFIED; White Blood Count 6.7 X10*3/uL (4.8-10.8)
[2024-04-30] MEDS: Lactulose 20 GM/30 ML SOLUTION 10 GM PO (09:26)
[2024-04-30] MEDS: methADONE HCl 20 MG/2 ML ORAL.CONC 45 MG PO (09:26)
[2024-04-30] MEDS: ARIPiprazole 10 MG TABLET PO (09:27)
[2024-04-30] MEDS: Ferrous Sulfate 324 MG TABLET.DR PO ×2 (09:27→17:30)
[2024-04-30] MEDS: Diclofenac Sodium Delayed Rel 50 MG TABLET.DR PO ×2 (09:27→17:30)
[2024-04-30] MEDS: rifAXIMin 550 MG TABLET PO ×2 (09:27→21:55)
[2024-04-30] MEDS: Bictegrav/Emtricit/Tenofov Ala TABLET 1 TAB PO (09:27)
[2024-04-30] MEDS: 0.9 % Sodium Chloride Flush 3 ML SYRINGE IVFLUSH ×3 (09:29→19:55)
[2024-04-30] MEDS: Nicotine 14 MG PATCH.TD24 TRANSDERMA (09:30)
--- NOTE | 2024-04-30 10:21 | HO.PM.IMPN ---
Subjective Subjective Date of Service: 04/30/24 Interval History: no new complaints Physical Exam Vital Signs: Vital Signs: Last Vital Signs Temp 97.1 F 04/30/24 07:57 Pulse 88 04/30/24 07:57 Resp 16 04/30/24 07:57 BP 132/87 04/30/24 07:57 Pulse Ox 96 04/30/24 07:57 O2 Del Method Room Air 04/30/24 07:57 BMI result Body Mass Index 29.2 Const: Other: Constitutional : Awake, interactive, not in distress Neck : Normal inspection, Supple Cardiovascular : RRR, no JVP, no lower extremity edema Respiratory : good bilateral air entry, no crackles, wheezes or rhonchi Gastrointestinal: soft, lax, Normal bowel sounds, Non tender Skin : Warm, Dry, LLE with less edema and warmth with mild tenderness , no drainage noted Neurological : Alert & oriented, No focal deficit psych: calm, cooperative, lack insight and judgment Objective Data Active Medications Acetaminophen (Acetaminophen 325 Mg Tablet) 975 mg PO Q6H PRN PRN Reason: Pain, Mild (Pain Scale 1-3), fever or headache Last Admin: 04/28/24 18:17 Dose: 975 mg Documented By: ROMELIA Acetaminophen (Acetaminophen 325 Mg Tablet) 975 mg PO Q6H PRN PRN Reason: pain (pain scale 1-10) Al Hydroxide/Mg Hydroxide (Magnesium Hydrox/Alum Hydrox 30 Ml Oral.Susp) 30 ml PO Q6H PRN PRN Reason: heartburn/gas Aripiprazole (Aripiprazole 10 Mg Tablet) 10 mg PO DAILY [facility] Last Admin: 04/30/24 09:27 Dose: 10 mg Documented By: MARTIN Baclofen (Baclofen 10 Mg Tablet) 10 mg PO TID PRN PRN Reason: back/muscle spasm Bictegravir/Emtricitabine/Tenofovir (Bictegrav/Emtricit/Tenofov Ala Tablet) 1 tab PO DAILY [facility] Last Admin: 04/30/24 09:27 Dose: 1 tab Documented By: MARTIN Diclofenac Sodium (Diclofenac Sodium Delayed Rel 50 Mg Tablet.) 50 mg PO BIDWM [facility] Last Admin: 04/30/24 09:27 Dose: 50 mg Documented By: MARTIN Enoxaparin Sodium (Enoxaparin Sodium 40 Mg/0.4 Ml Syringe) 40 mg SUBCUT Q24H [facility] Last Admin: 04/30/24 09:40 Dose: Not Given Documented By: MARTIN Non-Admin Reason: Patient Refused Ferrous Sulfate (Ferrous Sulfate 324 Mg Tablet.Dr) 324 mg PO BIDWM [facility] Last Admin: 04/30/24 09:27 Dose: 324 mg Documented By: MARTIN Gabapentin (Gabapentin 300 Mg Capsule) 300 mg PO TID [facility] Last Admin: 04/28/24 11:59 Dose: Not Given Documented By: ROMELIA Non-Admin Reason: Patient Refused Hydroxyzine HCl (Hydroxyzine Hcl 25 Mg Tablet) 25 mg PO Q6H PRN PRN Reason: Anxiety Piperacillin Sod/Tazobactam (Sod 3.375 gm/ Sodium Chloride) 50 mls @ 100 mls/hr IV Q6H [facility] Last Admin: 04/30/24 09:33 Dose: 100 mls/hr Documented By: MARTIN Vancomycin HCl 1,500 mg/ (Sodium Chloride) 500 mls @ 333.333 mls/hr IV Q24H [facility] Last Infusion: 04/29/24 23:58 Dose: Infused Documented By: JULIUS Lactulose (Lactulose 20 Gm/30 Ml Solution) 10 gm PO DAILY [facility] Last Admin: 04/30/24 09:26 Dose: 10 gm Documented By: MARTIN Lidocaine (Lidocaine 4 % Patch Adh..Patch) 2 patch TRANSDERMA DAILY [facility]; Protocol Last Admin: 04/30/24 09:30 Dose: Not Given Documented By: MARTIN Non-Admin Reason: Patient Refused Lorazepam (Lorazepam 0.5 Mg Tablet) 0.5 mg PO BID@1200,2100 [facility] Last Admin: 04/28/24 12:19 Dose: 0.5 mg Documented By: ROMELIA Magnesium Hydroxide (Milk Of Magnesia 30 Ml Oral.Susp) 30 ml PO DAILY PRN PRN Reason: Constipation Melatonin (Melatonin 3 Mg Tablet) 6 mg PO BEDTIME PRN PRN Reason: Insomnia Methadone HCl (Methadone Hcl 20 Mg/2 Ml Oral.Conc) 45 mg PO DAILY@0800 [facility] Last Admin: 04/30/24 09:26 Dose: 45 mg Documented By: MARTIN Co-signed By: [place] Nicotine (Nicotine 14 Mg Patch.Td24) 14 mg TRANSDERMA DAILY [facility] Last Admin: 04/30/24 09:30 Dose: 14 mg Documented By: MARTIN Nicotine Polacrilex (Nicotine Polacrilex 2 Mg Gum) 4 mg BUCCAL Q2H PRN PRN Reason: Nicotine Cravings Olanzapine (Olanzapine 5 Mg Tablet) 5 mg PO Q4H PRN PRN Reason: psychosis,agitation Olanzapine (Olanzapine Odt 10 Mg Tab.Rapdis) 10 mg TRANSLINGU BEDTIME [facility] Last Admin: 04/29/24 22:22 Dose: 10 mg Documented By: JULIUS Olanzapine (Olanzapine 10 Mg Vial) 10 mg IM ONCE PRN PRN Reason: anxiety/restlessness Ondansetron HCl (Ondansetron Odt 4 Mg Tab.Rapdis) 4 mg TRANSLINGU Q6H PRN PRN Reason: Nausea And Vomiting Pharmacy Consult (Consult Rx Vancomycin Dosing) 1 each MISCELLANE DAILY PRN PRN Reason: Consult order Rifaximin (Rifaximin 550 Mg Tablet) 550 mg PO Q12H [facility] Last Admin: 04/30/24 09:27 Dose: 550 mg Documented By: MARTIN Sodium Chloride (0.9 % Sodium Chloride Flush 3 Ml Syringe) 3 ml IVFLUSH QSHIFT [facility] Last Admin: 04/30/24 09:29 Dose: 3 ml Documented By: MARTIN Tramadol HCl (Tramadol Hcl 50 Mg Tablet) 25 mg PO Q6H PRN PRN Reason: Pain, Severe (Pain Scale 7-10) Last Admin: 04/29/24 18:49 Dose: 25 mg Documented By: MARTIN Trazodone HCl (Trazodone Hcl 50 Mg Tablet) 50 mg PO BEDTIME PRN PRN Reason: Insomnia Labs 04/30/24 05:42 04/30/24 05:42 Labs: Laboratory Results - last 24 hr 04/29/24 04/29/24 04/29/24 19:08 20:27 23:10 MCV MCH MCHC RDW Plt Count MPV Immature Gran % (Auto) Neut % (Auto) Lymph % (Auto) [place] % (Auto) Eos % (Auto) Baso % (Auto) Lymph # (Auto) [place] # (Auto) Eos # (Auto) Baso # (Auto) Abs Immat Gran (auto) Absolute Neuts (auto) Absolute Nucleated RBC Nucleated RBC % (auto) Smear Tech's Comments Anion Gap Estim Creat Clear Calc Estimated GFR Random Glucose Lactic Acid 2.5 H* Lactic Acid F/U @ 2Hr 1.1 Calcium Random Vancomycin 10.0 L 04/30/24 05:42 MCV 71.4 L MCH 22.3 L MCHC 31.3 RDW 25.3 H Plt Count Not Reportable MPV Not Reportable Immature Gran % (Auto) 0.7 H Neut % (Auto) 67.7 Lymph % (Auto) 19.6 L [place] % (Auto) 10.7 Eos % (Auto) 0.9 Baso % (Auto) 0.4 Lymph # (Auto) 1.3 [place] # (Auto) 0.7 Eos # (Auto) 0.1 Baso # (Auto) 0.0 Abs Immat Gran (auto) 0.05 H Absolute Neuts (auto) 4.5 Absolute Nucleated RBC 0.000 Nucleated RBC % (auto) 0.0 Smear Tech's Comments VERIFIED Anion Gap 12 Estim Creat Clear Calc 77.9 Estimated GFR > 60 Random Glucose 77 Lactic Acid Lactic Acid F/U @ 2Hr Calcium 8.1 L Random Vancomycin Microbiology Microbiology Results: Microbiology 04/28/24 06:41 Blood Culture - Preliminary Blood - Venous No growth after 48 hours. 04/28/24 06:39 Blood Culture - Preliminary Blood - Venous No growth after 48 hours. Assessment and Plan (1) Left cuboid fracture: Status: Acute (2) Left leg cellulitis: Status: Acute Plan 44F PMH schizophrenia, opiate dependence, unspecified cirrhosis, HIV readmitted from inpatient psychiatry for concern of recurrence of LLE cellulitis cellulitis to the left lower extremity associated with infected wounds. s/p course of Augmentin and doxycycline now on vancomycin and Zosyn blood cultures negative Left lower extremity CT scan showed edema with no abscess or deep infection venous ultrasound negative for DVT. Wound care following follow up ID Increase sedation Psych input appreciated, holding gabapentin and ativan, lower zyprexa to 10mg and DC prazosin. Avulsion fx medial cuboid ortho consulted, recommended boot weight bearing as tolerated and outpt f/u Lactic acidosis resolved Hyperkalemia resolved HIV. Continue Biktarvy. Mood disorder/schizophrenia. Continue prazosin, olanzapine, Depakote and Abilify. unspecified Cirrhosis Continue rifaximin and lactulose. DVT prophylaxis: Lovenox Code status: Full reason for continued hospitalization:iv abx for recurrent cellulitis/purulent ulcer Quality Stroke Does the patient have a stroke diagnosis?: No VTE Prior VTE?: No VTE Risk Level:: Medical - moderate - high VTE Device Contraindication: Treatment Not Indicated VTE Drug Contraindication: N/A - Med Ordered
[2024-04-30 11:19] LABS: Thyroid Stimulating Hormone 0.89 uIU/mL (0.32-4.0)
--- NOTE | 2024-04-30 15:08 | P.CNID_ITS ---
History of Present Illness Data of Consult Service Date: 04/30/24 Requesting physician: Jay Peña Primary Care Provider: Unknown Physician HPI Reason for consult: persistent leg redness,HIV She presents with left leg redness and swelling and posterior purulent ulce from Psychiatry. She had been at [facility] and just discharged. She reports taking a week of Augmentin and Doxycycline while there. She had CT scan and venous u/s negative of left leg. She has CD4 count 216 and viral load undetectable on 04/15 and sees HIV provider in [place]. She has hcg test negative. She says leg feels improved now. Review of Systems 2 Review of Systems: Yes all other systems are reviewed and are negative [facility] Past Medical History Medical History (Updated 04/30/24 @ 15:13 by Elida Hadley MD) HIV (human immunodeficiency virus infection) Leg edema, left Family History Family history: reviewed and not pertinent Social History Social History Household Members: Spouse and Children Household Members Other:: and 2 children ages 2.5 year old twins one son and one daughter Housing: Apartment Do you presently have visiting nurse or other home services: No Unable to assess alcohol history related to: Refusing to respond 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 at bedside Patient Tobacco Use Status: Former Tobacco user Tobacco use type: Cigarette Cigarette Packs Per Day: 1 Cigarettes Per Day: 20.0 e-Cigarette/Vaping Use: Former Use Second Hand Smoke Exposure: No Substance Use Type: Former Substance User Currently Displaying Signs/Symptoms of Drug Intoxication Withdrawal: No Advance Directives: No Advance Directives Information Provided: No service: No Sexual orientation: Don't Know Meds Allergies Allergy/AdvReac Type Severity Reaction Status Date / Time No Known Allergies Allergy Verified 04/05/24 18:41 Active Medications: Current Medications Acetaminophen (Acetaminophen 325 Mg Tablet) 975 mg PO Q6H PRN PRN Reason: Pain, Mild (Pain Scale 1-3), fever or headache Last Admin: 04/28/24 18:17 Dose: 975 mg Acetaminophen (Acetaminophen 325 Mg Tablet) 975 mg PO Q6H PRN PRN Reason: pain (pain scale 1-10) Al Hydroxide/Mg Hydroxide (Magnesium Hydrox/Alum Hydrox 30 Ml Oral.Susp) 30 ml PO Q6H PRN PRN Reason: heartburn/gas Aripiprazole (Aripiprazole 10 Mg Tablet) 10 mg PO DAILY [facility] Last Admin: 04/30/24 09:27 Dose: 10 mg Baclofen (Baclofen 10 Mg Tablet) 10 mg PO TID PRN PRN Reason: back/muscle spasm Bictegravir/Emtricitabine/Tenofovir (Bictegrav/Emtricit/Tenofov Ala Tablet) 1 tab PO DAILY [facility] Last Admin: 04/30/24 09:27 Dose: 1 tab Diclofenac Sodium (Diclofenac Sodium Delayed Rel 50 Mg Tablet.) 50 mg PO BIDWM [facility] Last Admin: 04/30/24 09:27 Dose: 50 mg Enoxaparin Sodium (Enoxaparin Sodium 40 Mg/0.4 Ml Syringe) 40 mg SUBCUT Q24H [facility] Last Admin: 04/30/24 09:40 Dose: Not Given Ferrous Sulfate (Ferrous Sulfate 324 Mg Tablet.) 324 mg PO BIDWM [facility] Last Admin: 04/30/24 09:27 Dose: 324 mg Gabapentin (Gabapentin 300 Mg Capsule) 300 mg PO TID [facility] Last Admin: 04/28/24 11:59 Dose: Not Given Hydroxyzine HCl (Hydroxyzine Hcl 25 Mg Tablet) 25 mg PO Q6H PRN PRN Reason: Anxiety Piperacillin Sod/Tazobactam (Sod 3.375 gm/ Sodium Chloride) 50 mls @ 100 mls/hr IV Q6H [facility] Last Infusion: 04/30/24 10:28 Dose: Infused Vancomycin HCl 1,500 mg/ (Sodium Chloride) 500 mls @ 333.333 mls/hr IV Q24H [facility] Last Infusion: 04/29/24 23:58 Dose: Infused Lactulose (Lactulose 20 Gm/30 Ml Solution) 10 gm PO DAILY [facility] Last Admin: 04/30/24 09:26 Dose: 10 gm Lidocaine (Lidocaine 4 % Patch Adh..Patch) 2 patch TRANSDERMA DAILY [facility]; Protocol Last Admin: 04/30/24 09:30 Dose: Not Given Lorazepam (Lorazepam 0.5 Mg Tablet) 0.5 mg PO BID@1200,2100 [facility] Last Admin: 04/28/24 12:19 Dose: 0.5 mg Magnesium Hydroxide (Milk Of Magnesia 30 Ml Oral.Susp) 30 ml PO DAILY PRN PRN Reason: Constipation Melatonin (Melatonin 3 Mg Tablet) 6 mg PO BEDTIME PRN PRN Reason: Insomnia Methadone HCl (Methadone Hcl 20 Mg/2 Ml Oral.Conc) 45 mg PO DAILY@0800 [facility] Last Admin: 04/30/24 09:26 Dose: 45 mg Nicotine (Nicotine 14 Mg Patch.Td24) 14 mg TRANSDERMA DAILY [facility] Last Admin: 04/30/24 09:30 Dose: 14 mg Nicotine Polacrilex (Nicotine Polacrilex 2 Mg Gum) 4 mg BUCCAL Q2H PRN PRN Reason: Nicotine Cravings Olanzapine (Olanzapine 5 Mg Tablet) 5 mg PO Q4H PRN PRN Reason: psychosis,agitation Olanzapine (Olanzapine Odt 10 Mg Tab.Rapdis) 10 mg TRANSLINGU BEDTIME [facility] Last Admin: 04/29/24 22:22 Dose: 10 mg Olanzapine (Olanzapine 10 Mg Vial) 10 mg IM ONCE PRN PRN Reason: anxiety/restlessness Ondansetron HCl (Ondansetron Odt 4 Mg Tab.Rapdis) 4 mg TRANSLINGU Q6H PRN PRN Reason: Nausea And Vomiting Pharmacy Consult (Consult Rx Vancomycin Dosing) 1 each MISCELLANE DAILY PRN PRN Reason: Consult order Rifaximin (Rifaximin 550 Mg Tablet) 550 mg PO Q12H [facility] Last Admin: 04/30/24 09:27 Dose: 550 mg Sodium Chloride (0.9 % Sodium Chloride Flush 3 Ml Syringe) 3 ml IVFLUSH QSHIFT [facility] Last Admin: 04/30/24 09:29 Dose: 3 ml Tramadol HCl (Tramadol Hcl 50 Mg Tablet) 25 mg PO Q6H PRN PRN Reason: Pain, Severe (Pain Scale 7-10) Last Admin: 04/29/24 18:49 Dose: 25 mg Trazodone HCl (Trazodone Hcl 50 Mg Tablet) 50 mg PO BEDTIME PRN PRN Reason: Insomnia Home Medications ?Medication ?Instructions ?Recorded ?Confirmed ?Last Taken ?Type bictegravir 50 mg-emtricitabine 1 tab PO DAILY 04/05/24 04/28/24 04/19/24 08:00 History 200 mg-tenofovir alafenam 25 mg tablet gabapentin 300 mg capsule 300 mg PO TID 04/05/24 04/28/24 04/19/24 08:00 History prazosin 2 mg capsule 2 mg PO BEDTIME 04/05/24 04/28/24 04/18/24 21:00 History rifaximin 550 mg tablet 550 mg PO Q12H 04/05/24 04/28/24 04/19/24 08:00 History aluminum-mag hydroxide-simethicone 30 ml PO Q6H PRN heartburn/gas 04/28/24 04/28/24 Unknown History 200 mg-200 mg-20 mg/5 mL oral susp aripiprazole 10 mg tablet (Abilify) 10 mg PO DAILY 04/28/24 04/28/24 Unknown History clindamycin HCl 150 mg capsule 450 mg PO Q8H 04/28/24 04/28/24 Unknown History hydroxyzine HCl 25 mg tablet 25 mg PO Q6H PRN Anxiety 04/28/24 04/28/24 Unknown History lorazepam 0.5 mg tablet 0.5 mg PO BID@1200,2100 04/28/24 04/28/24 Unknown History magnesium hydroxide 400 mg/5 mL 30 ml PO DAILY PRN Constipation 04/28/24 04/28/24 Unknown History oral suspension (Milk of Magnesia) methadone 10 mg/mL oral 45 mg PO DAILY@0800 04/28/24 04/28/24 Unknown History concentrate (Methadone Intensol) olanzapine 10 mg disintegrating 30 mg PO BEDTIME 04/28/24 04/28/24 Unknown History tablet trazodone 50 mg tablet 50 mg PO BEDTIME PRN Insomnia 04/28/24 04/28/24 Unknown History Physical Exam 2 Vital Signs: Vital Signs: Last Vital Signs Temp 98.0 F 04/30/24 11:49 Pulse 88 04/30/24 14:40 Resp 18 04/30/24 11:49 BP 128/81 04/30/24 11:49 Pulse Ox 96 04/30/24 11:49 O2 Del Method Room Air 04/30/24 11:49 BMI result Body Mass Index 29.2 Const: General: cooperative HEENT: Head: Yes normal to inspection Face and sinus: Yes normal facial exam Mouth: Normal oral and palatal mucosa present Teeth and gingiva: d entition normal Eyes: General: appearance normal, both eyes and all related structures P upils: Equal, round and reactive pupils present Resp: Effort & Inspection: normal respiratory effort Cardio: Rate: regular rate Rhythm: regular rhythm GI: Palpation (GI): Soft to palpation and nontender : General: Yes no CVA tenderness Back/Spine/Pelvis: Back: no CVA tenderness Skin: General skin exam: no rashes or lesions noted Neuro: General: moves all extremities Cranial nerves: Yes Equal, round and reactive pupils present Extrem: Other: some discomfort lifting leg there is jay wrap on leg and ankle plus 3 swelling Psych: Appearance: grossly normal Results Labs 04/30/24 05:42 04/30/24 05:42 Labs: Short CBC 04/30/24 Range/Units 05:42 WBC 6.7 (4.8-10.8) X10*3/uL Hgb 7.5 L (12.0-16.0) g/dl Hct 24.0 L (37.0-47.0) % Plt Count Not Reportable BMP 04/30/24 04/30/24 05:42 05:42 Sodium 137 Potassium 4.3 Chloride 106 Carbon Dioxide 23 BUN 8 L Creatinine Cancelled 0.95 Calcium 8.1 L Microbiology Microbiology Results: Microbiology 04/28/24 06:41 Blood - Venous Blood Culture - Preliminary No growth after 48 hours. 04/28/24 06:39 Blood - Venous Blood Culture - Preliminary No growth after 48 hours. Assessment and Plan (1) Left leg cellulitis: Status: Acute (2) Leg edema, left: Status: Acute (3) Schizophrenia, acute undifferentiated: Status: Acute (4) HIV (human immunodeficiency virus infection): Status: Acute Plan Leg cellulitis improved by report and nothing to drain. Would continue IV antibiotics and stop 05/02, 5 days total and not give additional antibiotics. Continue Biktarvy.
--- NOTE | 2024-04-30 15:54 | MHC.CM.PN ---
A call was received from Aimee Billingsley. She informed t/w that a Civil Commitment was scheduled for 05/01/24, by psych when she was a patient there. Her appointed [employer] is Nubia Bryant. notified of the information.
[2024-04-30 19:33] LABS: Vancomycin Random 10.3 mcg/mL (15-20)
[2024-04-30] MEDS: OLANZapine ODT 10 MG TAB.RAPDIS TRANSLINGU (19:52)
[2024-04-30] MEDS: hydrOXYzine HCL 25 MG TABLET PO (19:54)
[2024-04-30] MEDS: traMADoL HCL 50 MG TABLET 25 MG PO (19:54)
[2024-04-30] MEDS: traZODone HCL 50 MG TABLET PO (19:54)
[2024-04-30] MEDS: vancomycin HCL 1,500 MG in 0.9 % Sodium Chloride 500 ML 333.33 MG IV (21:54)
[2024-05-01] MEDS: traMADoL HCL 50 MG TABLET 25 MG PO ×2 (02:21→09:39)
[2024-05-01] MEDS: hydrOXYzine HCL 25 MG TABLET PO ×2 (02:22→19:19)
[2024-05-01 03:04] VITALS: BP 132/72; PULSE 110; RESP 16; TEMP 36.1; O2SAT 99
[2024-05-01] MEDS: Piperacillin Sodium/Tazobactam 3.375 GM in 0.9 % Sodium Chloride 50 ML IV ×4 (04:41→21:18)
[2024-05-01 06:38] LABS: Hematocrit 25.5 % (37.0-47.0); Hemoglobin 7.9 g/dl (12.0-16.0); Mean Corpuscular Hemoglobin 22.4 pg (27.0-33.0); Mean Corpuscular Volume 72.4 fL (80.0-98.0); Platelet Count 172 X10*3/uL (160-400); Red Blood Count 3.52 X10*6/uL (4.20-5.50); Red Cell Distribution Width 25.4 % (11.0-16.0); White Blood Count 7.5 X10*3/uL (4.8-10.8)
[2024-05-01 06:41] LABS: Alanine Aminotransferase 23 U/L (0-31); Albumin Level 2.6 g/dL (3.5-5.0); Alkaline Phosphatase 61 U/L (39-117); Anion Gap 10 (12-20); Aspartate Amino Transferase 49 U/L (5-31); Bilirubin Direct 0.6 mg/dL (0.0-0.5); Bilirubin Total 0.9 mg/dL (0.0-1.0); Blood Urea Nitrogen 9 mg/dL (9-16); C Reactive Protein 3.01 mg/dL (< or = 0.50); Calcium 8.3 mg/dL (8.4-10.2); Carbon Dioxide 25 mmol/L (22-29); Chloride 108 mmol/L (96-108); Creatinine Clr Calc Pharmacy 87.1; Estimated Glomerular Filt Rate > 60; Glucose Random 102 mg/dL (60-115); Magnesium 2.1 mg/dL (1.6-2.6); Potassium 4.2 mmol/L (3.3-5.1); Sodium 139 mmol/L (135-145); Total Protein 8.1 g/dL (6.5-8.0)
[2024-05-01 07:09] VITALS: BP 141/91; PULSE 110; RESP 18; TEMP 37.3; O2SAT 99
[2024-05-01 07:29] LABS: Erythrocyte Sedimentation Rate 71 MM/HR (0-20)
[2024-05-01] MEDS: Lidocaine 4 % Patch ADH..PATCH 2 PATCH TRANSDERMA (08:07)
[2024-05-01] MEDS: Enoxaparin Sodium 40 MG/0.4 ML SYRINGE SUBCUT (08:09)
[2024-05-01] MEDS: Nicotine 14 MG PATCH.TD24 TRANSDERMA (08:10)
[2024-05-01] MEDS: Lactulose 20 GM/30 ML SOLUTION 10 GM PO (08:11)
[2024-05-01] MEDS: ARIPiprazole 10 MG TABLET PO (08:12)
[2024-05-01] MEDS: Diclofenac Sodium Delayed Rel 50 MG TABLET.DR PO ×2 (08:13→16:14)
[2024-05-01] MEDS: rifAXIMin 550 MG TABLET PO ×2 (08:13→20:39)
[2024-05-01] MEDS: Ferrous Sulfate 324 MG TABLET.DR PO ×2 (08:13→16:14)
[2024-05-01] MEDS: Bictegrav/Emtricit/Tenofov Ala TABLET 1 TAB PO (08:13)
[2024-05-01] MEDS: 0.9 % Sodium Chloride Flush 3 ML SYRINGE IVFLUSH ×2 (08:14→16:14)
[2024-05-01] MEDS: methADONE HCl 20 MG/2 ML ORAL.CONC 45 MG PO (08:23)
--- NOTE | 2024-05-01 08:43 | HO.PM.IMPN ---
Subjective Subjective Date of Service: 05/01/24 Interval History: no new complaints Physical Exam Vital Signs: Vital Signs: Last Vital Signs Temp 99.2 F 05/01/24 07:09 Pulse 110 H 05/01/24 07:09 Resp 18 05/01/24 07:09 BP 141/91 H 05/01/24 07:09 Pulse Ox 99 05/01/24 07:09 O2 Del Method Room Air 05/01/24 07:09 BMI result Body Mass Index 29.2 Const: General: cooperative HEENT: Head: Yes normal to inspection Face and sinus: Yes normal facial exam Mouth: Normal oral and palatal mucosa present Teeth and gingiva: dentition normal Eyes: General: appearance normal, both eyes and all related structures Pupils: Equal, round and reactive pupils present Resp: Effort & Inspection: normal respiratory effort Cardio: Rate: regular rate Rhythm: regular rhythm GI: Palpation (GI): Soft to palpation and nontender : General: Yes no CVA tenderness Back/Spine/Pelvis: Back: no CVA tenderness Skin: General skin exam: no rashes or lesions noted Neuro: General: moves all extremities Cranial nerves: Yes Equal, round and reactive pupils present Extrem: Other: some discomfort lifting leg there is jay wrap on leg and ankle plus 3 swelling Psych: Appearance: grossly normal Objective Data Active Medications Acetaminophen (Acetaminophen 325 Mg Tablet) 975 mg PO Q6H PRN PRN Reason: Pain, Mild (Pain Scale 1-3), fever or headache Last Admin: 04/28/24 18:17 Dose: 975 mg Documented By: ROMELIA Acetaminophen (Acetaminophen 325 Mg Tablet) 975 mg PO Q6H PRN PRN Reason: pain (pain scale 1-10) Al Hydroxide/Mg Hydroxide (Magnesium Hydrox/Alum Hydrox 30 Ml Oral.Susp) 30 ml PO Q6H PRN PRN Reason: heartburn/gas Aripiprazole (Aripiprazole 10 Mg Tablet) 10 mg PO DAILY [facility] Last Admin: 05/01/24 08:12 Dose: 10 mg Documented By: ASIF Baclofen (Baclofen 10 Mg Tablet) 10 mg PO TID PRN PRN Reason: back/muscle spasm Bictegravir/Emtricitabine/Tenofovir (Bictegrav/Emtricit/Tenofov Ala Tablet) 1 tab PO DAILY [facility] Last Admin: 05/01/24 08:13 Dose: 1 tab Documented By: ASIF Diclofenac Sodium (Diclofenac Sodium Delayed Rel 50 Mg Tablet.) 50 mg PO BIDWM [facility] Last Admin: 05/01/24 08:13 Dose: 50 mg Documented By: ASIF Enoxaparin Sodium (Enoxaparin Sodium 40 Mg/0.4 Ml Syringe) 40 mg SUBCUT Q24H [facility] Last Admin: 05/01/24 08:09 Dose: 40 mg Documented By: ASIF Ferrous Sulfate (Ferrous Sulfate 324 Mg Tablet.) 324 mg PO BIDWM [facility] Last Admin: 05/01/24 08:13 Dose: 324 mg Documented By: ASIF Gabapentin (Gabapentin 300 Mg Capsule) 300 mg PO TID [facility] Last Admin: 04/28/24 11:59 Dose: Not Given Documented By: ROMELIA Non-Admin Reason: Patient Refused Hydroxyzine HCl (Hydroxyzine Hcl 25 Mg Tablet) 25 mg PO Q6H PRN PRN Reason: Anxiety Last Admin: 05/01/24 02:22 Dose: 25 mg Documented By: CÉSAR Piperacillin Sod/Tazobactam (Sod 3.375 gm/ Sodium Chloride) 50 mls @ 100 mls/hr IV Q6H [facility] Last Infusion: 05/01/24 05:15 Dose: Infused Documented By: CÉSAR Vancomycin HCl 1,500 mg/ (Sodium Chloride) 500 mls @ 333.333 mls/hr IV Q24H [facility] Last Infusion: 04/30/24 23:29 Dose: Infused Documented By: CÉSAR Lactulose (Lactulose 20 Gm/30 Ml Solution) 10 gm PO DAILY [facility] Last Admin: 05/01/24 08:11 Dose: 10 gm Documented By: ASIF Lidocaine (Lidocaine 4 % Patch Adh..Patch) 2 patch TRANSDERMA DAILY [facility]; Protocol Last Admin: 05/01/24 08:07 Dose: 2 patch Documented By: ASIF Lorazepam (Lorazepam 0.5 Mg Tablet) 0.5 mg PO BID@1200,2100 [facility] Last Admin: 04/28/24 12:19 Dose: 0.5 mg Documented By: ROMELIA Magnesium Hydroxide (Milk Of Magnesia 30 Ml Oral.Susp) 30 ml PO DAILY PRN PRN Reason: Constipation Melatonin (Melatonin 3 Mg Tablet) 6 mg PO BEDTIME PRN PRN Reason: Insomnia Methadone HCl (Methadone Hcl 20 Mg/2 Ml Oral.Conc) 45 mg PO DAILY@0800 [facility] Last Admin: 05/01/24 08:23 Dose: 45 mg Documented By: ASIF Co-signed By: ONEYDA Nicotine (Nicotine 14 Mg Patch.Td24) 14 mg TRANSDERMA DAILY [facility] Last Admin: 05/01/24 08:10 Dose: 14 mg Documented By: ASIF Nicotine Polacrilex (Nicotine Polacrilex 2 Mg Gum) 4 mg BUCCAL Q2H PRN PRN Reason: Nicotine Cravings Olanzapine (Olanzapine 5 Mg Tablet) 5 mg PO Q4H PRN PRN Reason: psychosis,agitation Olanzapine (Olanzapine Odt 10 Mg Tab.Rapdis) 10 mg TRANSLINGU BEDTIME [facility] Last Admin: 04/30/24 19:52 Dose: 10 mg Documented By: CÉSAR Olanzapine (Olanzapine 10 Mg Vial) 10 mg IM ONCE PRN PRN Reason: anxiety/restlessness Ondansetron HCl (Ondansetron Odt 4 Mg Tab.Rapdis) 4 mg TRANSLINGU Q6H PRN PRN Reason: Nausea And Vomiting Pharmacy Consult (Consult Rx Vancomycin Dosing) 1 each MISCELLANE DAILY PRN PRN Reason: Consult order Rifaximin (Rifaximin 550 Mg Tablet) 550 mg PO Q12H [facility] Last Admin: 05/01/24 08:13 Dose: 550 mg Documented By: ASIF Sodium Chloride (0.9 % Sodium Chloride Flush 3 Ml Syringe) 3 ml IVFLUSH QSHIFT [facility] Last Admin: 05/01/24 08:14 Dose: 3 ml Documented By: ASIF Tramadol HCl (Tramadol Hcl 50 Mg Tablet) 25 mg PO Q6H PRN PRN Reason: Pain, Severe (Pain Scale 7-10) Last Admin: 05/01/24 02:21 Dose: 25 mg Documented By: CÉSAR Trazodone HCl (Trazodone Hcl 50 Mg Tablet) 50 mg PO BEDTIME PRN PRN Reason: Insomnia Last Admin: 04/30/24 19:54 Dose: 50 mg Documented By: CÉSAR Labs 05/01/24 06:05 05/01/24 06:05 Labs: Laboratory Results - last 24 hr 04/30/24 04/30/24 04/30/24 05:42 05:42 19:03 MCV MCH MCHC RDW Plt Count MPV Absolute Nucleated RBC Nucleated RBC % (auto) ESR Anion Gap Estim Creat Clear Calc Cancelled Estimated GFR Cancelled Random Glucose Calcium Magnesium Total Bilirubin Direct Bilirubin AST ALT Alkaline Phosphatase C-Reactive Protein Total Protein Albumin TSH Cancelled 0.89 Random Vancomycin 10.3 L 05/01/24 06:05 MCV 72.4 L MCH 22.4 L MCHC 31.0 RDW 25.4 H Plt Count 172 MPV TNP Absolute Nucleated RBC 0.000 Nucleated RBC % (auto) 0.0 ESR 71 H Anion Gap 10 L Estim Creat Clear Calc 87.1 Estimated GFR > 60 Random Glucose 102 Calcium 8.3 L Magnesium 2.1 Total Bilirubin 0.9 Direct Bilirubin 0.6 H AST 49 H ALT 23 Alkaline Phosphatase 61 C-Reactive Protein 3.01 H Total Protein 8.1 H Albumin 2.6 L TSH Random Vancomycin Microbiology Microbiology Results: Microbiology 04/29/24 20:27 Blood Culture - Preliminary Blood - Venous No growth after 24 hours. 04/29/24 20:27 Blood Culture - Preliminary Blood - Venous No growth after 24 hours. 04/28/24 06:41 Blood Culture - Preliminary Blood - Venous No growth after 48 hours. 04/28/24 06:39 Blood Culture - Preliminary Blood - Venous No growth after 48 hours. Assessment and Plan (1) Left cuboid fracture: Status: Acute (2) Left leg cellulitis: Status: Acute Plan 44F PMH schizophrenia, opiate dependence, unspecified cirrhosis, HIV readmitted from inpatient psychiatry for concern of recurrence of LLE cellulitis cellulitis to the left lower extremity associated with infected wounds. s/p course of Augmentin and doxycycline now on vancomycin and Zosyn I and D appreciated, continue IV antibiotics until 05/02/24 and then discontinue blood cultures negative Left lower extremity CT scan showed edema with no abscess or deep infection venous ultrasound negative for DVT. Wound care following Increase sedation Psych input appreciated, holding gabapentin and ativan, lower zyprexa to 10mg and DC prazosin. Improved Avulsion fx medial cuboid ortho consulted, recommended boot weight bearing as tolerated and outpt f/u Acute Lactic acidosis resolved Hyperkalemia resolved HIV. Continue Biktarvy. Mood disorder/schizophrenia. Continue prazosin, olanzapine, Depakote and Abilify. unspecified Cirrhosis Continue rifaximin and lactulose. DVT prophylaxis: Lovenox Code status: Full reason for continued hospitalization:iv abx for recurrent cellulitis/purulent ulcer Quality Stroke Does the patient have a stroke diagnosis?: No VTE Prior VTE?: No VTE Risk Level:: Medical - moderate - high VTE Device Contraindication: Treatment Not Indicated VTE Drug Contraindication: N/A - Med Ordered
[2024-05-01 11:23] VITALS: BP 136/87; PULSE 103; RESP 16; TEMP 36.9; O2SAT 99
[2024-05-01 15:27] VITALS: BP 135/85; PULSE 104; RESP 18; TEMP 36.6; O2SAT 99
--- NOTE | 2024-05-01 17:55 | PM.PSYCN ---
History of Present Illness Date of Service: 05/01/24 Chief Complaint: Left Lower Extremity Cellulitis, Infected Wound Sources of Information: patient interviewed, chart reviewed and crisis/core team assessment reviewed HPI Narrative: Plant Technical Specialist met with patient. She is pleasant and cooperative. Patient remains delusional. She thinks she owns 2 houses and gave 2 different addresses, 1 which is her actual residence in [facility] where she rents a room/apartment; the other house does not seem to exist here in [place] though patient insists that she owns a million dollar house all to herself. Patient remains delusional thinking that she is part of a reality show game called [employer] which is on hold right now since she is in the hospital. Patient does not remember disorganized behavior that ended up in this psychiatric hospitalization. Patient tells policy writer that she and her (explored) are working on getting reconciled; however he reports he has not talked to her about 8-9 months At baseline, patient is ex-boyfriend and his mother report that she quite organized, go shopping for herself, pays bills and without expressing delusional thinking. Past Psychiatric History: Recent [facility] hospitalization [facility] Medical History (Updated 04/30/24 @ 15:13 by Elida Hadley MD) HIV (human immunodeficiency virus infection) Leg edema, left Family History: unknown patient not good historian at this time Social History: unknown patient not good historian at this time Trauma History: unknown patient not good historian at this time Diagnostics Vital Signs (24Hr): Vital Signs - 24 hr 04/30/24 19:31 04/30/24 23:25 05/01/24 03:04 Temperature 97.9 F 96.8 F 96.9 F Pulse Rate 103 H 98 110 H Respiratory Rate 18 16 16 Blood Pressure 133/75 133/76 132/72 Pulse Oximetry 98 99 99 Oxygen Delivery Method Room Air Room Air Room Air 05/01/24 07:09 05/01/24 11:23 05/01/24 15:27 Temperature 99.2 F 98.5 F 97.9 F Pulse Rate 110 H 103 H 104 H Respiratory Rate 18 16 18 Blood Pressure 141/91 H 136/87 135/85 Pulse Oximetry 99 99 99 Oxygen Delivery Method Room Air Room Air Room Air BMI result Body Mass Index 29.2 Labs 05/01/24 06:05 12/18/24 06:05 Labs: Laboratory Results - last 48 hr 04/29/24 04/29/24 04/29/24 19:08 20:27 23:10 WBC RBC Hgb Hct MCV MCH MCHC RDW Plt Count MPV Immature Gran % (Auto) Neut % (Auto) Lymph % (Auto) Overton % (Auto) Eos % (Auto) Baso % (Auto) Lymph # (Auto) Overton # (Auto) Eos # (Auto) Baso # (Auto) Abs Immat Gran (auto) Absolute Neuts (auto) Absolute Nucleated RBC Nucleated RBC % (auto) Smear Tech's Comments ESR Sodium Potassium Chloride Carbon Dioxide Anion Gap BUN Creatinine Estim Creat Clear Calc Estimated GFR Random Glucose Lactic Acid 2.5 H* Lactic Acid F/U @ 2Hr 1.1 Calcium Magnesium Total Bilirubin Direct Bilirubin AST ALT Alkaline Phosphatase C-Reactive Protein Total Protein Albumin TSH Random Vancomycin 10.0 L 04/30/24 04/30/24 04/30/24 05:42 05:42 05:42 WBC 6.7 RBC 3.36 L Hgb 7.5 L Hct 24.0 L MCV 71.4 L MCH 22.3 L MCHC 31.3 RDW 25.3 H Plt Count Not Reportable MPV Not Reportable Immature Gran % (Auto) 0.7 H Neut % (Auto) 67.7 Lymph % (Auto) 19.6 L Overton % (Auto) 10.7 Eos % (Auto) 0.9 Baso % (Auto) 0.4 Lymph # (Auto) 1.3 Overton # (Auto) 0.7 Eos # (Auto) 0.1 Baso # (Auto) 0.0 Abs Immat Gran (auto) 0.05 H Absolute Neuts (auto) 4.5 Absolute Nucleated RBC 0.000 Nucleated RBC % (auto) 0.0 Smear Tech's Comments VERIFIED ESR Sodium 137 Potassium 4.3 Chloride 106 Carbon Dioxide 23 Anion Gap 12 BUN 8 L Creatinine Cancelled 0.95 Estim Creat Clear Calc Cancelled 77.9 Estimated GFR Cancelled Random Glucose Lactic Acid Lactic Acid F/U @ 2Hr Calcium Magnesium Total Bilirubin Direct Bilirubin AST ALT Alkaline Phosphatase C-Reactive Protein Total Protein Albumin TSH Random Vancomycin 04/30/24 04/30/24 04/30/24 05:42 05:42 19:03 WBC RBC Hgb Hct MCV MCH MCHC RDW Plt Count MPV Immature Gran % (Auto) Neut % (Auto) Lymph % (Auto) Overton % (Auto) Eos % (Auto) Baso % (Auto) Lymph # (Auto) Overton # (Auto) Eos # (Auto) Baso # (Auto) Abs Immat Gran (auto) Absolute Neuts (auto) Absolute Nucleated RBC Nucleated RBC % (auto) Smear Tech's Comments ESR Sodium Potassium Chloride Carbon Dioxide Anion Gap BUN Creatinine Estim Creat Clear Calc Estimated GFR > 60 Random Glucose 77 Lactic Acid Lactic Acid F/U @ 2Hr Calcium 8.1 L Magnesium Total Bilirubin Direct Bilirubin AST ALT Alkaline Phosphatase C-Reactive Protein Total Protein Albumin TSH Cancelled 0.89 Random Vancomycin 10.3 L 05/01/24 06:05 WBC 7.5 RBC 3.52 L Hgb 7.9 L Hct 25.5 L MCV 72.4 L MCH 22.4 L MCHC 31.0 RDW 25.4 H Plt Count 172 MPV TNP Immature Gran % (Auto) Neut % (Auto) Lymph % (Auto) Overton % (Auto) Eos % (Auto) Baso % (Auto) Lymph # (Auto) Overton # (Auto) Eos # (Auto) Baso # (Auto) Abs Immat Gran (auto) Absolute Neuts (auto) Absolute Nucleated RBC 0.000 Nucleated RBC % (auto) 0.0 Smear Tech's Comments ESR 71 H Sodium 139 Potassium 4.2 Chloride 108 Carbon Dioxide 25 Anion Gap 10 L BUN 9 Creatinine 0.85 Estim Creat Clear Calc 87.1 Estimated GFR > 60 Random Glucose 102 Lactic Acid Lactic Acid F/U @ 2Hr Calcium 8.3 L Magnesium 2.1 Total Bilirubin 0.9 Direct Bilirubin 0.6 H AST 49 H ALT 23 Alkaline Phosphatase 61 C-Reactive Protein 3.01 H Total Protein 8.1 H Albumin 2.6 L TSH Random Vancomycin Imaging Radiology Impressions: ITS Impressions Venous Duplex 04/28/24 10:02 IMPRESSION: No evidence of deep venous thrombosis involving the left lower extremity. Electronically signed by: Mili Hanson MD 04/28/2024 01:06 PM [facility] Mental Status Exam Mental Status Exam Narrative: Pt is alert and oriented; behavior is calm, cooperative and even friendly; patient is not in distress; dressed in casual attire, hair in dreadlocks; mood is described as ok affect somewhat constricted; eye contact more appropriate; Speech remains with some latency; normal volume and prosody not pressured; some psychomotor retardation present; thought process seems mostly goal-directed; Thought content remains with delusional content; no SI/HI express. Some internally preoccupied. Patients insight and judgment impaired Medications Medications Current Medications Acetaminophen (Acetaminophen 325 Mg Tablet) 975 mg PO Q6H PRN PRN Reason: Pain, Mild (Pain Scale 1-3), fever or headache Last Admin: 04/28/24 18:17 Dose: 975 mg Acetaminophen (Acetaminophen 325 Mg Tablet) 975 mg PO Q6H PRN PRN Reason: pain (pain scale 1-10) Al Hydroxide/Mg Hydroxide (Magnesium Hydrox/Alum Hydrox 30 Ml Oral.Susp) 30 ml PO Q6H PRN PRN Reason: heartburn/gas Aripiprazole (Aripiprazole 10 Mg Tablet) 10 mg PO DAILY [facility] Last Admin: 05/01/24 08:12 Dose: 10 mg Baclofen (Baclofen 10 Mg Tablet) 10 mg PO TID PRN PRN Reason: back/muscle spasm Bictegravir/Emtricitabine/Tenofovir (Bictegrav/Emtricit/Tenofov Ala Tablet) 1 tab PO DAILY [facility] Last Admin: 05/01/24 08:13 Dose: 1 tab Diclofenac Sodium (Diclofenac Sodium Delayed Rel 50 Mg Tablet.) 50 mg PO BIDWM [facility] Last Admin: 05/01/24 16:14 Dose: 50 mg Enoxaparin Sodium (Enoxaparin Sodium 40 Mg/0.4 Ml Syringe) 40 mg SUBCUT Q24H [facility] Last Admin: 05/01/24 08:09 Dose: 40 mg Ferrous Sulfate (Ferrous Sulfate 324 Mg Tablet.) 324 mg PO BIDWM [facility] Last Admin: 05/01/24 16:14 Dose: 324 mg Gabapentin (Gabapentin 300 Mg Capsule) 300 mg PO TID [facility] Last Admin: 04/28/24 11:59 Dose: Not Given Hydroxyzine HCl (Hydroxyzine Hcl 25 Mg Tablet) 25 mg PO Q6H PRN PRN Reason: Anxiety Last Admin: 05/01/24 02:22 Dose: 25 mg Piperacillin Sod/Tazobactam (Sod 3.375 gm/ Sodium Chloride) 50 mls @ 100 mls/hr IV Q6H [facility] Last Infusion: 05/01/24 16:51 Dose: Infused Vancomycin HCl 1,500 mg/ (Sodium Chloride) 500 mls @ 333.333 mls/hr IV Q24H [facility] Last Infusion: 04/30/24 23:29 Dose: Infused Lactulose (Lactulose 20 Gm/30 Ml Solution) 10 gm PO DAILY [facility] Last Admin: 05/01/24 08:11 Dose: 10 gm Lidocaine (Lidocaine 4 % Patch Adh..Patch) 2 patch TRANSDERMA DAILY [facility]; Protocol Last Admin: 05/01/24 08:07 Dose: 2 patch Lorazepam (Lorazepam 0.5 Mg Tablet) 0.5 mg PO BID@1200,2100 [facility] Last Admin: 04/28/24 12:19 Dose: 0.5 mg Magnesium Hydroxide (Milk Of Magnesia 30 Ml Oral.Susp) 30 ml PO DAILY PRN PRN Reason: Constipation Melatonin (Melatonin 3 Mg Tablet) 6 mg PO BEDTIME PRN PRN Reason: Insomnia Methadone HCl (Methadone Hcl 20 Mg/2 Ml Oral.Conc) 45 mg PO DAILY@0800 [facility] Last Admin: 05/01/24 08:23 Dose: 45 mg Nicotine (Nicotine 14 Mg Patch.Td24) 14 mg TRANSDERMA DAILY [facility] Last Admin: 05/01/24 08:10 Dose: 14 mg Nicotine Polacrilex (Nicotine Polacrilex 2 Mg Gum) 4 mg BUCCAL Q2H PRN PRN Reason: Nicotine Cravings Olanzapine (Olanzapine 5 Mg Tablet) 5 mg PO Q4H PRN PRN Reason: psychosis,agitation Olanzapine (Olanzapine Odt 10 Mg Tab.Rapdis) 10 mg TRANSLINGU BEDTIME [facility] Last Admin: 04/30/24 19:52 Dose: 10 mg Olanzapine (Olanzapine 10 Mg Vial) 10 mg IM ONCE PRN PRN Reason: anxiety/restlessness Ondansetron HCl (Ondansetron Odt 4 Mg Tab.Rapdis) 4 mg TRANSLINGU Q6H PRN PRN Reason: Nausea And Vomiting Pharmacy Consult (Consult Rx Vancomycin Dosing) 1 each MISCELLANE DAILY PRN PRN Reason: Consult order Rifaximin (Rifaximin 550 Mg Tablet) 550 mg PO Q12H [facility] Last Admin: 05/01/24 08:13 Dose: 550 mg Sodium Chloride (0.9 % Sodium Chloride Flush 3 Ml Syringe) 3 ml IVFLUSH QSHIFT [facility] Last Admin: 05/01/24 16:14 Dose: 3 ml Tramadol HCl (Tramadol Hcl 50 Mg Tablet) 25 mg PO Q6H PRN PRN Reason: Pain, Severe (Pain Scale 7-10) Last Admin: 05/01/24 09:39 Dose: 25 mg Trazodone HCl (Trazodone Hcl 50 Mg Tablet) 50 mg PO BEDTIME PRN PRN Reason: Insomnia Last Admin: 04/30/24 19:54 Dose: 50 mg Allergies Allergies Allergy/AdvReac Type Severity Reaction Status Date / Time No Known Allergies Allergy Verified 04/05/24 18:41 Assessment & Plan Assessment & Plan (1) Schizophrenia, acute undifferentiated: Status: Acute Code(s): F20.3 - Undifferentiated schizophrenia (2) Opioid use disorder: Status: Acute Code(s): F11.90 - Opioid use, unspecified, uncomplicated (3) Left leg cellulitis: Status: Acute Code(s): L03.116 - Cellulitis of left lower limb (4) HIV (human immunodeficiency virus infection): Status: Acute Code(s): Z21 - Asymptomatic human immunodeficiency virus [HIV] infection status (5) Left cuboid fracture: Status: Acute Code(s): S92.212A - Displaced fracture of cuboid bone of left foot, initial encounter for closed fracture Plan Plant Technical Specialist met with patient. She is pleasant and cooperative. Patient remains delusional. She thinks she owns 2 houses and gave 2 different addresses, 1 which is her actual residence in [facility] where she rents a room/apartment; the other house does not seem to exist here in [place] though patient insists that she owns a million dollar house all to herself. Patient remains delusional thinking that she is part of a reality show game called [employer] which is on hold right now since she is in the hospital. Patient does not remember disorganized behavior that ended up in this psychiatric hospitalization. Patient tells policy writer that she and her (explored) are working on getting reconciled; however he reports he has not talked to her about 8-9 months At baseline, patient is ex-boyfriend and his mother report that she quite organized, go shopping for herself, pays bills and without expressing delusional thinking. Impression: Patient remains delusional. If discharged today, she would remain unable to take care of herself in the community. She does not have any money to get herself transport her to any location and she may very well try to go to this imagined million dollar house in [place], which does not exist and would leave her again stranded in the community by herself disorganized. Plant Technical Specialist discussed concerns about her safety and taking care of herself in the community however these concerns did not make sense to patient Total time managing care of this patient today ____ minutes. Patient educated on: diagnosis and medical condition Informed Consent: does not understand
[2024-05-01 19:08] VITALS: BP 129/76; PULSE 109; RESP 16; TEMP 36.9; O2SAT 96
[2024-05-01] MEDS: Acetaminophen 325 MG TABLET 975 MG PO (19:19)
[2024-05-01 19:43] LABS: Vancomycin Random 9.3 mcg/mL (15-20)
[2024-05-01] MEDS: OLANZapine ODT 10 MG TAB.RAPDIS TRANSLINGU (20:39)
[2024-05-01] MEDS: traZODone HCL 50 MG TABLET PO (20:39)
[2024-05-01] MEDS: vancomycin HCL 1,000 MG, vancomycin HCL 750 MG in 0.9 % Sodium Chloride 500 ML 267.5 MG IV (21:54)
[2024-05-01] MEDS: Baclofen 10 MG TABLET PO (22:07)
--- NOTE | 2024-05-01 22:38 | PC.NURSE ---
Received call from [place] [employer], pt keeps calling 911 and stating Lisa Fonseca are in the building and threatening her. I explained to them that she has an extensive psych history and she is not in the right state of mind at this time. When I went into the room she told me that the [place] police department was here and threatening her and they were going to take her away. I removed the phone from the pt's room at this time. Telesitter in room and 1:1 sitter also. Will continue to monitor.
[2024-05-01 23:18] VITALS: BP 139/80; PULSE 111; RESP 16; TEMP 36.3; O2SAT 99
[2024-05-02] MEDS: 0.9 % Sodium Chloride Flush 3 ML SYRINGE IVFLUSH ×5 (00:26→22:21)
[2024-05-02] MEDS: Acetaminophen 325 MG TABLET 975 MG PO ×3 (02:54→16:01)
[2024-05-02 03:17] VITALS: BP 121/76; PULSE 93; RESP 16; TEMP 36.1; O2SAT 98
[2024-05-02] MEDS: Piperacillin Sodium/Tazobactam 3.375 GM in 0.9 % Sodium Chloride 50 ML IV ×4 (03:20→22:20)
[2024-05-02 06:27] LABS: Creatinine Clr Calc Pharmacy 96.1; Estimated Glomerular Filt Rate > 60
--- NOTE | 2024-05-02 07:00 | CA_ITS ---
Transthoracic Echocardiogram Patient (Last, First, Middle): María Harmon, Gender: Female Date of : 1980 Age: 44 Procedure Date: 05/02/2024 Procedure Type: Transthoracic Echocardiogram Location: S3E Height: 165.1 cm Weight: 79.38 kg BSA: 1.87 m2 Heart Rate: 86 bpm BP: 119 / 71 mmHg Director Design: SB Referring MD: Taz Mccurdy MD Symptoms: Tachycardia Study Quality: Adequate ECG Rhythm: Sinus Conclusions: - The left ventricular systolic function is normal. The calculated ejection fraction is 65% by biplane method. - No obvious valvular pathology seen on this study. Findings Left Ventricle Normal left ventricular cavity size. The left ventricular systolic function is normal. The calculated ejection fraction is 65% by biplane method. There is no evidence of regional wall motion abnormalities. Diastolic function is normal for age. There is mild septal asymmetric hypertrophy. Right Ventricle Normal right ventricular cavity size and systolic function. Atria Both atria are normal in size. Aortic Valve There is a normal trileaflet aortic valve. There is no aortic valve stenosis. There is no aortic valve regurgitation. Mitral Valve The mitral valve appears normal. There is trace mitral valve regurgitation. There is no mitral valve stenosis. Pulmonic Valve The pulmonic valve is likely normal. Tricuspid Valve There is trace tricuspid valve regurgitation. There is no evidence of pulmonary hypertension. Great Vessels The asc aorta is normal in size. Venous The inferior vena cava is normal in size and collapses less than 50% with inspiration. Pericardium/Pleural There is no evidence of pericardial effusion. Prior Study Comparison No prior study available for comparison. Recommendations, Care & Conclusions No obvious valvular pathology seen on this study. Measurements 2D Linear Measurements IVSd: 1.23 0.6-0.9/0.6-1.0 cm LVIDd: 5.29 3.9-5.3/4.2-5.9 cm LVIDd Index: 2.83 2.4-3.2/2.2-3.1 cm/m2 LVIDs: 3.18 2.0-3.6 cm LVPWd: 0.83 0.7-1.1 cm LA Diam: 3.50 2.7-3.8/3.0-4.0 cm LAIDs Index: 1.87 1.5-2.3 cm/m2 LV Mass: 258.15 67-162/88-224 g LV Mass Index: 138.05 43-95/49-115 g/m2 LVOT Diam: 2.30 3.0+(-)1.3 cm 2D Systolic Function EF 4C: 67.60 >55% EF 2C: 63.20 >55% EF BiP: 65.30 >55% Mitral Valve MV Pk E: 1.02 MV PK A: 0.92 MV Decel Time: 176.00 E/A: 1.10 E'Lateral: 9.68 E'Medial: 6.31 E/E' Med: 16.20 E/E' Lat: 10.50 PHT: 51.00 MVA PHT: 4.31 Decel Cross: 5.78 Aortic Valve AoV Pk Kyree: 1.30 AoV Pk Grad: 7.00 SHAHIDA: 3.57 LVOT LVOT Pk Kyree: 1.16 LVOT Mn Kyree: 0.77 LVOT VTI: 0.23 LVOT Pk Grad: 5.00 LVOT Mn Grad: 3.00 LVOT Diam: 2.30 LVOT Area: 4.15 Diastolic Function MV Pk E: 1.02 MV Pk A: 0.92 E/A: 1.10 E'Medial: 6.31 E/E' Med: 16.20 E' Laterial: 9.68 E/E' Lat: 10.50 Right Ventricle TAPSE (mm): 27.20 TVS' Kyree: 15.10 Tricuspid Valve TR Pk Kyree: 2.23 TR Pk Grad: 20.00 RA Press: 8.00 RVSP: 28.00 Great Vessels Aorta Sinus of Valsalva: 3.10 2.0-3.5 cm Ao Asc: 2.50 2.1-3.4 cm Pulmonary Veins Pulm Vein S/D 1.30 Pulmonary Valve PV Pk Kyree: 1.28 Peak PV Grad: 7.00 Updated in Other Vendor System with Status of Final Jay Jay Alvarado MD electronically signed on 05/02/2024 11:41:59 AM with status of Final
[2024-05-02] MEDS: Enoxaparin Sodium 40 MG/0.4 ML SYRINGE SUBCUT (09:15)
[2024-05-02] MEDS: Lactulose 20 GM/30 ML SOLUTION 10 GM PO (09:15)
[2024-05-02] MEDS: Nicotine 14 MG PATCH.TD24 TRANSDERMA (09:16)
[2024-05-02] MEDS: rifAXIMin 550 MG TABLET PO ×2 (09:16→22:13)
[2024-05-02] MEDS: Bictegrav/Emtricit/Tenofov Ala TABLET 1 TAB PO (09:16)
[2024-05-02] MEDS: Diclofenac Sodium Delayed Rel 50 MG TABLET.DR PO ×2 (09:16→15:57)
[2024-05-02] MEDS: methADONE HCl 20 MG/2 ML ORAL.CONC 45 MG PO (09:17)
[2024-05-02] MEDS: Ferrous Sulfate 324 MG TABLET.DR PO ×2 (09:17→15:57)
[2024-05-02] MEDS: ARIPiprazole 10 MG TABLET PO (09:17)
--- NOTE | 2024-05-02 09:17 | P.PNIM_ITS ---
Subjective Subjective Date of Service: 05/02/24 Interval History: no new complaints Physical Exam 2 Vital Signs: Vital Signs: Last Vital Signs Temp 97.0 F 05/02/24 03:17 Pulse 93 05/02/24 03:17 Resp 16 05/02/24 03:17 BP 121/76 05/02/24 03:17 Pulse Ox 98 05/02/24 03:17 O2 Del Method Room Air 05/02/24 03:17 BMI result Body Mass Index 29.2 Const: General: cooperative HEENT: Head: Yes normal to inspection Face and sinus: Yes normal facial exam Mouth: Normal oral and palatal mucosa present Teeth and gingiva: d entition normal Eyes: General: appearance normal, both eyes and all related structures P upils: Equal, round and reactive pupils present Resp: Effort & Inspection: normal respiratory effort Cardio: Rate: regular rate Rhythm: regular rhythm GI: Palpation (GI): Soft to palpation and nontender : General: Yes no CVA tenderness Back/Spine/Pelvis: Back: no CVA tenderness Skin: General skin exam: no rashes or lesions noted Neuro: General: moves all extremities Cranial nerves: Yes Equal, round and reactive pupils present Extrem: Other: some discomfort lifting leg there is jay wrap on leg and ankle plus 3 swelling Psych: Appearance: grossly normal Objective Data Active Medications Acetaminophen (Acetaminophen 325 Mg Tablet) 975 mg PO Q6H PRN PRN Reason: Pain, Mild (Pain Scale 1-3), fever or headache Last Admin: 04/28/24 18:17 Dose: 975 mg Documented By: ROMELIA Acetaminophen (Acetaminophen 325 Mg Tablet) 975 mg PO Q6H PRN PRN Reason: pain (pain scale 1-10) Last Admin: 05/02/24 02:54 Dose: 975 mg Documented By: LARS Al Hydroxide/Mg Hydroxide (Magnesium Hydrox/Alum Hydrox 30 Ml Oral.Susp) 30 ml PO Q6H PRN PRN Reason: heartburn/gas Aripiprazole (Aripiprazole 10 Mg Tablet) 10 mg PO DAILY [facility] Last Admin: 05/01/24 08:12 Dose: 10 mg Documented By: ASIF Baclofen (Baclofen 10 Mg Tablet) 10 mg PO TID PRN PRN Reason: back/muscle spasm Last Admin: 05/01/24 22:07 Dose: 10 mg Documented By: LARS Bictegravir/Emtricitabine/Tenofovir (Bictegrav/Emtricit/Tenofov Ala Tablet) 1 tab PO DAILY [facility] Last Admin: 05/01/24 08:13 Dose: 1 tab Documented By: ASIF Diclofenac Sodium (Diclofenac Sodium Delayed Rel 50 Mg Tablet.) 50 mg PO BIDWM [facility] Last Admin: 05/01/24 16:14 Dose: 50 mg Documented By: MOI Enoxaparin Sodium (Enoxaparin Sodium 40 Mg/0.4 Ml Syringe) 40 mg SUBCUT Q24H [facility] Last Admin: 05/01/24 08:09 Dose: 40 mg Documented By: ASIF Ferrous Sulfate (Ferrous Sulfate 324 Mg Tablet.) 324 mg PO BIDWM [facility] Last Admin: 05/01/24 16:14 Dose: 324 mg Documented By: MOI Gabapentin (Gabapentin 300 Mg Capsule) 300 mg PO TID [facility] Last Admin: 04/28/24 11:59 Dose: Not Given Documented By: ROMELIA Non-Admin Reason: Patient Refused Hydroxyzine HCl (Hydroxyzine Hcl 25 Mg Tablet) 25 mg PO Q6H PRN PRN Reason: Anxiety Last Admin: 05/01/24 19:19 Dose: 25 mg Documented By: LARS Piperacillin Sod/Tazobactam (Sod 3.375 gm/ Sodium Chloride) 50 mls @ 100 mls/hr IV Q6H [facility] Last Infusion: 05/02/24 03:50 Dose: Infused Documented By: LARS Vancomycin HCl 1,000 mg/Vancomycin HCl 750 mg/ Sodium Chloride 535 mls @ 267.5 mls/hr IV Q24H [facility] Last Infusion: 05/01/24 23:55 Dose: Infused Documented By: LARS Lactulose (Lactulose 20 Gm/30 Ml Solution) 10 gm PO DAILY [facility] Last Admin: 05/01/24 08:11 Dose: 10 gm Documented By: ASIF Lidocaine (Lidocaine 4 % Patch Adh..Patch) 2 patch TRANSDERMA DAILY [facility]; Protocol Last Admin: 05/01/24 08:07 Dose: 2 patch Documented By: ASIF Lorazepam (Lorazepam 0.5 Mg Tablet) 0.5 mg PO BID@1200,2100 [facility] Last Admin: 04/28/24 12:19 Dose: 0.5 mg Documented By: ROMELIA Magnesium Hydroxide (Milk Of Magnesia 30 Ml Oral.Susp) 30 ml PO DAILY PRN PRN Reason: Constipation Melatonin (Melatonin 3 Mg Tablet) 6 mg PO BEDTIME PRN PRN Reason: Insomnia Methadone HCl (Methadone Hcl 20 Mg/2 Ml Oral.Conc) 45 mg PO DAILY@0800 [facility] Last Admin: 05/01/24 08:23 Dose: 45 mg Documented By: ASIF Co-signed By: ONEYDA Nicotine (Nicotine 14 Mg Patch.Td24) 14 mg TRANSDERMA DAILY [facility] Last Admin: 05/01/24 08:10 Dose: 14 mg Documented By: ASIF Nicotine Polacrilex (Nicotine Polacrilex 2 Mg Gum) 4 mg BUCCAL Q2H PRN PRN Reason: Nicotine Cravings Olanzapine (Olanzapine 5 Mg Tablet) 5 mg PO Q4H PRN PRN Reason: psychosis,agitation Olanzapine (Olanzapine Odt 10 Mg Tab.Rapdis) 10 mg TRANSLINGU BEDTIME [facility] Last Admin: 05/01/24 20:39 Dose: 10 mg Documented By: LARS Olanzapine (Olanzapine 10 Mg Vial) 10 mg IM ONCE PRN PRN Reason: anxiety/restlessness Ondansetron HCl (Ondansetron Odt 4 Mg Tab.Rapdis) 4 mg TRANSLINGU Q6H PRN PRN Reason: Nausea And Vomiting Pharmacy Consult (Consult Rx Vancomycin Dosing) 1 each MISCELLANE DAILY PRN PRN Reason: Consult order Rifaximin (Rifaximin 550 Mg Tablet) 550 mg PO Q12H [facility] Last Admin: 05/01/24 20:39 Dose: 550 mg Documented By: LARS Sodium Chloride (0.9 % Sodium Chloride Flush 3 Ml Syringe) 3 ml IVFLUSH QSHIFT [facility] Last Admin: 05/02/24 00:26 Dose: 3 ml Documented By: LARS Tramadol HCl (Tramadol Hcl 50 Mg Tablet) 25 mg PO Q6H PRN PRN Reason: Pain, Severe (Pain Scale 7-10) Last Admin: 05/01/24 09:39 Dose: 25 mg Documented By: ASIF Trazodone HCl (Trazodone Hcl 50 Mg Tablet) 50 mg PO BEDTIME PRN PRN Reason: Insomnia Last Admin: 05/01/24 20:39 Dose: 50 mg Documented By: LARS Labs 05/01/24 06:05 05/02/24 05:47 Labs: Laboratory Results - last 24 hr 05/01/24 05/02/24 19:07 05:47 Estim Creat Clear Calc 96.1 Estimated GFR > 60 Random Vancomycin 9.3 L Microbiology Microbiology Results: Microbiology 04/29/24 20:27 Blood Culture - Preliminary Blood - Venous No growth after 48 hours. 04/29/24 20:27 Blood Culture - Preliminary Blood - Venous No growth after 48 hours. Assessment and Plan (1) Left cuboid fracture: Status: Acute (2) Left leg cellulitis: Status: Acute Plan 44F PMH schizophrenia, opiate dependence, unspecified cirrhosis, HIV readmitted from inpatient psychiatry for concern of recurrence of LLE cellulitis cellulitis to the left lower extremity associated with infected wounds. s/p course of Augmentin and doxycycline now on vancomycin and Zosyn ID appreciated, continue IV antibiotics until 05/02/24 and then discontinue (last day today) blood cultures negative Left lower extremity CT scan showed edema with no abscess or deep infection venous ultrasound negative for DVT. Wound care following Increase sedation Psych input appreciated, holding gabapentin and ativan, lower zyprexa to 10mg and DC prazosin. Improved Avulsion fx medial cuboid ortho consulted, recommended boot weight bearing as tolerated and outpt f/u Acute Lactic acidosis resolved Hyperkalemia resolved HIV. Continue Biktarvy. Mood disorder/schizophrenia. Continue prazosin, olanzapine, Depakote and Abilify. unspecified Cirrhosis Continue rifaximin and lactulose. DVT prophylaxis: Lovenox Code status: Full reason for continued hospitalization:iv abx for recurrent cellulitis/purulent ulcer Quality Stroke Does the patient have a stroke diagnosis?: No VTE Prior VTE?: No VTE Risk Level:: Medical - moderate - high VTE Device Contraindication: Treatment Not Indicated VTE Drug Contraindication: N/A - Med Ordered
[2024-05-02] MEDS: Baclofen 10 MG TABLET PO ×2 (09:35→16:01)
[2024-05-02 09:53] VITALS: BP 140/92; PULSE 91; RESP 16; TEMP 36.6; O2SAT 99
[2024-05-02] MEDS: Lidocaine 4 % Patch ADH..PATCH 2 PATCH TRANSDERMA (10:23)
--- NOTE | 2024-05-02 10:58 | MHC.CM.PN ---
THIS LOOM STOP CHECKER MET WITH PATIENT TO INTRODUCE AND EXPLAIN THE ROLE OF CASE MANAGEMENT. NAME WRITTEN ON WHITE BOARD. PATIENT DENIES ANY QUESTIONS AT THIS TIME. PATIENT MADE AWARE THAT SHE CAN ASK FOR CM AT ANYTIME DURING HER STAY.
[2024-05-02 16:01] VITALS: BP 121/73; PULSE 104; RESP 18; TEMP 37; O2SAT 97
[2024-05-02 19:02] VITALS: BP 124/64; PULSE 84; RESP 18; TEMP 36.4; O2SAT 97
[2024-05-02 19:33] LABS: Vancomycin Random 9.4 mcg/mL (15-20)
--- NOTE | 2024-05-02 19:44 | HE.PHANOTE ---
ZEFERINO Changed dose to 1250mg Q12H once again due to subtherapeutic trough for 4 days in a row. Patient's renal function has improved over the last couple of days. Predicted trough 15.9, AUC 538. Next trough to be drawn 05/03 @1800.
[2024-05-02] MEDS: vancomycin HCL 1,250 MG in 0.9 % Sodium Chloride 250 ML 166.67 MG IV (20:47)
[2024-05-02] MEDS: OLANZapine ODT 10 MG TAB.RAPDIS TRANSLINGU (22:13)
[2024-05-02 23:49] VITALS: BP 143/79; PULSE 74; RESP 18; TEMP 36.8; O2SAT 100
[2024-05-03 03:43] VITALS: BP 138/72; PULSE 100; RESP 18; TEMP 36.4; O2SAT 99
[2024-05-03] MEDS: Piperacillin Sodium/Tazobactam 3.375 GM in 0.9 % Sodium Chloride 50 ML IV (03:54)
[2024-05-03 06:32] LABS: Creatinine Clr Calc Pharmacy 94.9; Estimated Glomerular Filt Rate > 60
[2024-05-03 07:00] VITALS: BP 126/71; PULSE 87; RESP 16; TEMP 36.1; O2SAT 99
[2024-05-03] MEDS: methADONE HCl 20 MG/2 ML ORAL.CONC 45 MG PO (07:28)
[2024-05-03] MEDS: Diclofenac Sodium Delayed Rel 50 MG TABLET.DR PO (07:30)
[2024-05-03] MEDS: ARIPiprazole 10 MG TABLET PO (07:30)
[2024-05-03] MEDS: Bictegrav/Emtricit/Tenofov Ala TABLET 1 TAB PO (07:30)
[2024-05-03] MEDS: Lactulose 20 GM/30 ML SOLUTION 10 GM PO (07:32)
[2024-05-03] MEDS: Nicotine 14 MG PATCH.TD24 TRANSDERMA (07:33)
[2024-05-03] MEDS: Lidocaine 4 % Patch ADH..PATCH 2 PATCH TRANSDERMA (07:35)
[2024-05-03] MEDS: vancomycin HCL 1,250 MG in 0.9 % Sodium Chloride 250 ML 166.67 MG IV (07:38)
[2024-05-03] MEDS: 0.9 % Sodium Chloride Flush 3 ML SYRINGE IVFLUSH (07:40)
[2024-05-03] MEDS: Enoxaparin Sodium 40 MG/0.4 ML SYRINGE SUBCUT (07:40)
--- NOTE | 2024-05-03 08:41 | HO.PM.IMPN ---
Subjective Subjective Date of Service: 05/03/24 Interval History: no new complaints Physical Exam Vital Signs: Vital Signs: Last Vital Signs Temp 96.9 F 05/03/24 07:00 Pulse 87 05/03/24 07:00 Resp 16 05/03/24 07:00 BP 126/71 05/03/24 07:00 Pulse Ox 99 05/03/24 07:00 O2 Del Method Room Air 05/03/24 07:00 BMI result Body Mass Index 29.2 Const: General: cooperative HEENT: Head: Yes normal to inspection Face and sinus: Yes normal facial exam Mouth: Normal oral and palatal mucosa present Teeth and gingiva: dentition normal Eyes: General: appearance normal, both eyes and all related structures Pupils: Equal, round and reactive pupils present Resp: Effort & Inspection: normal respiratory effort Cardio: Rate: regular rate Rhythm: regular rhythm GI: Palpation (GI): Soft to palpation and nontender : General: Yes no CVA tenderness Back/Spine/Pelvis: Back: no CVA tenderness Skin: General skin exam: no rashes or lesions noted Neuro: General: moves all extremities Cranial nerves: Yes Equal, round and reactive pupils present Extrem: Other: some discomfort lifting leg there is tarun wrap on leg and ankle plus 3 swelling Psych: Appearance: grossly normal Objective Data Active Medications Acetaminophen (Acetaminophen 325 Mg Tablet) 975 mg PO Q6H PRN PRN Reason: Pain, Mild (Pain Scale 1-3), fever or headache Last Admin: 05/02/24 16:01 Dose: 975 mg Documented By: ABE Al Hydroxide/Mg Hydroxide (Magnesium Hydrox/Alum Hydrox 30 Ml Oral.Susp) 30 ml PO Q6H PRN PRN Reason: heartburn/gas Aripiprazole (Aripiprazole 10 Mg Tablet) 10 mg PO DAILY [facility] Last Admin: 05/03/24 07:30 Dose: 10 mg Documented By: ASIF Baclofen (Baclofen 10 Mg Tablet) 10 mg PO TID PRN PRN Reason: back/muscle spasm Last Admin: 05/02/24 16:01 Dose: 10 mg Documented By: ABE Bictegravir/Emtricitabine/Tenofovir (Bictegrav/Emtricit/Tenofov Ala Tablet) 1 tab PO DAILY [facility] Last Admin: 05/03/24 07:30 Dose: 1 tab Documented By: ASIF Diclofenac Sodium (Diclofenac Sodium Delayed Rel 50 Mg Tablet.) 50 mg PO BIDWM [facility] Last Admin: 05/03/24 07:30 Dose: 50 mg Documented By: ASIF Enoxaparin Sodium (Enoxaparin Sodium 40 Mg/0.4 Ml Syringe) 40 mg SUBCUT Q24H [facility] Last Admin: 05/03/24 07:40 Dose: 40 mg Documented By: ASIF Ferrous Sulfate (Ferrous Sulfate 324 Mg Tablet.) 324 mg PO BIDWM [facility] Last Admin: 05/03/24 07:32 Dose: Not Given Documented By: ASIF Non-Admin Reason: Patient Refused Gabapentin (Gabapentin 300 Mg Capsule) 300 mg PO TID [facility] Last Admin: 04/28/24 11:59 Dose: Not Given Documented By: ROMELIA Non-Admin Reason: Patient Refused Hydroxyzine HCl (Hydroxyzine Hcl 25 Mg Tablet) 25 mg PO Q6H PRN PRN Reason: Anxiety Last Admin: 05/01/24 19:19 Dose: 25 mg Documented By: LARS Lactulose (Lactulose 20 Gm/30 Ml Solution) 10 gm PO DAILY [facility] Last Admin: 05/03/24 07:32 Dose: 10 gm Documented By: ASIF Lidocaine (Lidocaine 4 % Patch Adh..Patch) 2 patch TRANSDERMA DAILY [facility]; Protocol Last Admin: 05/03/24 07:35 Dose: 2 patch Documented By: ASIF Lorazepam (Lorazepam 0.5 Mg Tablet) 0.5 mg PO BID@1200,2100 [facility] Last Admin: 04/28/24 12:19 Dose: 0.5 mg Documented By: ROMELIA Magnesium Hydroxide (Milk Of Magnesia 30 Ml Oral.Susp) 30 ml PO DAILY PRN PRN Reason: Constipation Melatonin (Melatonin 3 Mg Tablet) 6 mg PO BEDTIME PRN PRN Reason: Insomnia Methadone HCl (Methadone Hcl 20 Mg/2 Ml Oral.Conc) 45 mg PO DAILY@0800 [facility] Last Admin: 05/03/24 07:28 Dose: 45 mg Documented By: ASIF Co-signed By: ONEYDA Nicotine (Nicotine 14 Mg Patch.Td24) 14 mg TRANSDERMA DAILY [facility] Last Admin: 05/03/24 07:33 Dose: 14 mg Documented By: ASIF Nicotine Polacrilex (Nicotine Polacrilex 2 Mg Gum) 4 mg BUCCAL Q2H PRN PRN Reason: Nicotine Cravings Olanzapine (Olanzapine 5 Mg Tablet) 5 mg PO Q4H PRN PRN Reason: psychosis,agitation Olanzapine (Olanzapine Odt 10 Mg Tab.Rapdis) 10 mg TRANSLINGU BEDTIME [facility] Last Admin: 05/02/24 22:13 Dose: 10 mg Documented By: REAL Olanzapine (Olanzapine 10 Mg Vial) 10 mg IM ONCE PRN PRN Reason: anxiety/restlessness Ondansetron HCl (Ondansetron Odt 4 Mg Tab.Rapdis) 4 mg TRANSLINGU Q6H PRN PRN Reason: Nausea And Vomiting Rifaximin (Rifaximin 550 Mg Tablet) 550 mg PO Q12H [facility] Last Admin: 05/02/24 22:13 Dose: 550 mg Documented By: REAL Sodium Chloride (0.9 % Sodium Chloride Flush 3 Ml Syringe) 3 ml IVFLUSH QSHIFT [facility] Last Admin: 05/03/24 07:40 Dose: 3 ml Documented By: ASIF Tramadol HCl (Tramadol Hcl 50 Mg Tablet) 25 mg PO Q6H PRN PRN Reason: Pain, Severe (Pain Scale 7-10) Last Admin: 05/01/24 09:39 Dose: 25 mg Documented By: ASIF Trazodone HCl (Trazodone Hcl 50 Mg Tablet) 50 mg PO BEDTIME PRN PRN Reason: Insomnia Last Admin: 05/01/24 20:39 Dose: 50 mg Documented By: LARS Labs 05/01/24 06:05 05/03/24 05:56 Labs: Laboratory Results - last 24 hr 05/02/24 05/03/24 18:56 05:56 Hold Purple Top SEE NOTE Estim Creat Clear Calc 94.9 Estimated GFR > 60 Random Vancomycin 9.4 L Assessment and Plan (1) Left cuboid fracture: Status: Acute (2) Left leg cellulitis: Status: Acute Plan 44F PMH schizophrenia, opiate dependence, unspecified cirrhosis, HIV readmitted from inpatient psychiatry for concern of recurrence of LLE cellulitis cellulitis to the left lower extremity associated with infected wounds. s/p course of Augmentin and doxycycline followed by course of vancomycin and Zosyn ID appreciated, competed abx 12/19/24 and then discontinued blood cultures negative Left lower extremity CT scan showed edema with no abscess or deep infection venous ultrasound negative for DVT. Wound care following - Left Leg - Elevate lower Leg on pillows throughout the day. Remove boot when in bed. Cleanse with NS, pat dry. Apply skin prep to periwound around open wound. Apply Durafiber to open wounds, cover with foam dressing. Complete with Tarun wrap. Change every other day while inpatient. now medically cleared will request care team eval Increase sedation Psych input appreciated, holding gabapentin and ativan, lower zyprexa to 10mg and DC prazosin. Improved Avulsion fx medial cuboid ortho consulted, recommended boot weight bearing as tolerated and outpt f/u Acute Lactic acidosis resolved Hyperkalemia resolved HIV. Continue Biktarvy. Mood disorder/schizophrenia. Continue prazosin, olanzapine, Depakote and Abilify. unspecified Cirrhosis Continue rifaximin and lactulose. DVT prophylaxis: Lovenox Code status: Full reason for continued hospitalization:care team eval Quality Stroke Does the patient have a stroke diagnosis?: No VTE Prior VTE?: No VTE Risk Level:: Medical - moderate - high VTE Device Contraindication: Treatment Not Indicated VTE Drug Contraindication: N/A - Med Ordered
[2024-05-03] MEDS: rifAXIMin 550 MG TABLET PO (09:48)
[2024-05-03] MEDS: Magnesium Hydrox/Alum Hydrox 30 ML ORAL.SUSP PO (09:52)
[2024-05-03] MEDS: Acetaminophen 325 MG TABLET 975 MG PO (09:52)
[2024-05-03] MEDS: Baclofen 10 MG TABLET PO (09:52)
[2024-05-03 11:59] VITALS: BP 129/76; PULSE 106; RESP 16; TEMP 37; O2SAT 97
--- NOTE | 2024-05-03 12:59 | MHC.CM.PN ---
EMR REVIEWED AND PER MD ROUNDS, PT WILL RETURN TO I/P PSYCH ON DC FROM MEDICAL FLOOR.
--- NOTE | 2024-05-03 14:17 | P.DS_ITS ---
DS: Providers Provider Date of Service: 05/03/24 Date of admission: 04/28/24 03:40 Date of discharge: 05/03/24 Primary care physician: Unknown Physician Consults: 04/28/24 07:00 Consult to Psychiatry Routine Consulting Provider: [facility] Psych Covering Reason for consultation: Schizophrenia Has provider been notified: No 04/28/24 07:07 Consult to Orthopedics Routine Consulting Provider: [facility] Orthopedic Surgeons Reason for consultation: persistant swelling in LLE , fracture 04/28/24 09:26 Consult to Wound Care Routine Reason for consultation: left LE wound (cellulitis ) 04/30/24 07:29 Consult to Infectious Diseases Routine Consulting Provider: [facility] Infect[facility] Reason for consultation: recurrent cellulitis? 04/30/24 20:26 Addiction Medicine Routine Consulting Provider: Addiction Covering Reason for consultation: hx substance,etoh, tobacco use 05/03/24 08:41 Consult to Care Team Routine Comment: Reason for consultation: medically cleared, came from inpatient psych DS: Diagnosis Discharge Diagnosis (1) Left cuboid fracture: Status: Acute (2) Left leg cellulitis: Status: Acute DS: Summary Hospital Course Hospital Course: from initial hpi: 44 years old woman with past medical history significant for schizophrenia has been transferred from psychiatric to Med surg unit after her left lower extremity was noted to be more swollen and erythematous. Also a new open area was noted in the posterior aspect associated with spontaneous purulent discharge. At the beginning of this month the patient was admitted under of the hospitalist service due to sepsis secondary to left lower leg cellulitis. She has been noted to have persistent tachycardia. Blood pressure and temperature has been normal. Blood workup was remarkable for lactic acidosis. hospital course: Patient was admitted for recurrent cellulitis with left lower extremity associated with infected wounds. She had already completed course of Augmentin doxycycline. She was seen by infectious disease who recommended 5 days of vancomycin Zosyn and then discontinuing antibiotics. Blood cultures remained negative. Left lower extremity CT scan showed edema with no abscess or drainable pocket. Venous duplex was negative. Was seen by wound care recommended elevating lower leg on pillows throughout the day and remove boot while in bed, cleansing with normal saline and pat dry, apply skin prep to periwound around open area, applied to her fiber 2 open wounds and cover with foam dressing, complete with Tarun wrap and change every other day if possible. Was also seen by Orthopedics who recommended weight-bearing as tolerated in boot and outpatient follow up. Course was complicated by acute toxic metabolic encephalopathy likely due to medications, was seen by Psychiatry who recommended holding gabapentin and Ativan and loading Zyprexa 10 mg and discontinuing prazosin. Mental status improved to baseline. Patient had hyperkalemia which resolved. For HIV was continued on Biktarvy. For unspecified cirrhosis with history of hepatic encephalopathy was continued on rifaximin and lactulose. Patient is now medically stable be discharged back to inpatient psychiatry. Time Attestation Discharge Coordination Time (in mins): 37 Quality: Safe Use of Opioids Does Pt have an Active Cancer Diagnosis on the Problem List?: No Quality: Stroke Does the patient have a stroke diagnosis?: No Physical Exam Vital Signs: Vital Signs: Last Vital Signs Temp 98.6 F 05/03/24 11:59 Pulse 106 H 05/03/24 11:59 Resp 16 05/03/24 11:59 BP 129/76 05/03/24 11:59 Pulse Ox 97 05/03/24 11:59 O2 Del Method Room Air 05/03/24 11:59 BMI result Body Mass Index 29.2 Const: General: cooperative HEENT: Head: Yes normal to inspection Face and sinus: Yes normal facial exam Mouth: Normal oral and palatal mucosa present Teeth and gingiva: dentition normal Eyes: General: appearance normal, both eyes and all related structures Pupils: Equal, round and reactive pupils present Resp: Effort & Inspection: normal respiratory effort Cardio: Rate: regular rate Rhythm: regular rhythm GI: Palpation (GI): Soft to palpation and nontender : General: Yes no CVA tenderness Back/Spine/Pelvis: Back: no CVA tenderness Skin: General skin exam: no rashes or lesions noted Neuro: General: moves all extremities Cranial nerves: Yes Equal, round and reactive pupils present Extrem: Other: some discomfort lifting leg there is tarun wrap on leg and ankle plus 3 swelling Psych: Appearance: grossly normal DS: Data Data Completed and Pending Labs on day of discharge: Laboratory Results - last 24 hr 05/02/24 05/03/24 18:56 05:56 Hold Purple Top SEE NOTE Creatinine 0.78 Estim Creat Clear Calc 94.9 Estimated GFR > 60 Random Vancomycin 9.4 L Preliminary micro results at discharge 04/29/24 20:27 Blood Culture - Preliminary Blood - Venous No growth after 48 hours. 04/29/24 20:27 Blood Culture - Preliminary Blood - Venous No growth after 48 hours. Discharge Plan Discharge Anticipated Discharge Date/Time: 05/03/24 14:13 Patient Disposition: Xfer Other Discharge Diagnosis: cellulitis Referrals: Physician,Unknown J [Primary Care Provider] - 1 Week Discharge Medications: New olanzapine 10 mg Tablet,Disintegrating 10 mg translingual BEDTIME Qty: 0 0RF Continued ferrous sulfate 324 mg (65 mg iron) Tablet,Delayed Release (Dr/Ec) 324 mg PO BIDWM Qty: 60 0RF aripiprazole [Abilify] 10 mg Tablet 10 mg PO DAILY trazodone 50 mg Tablet 50 mg PO BEDTIME PRN (Reason: Insomnia) lorazepam 0.5 mg Tablet 0.5 mg PO BID@1200,2100 magnesium hydroxide [Milk of Magnesia] 400 mg/5 mL Suspension 30 ml PO DAILY PRN (Reason: Constipation) hydroxyzine HCl 25 mg Tablet 25 mg PO Q6H PRN (Reason: Anxiety) methadone [Methadone Intensol] 10 mg/mL Concentrate 45 mg PO DAILY@0800 alum-mag hydroxide-simeth 200-200-20 mg/5 mL Suspension 30 ml PO Q6H PRN (Reason: heartburn/gas) Rx Instructions: administer between meals and at bedtime rifaximin 550 mg Tablet 550 mg PO Q12H forzddauo-dmwsywvn-kyuojth ala 50-200-25 mg Tablet 1 tab PO DAILY acetaminophen 325 mg Tablet 975 mg PO Q6H PRN (Reason: pain (pain scale 1-10)) Qty: 0 0RF nicotine 14 mg/24 hr Patch 24 Hour 14 mg transdermal DAILY Qty: 0 0RF lidocaine [Lidocaine Pain Relief] 4 % Adhesive Patch,Medicated 2 patch transdermal DAILY Qty: 0 0RF Protocol: Apply to: Apply to: back nicotine (polacrilex) 2 mg Gum 4 mg buccal Q2H PRN (Reason: Nicotine Cravings) Qty: 0 0RF olanzapine 5 mg Tablet 5 mg PO Q4H PRN (Reason: psychosis,agitation) Qty: 0 0RF baclofen 10 mg Tablet 10 mg PO TID PRN (Reason: back/muscle spasm) Qty: 0 0RF diclofenac sodium 50 mg Tablet,Delayed Release (Dr/Ec) 50 mg PO BIDWM Qty: 0 0RF ondansetron 4 mg Tablet,Disintegrating 4 mg translingual Q6H PRN (Reason: Nausea And Vomiting) Qty: 0 0RF lactulose 20 gram/30 mL Solution 10 g PO DAILY Qty: 0 0RF Discontinued clindamycin HCl 150 mg Capsule 450 mg PO Q8H olanzapine 10 mg Tablet,Disintegrating 30 mg PO BEDTIME gabapentin 300 mg Capsule 300 mg PO TID prazosin 2 mg Capsule 2 mg PO BEDTIME tramadol 50 mg Tablet 25 mg PO Q6H PRN (Reason: Pain, Severe (Pain Scale 7-10)) Qty: 0 0RF Discharge Orders: Discharge Order (Routine); Ordered 05/03/24 Ordered By: Jay Peña Diet: Advance to usual diet Activity on Discharge: WBAT with boot Stand Alone Forms: Patient Portal Discharge page Print Language: Barbadian Care Plan Goals: recovery Health Concerns: Left medial cuboid fracture, ulcers Plan of Treatment: completed antibiotics, wound care: Elevate lower Leg on pillows throughout the day. Remove boot when in bed. Cleanse with NS, pat dry. Apply skin prep to periwound around open wound. Apply Durafiber to open wounds, cover with foam dressing. Complete with Tarun wrap. Change every other day while inpatient. Assessment: see above
== END 2024-05-03 15:38 | disposition other institution (70) | DRG 383 ==
LOC: HO.EDOVER 03:49 → HO.S3 04:29
PROVIDERS: Student in an Organized Health Care Education/Training Program; Admitting Provider Internal Medicine; Visit Provider Internal Medicine
DX: L03.116 Cellulitis of left lower limb (principal); E87.21 Acute metabolic acidosis; K74.60 Unspecified cirrhosis of liver; E87.5 Hyperkalemia; L97.829 Non-pressure chronic ulcer of other part of left lower leg with unspecified severity; F11.20 Opioid dependence, uncomplicated; R00.0 Tachycardia, unspecified; F20.3 Undifferentiated schizophrenia; S92.212A Displaced fracture of cuboid bone of left foot, initial encounter for closed fracture; X58.XXXA Exposure to other specified factors, initial encounter; Z21 Asymptomatic human immunodeficiency virus [HIV] infection status; Z59.02 Unsheltered homelessness; Z71.6 Tobacco abuse counseling; Z79.899 Other long term (current) drug therapy
CPT/HCPCS: 36415; 80048; 80053; 80076; 80202; 82565; 83605; 83735; 84443; 85025; 85027; 85652; 86140; 87040; 93306; 93971; J1650; J1940; J2543; J3370; J3371; J7120; P9047; Q9957

== ENCOUNTER → 2024-04-28 03:40 | Outpatient (BNV) | payer OTHER, SELFPAY | PROVIDERS: Admitting Provider Internal Medicine; Visit Provider Psychiatry & Neurology Psychiatry | DX: F20.3 Undifferentiated schizophrenia (principal); F11.90 Opioid use, unspecified, uncomplicated; L03.116 Cellulitis of left lower limb; Z21 Asymptomatic human immunodeficiency virus [HIV] infection status; S92.212A Displaced fracture of cuboid bone of left foot, initial encounter for closed fracture | CPT/HCPCS: 99232 ==

== ENCOUNTER → 2024-04-28 03:40 | Outpatient (BNV) | payer MEDICAID, SELFPAY | PROVIDERS: Admitting Provider Internal Medicine | DX: S92.212A Displaced fracture of cuboid bone of left foot, initial encounter for closed fracture (principal) | CPT/HCPCS: 99222 ==

== ENCOUNTER → 2024-04-28 03:40 | Outpatient (BNV) | payer MEDICAID, SELFPAY | PROVIDERS: Admitting Provider Internal Medicine; Visit Provider Internal Medicine | DX: S92.212A Displaced fracture of cuboid bone of left foot, initial encounter for closed fracture (principal); L03.116 Cellulitis of left lower limb | CPT/HCPCS: 99223; 99232; 99239; 99499 ==

== ENCOUNTER → 2024-04-28 03:40 | Outpatient (BNV) | payer MEDICAID, SELFPAY | PROVIDERS: Admitting Provider Internal Medicine; Visit Provider Internal Medicine | DX: L03.116 Cellulitis of left lower limb (principal); R60.0 Localized edema; F20.3 Undifferentiated schizophrenia; Z21 Asymptomatic human immunodeficiency virus [HIV] infection status | CPT/HCPCS: 99222 ==

== ENCOUNTER 2024-05-03 16:02 | Inpatient (IN) | payer OTHER, SELFPAY ==
--- OUTSIDE RECORDS SUMMARY | 2024-05-03 16:04 | XMS_ITS | Continuity of Care Document ---
Author Organization [employer] [facility] Address [address] [address] [place] [address] Phone Care Team Providers Care Billet Shearer Name Role Phone Mckenna Alicia GONCALVES Unavailable Unavailable Allergies, Adverse Reactions, [...] Copied on Encounter OFFICE/OUTPA TIENT VISIT, EST [facility], [address] [address], [place], [place], [id number], [place] tel:[phone] [facility] musculoskelet al pain (chief complaint) Fracture of right foot 0 Suresh Vargas. [address] [place] [address], [place] [address], [place], [id number] , [place]. tel:[phone] [facility], [address] [address], [place], [place], [id number], [place] tel:[phone] [facility] Nondependent alcohol abuse, continuous drinking behaviorOthe r, mixed, or unspecified drug abuse, unspecified useNondepend ent cocaine abuse 0 Suresh Alicia. [address] [facility], [id number], [place], [id number] , [place]. tel:[phone] OFFICE/OUTPA TIENT VISIT, [facility], [address] [address], [place], [place], [id number], [place] tel:[phone] [facility] musculoskelet al pain (chief complaint) Other and unspecified injury to shoulder and upper arm 0 Mckenna Alicia. [address] [facility], [id number], [place], [id number] , [place]. tel:[phone] [facility], [address] [address], [place], [place], [id number], [place] tel:[phone] [facility] No Information 0 Juliana Ochoa. [address] [place], [address], [place]. tel: [phone] OFFICE/OUTPA TIENT VISIT, [facility], [address] [address], [place], [id number], [place] tel:[phone] [facility] Wound Infection (chief complaint) Shoulder injuryFacial injury 0 Mckenna Alicia. [address] [place] [address], [id number], [place], [id number] , [place]. tel: [phone] Family History Family Member Type Diagnosis Age [...] ordered Referral Referred To: Sebastian Zafar MD [address] [place] [address] Rd
[address] [place], [phone] Ordered: Referral: Sebastian Zafar MD. Evaluate and treat. ordered Referral Ordered: Rodriguez Alcocer MD (related to Other and unspecified injury to shoulder and upper) ordered Referral Referred To: Rodriguez Alcocer MD [address] [place] [address]
[address] [place], [address] Ordered: Referral: Rodriguez Alcocer MD Evaluate and treat. ordered Referral Ordered: Sebastian Zafar MD (related to Shoulder injury) ordered Referral Referred To: Sebastian Zafar MD [address] [place] [address] Rd
[address] [place], [phone] Ordered: Referral: Sebastian Zafar MD. Ortho Surg. Evaluate and treat. ordered History Of Present Illness Encounter Date Complaint History Of Prese nt Illness No Information Functional Status Date Functional Assessmen t No Information Instructions Date Instruction Additional Infor mation No Information Assessments Type Assessment Date No Information Mental Status Date Cognitive Assessment Orientation - [place] ed to time, place, person, situation. Patient Care Teams Name Effective Dates (start - stop) Status Members No Information
[2024-05-03 16:44] VITALS: BP 128/73; PULSE 102; RESP 18; TEMP 37.2; O2SAT 100
--- NOTE | 2024-05-03 17:20 | P.HPPS_ITS ---
HPI Date of Service: 05/03/24 Chief Complaint: psych Sources of Information: patient interviewed, chart reviewed and crisis/core team assessment reviewed HPI Narrative: HPI: Patient is a 44-year-old woman with history of HIV, liver cirrhosis, anemia polysubstance abuse and recently psychotic symptoms (full history unknown) returns to following treatment on the medical floor for left leg cellulitis with IV antibiotics. Initially, patient 1st presented to the ED days after discharged from [facility] with continued bizarre, disorganized behavior and thoughts, delusional thinking that she is on a TV show called [employer]. Patient was saying she own million dollar homes, 1 of which she bought while she was at [facility]... Patient was disorganized in both speech and behavior, delusional, thinking staff was stealing 20,000,000 dollars, calling 911 from the unit to report the theft...Attempts at any collateral were unsuccessful. Patient continued with delusional and paranoid thinking, continuing to say saying she own million dollar homes which she bought the week prior while she was psychiatrically admitted at [facility]..., she continued to think she was despite negative test; reported to web content writer that she had a device implanted in her skin that informs her family of things... She remained on Abilify (which was increased) and low-dose Depakote but eventually was willing to start Zyprexa and taper down from Abilify; she wanted off Depakote which was discontinued. Pt found with medial cuboid avulsion fracture. Patient developed cellulitis of left lower leg, started on antibiotics but became septic and was transferred to the medical floor. Patient treated with antibiotics and medically cleared and returned back to the psychiatric for ongoing psychotic symptoms, maintained on her psychotropic medication regimen now on p.o. antibiotics. Back on she was talking more clearly however remained delusional. Patient was intermittently refusing p.o. antibiotics (and was found spitting medications into the trash), refusing to let staff look at her leg; she remained with paranoid delusions, talking about her the home she own, the reality TV show the killers, hearing what her friends were saying via a device implanted in her dot dot set a payroll and benefits coordinator was put into her vagina...harassing staff, following staff up and down the jones, demanding staff give her their money and also give her her own money... Told staff that there is [employer] in her ear. As she continued to intermittently refuse antibiotics, her cellulitis infection worsened and patient was sent back to the medical floor for IV antibiotics. She was cleared and now returns to on a Section 7. Patient remains wanting discharge. She wants to go to her house which she says either on [address], in [place]; she says it is a million dollar home, worth 1.5 million which she owns by herself. Home Improvement Contractor showed patient numerous Google searches for this home which could not be found. Home Improvement Contractor expressed significant concern where she be discharged, saying she will end up in [place], without any money, without any penitentiary, alone with a broken foot; she denies this whenever happened because she said she has a becker hit in where she can get into this house. Home Improvement Contractor reminded patient that earlier in her admission she told web content writer that she bought this million dollar home while she was on the inpatient unit at [facility]; she clarified that she has own this house for 10 years however she corrected web content writer saying that while she was at [facility], she bought [employer], thinking it was a good investment however then sold it to her friend Herlinda Barrios. Past Psychiatric History: Recent [facility] hospitalization Medical Evaluation Reviewed: Yes FOR[facility]LY [facility], [facility] Medical History (Updated 04/30/24 @ 15:13 by Elida Hadley MD) HIV (human immunodeficiency virus infection) Leg edema, left Family History: unknown patient not good historian at this time Social History: Ex-boyfriend and his mother with whom patient lived. Long hx of both opioid and alcohol abuse. They reports she had episodes with similar presentation...hard to move, latent speech, disorganized, unable to attend to ADL's, unable to do tasks, internally preoccupied...during one such episode pt w as admitted to ICU for a metabolic encephalopathy from toxic level of alcohol ingestion and was in a coma for 2 months.. -has son but it seems no contact Substance History: Long history of opioid abuse, alcohol abuse resulting in liver cirrhosis and metabolic encephalopathy Trauma History: unknown patient not good historian at this time Diagnostics Vital Signs (24Hr): Vital Signs - 24 hr 05/03/24 16:44 Temperature 99.0 F Pulse Rate 102 H Respiratory Rate 18 Blood Pressure 128/73 Pulse Oximetry 100 Oxygen Delivery Method Room Air Meds/Allergies Meds Home Medications ?Medication ?Instructions ?Recorded ?Confirmed ?Type bictegravir 50 mg-emtricitabine 1 tab PO DAILY 04/05/24 04/28/24 History 200 mg-tenofovir alafenam 25 mg tablet rifaximin 550 mg tablet 550 mg PO Q12H 04/05/24 04/28/24 History aluminum-mag hydroxide-simethicone 30 ml PO Q6H PRN heartburn/gas 04/28/24 04/28/24 History 200 mg-200 mg-20 mg/5 mL oral susp aripiprazole 10 mg tablet (Abilify) 10 mg PO DAILY 04/28/24 04/28/24 History hydroxyzine HCl 25 mg tablet 25 mg PO Q6H PRN Anxiety 04/28/24 04/28/24 History lorazepam 0.5 mg tablet 0.5 mg PO BID@1200,2100 04/28/24 04/28/24 History magnesium hydroxide 400 mg/5 mL 30 ml PO DAILY PRN Constipation 04/28/24 04/28/24 History oral suspension (Milk of Magnesia) methadone 10 mg/mL oral 45 mg PO DAILY@0800 04/28/24 04/28/24 History concentrate (Methadone Intensol) trazodone 50 mg tablet 50 mg PO BEDTIME PRN Insomnia 04/28/24 04/28/24 History Allergies Allergies Allergy/AdvReac Type Severity Reaction Status Date / Time No Known Allergies Allergy Verified 04/05/24 18:41 Mental Status Exam Mental Status Exam Narrative: Pt is alert and oriented; behavior is calm, cooperative, though also guarded; patient is not in distress; dressed in casual attire, hair in dreadlocks; mood is described as ok affect somewhat constricted; eye contact more appropriate; Speech remains with some latency; normal volume and prosody not pressured; some psychomotor retardation present; thought process mostly goal-directed, logical; Thought content remains with delusional ideations; no SI/HI express. Some internal preoccupation Patients insight and judgment impaired Assessment & Plan Assessment & Plan (1) Schizophrenia, acute undifferentiated: Status: Acute Code(s): F20.3 - Undifferentiated schizophrenia (2) Opioid use disorder: Status: Acute Code(s): F11.90 - Opioid use, unspecified, uncomplicated (3) Left leg cellulitis: Status: Acute Code(s): L03.116 - Cellulitis of left lower limb (4) HIV (human immunodeficiency virus infection): Status: Acute Code(s): Z21 - Asymptomatic human immunodeficiency virus [HIV] infection status (5) Left cuboid fracture: Status: Acute Code(s): S92.212A - Displaced fracture of cuboid bone of left foot, initial encounter for closed fracture Plan HPI: Patient is a 44-year-old woman with history of HIV, liver cirrhosis, anemia polysubstance abuse and recently psychotic symptoms (full history unknown) returns to following treatment on the medical floor for left leg cellulitis with IV antibiotics. Initially, patient 1st presented to the ED days after discharged from [facility] with continued bizarre, disorganized behavior and thoughts, delusional thinking that she is on a TV show called [employer]. Patient was saying she own million dollar homes, 1 of which she bought while she was at [facility]... Patient was disorganized in both speech and behavior, delusional , thinking staff was stealing 20,000,000 dollars, calling 911 from the unit to report the theft...Attempts at any collateral were unsuccessful. Patient continued with delusional and paranoid thinking, continuing to say saying she own million dollar homes which she bought the week prior while she was psychiatrically admitted at [facility]..., she continued to think she was despite negative test; reported to web content writer that she had a device implanted in her skin that informs her family of things... She remained on Abilify (which was increased) and low-dose Depakote but eventually was willing to start Zyprexa and taper down from Abilify; she wanted off Depakote which was discontinued. Pt found with medial cuboid avulsion fracture. Patient developed cellulitis of left lower leg, started on antibiotics but became septic and was transferred to the medical floor. Patient treated with antibiotics and medically cleared and returned back to the psychiatric for ongoing psychotic symptoms, maintained on her psychotropic medication regimen now on p.o. antibiotics. Back on M5 she was initially talking more clearly however remained delusional. Patient was intermittently refusing p.o. antibiotics (and was found spitting medications into the trash), refusing to let staff look at her leg; she remained with paranoid delusions, talking about her the home she own, the reality TV show the killers, hearing what her friends were saying via a device implanted in her dot dot set a payroll and benefits coordinator was put into her vagina...harassing staff, following staff up and down the jones, demanding staff give her their money and also give her her own money... Told staff that there is [employer] in her ear. Patient had catatonic symptoms and was briefly started on Ativan. She continued to inte rmittently refuse antibiotics and both this web content writer and nursing that she refused because was worried people were poisoning her. Her leg became swollen, cellulitis infection worsened and patient was sent back to the medical floor for IV antibiotics. She was cleared and now returns to on a Section 7. Back again on M5, Patient remains wanting discharge. She wants to go to her house which she says [address], in [place]; she says it is a million dollar home, worth 1.5 million which she owns by herself. She can not explain where she got the money for this given her long history of homelessness and collateral provided that the statements are untrue. Home Improvement Contractor showed patient numerous Google searches for this home which could not be found. Home Improvement Contractor expressed significant concern where she be discharged, saying she will end up in [place], without any money, without any penitentiary, alone with a broken foot; she denies this whenever happened because she said she has a becker hit in where she can get into this house. Home Improvement Contractor reminded patient that earlier in her admission she told web content writer that she bought this million dollar home while she was on the inpatient unit at [facility]; she clarified that she has own this house for 10 years however she corrected web content writer saying that while she was at [facility], she bought [employer], thinking it was a good investment however then sold it to her friend Herlinda Barrios. Formulation/clinical reasoning: History of HIV; not clear on adherence with antiretrovirals and this could be a possible contribution to confusion. SW able to get more hx from collateral from her Ex-boyfriend and his mother with whom patient lived. Long hx of both opioid and alcohol abuse. They reports she had episodes with similar presentation...hard to move, latent speech, disorganized, unable to attend to ADL's, unable to do tasks, internally preoccupied...during one such episode pt was admitted to ICU for a metabolic encephalopathy from toxic level of alcohol ingestion and was in a coma for 2 months.. -it remains unclear her history of psychotic illness and it is possible that she has had delusional thinking that was simply under the radar or obscured by long history of substance abuse and then for whatever reason it has become more pronounced at this time. IMPRESSION: Patient remains delusional, without any insight, and with delusional thinking, rendering her unable to take care of herself in the community (this was also the case when she was discharged from [facility] but picked up by police as she was just standing outside [facility] confused and disorganized;) Currently, Patient says she wants to leave the hospital and that she will taking over to her house in [place], which he says she owns herself and is a million dollar home. Patient is delusional and If discharged now, she will end up in somewhere on [facility] in [place], alone, without penitentiary, without money, with a broken foot, no support, vulnerable, at risk for exposure and predation and without the organizational skills to take care of herself. Will continue to pursue involuntary commitment Plan: Section 7 Q 15 minute checks Discussed case with hospitalist; patient has completed antibiotics; ortho consult says to wear both the boot and continue weight-bearing exercise as tolerated; can monitor H&H but it has remained stable Increase Zydis to 30 mg q.h.s.; had been lowered while on medical floor Will likely discontinue Abilify since plan was to taper off and use Zyprexa instead Continue methadone Continue Rifaximin 550 mg b.i.d. Continue Biktarvy 1 mg daily Continue lactulose which patient says she takes regularly for liver cirrhosis Continue baclofen Continue Clonidine 0.1 mg Hold Gabapentin; was discontinued on medical floor; may restart Hold Prazosin; was discontinued on medical floor Reports history of taking Vyvanse/Adderall cellulitis:resolved; completed course of abx medial cuboid avulsion fracture - walking boot, weight-bear as tolerated, follow up with Orthopedics in 1-2 weeks knee effusion - recommend consider X-ray and Orthopedic consultation after overlying cellulitis resolves. HIV infection - continue Biktarvy. CD4 count 216. viral load pending. - syphilis T. pallidum EIA negative. urine gonorrhea/chlamydia PCR negative Patient educated on: diagnosis, medication risk/benefits and medical condition Informed Consent: understands, does not understand and further education needed Reason for continued inpatient stay Substantial Risk for: inability to function Statement Statement: I have reviewed the history and physical and performed a pertinent examination on my patient. No changes have occurred unless specified. If the History and Physical was not performed prior to admission, the Hospitalist's service will be consulted for completing the admission physical. Time Spent With Patient Time: Total time managing care of this patient today ____ minutes.
--- NOTE | 2024-05-03 18:46 | PC.ADMIT ---
Addendum entered by Valery Guidry RN 05/03/24 18:55: Med rec needs to be completed from [facility] in process. Vonnie is oriented to person, place and time. Placed on 5 minute checks due to jay wrap and boot. Original Note: Vonnie arrived from [facility] at 16:25 today after receiving her last dose of IV abx this morning. She was calm and cooperative with the skin and safety check, her legal status of CV follows her from previous admission to the unit. Vonnie has wound care orders that follow from [facility]-her dressings are to be changed every other day and were changed this morning. Vonnie was cooperative with admission process so far, though appears tired from the transfer process.
[2024-05-03 20:00] VITALS: BP 141/82; PULSE 106; TEMP 37.4; O2SAT 97
[2024-05-03] MEDS: LORazepam 0.5 MG TABLET PO (21:08)
[2024-05-03] MEDS: rifAXIMin 550 MG TABLET PO (21:08)
[2024-05-03] MEDS: valACYclovir HCL 1,000 MG TABLET 1000 MG PO (21:08)
[2024-05-03] MEDS: OLANZapine ODT 10 MG TAB.RAPDIS 30 MG TRANSLINGU (21:08)
[2024-05-03] MEDS: Baclofen 10 MG TABLET PO (21:33)
[2024-05-04] MEDS: valACYclovir HCL 1,000 MG TABLET 1000 MG PO ×2 (08:58→20:36)
[2024-05-04] MEDS: ARIPiprazole 10 MG TABLET PO (08:58)
[2024-05-04] MEDS: rifAXIMin 550 MG TABLET PO ×2 (08:58→20:36)
[2024-05-04] MEDS: Ferrous Sulfate 324 MG TABLET.DR PO (08:58)
[2024-05-04] MEDS: Diclofenac Sodium Delayed Rel 50 MG TABLET.DR PO ×2 (08:58→16:22)
[2024-05-04] MEDS: Bictegrav/Emtricit/Tenofov Ala TABLET 1 TAB PO (08:59)
[2024-05-04] MEDS: Lactulose 20 GM/30 ML SOLUTION 10 GM PO (09:00)
[2024-05-04] MEDS: methADONE HCl 20 MG/2 ML ORAL.CONC 45 MG PO (09:00)
[2024-05-04] MEDS: Nicotine 14 MG PATCH.TD24 TRANSDERMA (09:02)
[2024-05-04] MEDS: Lidocaine 4 % Patch ADH..PATCH 2 PATCH TRANSDERMA (09:02)
[2024-05-04] MEDS: Acetaminophen 325 MG TABLET 650 MG PO ×2 (09:03→18:05)
[2024-05-04] MEDS: LORazepam 0.5 MG TABLET PO ×2 (11:37→20:37)
--- NOTE | 2024-05-04 12:03 | HO.PSYCHPN ---
Subjective Subjective Date of Service: 05/04/24 Reason For Visit: psych Subjective Notes: Conditional Voluntary Interim History: Patient was seen and discussed in rounds today. Records and plans were reviewed. She has been calm, cooperative. She is back on the unit and states that her cellulitis is better and she is getting wound care. She has been cooperative. Orders were reviewed. No changes were made today Review of Systems Review of Systems cellulitis Yes all other systems are reviewed and are negative Diagnostics Vital Signs (24Hr): Vital Signs - 24 hr 05/03/24 16:44 05/03/24 20:00 Temperature 99.0 F 99.3 F Pulse Rate 102 H 106 H Respiratory Rate 18 Blood Pressure 128/73 141/82 H Pulse Oximetry 100 97 Oxygen Delivery Method Room Air Room Air Medications Medications Current Medications Acetaminophen (Acetaminophen 325 Mg Tablet) 650 mg PO Q6H PRN PRN Reason: Headache/Pain Mild Scale (1-3) Last Admin: 05/04/24 09:03 Dose: 650 mg Al Hydroxide/Mg Hydroxide (Magnesium Hydrox/Alum Hydrox 30 Ml Oral.Susp) 30 ml PO Q6H PRN PRN Reason: Heartburn/Nausea Aripiprazole (Aripiprazole 10 Mg Tablet) 10 mg PO DAILY [facility] Last Admin: 05/04/24 08:58 Dose: 10 mg Baclofen (Baclofen 10 Mg Tablet) 10 mg PO TID PRN PRN Reason: back/muscle spasm Last Admin: 05/03/24 21:33 Dose: 10 mg Bictegravir/Emtricitabine/Tenofovir (Bictegrav/Emtricit/Tenofov Ala Tablet) 1 tab PO DAILY [facility] Last Admin: 05/04/24 08:59 Dose: 1 tab Diclofenac Sodium (Diclofenac Sodium Delayed Rel 50 Mg Tablet.) 50 mg PO BIDWM [facility] Last Admin: 05/04/24 08:58 Dose: 50 mg Ferrous Sulfate (Ferrous Sulfate 324 Mg Tablet.) 324 mg PO BIDWM [facility] Last Admin: 05/04/24 08:58 Dose: 324 mg Lactulose (Lactulose 20 Gm/30 Ml Solution) 10 gm PO DAILY [facility] Last Admin: 05/04/24 09:00 Dose: 10 gm Lidocaine (Lidocaine 4 % Patch Adh..Patch) 2 patch TRANSDERMA DAILY [facility]; Protocol Last Admin: 05/04/24 09:02 Dose: 2 patch Lorazepam (Lorazepam 0.5 Mg Tablet) 0.5 mg PO BID@1200,2100 [facility] Last Admin: 05/04/24 11:37 Dose: 0.5 mg Magnesium Hydroxide (Milk Of Magnesia 30 Ml Oral.Susp) 30 ml PO DAILY PRN PRN Reason: Constipation Methadone HCl (Methadone Hcl 20 Mg/2 Ml Oral.Conc) 45 mg PO DAILY@0800 [facility] Last Admin: 05/04/24 09:00 Dose: 45 mg Nicotine (Nicotine 14 Mg Patch.Td24) 14 mg TRANSDERMA DAILY [facility] Last Admin: 05/04/24 09:02 Dose: 14 mg Nicotine Polacrilex (Nicotine Polacrilex 2 Mg Gum) 4 mg BUCCAL Q2H PRN PRN Reason: Nicotine Cravings Olanzapine (Olanzapine Odt 10 Mg Tab.Rapdis) 30 mg TRANSLINGU BEDTIME [facility] Last Admin: 05/03/24 21:08 Dose: 30 mg Olanzapine (Olanzapine 5 Mg Tablet) 5 mg PO Q4H PRN PRN Reason: psychosis,agitation Ondansetron HCl (Ondansetron Odt 4 Mg Tab.Rapdis) 4 mg TRANSLINGU Q6H PRN PRN Reason: Nausea And Vomiting Rifaximin (Rifaximin 550 Mg Tablet) 550 mg PO BID [facility] Last Admin: 05/04/24 08:58 Dose: 550 mg Trazodone HCl (Trazodone Hcl 50 Mg Tablet) 50 mg PO BEDTIME PRN PRN Reason: Insomnia Valacyclovir HCl (Valacyclovir Hcl 1,000 Mg Tablet) 1,000 mg PO BID [facility] Stop: 05/05/24 09:01 Last Admin: 05/04/24 08:58 Dose: 1,000 mg Allergies Allergies Allergy/AdvReac Type Severity Reaction Status Date / Time No Known Allergies Allergy Verified 04/05/24 18:41 Assessment & Plan Assessment & Plan (1) Schizophrenia, acute undifferentiated: Status: Acute Code(s): F20.3 - Undifferentiated schizophrenia (2) Opioid use disorder: Status: Acute Code(s): F11.90 - Opioid use, unspecified, uncomplicated (3) Left leg cellulitis: Status: Acute Code(s): L03.116 - Cellulitis of left lower limb (4) HIV (human immunodeficiency virus infection): Status: Acute Code(s): Z21 - Asymptomatic human immunodeficiency virus [HIV] infection status (5) Left cuboid fracture: Status: Acute Code(s): S92.212A - Displaced fracture of cuboid bone of left foot, initial encounter for closed fracture Plan HPI: Patient is a 44-year-old woman with history of HIV, liver cirrhosis, anemia polysubstance abuse and recently psychotic symptoms (full history unknown) returns to following treatment on the medical floor for left leg cellulitis with IV antibiotics. Initially, patient 1st presented to the ED days after discharged from [facility] with continued bizarre, disorganized behavior and thoughts, delusional thinking that she is on a TV show called [employer]. Patient was saying she own million dollar homes, 1 of which she bought while she was at [facility]... Patient was disorganized in both speech and behavior, delusional, thinking staff was stealing 20,000,000 dollars, calling 911 from the unit to report the theft...Attempts at any collateral were unsuccessful. Patient continued with delusional and paranoid thinking, continuing to say saying she own million dollar homes which she bought the week prior while she was psychiatrically admitted at [facility]..., she continued to think she was despite negative test; reported to leader writer that she had a device implanted in her skin that informs her family of things... She remained on Abilify (which was increased) and low-dose Depakote but eventually was willing to start Zyprexa and taper down from Abilify; she wanted off Depakote which was discontinued. Pt found with medial cuboid avulsion fracture. Patient developed cellulitis of left lower leg, started on antibiotics but became septic and was transferred to the medical floor. Patient treated with antibiotics and medically cleared and returned back to the psychiatric for ongoing psychotic symptoms, maintained on her psychotropic medication regimen now on p.o. antibiotics. Back on M5 she was initially talking more clearly however remained delusional. Patient was intermittently refusing p.o. antibiotics (and was found spitting medications into the trash), refusing to let staff look at her leg; she remained with paranoid delusions, talking about her the home she own, the reality TV show the killers, hearing what her friends were saying via a device implanted in her dot dot set a stable cleaner was put into her vagina...harassing staff, following staff up and down the jones, demanding staff give her their money and also give her her own money... Told staff that there is carmax in her ear. Patient had catatonic symptoms and was briefly started on Ativan. She continued to intermittently refuse antibiotics and both this leader writer and nursing that she refused because was worried people were poisoning her. Her leg became swollen, cellulitis infection worsened and patient was sent back to the medical floor for IV antibiotics. She was cleared and now returns to on a Section 7. Back again on M5, Patient remains wanting discharge. She wants to go to her house which she says [address] [facility], in [place]; she says it is a million dollar home, worth 1.5 million which she owns by herself. She can not explain where she got the money for this given her long history of homelessness and collateral provided that the statements are untrue. Steel Hanger showed patient numerous Google searches for this home which could not be found. Steel Hanger expressed significant concern where she be discharged, saying she will end up in [place], without any money, without any usp, alone with a broken foot; she denies this whenever happened because she said she has a becker hit in where she can get into this house. Steel Hanger reminded patient that earlier in her admission she told leader writer that she bought this million dollar home while she was on the inpatient unit at [facility]; she clarified that she has own this house for 10 years however she corrected leader writer saying that while she was at [facility], she bought [employer], thinking it was a good investment however then sold it to her friend Herlinda Barrios. Formulation/clinical reasoning: History of HIV; not clear on adherence with antiretrovirals and this could be a possible contribution to confusion. SW able to get more hx from collateral from her Ex-boyfriend and his mother with whom patient lived. Long hx of both opioid and alcohol abuse. They reports she had episodes with similar presentation...hard to move, latent speech, disorganized, unable to attend to ADL's, unable to do tasks, internally preoccupied...during one such episode pt was admitted to ICU for a metabolic encephalopathy from toxic level of alcohol ingestion and was in a coma for 2 months.. -it remains unclear her history of psychotic illness and it is possible that she has had delusional thinking that was simply under the radar or obscured by long history of substance abuse and then for whatever reason it has become more pronounced at this time. IMPRESSION: Patient remains delusional, without any insight, and with delusional thinking, rendering her unable to take care of herself in the community (this was also the case when she was discharged from [facility] but picked up by police as she was just standing outside [facility] confused and disorganized;) Currently, Patient says she wants to leave the hospital and that she will taking over to her house in [place], which he says she owns herself and is a million dollar home. Patient is delusional and If discharged now, she will end up in somewhere on [facility] in [place], alone, without usp, without money, with a broken foot, no support, vulnerable, at risk for exposure and predation and without the organizational skills to take care of herself. Will continue to pursue involuntary commitment 05/04:Continue current regimen and plans. Plan: Section 7 Q 15 minute checks Discussed case with hospitalist; patient has completed antibiotics; ortho consult says to wear both the boot and continue weight-bearing exercise as tolerated; can monitor H&H but it has remained stable Increase Zydis to 30 mg q.h.s.; had been lowered while on medical floor Will likely discontinue Abilify since plan was to taper off and use Zyprexa instead Continue methadone Continue Rifaximin 550 mg b.i.d. Continue Biktarvy 1 mg daily Continue lactulose which patient says she takes regularly for liver cirrhosis Continue baclofen Continue Clonidine 0.1 mg Hold Gabapentin; was discontinued on medical floor; may restart Hold Prazosin; was discontinued on medical floor Reports history of taking Vyvanse/Adderall cellulitis:resolved; completed course of abx medial cuboid avulsion fracture - walking boot, weight-bear as tolerated, follow up with Orthopedics in 1-2 weeks knee effusion - recommend consider X-ray and Orthopedic consultation after overlying cellulitis resolves. HIV infection - continue Biktarvy. CD4 count 216. viral load pending. - syphilis T. pallidum EIA negative. urine gonorrhea/chlamydia PCR negative Reason for continued inpatient stay Substantial Risk for: med/psych decompensation Time Spent With Patient Time: Total time managing care of this patient today ____ minutes.
[2024-05-04 20:00] VITALS: BP 120/66; PULSE 86; O2SAT 96
[2024-05-04] MEDS: Baclofen 10 MG TABLET PO (20:36)
[2024-05-04] MEDS: OLANZapine ODT 10 MG TAB.RAPDIS 30 MG TRANSLINGU (20:36)
[2024-05-05] MEDS: methADONE HCl 20 MG/2 ML ORAL.CONC 45 MG PO (07:51)
[2024-05-05] MEDS: Acetaminophen 325 MG TABLET 650 MG PO ×3 (07:51→21:07)
[2024-05-05] MEDS: Baclofen 10 MG TABLET PO ×3 (07:52→21:08)
[2024-05-05] MEDS: Nicotine 14 MG PATCH.TD24 TRANSDERMA (07:58)
[2024-05-05] MEDS: Diclofenac Sodium Delayed Rel 50 MG TABLET.DR PO ×2 (07:59→17:06)
[2024-05-05] MEDS: rifAXIMin 550 MG TABLET PO ×2 (07:59→21:08)
[2024-05-05] MEDS: ARIPiprazole 10 MG TABLET PO (07:59)
[2024-05-05] MEDS: Lactulose 20 GM/30 ML SOLUTION 10 GM PO (07:59)
[2024-05-05 08:00] VITALS: BP 117/66; PULSE 85; RESP 18; TEMP 36.4; O2SAT 97
[2024-05-05] MEDS: Ferrous Sulfate 324 MG TABLET.DR PO ×2 (08:00→17:12)
[2024-05-05] MEDS: Bictegrav/Emtricit/Tenofov Ala TABLET 1 TAB PO (08:00)
[2024-05-05] MEDS: valACYclovir HCL 1,000 MG TABLET 1000 MG PO (08:00)
--- NOTE | 2024-05-05 09:41 | HO.PSYCHPN ---
Subjective Subjective Date of Service: 05/05/24 Reason For Visit: psych Subjective Notes: Conditional Voluntary Interim History: Patient was seen and discussed in rounds today. Records and plans were reviewed. She has been stable and is doing okay. Continues to endorse both depression and anxiety. She is medication compliant. She is blunted with some interaction with others. No active SI. No complaints with her wounds. No changes were made today Review of Systems Review of Systems Yes all other systems are reviewed and are negative Mental Status Exam Mental Status Exam Narrative: In today's visit she is alert, oriented and pleasant. Soft-spoken speech. Little eye contact. Affect is subdued and constricted. No acute signs of psychosis. No AVH. No SI. Moves all limbs. No abnormalities of gait. No cognitive deficits other than slow thought processes. Judgment is intact Diagnostics Vital Signs (24Hr): Vital Signs - 24 hr 05/04/24 20:00 05/05/24 08:00 Temperature 97.5 F Pulse Rate 86 85 Respiratory Rate 18 Blood Pressure 120/66 117/66 Pulse Oximetry 96 97 Oxygen Delivery Method Room Air Room Air Medications Medications Current Medications Acetaminophen (Acetaminophen 325 Mg Tablet) 650 mg PO Q6H PRN PRN Reason: Headache/Pain Mild Scale (1-3) Last Admin: 05/05/24 07:51 Dose: 650 mg Al Hydroxide/Mg Hydroxide (Magnesium Hydrox/Alum Hydrox 30 Ml Oral.Susp) 30 ml PO Q6H PRN PRN Reason: Heartburn/Nausea Aripiprazole (Aripiprazole 10 Mg Tablet) 10 mg PO DAILY [facility] Last Admin: 05/05/24 07:59 Dose: 10 mg Baclofen (Baclofen 10 Mg Tablet) 10 mg PO TID PRN PRN Reason: back/muscle spasm Last Admin: 05/05/24 07:52 Dose: 10 mg Bictegravir/Emtricitabine/Tenofovir (Bictegrav/Emtricit/Tenofov Ala Tablet) 1 tab PO DAILY [facility] Last Admin: 05/05/24 08:00 Dose: 1 tab Diclofenac Sodium (Diclofenac Sodium Delayed Rel 50 Mg Tablet.) 50 mg PO BIDWM [facility] Last Admin: 05/05/24 07:59 Dose: 50 mg Ferrous Sulfate (Ferrous Sulfate 324 Mg Tablet.) 324 mg PO BIDWM [facility] Last Admin: 05/05/24 08:00 Dose: 324 mg Lactulose (Lactulose 20 Gm/30 Ml Solution) 10 gm PO DAILY [facility] Last Admin: 05/05/24 07:59 Dose: 10 gm Lidocaine (Lidocaine 4 % Patch Adh..Patch) 2 patch TRANSDERMA DAILY [facility]; Protocol Last Admin: 05/05/24 08:00 Dose: Not Given Lorazepam (Lorazepam 0.5 Mg Tablet) 0.5 mg PO BID@1200,2100 [facility] Last Admin: 05/04/24 20:37 Dose: 0.5 mg Magnesium Hydroxide (Milk Of Magnesia 30 Ml Oral.Susp) 30 ml PO DAILY PRN PRN Reason: Constipation Methadone HCl (Methadone Hcl 20 Mg/2 Ml Oral.Conc) 45 mg PO DAILY@0800 [facility] Last Admin: 05/05/24 07:51 Dose: 45 mg Nicotine (Nicotine 14 Mg Patch.Td24) 14 mg TRANSDERMA DAILY [facility] Last Admin: 05/05/24 07:58 Dose: 14 mg Nicotine Polacrilex (Nicotine Polacrilex 2 Mg Gum) 4 mg BUCCAL Q2H PRN PRN Reason: Nicotine Cravings Olanzapine (Olanzapine Odt 10 Mg Tab.Rapdis) 30 mg TRANSLINGU BEDTIME [facility] Last Admin: 05/04/24 20:36 Dose: 30 mg Olanzapine (Olanzapine 5 Mg Tablet) 5 mg PO Q4H PRN PRN Reason: psychosis,agitation Ondansetron HCl (Ondansetron Odt 4 Mg Tab.Rapdis) 4 mg TRANSLINGU Q6H PRN PRN Reason: Nausea And Vomiting Rifaximin (Rifaximin 550 Mg Tablet) 550 mg PO BID [facility] Last Admin: 05/05/24 07:59 Dose: 550 mg Trazodone HCl (Trazodone Hcl 50 Mg Tablet) 50 mg PO BEDTIME PRN PRN Reason: Insomnia Allergies Allergies Allergy/AdvReac Type Severity Reaction Status Date / Time No Known Allergies Allergy Verified 04/05/24 18:41 Assessment & Plan Assessment & Plan (1) Schizophrenia, acute undifferentiated: Status: Acute Code(s): F20.3 - Undifferentiated schizophrenia (2) Opioid use disorder: Status: Acute Code(s): F11.90 - Opioid use, unspecified, uncomplicated (3) Left leg cellulitis: Status: Acute Code(s): L03.116 - Cellulitis of left lower limb (4) HIV (human immunodeficiency virus infection): Status: Acute Code(s): Z21 - Asymptomatic human immunodeficiency virus [HIV] infection status (5) Left cuboid fracture: Status: Acute Code(s): S92.212A - Displaced fracture of cuboid bone of left foot, initial encounter for closed fracture Plan HPI: Patient is a 44-year-old woman with history of HIV, liver cirrhosis, anemia polysubstance abuse and recently psychotic symptoms (full history unknown) returns to following treatment on the medical floor for left leg cellulitis with IV antibiotics. Initially, patient 1st presented to the ED days after discharged from [facility] with continued bizarre, disorganized behavior and thoughts, delusional thinking that she is on a TV show called [employer]. Patient was saying she own million dollar homes, 1 of which she bought while she was at [facility]... Patient was disorganized in both speech and behavior, delusional, thinking staff was stealing 20,000,000 dollars, calling 911 from the unit to report the theft...Attempts at any collateral were unsuccessful. Patient continued with delusional and paranoid thinking, continuing to say saying she own million dollar homes which she bought the week prior while she was psychiatrically admitted at [facility]..., she continued to think she was despite negative test; reported to technical writer and editor that she had a device implanted in her skin that informs her family of things... She remained on Abilify (which was increased) and low-dose Depakote but eventually was willing to start Zyprexa and taper down from Abilify; she wanted off Depakote which was discontinued. Pt found with medial cuboid avulsion fracture. Patient developed cellulitis of left lower leg, started on antibiotics but became septic and was transferred to the medical floor. Patient treated with antibiotics and medically cleared and returned back to the psychiatric for ongoing psychotic symptoms, maintained on her psychotropic medication regimen now on p.o. antibiotics. Back on M5 she was initially talking more clearly however remained delusional. Patient was intermittently refusing p.o. antibiotics (and was found spitting medications into the trash), refusing to let staff look at her leg; she remained with paranoid delusions, talking about her the home she own, the reality TV show the killers, hearing what her friends were saying via a device implanted in her dot dot set a contact acid plant operator helper was put into her vagina...harassing staff, following staff up and down the jones, demanding staff give her their money and also give her her own money... Told staff that there is carmax in her ear. Patient had catatonic symptoms and was briefly started on Ativan. She continued to intermittently refuse antibiotics and both this technical writer and editor and nursing that she refused because was worried people were poisoning her. Her leg became swollen, cellulitis infection worsened and patient was sent back to the medical floor for IV antibiotics. She was cleared and now returns to M5 on a Section 7. Back again on M5, Patient remains wanting discharge. She wants to go to her house which she says [address] [facility] [address], in [place]; she says it is a million dollar home, worth 1.5 million which she owns by herself. She can not explain where she got the money for this given her long history of homelessness and collateral provided that the statements are untrue. Client Relationship Consultant showed patient numerous Google searches for this home which could not be found. Client Relationship Consultant expressed significant concern where she be discharged, saying she will end up in [place], without any money, without any custodial, alone with a broken foot; she denies this whenever happened because she said she has a becker hit in where she can get into this house. Client Relationship Consultant reminded patient that earlier in her admission she told technical writer and editor that she bought this million dollar home while she was on the inpatient unit at [facility]; she clarified that she has own this house for 10 years however she corrected technical writer and editor saying that while she was at [facility], she bought [employer], thinking it was a good investment however then sold it to her friend Herlinda Barrios. Formulation/clinical reasoning: History of HIV; not clear on adherence with antiretrovirals and this could be a possible contribution to confusion. SW able to get more hx from collateral from her Ex-boyfriend and his mother with whom patient lived. Long hx of both opioid and alcohol abuse. They reports she had episodes with similar presentation...hard to move, latent speech, disorganized, unable to attend to ADL's, unable to do tasks, internally preoccupied...during one such episode pt was admitted to ICU for a metabolic encephalopathy from toxic level of alcohol ingestion and was in a coma for 2 months.. -it remains unclear her history of psychotic illness and it is possible that she has had delusional thinking that was simply under the radar or obscured by long history of substance abuse and then for whatever reason it has become more pronounced at this time. IMPRESSION: Patient remains delusional, without any insight, and with delusional thinking, rendering her unable to take care of herself in the community (this was also the case when she was discharged from [facility] but picked up by police as she was just standing outside [facility] confused and disorganized;) Currently, Patient says she wants to leave the hospital and that she will taking over to her house in [place], which he says she owns herself and is a million dollar home. Patient is delusional and If discharged now, she will end up in somewhere on [facility] in [place], alone, without custodial, without money, with a broken foot, no support, vulnerable, at risk for exposure and predation and without the organizational skills to take care of herself. Will continue to pursue involuntary commitment 05/04:Continue current regimen and plans. 05/05: Continue current regimen and plans Plan: Section 7 Q 15 minute checks Discussed case with hospitalist; patient has completed antibiotics; ortho consult says to wear both the boot and continue weight-bearing exercise as tolerated; can monitor H&H but it has remained stable Increase Zydis to 30 mg q.h.s.; had been lowered while on medical floor Will likely discontinue Abilify since plan was to taper off and use Zyprexa instead Continue methadone Continue Rifaximin 550 mg b.i.d. Continue Biktarvy 1 mg daily Continue lactulose which patient says she takes regularly for liver cirrhosis Continue baclofen Continue Clonidine 0.1 mg Hold Gabapentin; was discontinued on medical floor; may restart Hold Prazosin; was discontinued on medical floor Reports history of taking Vyvanse/Adderall cellulitis:resolved; completed course of abx medial cuboid avulsion fracture - walking boot, weight-bear as tolerated, follow up with Orthopedics in 1-2 weeks knee effusion - recommend consider X-ray and Orthopedic consultation after overlying cellulitis resolves. HIV infection - continue Biktarvy. CD4 count 216. viral load pending. - syphilis T. pallidum EIA negative. urine gonorrhea/chlamydia PCR negative Reason for continued inpatient stay Substantial Risk for: med/psych decompensation Time Spent With Patient Time: Total time managing care of this patient today ____ minutes.
[2024-05-05] MEDS: LORazepam 0.5 MG TABLET PO ×2 (11:03→21:08)
--- NOTE | 2024-05-05 14:40 | PC.NURSE ---
Dressing change performed per Anaya Crouch's wound RN note. Left lower leg edema improved although still has some pitting edema. Skin dry and flaking. Foam dressings to 3 areas removed and cleansed with NS, patted dry, and applied skin prep to surrounding skin and durafiber applied, and covered with new foam dressing. Wound beds appear to be healing and lateral wound that's underneath the calf has serous drainage and per pt has alot of tunneling . No foul odor noted. Leg wrapped in jay wrap and encouraged her to elevate her LLE to decrease edema. Continue to monitor healing and do QOD dressing changes until otherwise indicated.
[2024-05-05] MEDS: Lidocaine 4 % Patch ADH..PATCH 2 PATCH TRANSDERMA (17:09)
[2024-05-05 20:00] VITALS: BP 166/90; PULSE 115; TEMP 36.6; O2SAT 98
[2024-05-05] MEDS: OLANZapine ODT 10 MG TAB.RAPDIS 30 MG TRANSLINGU (21:08)
[2024-05-06] MEDS: methADONE HCl 20 MG/2 ML ORAL.CONC 45 MG PO (08:18)
[2024-05-06] MEDS: Lactulose 20 GM/30 ML SOLUTION 10 GM PO (08:22)
[2024-05-06] MEDS: Diclofenac Sodium Delayed Rel 50 MG TABLET.DR PO ×2 (08:23→16:03)
[2024-05-06] MEDS: rifAXIMin 550 MG TABLET PO ×2 (08:24→21:32)
[2024-05-06] MEDS: ARIPiprazole 10 MG TABLET PO (08:24)
[2024-05-06] MEDS: Bictegrav/Emtricit/Tenofov Ala TABLET 1 TAB PO (08:24)
[2024-05-06] MEDS: Nicotine 14 MG PATCH.TD24 TRANSDERMA (08:25)
[2024-05-06] MEDS: Ferrous Sulfate 324 MG TABLET.DR PO ×2 (08:25→16:03)
[2024-05-06] MEDS: Baclofen 10 MG TABLET PO ×2 (08:31→21:32)
[2024-05-06] MEDS: Acetaminophen 325 MG TABLET 650 MG PO ×2 (08:31→16:02)
[2024-05-06] MEDS: LORazepam 0.5 MG TABLET PO ×2 (13:57→21:31)
--- NOTE | 2024-05-06 14:50 | HO.PSYCHPN ---
Subjective Subjective Date of Service: 05/06/24 Reason For Visit: psych Interim History: Met with patient; discussed with team; reviewed chart Patient sitting in the room on her bed with towels laid on the bed. Patient has been sitting there talking to herself for a while; on approach patient said that she is contemplating taking a shower. She then gets up and mutters to herself for a bit. Inspector Hot Forgings asked about her thoughts on last week's conversation. Patient says that everything still stands as is... She discussed where she go and said that she is not ready to go to [facility] in [facility] because there are some problems there.. and that she won't got to this place until she talks to her CM Leslie (says she can't remember last name)...she explains this is the reason she wants to go to house here in [place] (that does not seem to exist). Patient sometimes is wandering about the milieu seemingly without purpose; put her face down on the nursing station ledge and looked like she was falling asleep Discussed medications and she agrees to get rid of Abilify as it has not seem to do much. Mental Status Exam Mental Status Exam Narrative: Pt is alert and oriented; behavior is calm, cooperative, still disorganized patient is not in distress; dressed in casual attire, hair in dreadlocks; mood is described as ok affect somewhat constricted; eye contact more appropriate; Speech remains with some latency; saw volume, normal prosody; not pressured; psychomotor retardation present; thought process mostly goal-directed, logical but also distracted by internal preoccupations; Thought content remains with delusional ideations; no SI/HI express. Seems to be internal preoccupation Patients insight and judgment impaired Diagnostics Vital Signs (24Hr): Vital Signs - 24 hr 05/05/24 20:00 Temperature 97.9 F Pulse Rate 115 H Blood Pressure 166/90 H Pulse Oximetry 98 Oxygen Delivery Method Room Air Medications Medications Current Medications Acetaminophen (Acetaminophen 325 Mg Tablet) 650 mg PO Q6H PRN PRN Reason: Headache/Pain Mild Scale (1-3) Last Admin: 05/06/24 08:31 Dose: 650 mg Al Hydroxide/Mg Hydroxide (Magnesium Hydrox/Alum Hydrox 30 Ml Oral.Susp) 30 ml PO Q6H PRN PRN Reason: Heartburn/Nausea Aripiprazole (Aripiprazole 10 Mg Tablet) 10 mg PO DAILY [facility] Last Admin: 05/06/24 08:24 Dose: 10 mg Baclofen (Baclofen 10 Mg Tablet) 10 mg PO TID PRN PRN Reason: back/muscle spasm Last Admin: 05/06/24 08:31 Dose: 10 mg Bictegravir/Emtricitabine/Tenofovir (Bictegrav/Emtricit/Tenofov Ala Tablet) 1 tab PO DAILY [facility] Last Admin: 05/06/24 08:24 Dose: 1 tab Diclofenac Sodium (Diclofenac Sodium Delayed Rel 50 Mg Tablet.) 50 mg PO BIDWM [facility] Last Admin: 05/06/24 08:23 Dose: 50 mg Ferrous Sulfate (Ferrous Sulfate 324 Mg Tablet.) 324 mg PO BIDWM [facility] Last Admin: 05/06/24 08:25 Dose: 324 mg Lactulose (Lactulose 20 Gm/30 Ml Solution) 10 gm PO DAILY [facility] Last Admin: 05/06/24 08:22 Dose: 10 gm Lidocaine (Lidocaine 4 % Patch Adh..Patch) 2 patch TRANSDERMA DAILY [facility]; Protocol Last Admin: 05/05/24 17:09 Dose: 2 patch Lorazepam (Lorazepam 0.5 Mg Tablet) 0.5 mg PO BID@1200,2100 [facility] Last Admin: 05/06/24 13:57 Dose: 0.5 mg Magnesium Hydroxide (Milk Of Magnesia 30 Ml Oral.Susp) 30 ml PO DAILY PRN PRN Reason: Constipation Methadone HCl (Methadone Hcl 20 Mg/2 Ml Oral.Conc) 45 mg PO DAILY@0800 [facility] Last Admin: 05/06/24 08:18 Dose: 45 mg Nicotine (Nicotine 14 Mg Patch.Td24) 14 mg TRANSDERMA DAILY [facility] Last Admin: 05/06/24 08:25 Dose: 14 mg Nicotine Polacrilex (Nicotine Polacrilex 2 Mg Gum) 4 mg BUCCAL Q2H PRN PRN Reason: Nicotine Cravings Olanzapine (Olanzapine Odt 10 Mg Tab.Rapdis) 30 mg TRANSLINGU BEDTIME [facility] Last Admin: 05/05/24 21:08 Dose: 30 mg Olanzapine (Olanzapine 5 Mg Tablet) 5 mg PO Q4H PRN PRN Reason: psychosis,agitation Ondansetron HCl (Ondansetron Odt 4 Mg Tab.Rapdis) 4 mg TRANSLINGU Q6H PRN PRN Reason: Nausea And Vomiting Rifaximin (Rifaximin 550 Mg Tablet) 550 mg PO BID [facility] Last Admin: 05/06/24 08:24 Dose: 550 mg Trazodone HCl (Trazodone Hcl 50 Mg Tablet) 50 mg PO BEDTIME PRN PRN Reason: Insomnia Allergies Allergies Allergy/AdvReac Type Severity Reaction Status Date / Time No Known Allergies Allergy Verified 04/05/24 18:41 Assessment & Plan Assessment & Plan (1) Schizophrenia, acute undifferentiated: Status: Acute Code(s): F20.3 - Undifferentiated schizophrenia (2) Opioid use disorder: Status: Acute Code(s): F11.90 - Opioid use, unspecified, uncomplicated (3) Left leg cellulitis: Status: Resolved Code(s): L03.116 - Cellulitis of left lower limb (4) HIV (human immunodeficiency virus infection): Status: Acute Code(s): Z21 - Asymptomatic human immunodeficiency virus [HIV] infection status (5) Left cuboid fracture: Status: Acute Code(s): S92.212A - Displaced fracture of cuboid bone of left foot, initial encounter for closed fracture Plan HPI: Patient is a 44-year-old woman with history of HIV, liver cirrhosis, anemia polysubstance abuse and recently psychotic symptoms (full history unknown) returns to following treatment on the medical floor for left leg cellulitis with IV antibiotics. Initially, patient 1st presented to the ED days after discharged from [facility] with continued bizarre, disorganized behavior and thoughts, delusional thinking that she is on a TV show called Kill[employer]. Patient was saying she own million dollar homes, 1 of which she bought while she was at [facility]... Patient was disorganized in both speech and behavior, delusional, thinking staff was stealing 20,000,000 dollars, calling 911 from the unit to report the theft...Attempts at any collateral were unsuccessful. Patient continued with delusional and paranoid thinking, continuing to say saying she own million dollar homes which she bought the week prior while she was psychiatrically admitted at [facility]..., she continued to think she was despite negative test; reported to manual writer that she had a device implanted in her skin that informs her family of things... She remained on Abilify (which was increased) and low-dose Depakote but eventually was willing to start Zyprexa and taper down from Abilify; she wanted off Depakote which was discontinued. Pt found with medial cuboid avulsion fracture. Patient developed cellulitis of left lower leg, started on antibiotics but became septic and was transferred to the medical floor. Patient treated with antibiotics and medically cleared and returned back to the psychiatric for ongoing psychotic symptoms, maintained on her psychotropic medication regimen now on p.o. antibiotics. Back on M5 she was initially talking more clearly however remained delusional. Patient was intermittently refusing p.o. antibiotics (and was found spitting medications into the trash), refusing to let staff look at her leg; she remained with paranoid delusions, talking about her the home she own, the reality TV show the killers, hearing what her friends were saying via a device implanted in her dot dot set a rehab nurse was put into her vagina...harassing staff, following staff up and down the jones, demanding staff give her their money and also give her her own money... Told staff that there is carmax in her ear. Patient had catatonic symptoms and was briefly started on Ativan. She continued to intermittently refuse antibiotics and both this manual writer and nursing that she refused because was worried people were poisoning her. Her leg became swollen, cellulitis infection worsened and patient was sent back to the medical floor for IV antibiotics. She was cleared and now returns to on a Section 7. Back again on M5, Patient remains wanting discharge. She wants to go to her house which she says [address], in [place]; she says it is a million dollar home, worth 1.5 million which she owns by herself. She can not explain where she got the money for this given her long history of homelessness and collateral provided that the statements are untrue. Inspector Hot Forgings showed patient numerous Google searches for this home which could not be found. Inspector Hot Forgings expressed significant concern where she be discharged, saying she will end up in [place], without any money, without any residential, alone with a broken foot; she denies this whenever happened because she said she has a becker hit in where she can get into this house. Inspector Hot Forgings reminded patient that earlier in her admission she told manual writer that she bought this million dollar home while she was on the inpatient unit at [facility]; she clarified that she has own this house for 10 years however she corrected manual writer saying that while she was at [facility], she bought [address], thinking it was a good investment however then sold it to her friend Herlinda Barrios. Formulation/clinical reasoning: History of HIV; not clear on adherence with antiretrovirals and this could be a possible contribution to confusion. SW able to get more hx from collateral from her Ex-boyfriend and his mother with whom patient lived. Long hx of both opioid and alcohol abuse. They reports she had episodes with similar presentation...hard to move, latent speech, disorganized, unable to attend to ADL's, unable to do tasks, internally preoccupied...during one such episode pt was admitted to ICU for a metabolic encephalopathy from toxic level of alcohol ingestion and was in a coma for 2 months.. -it remains unclear her history of psychotic illness and it is possible that she has had delusional thinking that was simply under the radar or obscured by long history of substance abuse and then for whatever reason it has become more pronounced at this time. IMPRESSION: Patient remains delusional, without any insight, and with delusional thinking, rendering her unable to take care of herself in the community (this was also the case when she was discharged from [facility] but picked up by police as she was just standing outside [facility] confused and disorganized;) Currently, Patient says she wants to leave the hospital and that she will taking over to her house in [place], which he says she owns herself and is a million dollar home. Patient is delusional and If discharged now, she will end up in somewhere on [facility] in [place], alone, without residential, without money, with a broken foot, no support, vulnerable, at risk for exposure and predation and without the organizational skills to take care of herself. Will continue to pursue involuntary commitment 05/06 Patient sitting in the room on her bed with towels laid on the bed. Patient has been sitting there talking to herself for a while; on approach patient said that she is contemplating taking a shower. She then gets up and mutters to herself for a bit. Inspector Hot Forgings asked about her thoughts on last week's conversation. Patient sometimes is wandering about the milieu seemingly without purpose; put her face down on the nursing station [facility] and looked like she was falling asleep Patient says that everything still stands as is... She discussed where she go and said that she is not ready to go to [facility] in [facility] because there are some problems there.. and that she won't got to this place until she talks to her CM Lselie (says she can't remember last name)...she explains this is the reason she wants to go to house here in [place] (that does not seem to exist). She also said she can go to [facility] since her sister has a place there but patient is not sure where and has not talked to her sister... She also says she can go to her boyfriend's or his mother's and says she talked to him last week. -Discussed medications and she agrees to get rid of Abilify as it has not seem to do much. -Team will try to clarify if patient has talked to her boyfriend; At this time it is not clear if Leslie her case repairer from [place] exists or not. But if she does exist and team is able to get a hold of her, this will signify improvement. During discussion, patient implied she may be amenable to going back to her house in [place]; right now she is too disorganized to figure this out but if she improves in her organization this might be an option for his far as team knows, this is her only actual residents. Plan: Section 7 Q 15 minute checks Discussed case with hospitalist; patient has completed antibiotics; ortho consult says to wear both the boot and continue weight-bearing exercise as tolerated; can monitor H&H but it has remained stable Continue Zydis to 30 mg q.h.s.; DC Abilify has not seem to do much at plan has been to taper off and use Zyprexa instead Continue methadone Continue Rifaximin 550 mg b.i.d. Continue Biktarvy 1 mg daily Continue lactulose which patient says she takes regularly for liver cirrhosis Continue baclofen Continue Clonidine 0.1 mg Hold Gabapentin; was discontinued on medical floor; may restart Hold Prazosin; was discontinued on medical floor Reports history of taking Vyvanse/Adderall cellulitis:resolved; completed course of abx medial cuboid avulsion fracture - walking boot, weight-bear as tolerated, follow up with Orthopedics in 1-2 weeks knee effusion - recommend consider X-ray and Orthopedic consultation after overlying cellulitis resolves. HIV infection - continue Biktarvy. CD4 count 216. viral load pending. - syphilis T. pallidum EIA negative. urine gonorrhea/chlamydia PCR negative Patient educated on: diagnosis, medication risk/benefits and medical condition Informed Consent: understands, does not understand and further education needed Reason for continued inpatient stay Substantial Risk for: inability to function Time Spent With Patient Time: Total time managing care of this patient today ____ minutes.
[2024-05-06 20:00] VITALS: BP 125/61; PULSE 108; TEMP 36.8; O2SAT 98
[2024-05-06] MEDS: OLANZapine ODT 10 MG TAB.RAPDIS 30 MG TRANSLINGU (21:31)
[2024-05-07] MEDS: Acetaminophen 325 MG TABLET 650 MG PO ×3 (06:58→22:12)
[2024-05-07] MEDS: methADONE HCl 20 MG/2 ML ORAL.CONC 45 MG PO (07:40)
[2024-05-07 08:00] VITALS: BP 154/94; PULSE 105; TEMP 36.4; O2SAT 100
[2024-05-07] MEDS: Lactulose 20 GM/30 ML SOLUTION 10 GM PO (08:13)
[2024-05-07] MEDS: rifAXIMin 550 MG TABLET PO ×2 (08:15→22:10)
[2024-05-07] MEDS: Ferrous Sulfate 324 MG TABLET.DR PO ×2 (08:15→17:32)
[2024-05-07] MEDS: Bictegrav/Emtricit/Tenofov Ala TABLET 1 TAB PO (08:15)
[2024-05-07] MEDS: Diclofenac Sodium Delayed Rel 50 MG TABLET.DR PO ×2 (08:16→17:31)
[2024-05-07] MEDS: Nicotine 14 MG PATCH.TD24 TRANSDERMA (08:20)
[2024-05-07] MEDS: Lidocaine 4 % Patch ADH..PATCH 2 PATCH TRANSDERMA (08:21)
[2024-05-07] MEDS: Baclofen 10 MG TABLET PO ×3 (09:21→22:12)
--- NOTE | 2024-05-07 10:02 | HO.PSYCHPN ---
Subjective Subjective Date of Service: 05/07/24 Reason For Visit: psych Interim History: Met with patient; discussed with team patient open to discussing discharge plans and amenable to going to her house in [place]. However remains with delusional thoughts. Approach television writer and said he could talk to her sister and all that television writer had to do his lean in and talk to her via the device that is implanted in her; at television writer's hesitation patient said that her sister has now decided otherwise and it is too late to talk to her Mental Status Exam Mental Status Exam Narrative: Pt is alert and oriented; behavior is calm, cooperative, still disorganized patient is not in distress; dressed in casual attire, hair in dreadlocks; mood is described as ok affect somewhat constricted; eye contact more appropriate; Speech remains with some latency; saw volume, normal prosody; not pressured; psychomotor retardation present; thought process mostly goal-directed, logical but also distracted by internal preoccupations; Thought content remains with delusional ideations; no SI/HI express. Seems to be internal preoccupation Patients insight and judgment impaired Diagnostics Vital Signs (24Hr): Vital Signs - 24 hr 05/06/24 20:00 05/07/24 08:00 Temperature 98.2 F 97.5 F Pulse Rate 108 H 105 H Blood Pressure 125/61 154/94 H Pulse Oximetry 98 100 Oxygen Delivery Method Room Air Room Air Medications Medications Current Medications Acetaminophen (Acetaminophen 325 Mg Tablet) 650 mg PO Q6H PRN PRN Reason: Headache/Pain Mild Scale (1-3) Last Admin: 05/07/24 06:58 Dose: 650 mg Al Hydroxide/Mg Hydroxide (Magnesium Hydrox/Alum Hydrox 30 Ml Oral.Susp) 30 ml PO Q6H PRN PRN Reason: Heartburn/Nausea Baclofen (Baclofen 10 Mg Tablet) 10 mg PO TID PRN PRN Reason: back/muscle spasm Last Admin: 05/07/24 09:21 Dose: 10 mg Bictegravir/Emtricitabine/Tenofovir (Bictegrav/Emtricit/Tenofov Ala Tablet) 1 tab PO DAILY [facility] Last Admin: 05/07/24 08:15 Dose: 1 tab Diclofenac Sodium (Diclofenac Sodium Delayed Rel 50 Mg Tablet.) 50 mg PO BIDWM [facility] Last Admin: 05/07/24 08:16 Dose: 50 mg Ferrous Sulfate (Ferrous Sulfate 324 Mg Tablet.) 324 mg PO BIDWM [facility] Last Admin: 05/07/24 08:15 Dose: 324 mg Lactulose (Lactulose 20 Gm/30 Ml Solution) 10 gm PO DAILY [facility] Last Admin: 05/07/24 08:13 Dose: 10 gm Lidocaine (Lidocaine 4 % Patch Adh..Patch) 2 patch TRANSDERMA DAILY [facility]; Protocol Last Admin: 05/07/24 08:21 Dose: 2 patch Lorazepam (Lorazepam 0.5 Mg Tablet) 0.5 mg PO BID PRN PRN Reason: anxiety Magnesium Hydroxide (Milk Of Magnesia 30 Ml Oral.Susp) 30 ml PO DAILY PRN PRN Reason: Constipation Methadone HCl (Methadone Hcl 20 Mg/2 Ml Oral.Conc) 45 mg PO DAILY@0800 [facility] Last Admin: 05/07/24 07:40 Dose: 45 mg Nicotine (Nicotine 14 Mg Patch.Td24) 14 mg TRANSDERMA DAILY [facility] Last Admin: 05/07/24 08:20 Dose: 14 mg Nicotine Polacrilex (Nicotine Polacrilex 2 Mg Gum) 4 mg BUCCAL Q2H PRN PRN Reason: Nicotine Cravings Olanzapine (Olanzapine Odt 10 Mg Tab.Rapdis) 30 mg TRANSLINGU BEDTIME [facility] Last Admin: 05/06/24 21:31 Dose: 30 mg Olanzapine (Olanzapine 5 Mg Tablet) 5 mg PO Q4H PRN PRN Reason: psychosis,agitation Ondansetron HCl (Ondansetron Odt 4 Mg Tab.Rapdis) 4 mg TRANSLINGU Q6H PRN PRN Reason: Nausea And Vomiting Rifaximin (Rifaximin 550 Mg Tablet) 550 mg PO BID [facility] Last Admin: 05/07/24 08:15 Dose: 550 mg Trazodone HCl (Trazodone Hcl 50 Mg Tablet) 50 mg PO BEDTIME PRN PRN Reason: Insomnia Allergies Allergies Allergy/AdvReac Type Severity Reaction Status Date / Time No Known Allergies Allergy Verified 04/05/24 18:41 Assessment & Plan Assessment & Plan (1) Schizophrenia, acute undifferentiated: Status: Acute Code(s): F20.3 - Undifferentiated schizophrenia (2) Opioid use disorder: Status: Acute Code(s): F11.90 - Opioid use, unspecified, uncomplicated (3) Left leg cellulitis: Status: Resolved Code(s): L03.116 - Cellulitis of left lower limb (4) HIV (human immunodeficiency virus infection): Status: Acute Code(s): Z21 - Asymptomatic human immunodeficiency virus [HIV] infection status (5) Left cuboid fracture: Status: Acute Code(s): S92.212A - Displaced fracture of cuboid bone of left foot, initial encounter for closed fracture Plan HPI: Patient is a 44-year-old woman with history of HIV, liver cirrhosis, anemia polysubstance abuse and recently psychotic symptoms (full history unknown) returns to following treatment on the medical floor for left leg cellulitis with IV antibiotics. Initially, patient 1st presented to the ED days after discharged from [facility] with continued bizarre, disorganized behavior and thoughts, delusional thinking that she is on a TV show called Kill[employer]. Patient was saying she own million dollar homes, 1 of which she bought while she was at [facility]... Patient was disorganized in both speech and behavior, delusional, thinking staff was stealing 20,000,000 dollars, calling 911 from the unit to report the theft...Attempts at any collateral were unsuccessful. Patient continued with delusional and paranoid thinking, continuing to say saying she own million dollar homes which she bought the week prior while she was psychiatrically admitted at [facility]..., she continued to think she was despite negative test; reported to television writer that she had a device implanted in her skin that informs her family of things... She remained on Abilify (which was increased) and low-dose Depakote but eventually was willing to start Zyprexa and taper down from Abilify; she wanted off Depakote which was discontinued. Pt found with medial cuboid avulsion fracture. Patient developed cellulitis of left lower leg, started on antibiotics but became septic and was transferred to the medical floor. Patient treated with antibiotics and medically cleared and returned back to the psychiatric for ongoing psychotic symptoms, maintained on her psychotropic medication regimen now on p.o. antibiotics. Back on M5 she was initially talking more clearly however remained delusional. Patient was intermittently refusing p.o. antibiotics (and was found spitting medications into the trash), refusing to let staff look at her leg; she remained with paranoid delusions, talking about her the home she own, the reality TV show the killers, hearing what her friends were saying via a device implanted in her dot dot set a remedial reading teacher was put into her vagina...harassing staff, following staff up and down the jones, demanding staff give her their money and also give her her own money... Told staff that there is carmax in her ear. Patient had catatonic symptoms and was briefly started on Ativan. She continued to intermittently refuse antibiotics and both this television writer and nursing that she refused because was worried people were poisoning her. Her leg became swollen, cellulitis infection worsened and patient was sent back to the medical floor for IV antibiotics. She was cleared and now returns to on a Section 7. Back again on M5, Patient remains wanting discharge. She wants to go to her house which she says [address] [facility], in [place]; she says it is a million dollar home, worth 1.5 million which she owns by herself. She can not explain where she got the money for this given her long history of homelessness and collateral provided that the statements are untrue. Freelance Digital Project Manager showed patient numerous Google searches for this home which could not be found. Freelance Digital Project Manager expressed significant concern where she be discharged, saying she will end up in [place], without any money, without any assisted, alone with a broken foot; she denies this whenever happened because she said she has a becker hit in where she can get into this house. Freelance Digital Project Manager reminded patient that earlier in her admission she told television writer that she bought this million dollar home while she was on the inpatient unit at [facility]; she clarified that she has own this house for 10 years however she corrected television writer saying that while she was at [facility], she bought [place], thinking it was a good investment however then sold it to her friend Herlinda Barrios. Formulation/clinical reasoning: History of HIV; not clear on adherence with antiretrovirals and this could be a possible contribution to confusion. SW able to get more hx from collateral from her Ex-boyfriend and his mother with whom patient lived. Long hx of both opioid and alcohol abuse. They reports she had episodes with similar presentation...hard to move, latent speech, disorganized, unable to attend to ADL's, unable to do tasks, internally preoccupied...during one such episode pt was admitted to ICU for a metabolic encephalopathy from toxic level of alcohol ingestion and was in a coma for 2 months.. -it remains unclear her history of psychotic illness and it is possible that she has had delusional thinking that was simply under the radar or obscured by long history of substance abuse and then for whatever reason it has become more pronounced at this time. IMPRESSION: Patient remains delusional, without any insight, and with delusional thinking, rendering her unable to take care of herself in the community (this was also the case when she was discharged from [facility] but picked up by police as she was just standing outside [facility] confused and disorganized;) Currently, Patient says she wants to leave the hospital and that she will taking over to her house in [place], which he says she owns herself and is a million dollar home. Patient is delusional and If discharged now, she will end up in somewhere on [facility] in [place], alone, without assisted, without money, with a broken foot, no support, vulnerable, at risk for exposure and predation and without the organizational skills to take care of herself. Will continue to pursue involuntary commitment 05/06 Patient sitting in the room on her bed with towels laid on the bed. Patient has been sitting there talking to herself for a while; on approach patient said that she is contemplating taking a shower. She then gets up and mutters to herself for a bit. Freelance Digital Project Manager asked about her thoughts on last week's conversation. Patient sometimes is wandering about the milieu seemingly without purpose; put her face down on the nursing station led and looked like she was falling asleep Patient says that everything still stands as is... She discussed where she go and said that she is not ready to go to [facility] in [facility] because there are some problems there.. and that she won't got to this place until she talks to her CM Leslie (says she can't remember last name)...she explains this is the reason she wants to go to house here in [place] (that does not seem to exist). She also said she can go to [facility] since her sister has a place there but patient is not sure where and has not talked to her sister... She also says she can go to her boyfriend's or his mother's and says she talked to him last week. -Discussed medications and she agrees to get rid of Abilify as it has not seem to do much. -Team will try to clarify if patient has talked to her boyfriend; At this time it is not clear if Leslie her patient case manager from [place] exists or not. But if she does exist and team is able to get a hold of her, this will signify improvement. During discussion, patient implied she may be amenable to going back to her house in [place]; right now she is too disorganized to figure this out but if she improves in her organization this might be an option for his far as team knows, this is her only actual residents. 05/07 patient open to discussing discharge plans and amenable to going to her house in [place]. However remains with delusional thoughts. Approach television writer and said he could talk to her sister and all that television writer had to do his lean in and talk to her via the device that is implanted in her; at television writer's hesitation patient said that her sister has now decided otherwise and it is too late to talk to her -do not really know patient's baseline. In some ways she is functional despite being delusional. Concern remains that she will be able to take care of herself in the community Plan: Section 7 Q 15 minute checks Discussed case with hospitalist; patient has completed antibiotics; ortho consult says to wear both the boot and continue weight-bearing exercise as tolerated; can monitor H&H but it has remained stable Continue Zydis to 30 mg q.h.s.; DC Abilify has not seem to do much at plan has been to taper off and use Zyprexa instead Continue methadone Continue Rifaximin 550 mg b.i.d. Continue Biktarvy 1 mg daily Continue lactulose which patient says she takes regularly for liver cirrhosis Continue baclofen Continue Clonidine 0.1 mg Hold Gabapentin; was discontinued on medical floor; may restart Hold Prazosin; was discontinued on medical floor Reports history of taking Vyvanse/Adderall cellulitis:resolved; completed course of abx medial cuboid avulsion fracture - walking boot, weight-bear as tolerated, follow up with Orthopedics in 1-2 weeks knee effusion - recommend consider X-ray and Orthopedic consultation after overlying cellulitis resolves. HIV infection - continue Biktarvy. CD4 count 216. viral load pending. - syphilis T. pallidum EIA negative. urine gonorrhea/chlamydia PCR negative Patient educated on: diagnosis, medication risk/benefits and medical condition Informed Consent: understands, does not understand and further education needed Reason for continued inpatient stay Substantial Risk for: inability to function Time Spent With Patient Time: Total time managing care of this patient today ____ minutes.
--- NOTE | 2024-05-07 11:02 | PC.NURSE ---
María's BP this morning was 154/94 (HR 105). Providers MD [facility] LEAD CONSULTANT made aware via tiger text. Will continue to monitor.
[2024-05-07 20:00] VITALS: BP 131/74; PULSE 122; RESP 16; TEMP 37.2; O2SAT 98
[2024-05-07] MEDS: OLANZapine ODT 10 MG TAB.RAPDIS 30 MG TRANSLINGU (22:10)
[2024-05-08] MEDS: methADONE HCl 20 MG/2 ML ORAL.CONC 45 MG PO (08:08)
[2024-05-08] MEDS: Lidocaine 4 % Patch ADH..PATCH 2 PATCH TRANSDERMA (08:15)
[2024-05-08] MEDS: Nicotine 14 MG PATCH.TD24 TRANSDERMA (08:15)
[2024-05-08] MEDS: Acetaminophen 325 MG TABLET 650 MG PO ×2 (08:16→18:10)
[2024-05-08] MEDS: rifAXIMin 550 MG TABLET PO ×2 (08:17→22:10)
[2024-05-08] MEDS: Ferrous Sulfate 324 MG TABLET.DR PO ×2 (08:17→18:08)
[2024-05-08] MEDS: Diclofenac Sodium Delayed Rel 50 MG TABLET.DR PO ×2 (08:17→18:08)
[2024-05-08] MEDS: Lactulose 20 GM/30 ML SOLUTION 10 GM PO (08:17)
[2024-05-08] MEDS: Bictegrav/Emtricit/Tenofov Ala TABLET 1 TAB PO (08:17)
--- NOTE | 2024-05-08 08:54 | HO.PSYCHPN ---
Subjective Subjective Date of Service: 05/08/24 Reason For Visit: psych Interim History: Improved today. Clear, logical discussion regarding her medical concerns. Asks for repeat STD testing-discussed her concerns and exposure hx. Will repeat testing. Visable in milieu for periods of time today, seen in the common area talking with others for a brief period of time. Medication Compliance: Yes Side effects from medications: No Attending Groups: No Review of Systems Acute medical concerns: No Review of Systems Review of Systems Discussed wanting repeat STD testing. Mental Status Exam Mental Status Exam Patient Appearance: Fatigued Patient Orientation: Person, Place and Situation Level of Consciousness: Alert Patient Behavior: Appropriate, Talkative and Good Eye Contact Mood Description: Flat Affect Description: Flat Ability to Follow Directions: Good Speech Pattern: Spontaneous Speech and Long Pauses Thought Content: positive for [place] and positive for Circumstantial Judgement: Fair Diagnostics Vital Signs (24Hr): Vital Signs - 24 hr 05/07/24 20:00 Temperature 98.9 F Pulse Rate 122 H Respiratory Rate 16 Blood Pressure 131/74 Pulse Oximetry 98 Oxygen Delivery Method Room Air Medications Medications Current Medications Acetaminophen (Acetaminophen 325 Mg Tablet) 650 mg PO Q6H PRN PRN Reason: Headache/Pain Mild Scale (1-3) Last Admin: 05/08/24 08:16 Dose: 650 mg Al Hydroxide/Mg Hydroxide (Magnesium Hydrox/Alum Hydrox 30 Ml Oral.Susp) 30 ml PO Q6H PRN PRN Reason: Heartburn/Nausea Baclofen (Baclofen 10 Mg Tablet) 10 mg PO TID PRN PRN Reason: back/muscle spasm Last Admin: 05/07/24 22:12 Dose: 10 mg Bictegravir/Emtricitabine/Tenofovir (Bictegrav/Emtricit/Tenofov Ala Tablet) 1 tab PO DAILY [facility] Last Admin: 05/08/24 08:17 Dose: 1 tab Diclofenac Sodium (Diclofenac Sodium Delayed Rel 50 Mg Tablet.) 50 mg PO BIDWM [facility] Last Admin: 05/08/24 08:17 Dose: 50 mg Ferrous Sulfate (Ferrous Sulfate 324 Mg Tablet.) 324 mg PO BIDWM [facility] Last Admin: 05/08/24 08:17 Dose: 324 mg Lactulose (Lactulose 20 Gm/30 Ml Solution) 10 gm PO DAILY [facility] Last Admin: 05/08/24 08:17 Dose: 10 gm Lidocaine (Lidocaine 4 % Patch Adh..Patch) 2 patch TRANSDERMA DAILY [facility]; Protocol Last Admin: 05/08/24 08:15 Dose: 2 patch Lorazepam (Lorazepam 0.5 Mg Tablet) 0.5 mg PO BID PRN PRN Reason: anxiety Magnesium Hydroxide (Milk Of Magnesia 30 Ml Oral.Susp) 30 ml PO DAILY PRN PRN Reason: Constipation Methadone HCl (Methadone Hcl 20 Mg/2 Ml Oral.Conc) 45 mg PO DAILY@0800 [facility] Last Admin: 05/08/24 08:08 Dose: 45 mg Nicotine (Nicotine 14 Mg Patch.Td24) 14 mg TRANSDERMA DAILY [facility] Last Admin: 05/08/24 08:15 Dose: 14 mg Nicotine Polacrilex (Nicotine Polacrilex 2 Mg Gum) 4 mg BUCCAL Q2H PRN PRN Reason: Nicotine Cravings Olanzapine (Olanzapine Odt 10 Mg Tab.Rapdis) 30 mg TRANSLINGU BEDTIME [facility] Last Admin: 05/07/24 22:10 Dose: 30 mg Olanzapine (Olanzapine 5 Mg Tablet) 5 mg PO Q4H PRN PRN Reason: psychosis,agitation Ondansetron HCl (Ondansetron Odt 4 Mg Tab.Rapdis) 4 mg TRANSLINGU Q6H PRN PRN Reason: Nausea And Vomiting Rifaximin (Rifaximin 550 Mg Tablet) 550 mg PO BID [facility] Last Admin: 05/08/24 08:17 Dose: 550 mg Trazodone HCl (Trazodone Hcl 50 Mg Tablet) 50 mg PO BEDTIME PRN PRN Reason: Insomnia Allergies Allergies Allergy/AdvReac Type Severity Reaction Status Date / Time No Known Allergies Allergy Verified 04/05/24 18:41 Assessment & Plan Assessment & Plan (1) Schizophrenia, acute undifferentiated: Status: Acute Code(s): F20.3 - Undifferentiated schizophrenia (2) Opioid use disorder: Status: Acute Code(s): F11.90 - Opioid use, unspecified, uncomplicated (3) Left leg cellulitis: Status: Resolved Code(s): L03.116 - Cellulitis of left lower limb (4) HIV (human immunodeficiency virus infection): Status: Acute Code(s): Z21 - Asymptomatic human immunodeficiency virus [HIV] infection status (5) Left cuboid fracture: Status: Acute Code(s): S92.212A - Displaced fracture of cuboid bone of left foot, initial encounter for closed fracture Plan HPI: Patient is a 44-year-old woman with history of HIV, liver cirrhosis, anemia polysubstance abuse and recently psychotic symptoms (full history unknown) returns to following treatment on the medical floor for left leg cellulitis with IV antibiotics. Initially, patient 1st presented to the ED days after discharged from [facility] with continued bizarre, disorganized behavior and thoughts, delusional thinking that she is on a TV show called Killers. Patient was saying she own million dollar homes, 1 of which she bought while she was at [facility]... Patient was disorganized in both speech and behavior, delusional, thinking staff was stealing 20,000,000 dollars, calling 911 from the unit to report the theft...Attempts at any collateral were unsuccessful. Patient continued with delusional and paranoid thinking, continuing to say saying she own million dollar homes which she bought the week prior while she was psychiatrically admitted at [facility]..., she continued to think she was despite negative test; reported to creative services writer that she had a device implanted in her skin that informs her family of things... She remained on Abilify (which was increased) and low-dose Depakote but eventually was willing to start Zyprexa and taper down from Abilify; she wanted off Depakote which was discontinued. Pt found with medial cuboid avulsion fracture. Patient developed cellulitis of left lower leg, started on antibiotics but became septic and was transferred to the medical floor. Patient treated with antibiotics and medically cleared and returned back to the psychiatric for ongoing psychotic symptoms, maintained on her psychotropic medication regimen now on p.o. antibiotics. Back on M5 she was initially talking more clearly however remained delusional. Patient was intermittently refusing p.o. antibiotics (and was found spitting medications into the trash), refusing to let staff look at her leg; she remained with paranoid delusions, talking about her the home she own, the reality TV show the killers, hearing what her friends were saying via a device implanted in her dot dot set a market garden worker was put into her vagina...harassing staff, following staff up and down the jones, demanding staff give her their money and also give her her own money... Told staff that there is carmax in her ear. Patient had catatonic symptoms and was briefly started on Ativan. She continued to intermittently refuse antibiotics and both this creative services writer and nursing that she refused because was worried people were poisoning her. Her leg became swollen, cellulitis infection worsened and patient was sent back to the medical floor for IV antibiotics. She was cleared and now returns to M5 on a Section 7. Back again on M5, Patient remains wanting discharge. She wants to go to her [address] which she says [address], in [place]; she says it is a million dollar home, worth 1.5 million which she owns by herself. She can not explain where she got the money for this given her long history of homelessness and collateral provided that the statements are untrue. Mechanical Field Engineer showed patient numerous Google searches for this home which could not be found. Mechanical Field Engineer expressed significant concern where she be discharged, saying she will end up in [place], without any money, without any long term, alone with a broken foot; she denies this whenever happened because she said she has a becker hit in where she can get into this house. Mechanical Field Engineer reminded patient that earlier in her admission she told creative services writer that she bought this million dollar home while she was on the inpatient unit at [facility]; she clarified that she has own this house for 10 years however she corrected creative services writer saying that while she was at [facility], she bought [employer], thinking it was a good investment however then sold it to her friend Herlinda Barrios. Formulation/clinical reasoning: History of HIV; not clear on adherence with antiretrovirals and this could be a possible contribution to confusion. SW able to get more hx from collateral from her Ex-boyfriend and his mother with whom patient lived. Long hx of both opioid and alcohol abuse. They reports she had episodes with similar presentation...hard to move, latent speech, disorganized, unable to attend to ADL's, unable to do tasks, internally preoccupied...during one such episode pt was admitted to ICU for a metabolic encephalopathy from toxic level of alcohol ingestion and was in a coma for 2 months.. -it remains unclear her history of psychotic illness and it is possible that she has had delusional thinking that was simply under the radar or obscured by long history of substance abuse and then for whatever reason it has become more pronounced at this time. IMPRESSION: Patient remains delusional, without any insight, and with delusional thinking, rendering her unable to take care of herself in the community (this was also the case when she was discharged from [facility] but picked up by police as she was just standing outside [facility] confused and disorganized;) Currently, Patient says she wants to leave the hospital and that she will taking over to her house in [place], which he says she owns herself and is a million dollar home. Patient is delusional and If discharged now, she will end up in somewhere on [facility] in [place], alone, without long term, without money, with a broken foot, no support, vulnerable, at risk for exposure and predation and without the organizational skills to take care of herself. Will continue to pursue involuntary commitment 05/06 Patient sitting in the room on her bed with towels laid on the bed. Patient has been sitting there talking to herself for a while; on approach patient said that she is contemplating taking a shower. She then gets up and mutters to herself for a bit. Mechanical Field Engineer asked about her thoughts on last week's conversation. Patient sometimes is wandering about the milieu seemingly without purpose; put her face down on the nursing station ledge and looked like she was falling asleep Patient says that everything still stands as is... She discussed where she go and said that she is not ready to go to [facility] because there are some problems there.. and that she won't got to this place until she talks to her Leslie (says she can't remember last name)...she explains this is the reason she wants to go to house here in [place] (that does not seem to exist). She also said she can go to [facility] since her sister has a place there but patient is not sure where and has not talked to her sister... She also says she can go to her boyfriend's or his mother's and says she talked to him last week. -Discussed medications and she agrees to get rid of Abilify as it has not seem to do much. 05/08: STI panel. Continue current plan/regime. -Team will try to clarify if patient has talked to her boyfriend; At this time it is not clear if Leslie her family independence case manager from [place] exists or not. But if she does exist and team is able to get a hold of her, this will signify improvement. During discussion, patient implied she may be amenable to going back to her house in [place]; right now she is too disorganized to figure this out but if she improves in her organization this might be an option for his far as team knows, this is her only actual residents. Plan: Section 7 Q 15 minute checks Discussed case with hospitalist; patient has completed antibiotics; ortho consult says to wear both the boot and continue weight-bearing exercise as tolerated; can monitor H&H but it has remained stable Continue Zydis to 30 mg q.h.s.; DC Abilify has not seem to do much at plan has been to taper off and use Zyprexa instead Continue methadone Continue Rifaximin 550 mg b.i.d. Continue Biktarvy 1 mg daily Continue lactulose which patient says she takes regularly for liver cirrhosis Continue baclofen Continue Clonidine 0.1 mg Hold Gabapentin; was discontinued on medical floor; may restart Hold Prazosin; was discontinued on medical floor Reports history of taking Vyvanse/Adderall cellulitis:resolved; completed course of abx medial cuboid avulsion fracture - walking boot, weight-bear as tolerated, follow up with Orthopedics in 1-2 weeks knee effusion - recommend consider X-ray and Orthopedic consultation after overlying cellulitis resolves. HIV infection - continue Biktarvy. CD4 count 216. viral load pending. - syphilis T. pallidum EIA negative. urine gonorrhea/chlamydia PCR negative Reason for continued inpatient stay Substantial Risk for: rapid decompensation Time Spent With Patient Time: Total time managing care of this patient today ____ minutes.
[2024-05-08 20:00] VITALS: BP 107/59; PULSE 104; TEMP 37; O2SAT 96
[2024-05-08] MEDS: OLANZapine ODT 10 MG TAB.RAPDIS 30 MG TRANSLINGU (22:08)
[2024-05-08] MEDS: Baclofen 10 MG TABLET PO (22:09)
[2024-05-09] MEDS: methADONE HCl 20 MG/2 ML ORAL.CONC 45 MG PO (07:34)
[2024-05-09] MEDS: Acetaminophen 325 MG TABLET 650 MG PO ×2 (07:48→15:15)
[2024-05-09] MEDS: Nicotine 14 MG PATCH.TD24 TRANSDERMA (07:49)
[2024-05-09] MEDS: Baclofen 10 MG TABLET PO ×2 (07:49→15:15)
[2024-05-09] MEDS: Ferrous Sulfate 324 MG TABLET.DR PO ×2 (07:53→17:28)
[2024-05-09] MEDS: Bictegrav/Emtricit/Tenofov Ala TABLET 1 TAB PO (07:53)
[2024-05-09] MEDS: rifAXIMin 550 MG TABLET PO ×2 (07:53→21:00)
[2024-05-09] MEDS: Lactulose 20 GM/30 ML SOLUTION 10 GM PO (07:54)
[2024-05-09] MEDS: Diclofenac Sodium Delayed Rel 50 MG TABLET.DR PO ×2 (07:54→17:28)
[2024-05-09 07:55] VITALS: BP 133/73; PULSE 106; RESP 18; TEMP 36.7; O2SAT 97
--- NOTE | 2024-05-09 09:31 | HO.PSYCHPN ---
Subjective Subjective Date of Service: 05/09/24 Reason For Visit: psych Subjective Notes: Conditional Voluntary Interim History: Pt slept about 8hrs. She reports doing better with current medications but asks about medication for ADHD. She does seem bit disheveled and disorganized. She is visible on the unit social with select peers. No overt delusional content noted or reported. Review of Systems Review of Systems cellulitis Yes all other systems are reviewed and are negative Mental Status Exam Mental Status Exam Narrative: Pt is alert and oriented; behavior is calm, cooperative, still disorganized patient is not in distress; dressed in casual attire, hair in dreadlocks; mood is described as ok affect somewhat constricted; eye contact more appropriate; Speech remains with some latency; saw volume, normal prosody; not pressured; psychomotor retardation present; thought process mostly goal-directed, logical but also distracted by internal preoccupations; Thought content remains with delusional ideations; no SI/HI express. Seems to be internal preoccupation Patients insight and judgment impaired Diagnostics Vital Signs (24Hr): Vital Signs - 24 hr 05/08/24 20:00 05/09/24 07:55 Temperature 98.6 F 98.0 F Pulse Rate 104 H 106 H Respiratory Rate 18 Blood Pressure 107/59 L 133/73 Pulse Oximetry 96 97 Oxygen Delivery Method Room Air Room Air Medications Medications Current Medications Acetaminophen (Acetaminophen 325 Mg Tablet) 650 mg PO Q6H PRN PRN Reason: Headache/Pain Mild Scale (1-3) Last Admin: 05/09/24 07:48 Dose: 650 mg Al Hydroxide/Mg Hydroxide (Magnesium Hydrox/Alum Hydrox 30 Ml Oral.Susp) 30 ml PO Q6H PRN PRN Reason: Heartburn/Nausea Baclofen (Baclofen 10 Mg Tablet) 10 mg PO TID PRN PRN Reason: back/muscle spasm Last Admin: 05/09/24 07:49 Dose: 10 mg Bictegravir/Emtricitabine/Tenofovir (Bictegrav/Emtricit/Tenofov Ala Tablet) 1 tab PO DAILY [facility] Last Admin: 05/09/24 07:53 Dose: 1 tab Diclofenac Sodium (Diclofenac Sodium Delayed Rel 50 Mg Tablet.) 50 mg PO BIDWM [facility] Last Admin: 05/09/24 07:54 Dose: 50 mg Ferrous Sulfate (Ferrous Sulfate 324 Mg Tablet.) 324 mg PO BIDWM [facility] Last Admin: 05/09/24 07:53 Dose: 324 mg Lactulose (Lactulose 20 Gm/30 Ml Solution) 10 gm PO DAILY [facility] Last Admin: 05/09/24 07:54 Dose: 10 gm Lidocaine (Lidocaine 4 % Patch Adh..Patch) 2 patch TRANSDERMA DAILY [facility]; Protocol Last Admin: 05/08/24 08:15 Dose: 2 patch Lorazepam (Lorazepam 0.5 Mg Tablet) 0.5 mg PO BID PRN PRN Reason: anxiety Magnesium Hydroxide (Milk Of Magnesia 30 Ml Oral.Susp) 30 ml PO DAILY PRN PRN Reason: Constipation Methadone HCl (Methadone Hcl 20 Mg/2 Ml Oral.Conc) 45 mg PO DAILY@0800 [facility] Last Admin: 05/09/24 07:34 Dose: 45 mg Nicotine (Nicotine 14 Mg Patch.Td24) 14 mg TRANSDERMA DAILY [facility] Last Admin: 05/09/24 07:49 Dose: 14 mg Nicotine Polacrilex (Nicotine Polacrilex 2 Mg Gum) 4 mg BUCCAL Q2H PRN PRN Reason: Nicotine Cravings Olanzapine (Olanzapine Odt 10 Mg Tab.Rapdis) 30 mg TRANSLINGU BEDTIME [facility] Last Admin: 05/08/24 22:08 Dose: 30 mg Olanzapine (Olanzapine 5 Mg Tablet) 5 mg PO Q4H PRN PRN Reason: psychosis,agitation Ondansetron HCl (Ondansetron Odt 4 Mg Tab.Rapdis) 4 mg TRANSLINGU Q6H PRN PRN Reason: Nausea And Vomiting Rifaximin (Rifaximin 550 Mg Tablet) 550 mg PO BID [facility] Last Admin: 05/09/24 07:53 Dose: 550 mg Trazodone HCl (Trazodone Hcl 50 Mg Tablet) 50 mg PO BEDTIME PRN PRN Reason: Insomnia Allergies Allergies Allergy/AdvReac Type Severity Reaction Status Date / Time No Known Allergies Allergy Verified 04/05/24 18:41 Assessment & Plan Assessment & Plan (1) Schizophrenia, acute undifferentiated: Status: Acute Code(s): F20.3 - Undifferentiated schizophrenia (2) Opioid use disorder: Status: Acute Code(s): F11.90 - Opioid use, unspecified, uncomplicated (3) Left leg cellulitis: Status: Resolved Code(s): L03.116 - Cellulitis of left lower limb (4) HIV (human immunodeficiency virus infection): Status: Acute Code(s): Z21 - Asymptomatic human immunodeficiency virus [HIV] infection status (5) Left cuboid fracture: Status: Acute Code(s): S92.212A - Displaced fracture of cuboid bone of left foot, initial encounter for closed fracture Plan HPI: Patient is a 44-year-old woman with history of HIV, liver cirrhosis, anemia polysubstance abuse and recently psychotic symptoms (full history unknown) returns to following treatment on the medical floor for left leg cellulitis with IV antibiotics. Initially, patient 1st presented to the ED days after discharged from [facility] with continued bizarre, disorganized behavior and thoughts, delusional thinking that she is on a TV show called [employer]. Patient was saying she own million dollar homes, 1 of which she bought while she was at [facility]... Patient was disorganized in both speech and behavior, delusional, thinking staff was stealing 20,000,000 dollars, calling 911 from the unit to report the theft...Attempts at any collateral were unsuccessful. Patient continued with delusional and paranoid thinking, continuing to say saying she own million dollar homes which she bought the week prior while she was psychiatrically admitted at [facility]..., she continued to think she was despite negative test; reported to blurb writer that she had a device implanted in her skin that informs her family of things... She remained on Abilify (which was increased) and low-dose Depakote but eventually was willing to start Zyprexa and taper down from Abilify; she wanted off Depakote which was discontinued. Pt found with medial cuboid avulsion fracture. Patient developed cellulitis of left lower leg, started on antibiotics but became septic and was transferred to the medical floor. Patient treated with antibiotics and medically cleared and returned back to the psychiatric for ongoing psychotic symptoms, maintained on her psychotropic medication regimen now on p.o. antibiotics. Back on M5 she was initially talking more clearly however remained delusional. Patient was intermittently refusing p.o. antibiotics (and was found spitting medications into the trash), refusing to let staff look at her leg; she remained with paranoid delusions, talking about her the home she own, the reality TV show the killers, hearing what her friends were saying via a device implanted in her dot dot set a toolroom helper was put into her vagina...harassing staff, following staff up and down the jones, demanding staff give her their money and also give her her own money... Told staff that there is [employer]max in her ear. Patient had catatonic symptoms and was briefly started on Ativan. She continued to intermittently refuse antibiotics and both this blurb writer and nursing that she refused because was worried people were poisoning her. Her leg became swollen, cellulitis infection worsened and patient was sent back to the medical floor for IV antibiotics. She was cleared and now returns to M5 on a Section 7. Back again on M5, Patient remains wanting discharge. She wants to go to her house which she says [address], in [place]; she says it is a million dollar home, worth 1.5 million which she owns by herself. She can not explain where she got the money for this given her long history of homelessness and collateral provided that the statements are untrue. Aerial Survey Technician showed patient numerous Google searches for this home which could not be found. Aerial Survey Technician expressed significant concern where she be discharged, saying she will end up in [place], without any money, without any fci, alone with a broken foot; she denies this whenever happened because she said she has a becker hit in where she can get into this house. Aerial Survey Technician reminded patient that earlier in her admission she told blurb writer that she bought this million dollar home while she was on the inpatient unit at [facility]; she clarified that she has own this house for 10 years however she corrected blurb writer saying that while she was at [facility], she bought [employer], thinking it was a good investment however then sold it to her friend Herlinda Barrios. Formulation/clinical reasoning: History of HIV; not clear on adherence with antiretrovirals and this could be a possible contribution to confusion. SW able to get more hx from collateral from her Ex-boyfriend and his mother with whom patient lived. Long hx of both opioid and alcohol abuse. They reports she had episodes with similar presentation...hard to move, latent speech, disorganized, unable to attend to ADL's, unable to do tasks, internally preoccupied...during one such episode pt was admitted to ICU for a metabolic encephalopathy from toxic level of alcohol ingestion and was in a coma for 2 months.. -it remains unclear her history of psychotic illness and it is possible that she has had delusional thinking that was simply under the radar or obscured by long history of substance abuse and then for whatever reason it has become more pronounced at this time. IMPRESSION: Patient remains delusional, without any insight, and with delusional thinking, rendering her unable to take care of herself in the community (this was also the case when she was discharged from [facility] but picked up by police as she was just standing outside [facility] confused and disorganized;) Currently, Patient says she wants to leave the hospital and that she will taking over to her house in [place], which he says she owns herself and is a million dollar home. Patient is delusional and If discharged now, she will end up in somewhere on [facility] in [place], alone, without fci, without money, with a broken foot, no support, vulnerable, at risk for exposure and predation and without the organizational skills to take care of herself. Will continue to pursue involuntary commitment 05/06 Patient sitting in the room on her bed with towels laid on the bed. Patient has been sitting there talking to herself for a while; on approach patient said that she is contemplating taking a shower. She then gets up and mutters to herself for a bit. Aerial Survey Technician asked about her thoughts on last week's conversation. Patient sometimes is wandering about the milieu seemingly without purpose; put her face down on the nursing station led and looked like she was falling asleep Patient says that everything still stands as is... She discussed where she go and said that she is not ready to go to [facility] in [facility] because there are some problems there.. and that she won't got to this place until she talks to her CM Leslie (says she can't remember last name)...she explains this is the reason she wants to go to house here in [place] (that does not seem to exist). She also said she can go to [facility] since her sister has a place there but patient is not sure where and has not talked to her sister... She also says she can go to her boyfriend's or his mother's and says she talked to him last week. -Discussed medications and she agrees to get rid of Abilify as it has not seem to do much. -Team will try to clarify if patient has talked to her boyfriend; At this time it is not clear if Leslie her case management manager from [place] exists or not. But if she does exist and team is able to get a hold of her, this will signify improvement. During discussion, patient implied she may be amenable to going back to her house in [place]; right now she is too disorganized to figure this out but if she improves in her organization this might be an option for his far as team knows, this is her only actual residents. 05/09 continue tx. Plan: Section 7 Q 15 minute checks Discussed case with hospitalist; patient has completed antibiotics; ortho consult says to wear both the boot and continue weight-bearing exercise as tolerated; can monitor H&H but it has remained stable Continue Zydis to 30 mg q.h.s.; DC Abilify has not seem to do much at plan has been to taper off and use Zyprexa instead Continue methadone Continue Rifaximin 550 mg b.i.d. Continue Biktarvy 1 mg daily Continue lactulose which patient says she takes regularly for liver cirrhosis Continue baclofen Continue Clonidine 0.1 mg Hold Gabapentin; was discontinued on medical floor; may restart Hold Prazosin; was discontinued on medical floor Reports history of taking Vyvanse/Adderall cellulitis:resolved; completed course of abx medial cuboid avulsion fracture - walking boot, weight-bear as tolerated, follow up with Orthopedics in 1-2 weeks knee effusion - recommend consider X-ray and Orthopedic consultation after overlying cellulitis resolves. HIV infection - continue Biktarvy. CD4 count 216. viral load pending. - syphilis T. pallidum EIA negative. urine gonorrhea/chlamydia PCR negative Reason for continued inpatient stay Substantial Risk for: inability to function Time Spent With Patient Time: Total time managing care of this patient today ____ minutes.
[2024-05-09 13:28] LABS: Bacterial Vaginosis PCR NEGATIVE (Negative); Candida Group PCR NOT DETECTED (Not Detect); Candida glab krusei PCR NOT DETECTED (Not Detect); Trichomonas vaginalis PCR NOT DETECTED (Not Detect)
[2024-05-09 13:47] LABS: CT PCR NOT DETECTED (Not Detect.); NG PCR NOT DETECTED (Not Detect.)
[2024-05-09 19:46] VITALS: PULSE 70; RESP 16; O2SAT 96
[2024-05-09] MEDS: OLANZapine ODT 10 MG TAB.RAPDIS 30 MG TRANSLINGU (21:00)
[2024-05-10] MEDS: methADONE HCl 20 MG/2 ML ORAL.CONC 45 MG PO (07:52)
[2024-05-10] MEDS: Acetaminophen 325 MG TABLET 650 MG PO ×2 (07:59→15:08)
[2024-05-10] MEDS: Diclofenac Sodium Delayed Rel 50 MG TABLET.DR PO ×2 (07:59→18:16)
[2024-05-10 08:00] VITALS: BP 157/101; PULSE 99; TEMP 36.4; O2SAT 100
[2024-05-10] MEDS: Bictegrav/Emtricit/Tenofov Ala TABLET 1 TAB PO (08:00)
[2024-05-10] MEDS: rifAXIMin 550 MG TABLET PO ×2 (08:00→21:16)
[2024-05-10] MEDS: Ferrous Sulfate 324 MG TABLET.DR PO ×2 (08:00→18:16)
[2024-05-10] MEDS: Nicotine 14 MG PATCH.TD24 TRANSDERMA (08:00)
[2024-05-10] MEDS: Lactulose 20 GM/30 ML SOLUTION 10 GM PO (08:00)
[2024-05-10] MEDS: Lidocaine 4 % Patch ADH..PATCH 2 PATCH TRANSDERMA (08:01)
[2024-05-10 08:04] LABS: Syphilis Screen Nonreactive (Nonreactive)
[2024-05-10 08:05] VITALS: BP 150/82
[2024-05-10 08:14] LABS: HIV Num 1 771.57 S/CO (0.00-0.99)
[2024-05-10 09:38] LABS: HIV AB/AG Reactive (Nonreactive); HIV Num 3 845.45 S/CO
[2024-05-10] MEDS: Baclofen 10 MG TABLET PO ×2 (12:55→18:16)
--- NOTE | 2024-05-10 15:39 | HO.PSYCHPN ---
Subjective Subjective Date of Service: 05/10/24 Reason For Visit: psych Interim History: Met with patient; discussed with team Patient able to talk clearly about certain topics; remains internally preoccupied and with some delusional thoughts. Agrees to call Kodi, her ex-boyfriend who is interested in supporting. Mental Status Exam Mental Status Exam Narrative: Pt is alert and oriented; behavior is calm, cooperative, still disorganized patient is not in distress; dressed in casual attire, hair in dreadlocks; mood is described as ok affect somewhat constricted; eye contact more appropriate; Speech remains with some latency; saw volume, normal prosody; not pressured; psychomotor retardation present; thought process mostly goal-directed, logical but also distracted by internal preoccupations; Thought content remains with delusional ideations; no SI/HI express. Seems to be internal preoccupation Patients insight and judgment impaired though has improved some. Diagnostics Vital Signs (24Hr): Vital Signs - 24 hr 05/09/24 19:46 05/10/24 08:00 05/10/24 08:05 Temperature 97.5 F Pulse Rate 70 99 Respiratory Rate 16 Blood Pressure 157/101 H 150/82 H Pulse Oximetry 96 100 Oxygen Delivery Method Room Air Room Air Labs Labs: Laboratory Results - last 48 hr 05/09/24 05/09/24 11:01 14:59 T.pallidum Ab (EIA) Nonreactive Chlam trachomat DNA PCR NOT DETECTED HIV 1&2 Ab/P24 Ag 4thGn Reactive H N.gonorrhoeae DNA (PCR) NOT DETECTED T. vaginalis (PCR) NOT DETECTED Bact vaginosis (PCR) NEGATIVE C. krusei/glabrata (PCR) NOT DETECTED Na group (PCR) NOT DETECTED Medications Medications Current Medications Acetaminophen (Acetaminophen 325 Mg Tablet) 650 mg PO Q6H PRN PRN Reason: Headache/Pain Mild Scale (1-3) Last Admin: 05/10/24 15:08 Dose: 650 mg Al Hydroxide/Mg Hydroxide (Magnesium Hydrox/Alum Hydrox 30 Ml Oral.Susp) 30 ml PO Q6H PRN PRN Reason: Heartburn/Nausea Baclofen (Baclofen 10 Mg Tablet) 10 mg PO TID PRN PRN Reason: back/muscle spasm Last Admin: 05/10/24 12:55 Dose: 10 mg Bictegravir/Emtricitabine/Tenofovir (Bictegrav/Emtricit/Tenofov Ala Tablet) 1 tab PO DAILY [facility] Last Admin: 05/10/24 08:00 Dose: 1 tab Diclofenac Sodium (Diclofenac Sodium Delayed Rel 50 Mg Tablet.) 50 mg PO BIDWM [facility] Last Admin: 05/10/24 07:59 Dose: 50 mg Ferrous Sulfate (Ferrous Sulfate 324 Mg Tablet.) 324 mg PO BIDWM [facility] Last Admin: 05/10/24 08:00 Dose: 324 mg Lactulose (Lactulose 20 Gm/30 Ml Solution) 10 gm PO DAILY [facility] Last Admin: 05/10/24 08:00 Dose: 10 gm Lidocaine (Lidocaine 4 % Patch Adh..Patch) 2 patch TRANSDERMA DAILY [facility]; Protocol Last Admin: 05/10/24 08:01 Dose: 2 patch Lorazepam (Lorazepam 0.5 Mg Tablet) 0.5 mg PO BID PRN PRN Reason: anxiety Magnesium Hydroxide (Milk Of Magnesia 30 Ml Oral.Susp) 30 ml PO DAILY PRN PRN Reason: Constipation Methadone HCl (Methadone Hcl 20 Mg/2 Ml Oral.Conc) 45 mg PO DAILY@0800 [facility] Last Admin: 05/10/24 07:52 Dose: 45 mg Nicotine (Nicotine 14 Mg Patch.Td24) 14 mg TRANSDERMA DAILY [facility] Last Admin: 05/10/24 08:00 Dose: 14 mg Nicotine Polacrilex (Nicotine Polacrilex 2 Mg Gum) 4 mg BUCCAL Q2H PRN PRN Reason: Nicotine Cravings Olanzapine (Olanzapine Odt 10 Mg Tab.Rapdis) 30 mg TRANSLINGU BEDTIME [facility] Last Admin: 05/09/24 21:00 Dose: 30 mg Olanzapine (Olanzapine 5 Mg Tablet) 5 mg PO Q4H PRN PRN Reason: psychosis,agitation Ondansetron HCl (Ondansetron Odt 4 Mg Tab.Rapdis) 4 mg TRANSLINGU Q6H PRN PRN Reason: Nausea And Vomiting Rifaximin (Rifaximin 550 Mg Tablet) 550 mg PO BID [facility] Last Admin: 05/10/24 08:00 Dose: 550 mg Trazodone HCl (Trazodone Hcl 50 Mg Tablet) 50 mg PO BEDTIME PRN PRN Reason: Insomnia Allergies Allergies Allergy/AdvReac Type Severity Reaction Status Date / Time No Known Allergies Allergy Verified 04/05/24 18:41 Assessment & Plan Assessment & Plan (1) Schizophrenia, acute undifferentiated: Status: Acute Code(s): F20.3 - Undifferentiated schizophrenia (2) Opioid use disorder: Status: Acute Code(s): F11.90 - Opioid use, unspecified, uncomplicated (3) Left leg cellulitis: Status: Resolved Code(s): L03.116 - Cellulitis of left lower limb (4) HIV (human immunodeficiency virus infection): Status: Acute Code(s): Z21 - Asymptomatic human immunodeficiency virus [HIV] infection status (5) Left cuboid fracture: Status: Acute Code(s): S92.212A - Displaced fracture of cuboid bone of left foot, initial encounter for closed fracture Plan HPI: Patient is a 44-year-old woman with history of HIV, liver cirrhosis, anemia polysubstance abuse and recently psychotic symptoms (full history unknown) returns to following treatment on the medical floor for left leg cellulitis with IV antibiotics. Initially, patient 1st presented to the ED days after discharged from [facility] with continued bizarre, disorganized behavior and thoughts, delusional thinking that she is on a TV show called Killers. Patient was saying she own million dollar homes, 1 of which she bought while she was at [facility]... Patient was disorganized in both speech and behavior, delusional, thinking staff was stealing 20,000,000 dollars, calling 911 from the unit to report the theft...Attempts at any collateral were unsuccessful. Patient continued with delusional and paranoid thinking, continuing to say saying she own million dollar homes which she bought the week prior while she was psychiatrically admitted at [facility]..., she continued to think she was despite negative test; reported to engineering technical writer that she had a device implanted in her skin that informs her family of things... She remained on Abilify (which was increased) and low-dose Depakote but eventually was willing to start Zyprexa and taper down from Abilify; she wanted off Depakote which was discontinued. Pt found with medial cuboid avulsion fracture. Patient developed cellulitis of left lower leg, started on antibiotics but became septic and was transferred to the medical floor. Patient treated with antibiotics and medically cleared and returned back to the psychiatric for ongoing psychotic symptoms, maintained on her psychotropic medication regimen now on p.o. antibiotics. Back on M5 she was initially talking more clearly however remained delusional. Patient was intermittently refusing p.o. antibiotics (and was found spitting medications into the trash), refusing to let staff look at her leg; she remained with paranoid delusions, talking about her the home she own, the reality TV show the killers, hearing what her friends were saying via a device implanted in her dot dot set a clinic nurse was put into her vagina...harassing staff, following staff up and down the jones, demanding staff give her their money and also give her her own money... Told staff that there is carmax in her ear. Patient had catatonic symptoms and was briefly started on Ativan. She continued to intermittently refuse antibiotics and both this engineering technical writer and nursing that she refused because was worried people were poisoning her. Her leg became swollen, cellulitis infection worsened and patient was sent back to the medical floor for IV antibiotics. She was cleared and now returns to on a Section 7. Back again on M5, Patient remains wanting discharge. She wants to go to her [address] which she says [address] [facility] [facility] [address] [facility], in [place]; she says it is a million dollar home, worth 1.5 million which she owns by herself. She can not explain where she got the money for this given her long history of homelessness and collateral provided that the statements are untrue. Medical Record Librarian showed patient numerous Google searches for this home which could not be found. Medical Record Librarian expressed significant concern where she be discharged, saying she will end up in [place], without any money, without any mcc, alone with a broken foot; she denies this whenever happened because she said she has a becker hit in where she can get into this house. Medical Record Librarian reminded patient that earlier in her admission she told engineering technical writer that she bought this million dollar home while she was on the inpatient unit at [facility]; she clarified that she has own this house for 10 years however she corrected engineering technical writer saying that while she was at [facility], she bought [employer], thinking it was a good investment however then sold it to her friend Herlinda Barrios. Formulation/clinical reasoning: History of HIV; not clear on adherence with antiretrovirals and this could be a possible contribution to confusion. SW able to get more hx from collateral from her Ex-boyfriend and his mother with whom patient lived. Long hx of both opioid and alcohol abuse. They reports she had episodes with similar presentation...hard to move, latent speech, disorganized, unable to attend to ADL's, unable to do tasks, internally preoccupied...during one such episode pt was admitted to ICU for a metabolic encephalopathy from toxic level of alcohol ingestion and was in a coma for 2 months.. -it remains unclear her history of psychotic illness and it is possible that she has had delusional thinking that was simply under the radar or obscured by long history of substance abuse and then for whatever reason it has become more pronounced at this time. IMPRESSION: Patient remains delusional, without any insight, and with delusional thinking, rendering her unable to take care of herself in the community (this was also the case when she was discharged from [facility] but picked up by police as she was just standing outside [facility] confused and disorganized;) Currently, Patient says she wants to leave the hospital and that she will taking over to her house in [place], which he says she owns herself and is a million dollar home. Patient is delusional and If discharged now, she will end up in somewhere on [facility] in [place], alone, without mcc, without money, with a broken foot, no support, vulnerable, at risk for exposure and predation and without the organizational skills to take care of herself. Will continue to pursue involuntary commitment 05/06 Patient sitting in the room on her bed with towels laid on the bed. Patient has been sitting there talking to herself for a while; on approach patient said that she is contemplating taking a shower. She then gets up and mutters to herself for a bit. Medical Record Librarian asked about her thoughts on last week's conversation. Patient sometimes is wandering about the milieu seemingly without purpose; put her face down on the nursing station ledge and looked like she was falling asleep Patient says that everything still stands as is... She discussed where she go and said that she is not ready to go to [facility] in [facility] because there are some problems there.. and that she won't got to this place until she talks to her CM Leslie (says she can't remember last name)...she explains this is the reason she wants to go to house here in [place] (that does not seem to exist). She also said she can go to [facility] since her sister has a place there but patient is not sure where and has not talked to her sister... She also says she can go to her boyfriend's or his mother's and says she talked to him last week. -Discussed medications and she agrees to get rid of Abilify as it has not seem to do much. -Team will try to clarify if patient has talked to her boyfriend; At this time it is not clear if Leslie her supportive employment case manager from [employer] exists or not. But if she does exist and team is able to get a hold of her, this will signify improvement. During discussion, patient implied she may be amenable to going back to her house in [place]; right now she is too disorganized to figure this out but if she improves in her organization this might be an option for his far as team knows, this is her only actual residents. 05/07 patient open to discussing discharge plans and amenable to going to her house in [place]. However remains with delusional thoughts. Approach engineering technical writer and said he could talk to her sister and all that engineering technical writer had to do his lean in and talk to her via the device that is implanted in her; at engineering technical writer's hesitation patient said that her sister has now decided otherwise and it is too late to talk to her -do not really know patient's baseline. In some ways she is functional despite being delusional. Concern remains that she will be able to take care of herself in the community 05/10 Patient able to talk clearly about certain topics; remains internally preoccupied and with some delusional thoughts. Agrees to call Kodi, her ex-boyfriend who is interested in supporting. Plan: Section 7 Q 15 minute checks Discussed case with hospitalist; patient has completed antibiotics; ortho consult says to wear both the boot and continue weight-bearing exercise as tolerated; can monitor H&H but it has remained stable Continue Zydis to 30 mg q.h.s.; DC Abilify has not seem to do much at plan has been to taper off and use Zyprexa instead Continue methadone Continue Rifaximin 550 mg b.i.d. Continue Biktarvy 1 mg daily Continue lactulose which patient says she takes regularly for liver cirrhosis Continue baclofen Continue Clonidine 0.1 mg Hold Gabapentin; was discontinued on medical floor; may restart Hold Prazosin; was discontinued on medical floor Reports history of taking Vyvanse/Adderall cellulitis:resolved; completed course of abx medial cuboid avulsion fracture - walking boot, weight-bear as tolerated, follow up with Orthopedics in 1-2 weeks knee effusion - recommend consider X-ray and Orthopedic consultation after overlying cellulitis resolves. HIV infection - continue Biktarvy. CD4 count 216. viral load pending. - syphilis T. pallidum EIA negative. urine gonorrhea/chlamydia PCR negative Patient educated on: diagnosis, medication risk/benefits and medical condition Informed Consent: understands, does not understand and further education needed Reason for continued inpatient stay Substantial Risk for: inability to function, stable for discharge, rapid decompensation and med/psych decompensation Time Spent With Patient Time: Total time managing care of this patient today ____ minutes.
[2024-05-10 20:00] VITALS: PULSE 111; RESP 16; TEMP 36; O2SAT 98
[2024-05-10] MEDS: OLANZapine ODT 10 MG TAB.RAPDIS 30 MG TRANSLINGU (21:16)
[2024-05-11] MEDS: Ondansetron ODT 4 MG TAB.RAPDIS TRANSLINGU ×2 (04:05→21:46)
[2024-05-11] MEDS: methADONE HCl 20 MG/2 ML ORAL.CONC 45 MG PO (07:50)
[2024-05-11] MEDS: Nicotine 14 MG PATCH.TD24 TRANSDERMA (07:54)
[2024-05-11] MEDS: Acetaminophen 325 MG TABLET 650 MG PO ×2 (07:54→17:33)
[2024-05-11] MEDS: Lactulose 20 GM/30 ML SOLUTION 10 GM PO (07:54)
[2024-05-11] MEDS: Ferrous Sulfate 324 MG TABLET.DR PO (07:55)
[2024-05-11] MEDS: Bictegrav/Emtricit/Tenofov Ala TABLET 1 TAB PO (07:55)
[2024-05-11] MEDS: Diclofenac Sodium Delayed Rel 50 MG TABLET.DR PO ×2 (07:55→17:23)
[2024-05-11] MEDS: Baclofen 10 MG TABLET PO ×2 (07:57→17:33)
[2024-05-11] MEDS: Lidocaine 4 % Patch ADH..PATCH 2 PATCH TRANSDERMA (10:20)
--- NOTE | 2024-05-11 15:17 | HO.PSYCHPN ---
Subjective Subjective Date of Service: 05/11/24 Reason For Visit: psych Interim History: Pt seen, discussed with the team Plan of care reviewed Pt reports feeling some improvement. Denies current sx of issues of concern. Medication Compliance: Yes Side effects from medications: No Attending Groups: Intermittent Review of Systems Acute medical concerns: No Review of Systems Review of Systems denies Mental Status Exam Mental Status Exam Patient Appearance: Fatigued Patient Orientation: Person and Place Level of Consciousness: Sedated and Alert Patient Behavior: Talkative and Good Eye Contact Mood Description: Flat Affect Description: Flat Patient Cognition Impaired: No Ability to Follow Directions: Fair Speech Pattern: Spontaneous Speech and Delayed Memory Description: Remote Impaired Thought Content: positive for Thought Blocking (??) Depressive Symptoms: Difficulty Concentrating Judgement: Fair Diagnostics Vital Signs (24Hr): Vital Signs - 24 hr 05/10/24 20:00 Temperature 96.8 F Pulse Rate 111 H Respiratory Rate 16 Pulse Oximetry 98 Oxygen Delivery Method Room Air Labs Labs: Laboratory Results - last 48 hr 05/09/24 14:59 T.pallidum Ab (EIA) Nonreactive HIV 1&2 Ab/P24 Ag 4thGn Reactive H Medications Medications Current Medications Acetaminophen (Acetaminophen 325 Mg Tablet) 650 mg PO Q6H PRN PRN Reason: Headache/Pain Mild Scale (1-3) Last Admin: 05/11/24 07:54 Dose: 650 mg Al Hydroxide/Mg Hydroxide (Magnesium Hydrox/Alum Hydrox 30 Ml Oral.Susp) 30 ml PO Q6H PRN PRN Reason: Heartburn/Nausea Baclofen (Baclofen 10 Mg Tablet) 10 mg PO TID PRN PRN Reason: back/muscle spasm Last Admin: 05/11/24 07:57 Dose: 10 mg Bictegravir/Emtricitabine/Tenofovir (Bictegrav/Emtricit/Tenofov Ala Tablet) 1 tab PO DAILY [facility] Last Admin: 05/11/24 07:55 Dose: 1 tab Diclofenac Sodium (Diclofenac Sodium Delayed Rel 50 Mg Tablet.) 50 mg PO BIDWM [facility] Last Admin: 05/11/24 07:55 Dose: 50 mg Ferrous Sulfate (Ferrous Sulfate 324 Mg Tablet.) 324 mg PO BIDWM [facility] Last Admin: 05/11/24 07:55 Dose: 324 mg Lactulose (Lactulose 20 Gm/30 Ml Solution) 10 gm PO DAILY [facility] Last Admin: 12/28/24 07:54 Dose: 10 gm Lidocaine (Lidocaine 4 % Patch Adh..Patch) 2 patch TRANSDERMA DAILY [facility]; Protocol Last Admin: 05/11/24 10:20 Dose: 2 patch Lorazepam (Lorazepam 0.5 Mg Tablet) 0.5 mg PO BID PRN PRN Reason: anxiety Magnesium Hydroxide (Milk Of Magnesia 30 Ml Oral.Susp) 30 ml PO DAILY PRN PRN Reason: Constipation Methadone HCl (Methadone Hcl 20 Mg/2 Ml Oral.Conc) 45 mg PO DAILY@0800 [facility] Last Admin: 05/11/24 07:50 Dose: 45 mg Nicotine (Nicotine 14 Mg Patch.Td24) 14 mg TRANSDERMA DAILY [facility] Last Admin: 05/11/24 07:54 Dose: 14 mg Nicotine Polacrilex (Nicotine Polacrilex 2 Mg Gum) 4 mg BUCCAL Q2H PRN PRN Reason: Nicotine Cravings Olanzapine (Olanzapine Odt 10 Mg Tab.Rapdis) 30 mg TRANSLINGU BEDTIME [facility] Last Admin: 05/10/24 21:16 Dose: 30 mg Olanzapine (Olanzapine 5 Mg Tablet) 5 mg PO Q4H PRN PRN Reason: psychosis,agitation Ondansetron HCl (Ondansetron Odt 4 Mg Tab.Rapdis) 4 mg TRANSLINGU Q6H PRN PRN Reason: Nausea And Vomiting Last Admin: 05/11/24 04:05 Dose: 4 mg Rifaximin (Rifaximin 550 Mg Tablet) 550 mg PO BID [facility] Last Admin: 05/11/24 10:48 Dose: Not Given Trazodone HCl (Trazodone Hcl 50 Mg Tablet) 50 mg PO BEDTIME PRN PRN Reason: Insomnia Allergies Allergies Allergy/AdvReac Type Severity Reaction Status Date / Time No Known Allergies Allergy Verified 04/05/24 18:41 Assessment & Plan Assessment & Plan (1) Schizophrenia, acute undifferentiated: Status: Acute Code(s): F20.3 - Undifferentiated schizophrenia (2) Opioid use disorder: Status: Acute Code(s): F11.90 - Opioid use, unspecified, uncomplicated (3) Left leg cellulitis: Status: Resolved Code(s): L03.116 - Cellulitis of left lower limb (4) HIV (human immunodeficiency virus infection): Status: Acute Code(s): Z21 - Asymptomatic human immunodeficiency virus [HIV] infection status (5) Left cuboid fracture: Status: Acute Code(s): S92.212A - Displaced fracture of cuboid bone of left foot, initial encounter for closed fracture Plan HPI: Patient is a 44-year-old woman with history of HIV, liver cirrhosis, anemia polysubstance abuse and recently psychotic symptoms (full history unknown) returns to following treatment on the medical floor for left leg cellulitis with IV antibiotics. Initially, patient 1st presented to the ED days after discharged from [facility] with continued bizarre, disorganized behavior and thoughts, delusional thinking that she is on a TV show called Killers. Patient was saying she own million dollar homes, 1 of which she bought while she was at [facility]... Patient was disorganized in both speech and behavior, delusional, thinking staff was stealing 20,000,000 dollars, calling 911 from the unit to report the theft...Attempts at any collateral were unsuccessful. Patient continued with delusional and paranoid thinking, continuing to say saying she own million dollar homes which she bought the week prior while she was psychiatrically admitted at [facility]..., she continued to think she was despite negative test; reported to global technical writer that she had a device implanted in her skin that informs her family of things... She remained on Abilify (which was increased) and low-dose Depakote but eventually was willing to start Zyprexa and taper down from Abilify; she wanted off Depakote which was discontinued. Pt found with medial cuboid avulsion fracture. Patient developed cellulitis of left lower leg, started on antibiotics but became septic and was transferred to the medical floor. Patient treated with antibiotics and medically cleared and returned back to the psychiatric for ongoing psychotic symptoms, maintained on her psychotropic medication regimen now on p.o. antibiotics. Back on M5 she was initially talking more clearly however remained delusional. Patient was intermittently refusing p.o. antibiotics (and was found spitting medications into the trash), refusing to let staff look at her leg; she remained with paranoid delusions, talking about her the home she own, the reality TV show the killers, hearing what her friends were saying via a device implanted in her dot dot set a accountant machine processing was put into her vagina...harassing staff, following staff up and down the jones, demanding staff give her their money and also give her her own money... Told staff that there is carmax in her ear. Patient had catatonic symptoms and was briefly started on Ativan. She continued to intermittently refuse antibiotics and both this global technical writer and nursing that she refused because was worried people were poisoning her. Her leg became swollen, cellulitis infection worsened and patient was sent back to the medical floor for IV antibiotics. She was cleared and now returns to on a Section 7. Back again on M5, Patient remains wanting discharge. She wants to go to her house which she says [address], in [place]; she says it is a million dollar home, worth 1.5 million which she owns by herself. She can not explain where she got the money for this given her long history of homelessness and collateral provided that the statements are untrue. Stockroom Selector showed patient numerous Google searches for this home which could not be found. Stockroom Selector expressed significant concern where she be discharged, saying she will end up in [place], without any money, without any fdc, alone with a broken foot; she denies this whenever happened because she said she has a becker hit in where she can get into this house. Stockroom Selector reminded patient that earlier in her admission she told global technical writer that she bought this million dollar home while she was on the inpatient unit at [facility]; she clarified that she has own this house for 10 years however she corrected global technical writer saying that while she was at [facility], she bought [employer], thinking it was a good investment however then sold it to her friend Herlinda Barrios. Formulation/clinical reasoning: History of HIV; not clear on adherence with antiretrovirals and this could be a possible contribution to confusion. SW able to get more hx from collateral from her Ex-boyfriend and his mother with whom patient lived. Long hx of both opioid and alcohol abuse. They reports she had episodes with similar presentation...hard to move, latent speech, disorganized, unable to attend to ADL's, unable to do tasks, internally preoccupied...during one such episode pt was admitted to ICU for a metabolic encephalopathy from toxic level of alcohol ingestion and was in a coma for 2 months.. -it remains unclear her history of psychotic illness and it is possible that she has had delusional thinking that was simply under the radar or obscured by long history of substance abuse and then for whatever reason it has become more pronounced at this time. IMPRESSION: Patient remains delusional, without any insight, and with delusional thinking, rendering her unable to take care of herself in the community (this was also the case when she was discharged from [facility] but picked up by police as she was just standing outside [facility] confused and disorganized;) Currently, Patient says she wants to leave the hospital and that she will taking over to her house in [place], which he says she owns herself and is a million dollar home. Patient is delusional and If discharged now, she will end up in somewhere on [facility] in [place], alone, without fdc, without money, with a broken foot, no support, vulnerable, at risk for exposure and predation and without the organizational skills to take care of herself. Will continue to pursue involuntary commitment 05/06 Patient sitting in the room on her bed with towels laid on the bed. Patient has been sitting there talking to herself for a while; on approach patient said that she is contemplating taking a shower. She then gets up and mutters to herself for a bit. Stockroom Selector asked about her thoughts on last week's conversation. Patient sometimes is wandering about the milieu seemingly without purpose; put her face down on the nursing station ledge and looked like she was falling asleep Patient says that everything still stands as is... She discussed where she go and said that she is not ready to go to [facility] in [facility] because there are some problems there.. and that she won't got to this place until she talks to her CM Leslie (says she can't remember last name)...she explains this is the reason she wants to go to house here in [place] (that does not seem to exist). She also said she can go to [facility] since her sister has a place there but patient is not sure where and has not talked to her sister... She also says she can go to her boyfriend's or his mother's and says she talked to him last week. -Discussed medications and she agrees to get rid of Abilify as it has not seem to do much. -Team will try to clarify if patient has talked to her boyfriend; At this time it is not clear if Leslie her geriatric case manager from [place] exists or not. But if she does exist and team is able to get a hold of her, this will signify improvement. During discussion, patient implied she may be amenable to going back to her house in [place]; right now she is too disorganized to figure this out but if she improves in her organization this might be an option for his far as team knows, this is her only actual residents. 05/07 patient open to discussing discharge plans and amenable to going to her house in [place]. However remains with delusional thoughts. Approach global technical writer and said he could talk to her sister and all that global technical writer had to do his lean in and talk to her via the device that is implanted in her; at global technical writer's hesitation patient said that her sister has now decided otherwise and it is too late to talk to her -do not really know patient's baseline. In some ways she is functional despite being delusional. Concern remains that she will be able to take care of herself in the community 05/10 Patient able to talk clearly about certain topics; remains internally preoccupied and with some delusional thoughts. Agrees to call Kodi, her ex-boyfriend who is interested in supporting. 05/11: Continue current regime/plan. Plan: Section 7 Q 15 minute checks Discussed case with hospitalist; patient has completed antibiotics; ortho consult says to wear both the boot and continue weight-bearing exercise as tolerated; can monitor H&H but it has remained stable Continue Zydis to 30 mg q.h.s.; DC Abilify has not seem to do much at plan has been to taper off and use Zyprexa instead Continue methadone Continue Rifaximin 550 mg b.i.d. Continue Biktarvy 1 mg daily Continue lactulose which patient says she takes regularly for liver cirrhosis Continue baclofen Continue Clonidine 0.1 mg Hold Gabapentin; was discontinued on medical floor; may restart Hold Prazosin; was discontinued on medical floor Reports history of taking Vyvanse/Adderall cellulitis:resolved; completed course of abx medial cuboid avulsion fracture - walking boot, weight-bear as tolerated, follow up with Orthopedics in 1-2 weeks knee effusion - recommend consider X-ray and Orthopedic consultation after overlying cellulitis resolves. HIV infection - continue Biktarvy. CD4 count 216. viral load pending. - syphilis T. pallidum EIA negative. urine gonorrhea/chlamydia PCR negative Reason for continued inpatient stay Substantial Risk for: rapid decompensation Time Spent With Patient Time: Total time managing care of this patient today ____ minutes.
[2024-05-11 19:54] VITALS: BP 142/95; PULSE 80; RESP 18; TEMP 36.7; O2SAT 100
[2024-05-11] MEDS: OLANZapine ODT 10 MG TAB.RAPDIS 30 MG TRANSLINGU (21:45)
[2024-05-11] MEDS: rifAXIMin 550 MG TABLET PO (21:46)
[2024-05-11] MEDS: LORazepam 0.5 MG TABLET PO (21:47)
[2024-05-12 08:00] VITALS: BP 143/85; PULSE 103; RESP 20; TEMP 37; O2SAT 98
[2024-05-12] MEDS: methADONE HCl 20 MG/2 ML ORAL.CONC 45 MG PO (08:24)
[2024-05-12] MEDS: rifAXIMin 550 MG TABLET PO ×2 (08:31→22:07)
[2024-05-12] MEDS: Acetaminophen 325 MG TABLET 650 MG PO ×3 (08:31→22:07)
[2024-05-12] MEDS: Ferrous Sulfate 324 MG TABLET.DR PO ×2 (08:32→18:32)
[2024-05-12] MEDS: Diclofenac Sodium Delayed Rel 50 MG TABLET.DR PO ×2 (08:32→18:32)
[2024-05-12] MEDS: Bictegrav/Emtricit/Tenofov Ala TABLET 1 TAB PO (08:32)
[2024-05-12] MEDS: Lactulose 20 GM/30 ML SOLUTION 10 GM PO (08:32)
[2024-05-12] MEDS: Nicotine 14 MG PATCH.TD24 TRANSDERMA (08:33)
[2024-05-12] MEDS: Lidocaine 4 % Patch ADH..PATCH 2 PATCH TRANSDERMA (08:35)
--- NOTE | 2024-05-12 14:02 | HO.PSYCHPN ---
Subjective Subjective Date of Service: 05/12/24 Reason For Visit: psych Interim History: María reports some nightmares and anxiety/depression fluctuations. She reports meds are enough now and reports these sx may be from her feeling tired and attempting to catch up on rest. Team report her tongue appears edematous-when observed her tongue appears wnl. Team also report she is sleeping very soundly and required sternal rub to awaken this a.m. Medication Compliance: Yes Side effects from medications: No Attending Groups: Intermittent Review of Systems Acute medical concerns: No Medical Review of Systems: unchanged Review of Systems Review of Systems Denies today Denies leg pain Mental Status Exam Mental Status Exam Patient Appearance: Fatigued Patient Orientation: Person, Place and Situation Level of Consciousness: Alert Patient Behavior: Talkative and Good Eye Contact Mood Description: Flat Affect Description: Flat Patient Cognition Impaired: No Ability to Follow Directions: Fair Speech Pattern: Spontaneous Speech Memory Description: Remote Impaired Thought Process: Intact Thought Content: positive for Intact Depressive Symptoms: Thoughts of /Suicide (denies) Judgement: Fair Diagnostics Vital Signs (24Hr): Vital Signs - 24 hr 05/11/24 19:54 05/12/24 08:00 Temperature 98.1 F 98.6 F Pulse Rate 80 103 H Respiratory Rate 18 20 Blood Pressure 142/95 H 143/85 H Pulse Oximetry 100 98 Oxygen Delivery Method Room Air Room Air Medications Medications Current Medications Acetaminophen (Acetaminophen 325 Mg Tablet) 650 mg PO Q6H PRN PRN Reason: Headache/Pain Mild Scale (1-3) Last Admin: 05/12/24 13:56 Dose: 650 mg Al Hydroxide/Mg Hydroxide (Magnesium Hydrox/Alum Hydrox 30 Ml Oral.Susp) 30 ml PO Q6H PRN PRN Reason: Heartburn/Nausea Baclofen (Baclofen 10 Mg Tablet) 10 mg PO TID PRN PRN Reason: back/muscle spasm Last Admin: 05/11/24 17:33 Dose: 10 mg Bictegravir/Emtricitabine/Tenofovir (Bictegrav/Emtricit/Tenofov Ala Tablet) 1 tab PO DAILY [facility] Last Admin: 05/12/24 08:32 Dose: 1 tab Diclofenac Sodium (Diclofenac Sodium Delayed Rel 50 Mg Tablet.) 50 mg PO BIDWM GUTIERREZ Last Admin: 05/12/24 08:32 Dose: 50 mg Ferrous Sulfate (Ferrous Sulfate 324 Mg Tablet.) 324 mg PO BIDWM [facility] Last Admin: 05/12/24 08:32 Dose: 324 mg Lactulose (Lactulose 20 Gm/30 Ml Solution) 10 gm PO DAILY [facility] Last Admin: 05/12/24 08:32 Dose: 10 gm Lidocaine (Lidocaine 4 % Patch Adh..Patch) 2 patch TRANSDERMA DAILY [facility]; Protocol Last Admin: 05/12/24 08:35 Dose: 2 patch Lorazepam (Lorazepam 0.5 Mg Tablet) 0.5 mg PO BID PRN PRN Reason: anxiety Last Admin: 05/11/24 21:47 Dose: 0.5 mg Magnesium Hydroxide (Milk Of Magnesia 30 Ml Oral.Susp) 30 ml PO DAILY PRN PRN Reason: Constipation Methadone HCl (Methadone Hcl 20 Mg/2 Ml Oral.Conc) 45 mg PO DAILY@0800 [facility] Last Admin: 05/12/24 08:24 Dose: 45 mg Nicotine (Nicotine 14 Mg Patch.Td24) 14 mg TRANSDERMA DAILY [facility] Last Admin: 05/12/24 08:33 Dose: 14 mg Nicotine Polacrilex (Nicotine Polacrilex 2 Mg Gum) 4 mg BUCCAL Q2H PRN PRN Reason: Nicotine Cravings Olanzapine (Olanzapine Odt 10 Mg Tab.Rapdis) 30 mg TRANSLINGU BEDTIME [facility] Last Admin: 05/11/24 21:45 Dose: 30 mg Olanzapine (Olanzapine 5 Mg Tablet) 5 mg PO Q4H PRN PRN Reason: psychosis,agitation Ondansetron HCl (Ondansetron Odt 4 Mg Tab.Rapdis) 4 mg TRANSLINGU Q6H PRN PRN Reason: Nausea And Vomiting Last Admin: 05/11/24 21:46 Dose: 4 mg Rifaximin (Rifaximin 550 Mg Tablet) 550 mg PO BID [facility] Last Admin: 05/12/24 08:31 Dose: 550 mg Trazodone HCl (Trazodone Hcl 50 Mg Tablet) 50 mg PO BEDTIME PRN PRN Reason: Insomnia Allergies Allergies Allergy/AdvReac Type Severity Reaction Status Date / Time No Known Allergies Allergy Verified 04/05/24 18:41 Assessment & Plan Assessment & Plan (1) Schizophrenia, acute undifferentiated: Status: Acute Code(s): F20.3 - Undifferentiated schizophrenia (2) Opioid use disorder: Status: Acute Code(s): F11.90 - Opioid use, unspecified, uncomplicated (3) Left leg cellulitis: Status: Resolved Code(s): L03.116 - Cellulitis of left lower limb (4) HIV (human immunodeficiency virus infection): Status: Acute Code(s): Z21 - Asymptomatic human immunodeficiency virus [HIV] infection status (5) Left cuboid fracture: Status: Acute Code(s): S92.212A - Displaced fracture of cuboid bone of left foot, initial encounter for closed fracture Plan HPI: Patient is a 44-year-old woman with history of HIV, liver cirrhosis, anemia polysubstance abuse and recently psychotic symptoms (full history unknown) returns to following treatment on the medical floor for left leg cellulitis with IV antibiotics. Initially, patient 1st presented to the ED days after discharged from [facility] with continued bizarre, disorganized behavior and thoughts, delusional thinking that she is on a TV show called Killers. Patient was saying she own million dollar homes, 1 of which she bought while she was at [facility]... Patient was disorganized in both speech and behavior, delusional, thinking staff was stealing 20,000,000 dollars, calling 911 from the unit to report the theft...Attempts at any collateral were unsuccessful. Patient continued with delusional and paranoid thinking, continuing to say saying she own million dollar homes which she bought the week prior while she was psychiatrically admitted at [facility]..., she continued to think she was despite negative test; reported to check writer that she had a device implanted in her skin that informs her family of things... She remained on Abilify (which was increased) and low-dose Depakote but eventually was willing to start Zyprexa and taper down from Abilify; she wanted off Depakote which was discontinued. Pt found with medial cuboid avulsion fracture. Patient developed cellulitis of left lower leg, started on antibiotics but became septic and was transferred to the medical floor. Patient treated with antibiotics and medically cleared and returned back to the psychiatric for ongoing psychotic symptoms, maintained on her psychotropic medication regimen now on p.o. antibiotics. Back on M5 she was initially talking more clearly however remained delusional. Patient was intermittently refusing p.o. antibiotics (and was found spitting medications into the trash), refusing to let staff look at her leg; she remained with paranoid delusions, talking about her the home she own, the reality TV show the killers, hearing what her friends were saying via a device implanted in her dot dot set a food service was put into her vagina...harassing staff, following staff up and down the jones, demanding staff give her their money and also give her her own money... Told staff that there is [employer] in her ear. Patient had catatonic symptoms and was briefly started on Ativan. She continued to intermittently refuse antibiotics and both this check writer and nursing that she refused because was worried people were poisoning her. Her leg became swollen, cellulitis infection worsened and patient was sent back to the medical floor for IV antibiotics. She was cleared and now returns to on a Section 7. Back again on M5, Patient remains wanting discharge. She wants to go to her house which she says either [address], in [place]; she says it is a million dollar home, worth 1.5 million which she owns by herself. She can not explain where she got the money for this given her long history of homelessness and collateral provided that the statements are untrue. Gym Manager showed patient numerous Google searches for this home which could not be found. Gym Manager expressed significant concern where she be discharged, saying she will end up in [place], without any money, without any senior care, alone with a broken foot; she denies this whenever happened because she said she has a becker hit in where she can get into this house. Gym Manager reminded patient that earlier in her admission she told check writer that she bought this million dollar home while she was on the inpatient unit at [facility]; she clarified that she has own this house for 10 years however she corrected check writer saying that while she was at [facility], she bought [employer], thinking it was a good investment however then sold it to her friend Herlinda Barrios. Formulation/clinical reasoning: History of HIV; not clear on adherence with antiretrovirals and this could be a possible contribution to confusion. SW able to get more hx from collateral from her Ex-boyfriend and his mother with whom patient lived. Long hx of both opioid and alcohol abuse. They reports she had episodes with similar presentation...hard to move, latent speech, disorganized, unable to attend to ADL's, unable to do tasks, internally preoccupied...during one such episode pt was admitted to ICU for a metabolic encephalopathy from toxic level of alcohol ingestion and was in a coma for 2 months.. -it remains unclear her history of psychotic illness and it is possible that she has had delusional thinking that was simply under the radar or obscured by long history of substance abuse and then for whatever reason it has become more pronounced at this time. IMPRESSION: Patient remains delusional, without any insight, and with delusional thinking, rendering her unable to take care of herself in the community (this was also the case when she was discharged from [facility] but picked up by police as she was just standing outside [facility] confused and disorganized;) Currently, Patient says she wants to leave the hospital and that she will taking over to her house in [place], which he says she owns herself and is a million dollar home. Patient is delusional and If discharged now, she will end up in somewhere on [facility] in [place], alone, without senior care, without money, with a broken foot, no support, vulnerable, at risk for exposure and predation and without the organizational skills to take care of herself. Will continue to pursue involuntary commitment 05/06 Patient sitting in the room on her bed with towels laid on the bed. Patient has been sitting there talking to herself for a while; on approach patient said that she is contemplating taking a shower. She then gets up and mutters to herself for a bit. Gym Manager asked about her thoughts on last week's conversation. Patient sometimes is wandering about the milieu seemingly without purpose; [facility] and looked like she was falling asleep Patient says that everything still stands as is... She discussed where she go and said that [facility] because there are some problems there.. and that she won't got to this place until she talks to her CM Leslie (says she can't remember last name)...she explains this is the reason she wants to go to house here in [place] (that does not seem to exist). She also [facility] since her sister has a place there but patient is not sure where and has not talked to her sister... She also says she can go to her boyfriend's or his mother's and says she talked to him last week. -Discussed medications and she agrees to get rid of Abilify as it has not seem to do much. -Team will try to clarify if patient has talked to her boyfriend; At this time it is not clear if Leslie her rn case manager from [employer] exists or not. But if she does exist and team is able to get a hold of her, this will signify improvement. During discussion, patient implied she may be amenable to going back to her house in [place]; right now she is too disorganized to figure this out but if she improves in her organization this might be an option for his far as team knows, this is her only actual residents. 05/07 patient open to discussing discharge plans and amenable to going to her house in [place]. However remains with delusional thoughts. Approach check writer and said he could talk to her sister and all that check writer had to do his lean in and talk to her via the device that is implanted in her; at check writer's hesitation patient said that her sister has now decided otherwise and it is too late to talk to her -do not really know patient's baseline. In some ways she is fun ctional despite being delusional. Concern remains that she will be able to take care of herself in the community 05/10 Patient able to talk clearly about certain topics; remains internally preoccupied and with some delusional thoughts. Agrees to call Kodi, her ex-boyfriend who is interested in supporting. 05/12: Continue tx Plan: Section 7 Q 15 minute checks Discussed case with hospitalist; patient has completed antibiotics; ortho consult says to wear both the boot and continue weight-bearing exercise as tolerated; can monitor H&H but it has remained stable Continue Zydis to 30 mg q.h.s.; DC Abilify has not seem to do much at plan has been to taper off and use Zyprexa instead Continue methadone Continue Rifaximin 550 mg b.i.d. Continue Biktarvy 1 mg daily Continue lactulose which patient says she takes regularly for liver cirrhosis Continue baclofen Continue Clonidine 0.1 mg Hold Gabapentin; was discontinued on medical floor; may restart Hold Prazosin; was discontinued on medical floor Reports history of taking Vyvanse/Adderall cellulitis:resolved; completed course of abx medial cuboid avulsion fracture - walking boot, weight-bear as tolerated, follow up with Orthopedics in 1-2 weeks knee effusion - recommend consider X-ray and Orthopedic consultation after overlying cellulitis resolves. HIV infection - continue Biktarvy. CD4 count 216. viral load pending. - syphilis T. pallidum EIA negative. urine gonorrhea/chlamydia PCR negative Reason for continued inpatient stay Substantial Risk for: rapid decompensation Time Spent With Patient Time: Total time managing care of this patient today ____ minutes.
[2024-05-12] MEDS: Baclofen 10 MG TABLET PO (18:33)
[2024-05-12 20:00] VITALS: BP 125/87; PULSE 109; TEMP 36.7; O2SAT 99
[2024-05-12] MEDS: OLANZapine ODT 10 MG TAB.RAPDIS 30 MG TRANSLINGU (22:08)
[2024-05-13] MEDS: methADONE HCl 20 MG/2 ML ORAL.CONC 45 MG PO (07:56)
[2024-05-13 08:00] VITALS: BP 140/84; PULSE 121; RESP 16; TEMP 36.6; O2SAT 100
--- NOTE | 2024-05-13 09:51 | P.PNPSI_ITS ---
Subjective Subjective Date of Service: 05/13/24 Reason For Visit: psych Interim History: Met with patient; discussed with team No change in presentation; moving around better and overall more organized in conversation; was unable to get a hold of Kodi, ex-boyfriend but was glad to hear that contact was made with her manager [employer]. Mental Status Exam Mental Status Exam Narrative: Pt is alert and oriented; behavior is calm, cooperative, overall more organized though intermittently can appear befuddled; dressed in casual attire, hair in dreadlocks; mood is described as ok affect congruent, brighter; eye contact more appropriate; Speech remains with some latency; normal volume, normal prosody; not pressured; intermittent psychomotor retardation present; thought process goal-directed, logical; intermittently distracted by internal preoccupations; Thought content remains on discharge; delusional ideations only expressed if solicited; no SI/HI; intermittently seems to be internal preoccupation though not necessarily due to AH (which she denies); Patients insight and judgment impaired but improved. Diagnostics Vital Signs (24Hr): Vital Signs - 24 hr 05/12/24 20:00 Temperature 98.0 F Pulse Rate 109 H Blood Pressure 125/87 Pulse Oximetry 99 Oxygen Delivery Method Room Air Medications Medications Current Medications Acetaminophen (Acetaminophen 325 Mg Tablet) 650 mg PO Q6H PRN PRN Reason: Headache/Pain Mild Scale (1-3) Last Admin: 05/12/24 22:07 Dose: 650 mg Al Hydroxide/Mg Hydroxide (Magnesium Hydrox/Alum Hydrox 30 Ml Oral.Susp) 30 ml PO Q6H PRN PRN Reason: Heartburn/Nausea Baclofen (Baclofen 10 Mg Tablet) 10 mg PO TID PRN PRN Reason: back/muscle spasm Last Admin: 05/12/24 18:33 Dose: 10 mg Bictegravir/Emtricitabine/Tenofovir (Bictegrav/Emtricit/Tenofov Ala Tablet) 1 tab PO DAILY [facility] Last Admin: 05/12/24 08:32 Dose: 1 tab Diclofenac Sodium (Diclofenac Sodium Delayed Rel 50 Mg Tablet.) 50 mg PO BIDWM [facility] Last Admin: 05/12/24 18:32 Dose: 50 mg Ferrous Sulfate (Ferrous Sulfate 324 Mg Tablet.) 324 mg PO BIDWM [facility] Last Admin: 12/29/24 18:32 Dose: 324 mg Lactulose (Lactulose 20 Gm/30 Ml Solution) 10 gm PO DAILY [facility] Last Admin: 05/12/24 08:32 Dose: 10 gm Lidocaine (Lidocaine 4 % Patch Adh..Patch) 2 patch TRANSDERMA DAILY [facility]; Protocol Last Admin: 05/12/24 08:35 Dose: 2 patch Lorazepam (Lorazepam 0.5 Mg Tablet) 0.5 mg PO BID PRN PRN Reason: anxiety Last Admin: 05/11/24 21:47 Dose: 0.5 mg Magnesium Hydroxide (Milk Of Magnesia 30 Ml Oral.Susp) 30 ml PO DAILY PRN PRN Reason: Constipation Methadone HCl (Methadone Hcl 20 Mg/2 Ml Oral.Conc) 45 mg PO DAILY@0800 [facility] Last Admin: 05/13/24 07:56 Dose: 45 mg Nicotine (Nicotine 14 Mg Patch.Td24) 14 mg TRANSDERMA DAILY [facility] Last Admin: 05/12/24 08:33 Dose: 14 mg Nicotine Polacrilex (Nicotine Polacrilex 2 Mg Gum) 4 mg BUCCAL Q2H PRN PRN Reason: Nicotine Cravings Olanzapine (Olanzapine Odt 10 Mg Tab.Rapdis) 30 mg TRANSLINGU BEDTIME [facility] Last Admin: 05/12/24 22:08 Dose: 30 mg Olanzapine (Olanzapine 5 Mg Tablet) 5 mg PO Q4H PRN PRN Reason: psychosis,agitation Ondansetron HCl (Ondansetron Odt 4 Mg Tab.Rapdis) 4 mg TRANSLINGU Q6H PRN PRN Reason: Nausea And Vomiting Last Admin: 05/11/24 21:46 Dose: 4 mg Rifaximin (Rifaximin 550 Mg Tablet) 550 mg PO BID [facility] Stop: 05/14/24 09:00 Last Admin: 05/12/24 22:07 Dose: 550 mg Trazodone HCl (Trazodone Hcl 50 Mg Tablet) 50 mg PO BEDTIME PRN PRN Reason: Insomnia Allergies Allergies Allergy/AdvReac Type Severity Reaction Status Date / Time No Known Allergies Allergy Verified 04/05/24 18:41 Assessment & Plan Assessment & Plan (1) Schizophrenia, acute undifferentiated: Status: Acute Code(s): F20.3 - Undifferentiated schizophrenia (2) Opioid use disorder: Status: Acute Code(s): F11.90 - Opioid use, unspecified, uncomplicated (3) Left leg cellulitis: Status: Resolved Code(s): L03.116 - Cellulitis of left lower limb (4) HIV (human immunodeficiency virus infection): Status: Acute Code(s): Z21 - Asymptomatic human immunodeficiency virus [HIV] infection status (5) Left cuboid fracture: Status: Acute Code(s): S92.212A - Displaced fracture of cuboid bone of left foot, initial encounter for closed fracture Plan HPI: Patient is a 44-year-old woman with history of HIV, liver cirrhosis, anemia polysubstance abuse and recently psychotic symptoms (full history unknown) returns to following treatment on the medical floor for left leg cellulitis with IV antibiotics. Initially, patient 1st presented to the ED days after discharged from [facility] with continued bizarre, disorganized behavior and thoughts, delusional thinking that she is on a TV show called Killers. Patient was saying she own million dollar homes, 1 of which she bought while she was at [facility]... Patient was disorganized in both speech and behavior, delusional, thinking staff was stealing 20,000,000 dollars, calling 911 from the unit to report the theft...Attempts at any collateral were unsuccessful. Patient continued with delusional and paranoid thinking, continuing to say saying she own million dollar homes which she bought the week prior while she was psychiatrically admitted at [facility]..., she continued to think she was despite negative test; reported to video game script writer that she had a device implanted in her skin that informs her family of things... She remained on Abilify (which was increased) and low-dose Depakote but eventually was willing to start Zyprexa and taper down from Abilify; she wanted off Depakote which was discontinued. Pt found with medial cuboid avulsion fracture. Patient developed cellulitis of left lower leg, started on antibiotics but became septic and was transferred to the medical floor. Patient treated with antibiotics and medically cleared and returned back to the psychiatric for ongoing psychotic symptoms, maintained on her psychotropic medication regimen now on p.o. antibiotics. Back on M5 she was initially talking more clearly however remained delusional. Patient was intermittently refusing p.o. antibiotics (and was found spitting medications into the trash), refusing to let staff look at her leg; she remained with paranoid delusions, talking about her the home she own, the reality TV show the killers, hearing what her friends were saying via a device implanted in her dot dot set a telephone answering service operator was put into her vagina...harassing staff, following staff up and down the jones, demanding staff give her their money and also give her her own money... Told staff that there is carmax in her ear. Patient had catatonic symptoms and was briefly started on Ativan. She continued to intermittently refuse antibiotics and both this video game script writer and nursing that she refused because was worried people were poisoning her. Her leg became swollen, cellulitis infection worsened and patient was sent back to the medical floor for IV antibiotics. She was cleared and now returns to on a Section 7. Back again on M5, Patient remains wanting discharge. She wants to go to her house which she says [address] [facility] [address], in [place]; she says it is a million dollar home, worth 1.5 million which she owns by herself. She can not explain where she got the money for this given her long history of homelessness and collateral provided that the statements are untrue. Take Up Operator showed patient numerous Google searches for this home which could not be found. Take Up Operator expressed significant concern where she be discharged, saying she will end up in [place], without any money, without any retirement, alone with a broken foot; she denies this whenever happened because she said she has a becker hit in where she can get into this house. Take Up Operator reminded patient that earlier in her admission she told video game script writer that she bought this million dollar home while she was on the inpatient unit at [facility]; she clarified that she has own this house for 10 years however she corrected video game script writer saying that while she was at [facility], she bought [employer], thinking it was a good investment however then sold it to her friend Herlinda Barrios. Formulation/clinical reasoning: History of HIV; not clear on adherence with antiretrovirals and this could be a possible contribution to confusion. SW able to get more hx from collateral from her Ex-boyfriend and his mother with whom patient lived. Long hx of both opioid and alcohol abuse. They reports she had episodes with similar presentation...hard to move, latent speech, disorganized, unable to attend to ADL's, unable to do tasks, internally preoccupied...during one such episode pt was admitted to ICU for a metabolic encephalopathy from toxic level of alcohol ingestion and was in a coma for 2 months.. -it remains unclear her history of psychotic illness and it is possible that she has had delusional thinking that was simply under the radar or obscured by long history of substance abuse and then for whatever reason it has become more pronounced at this time. IMPRESSION: Patient remains delusional, without any insight, and with delusional thinking, rendering her unable to take care of herself in the community (this was also the case when she was discharged from [facility] but picked up by police as she was just standing outside [facility] confused and disorganized;) Currently, Patient says she wants to leave the hospital and that she will taking over to her house in [place], which he says she owns herself and is a million dollar home. Patient is delusional and If discharged now, she will end up in somewhere on [facility] in [place], alone, without retirement, without money, with a broken foot, no support, vulnerable, at risk for exposure and predation and without the organizational skills to take care of herself. Will continue to pursue involuntary commitment 05/06 Patient sitting in the room on her bed with towels laid on the bed. Patient has been sitting there talking to herself for a while; on approach patient said that she is contemplating taking a shower. She then gets up and mutters to herself for a bit. Take Up Operator asked about her thoughts on last week's conversation. Patient sometimes is wandering about the milieu seemingly without purpose; put her face down on the nursing station [facility] and looked like she was falling asleep Patient says that everything still stands as is... She discussed where she go and said that [facility] because there are some problems there.. and that she won't got to this place until she talks to her CM Leslie (says she can't remember last name)...she explains this is the reason she wants to go to house here in [place] (that does not seem to exist). She also said she can go to [facility] since her sister has a place there but patient is not sure where and has not talked to her sister... She also says she can go to her boyfriend's or his mother's and says she talked to him last week. -Discussed medications and she agrees to get rid of Abilify as it has not seem to do much. -Team will try to clarify if patient has talked to her boyfriend; At this time it is not clear if Leslie her case maker from [employer] exists or not. But if she does exist and team is able to get a hold of her, this will signify improvement. During discussion, patient implied she may be amenable to going back to her house in [place]; right now she is too disorganized to figure this out but if she improves in her organization this might be an option for his far as team knows, this is her only actual residents. 05/07 patient open to discussing discharge plans and amenable to going to her house in [place]. However remains with delusional thoughts. Approach video game script writer and said he could talk to her sister and all that video game script writer had to do his lean in and talk to her via the device that is implanted in her; at video game script writer's hesitation patient said that her sister has now decided otherwise and it is too late to talk to her -do not really know patient's baseline. In some ways she is functional despite being delusional. Concern remains that she will be able to take care of herself in the community 05/10 Patient able to talk clearly about certain topics; remains internally preoccupied and with some delusional thoughts. Agrees to call Kodi, her ex- boyfriend who is interested in supporting. 05/11: Continue current regime/plan. 05/13 overall more organized, brighter; logical and linear discussion; no expressed delusions (though they remain but only expressed if solicited); behaviors overall mostly organized; intermittently patient can appear befuddled, however per collateral this is part of her baseline. Contact made with outpatient case maker who helps her with housing and dispo planning continues Plan: Section 7 Q 15 minute checks Discussed case with hospitalist; patient has completed antibiotics; ortho consult says to wear both the boot and continue weight-bearing exercise as tolerated; can monitor H&H but it has remained stable Continue Zydis to 30 mg q.h.s.; DC Abilify has not seem to do much at plan has been to taper off and use Zyprexa instead Continue methadone Continue Rifaximin 550 mg b.i.d. Continue Biktarvy 1 mg daily Continue lactulose which patient says she takes regularly for liver cirrhosis Continue baclofen Continue Clonidine 0.1 mg Hold Gabapentin; was discontinued on medical floor; may restart Hold Prazosin; was discontinued on medical floor Reports history of taking Vyvanse/Adderall cellulitis:resolved; completed course of abx medial cuboid avulsion fracture - walking boot, weight-bear as tolerated, follow up with Orthopedics in 1-2 weeks knee effusion - recommend consider X-ray and Orthopedic consultation after overlying cellulitis resolves. HIV infection - continue Biktarvy. CD4 count 216. viral load pending. - syphilis T. pallidum EIA negative. urine gonorrhea/chlamydia PCR negative Patient educated on: diagnosis, medication risk/benefits and medical condition Informed Consent: understands, does not understand and further education needed Reason for continued inpatient stay Substantial Risk for: stable for discharge and rapid decompensation Time Spent With Patient Time: Total time managing care of this patient today ____ minutes.
[2024-05-13] MEDS: Lactulose 20 GM/30 ML SOLUTION 10 GM PO (09:58)
[2024-05-13] MEDS: Lidocaine 4 % Patch ADH..PATCH 2 PATCH TRANSDERMA (09:58)
[2024-05-13] MEDS: rifAXIMin 550 MG TABLET PO ×2 (09:59→20:58)
[2024-05-13] MEDS: Nicotine 14 MG PATCH.TD24 TRANSDERMA (09:59)
[2024-05-13] MEDS: Bictegrav/Emtricit/Tenofov Ala TABLET 1 TAB PO (09:59)
[2024-05-13] MEDS: Ferrous Sulfate 324 MG TABLET.DR PO ×2 (09:59→17:52)
[2024-05-13] MEDS: Diclofenac Sodium Delayed Rel 50 MG TABLET.DR PO ×2 (09:59→17:51)
[2024-05-13] MEDS: Acetaminophen 325 MG TABLET 650 MG PO ×2 (10:08→16:10)
[2024-05-13] MEDS: Baclofen 10 MG TABLET PO (16:11)
[2024-05-13 19:47] VITALS: BP 149/87; PULSE 121; RESP 14; TEMP 36.7; O2SAT 97
[2024-05-13 20:48] LABS: HIV 1 Antibody POSITIVE (NEGATIVE); HIV 2 Antibody NEGATIVE (NEGATIVE)
[2024-05-13] MEDS: OLANZapine ODT 10 MG TAB.RAPDIS 30 MG TRANSLINGU (20:58)
[2024-05-13] MEDS: traZODone HCL 50 MG TABLET PO (21:01)
[2024-05-14] MEDS: methADONE HCl 20 MG/2 ML ORAL.CONC 45 MG PO (07:48)
[2024-05-14] MEDS: Baclofen 10 MG TABLET PO ×3 (07:54→22:02)
[2024-05-14] MEDS: Diclofenac Sodium Delayed Rel 50 MG TABLET.DR PO ×2 (07:55→18:07)
[2024-05-14] MEDS: rifAXIMin 550 MG TABLET PO (07:56)
[2024-05-14] MEDS: Bictegrav/Emtricit/Tenofov Ala TABLET 1 TAB PO (07:57)
[2024-05-14] MEDS: Ferrous Sulfate 324 MG TABLET.DR PO ×2 (07:58→18:07)
[2024-05-14] MEDS: Acetaminophen 325 MG TABLET 650 MG PO ×3 (07:58→22:02)
[2024-05-14] MEDS: Lactulose 20 GM/30 ML SOLUTION 10 GM PO (07:59)
[2024-05-14 08:00] VITALS: BP 169/93; PULSE 118; TEMP 36.6; O2SAT 100
[2024-05-14] MEDS: Nicotine 14 MG PATCH.TD24 TRANSDERMA (08:00)
[2024-05-14] MEDS: Lidocaine 4 % Patch ADH..PATCH 2 PATCH TRANSDERMA (08:01)
[2024-05-14 11:59] VITALS: BP 128/78
[2024-05-14] MEDS: lisinopriL 5 MG TABLET PO (11:59)
[2024-05-14] MEDS: LORazepam 0.5 MG TABLET PO ×2 (15:00→22:06)
--- NOTE | 2024-05-14 18:23 | HO.PSYCHPN ---
Subjective Subjective Date of Service: 05/14/24 Reason For Visit: psych Interim History: Met with patient; discussed with team No change in presentation; complains of lower back pain which she says is chronic and flares from time to time. Baclofen helpful Mental Status Exam Mental Status Exam Narrative: Pt is alert and oriented; behavior is calm, cooperative, overall more organized though intermittently can appear befuddled; dressed in casual attire, hair in dreadlocks; mood is described as ok affect congruent, brighter; eye contact more appropriate; Speech remains with some latency; normal volume, normal prosody; not pressured; intermittent psychomotor retardation present; thought process goal-directed, logical; intermittently distracted by internal preoccupations; Thought content remains on discharge; delusional ideations only expressed if solicited; no SI/HI; intermittently seems to be internal preoccupation though not necessarily due to AH (which she denies); Patients insight and judgment impaired but improved. Diagnostics Vital Signs (24Hr): Vital Signs - 24 hr 05/13/24 19:47 05/14/24 08:00 05/14/24 11:59 Temperature 98.0 F 97.8 F Pulse Rate 121 H 118 H Respiratory Rate 14 Blood Pressure 149/87 H 169/93 H 128/78 Pulse Oximetry 97 100 Oxygen Delivery Method Room Air Labs Labs: Laboratory Results - last 48 hr 05/09/24 14:59 HIV-1 Antibody POSITIVE A HIV-1 RNA, Qual (TMA) TNP HIV-2 Antibody NEGATIVE Medications Medications Current Medications Acetaminophen (Acetaminophen 325 Mg Tablet) 650 mg PO Q6H PRN PRN Reason: Headache/Pain Mild Scale (1-3) Last Admin: 05/14/24 14:59 Dose: 650 mg Al Hydroxide/Mg Hydroxide (Magnesium Hydrox/Alum Hydrox 30 Ml Oral.Susp) 30 ml PO Q6H PRN PRN Reason: Heartburn/Nausea Baclofen (Baclofen 10 Mg Tablet) 10 mg PO TID PRN PRN Reason: back/muscle spasm Last Admin: 05/14/24 10:32 Dose: 10 mg Bictegravir/Emtricitabine/Tenofovir (Bictegrav/Emtricit/Tenofov Ala Tablet) 1 tab PO DAILY GUTIERREZ Last Admin: 05/14/24 07:57 Dose: 1 tab Diclofenac Sodium (Diclofenac Sodium Delayed Rel 50 Mg Tablet.Dr) 50 mg PO BIDWM [facility] Last Admin: 05/14/24 18:07 Dose: 50 mg Ferrous Sulfate (Ferrous Sulfate 324 Mg Tablet.) 324 mg PO BIDWM [facility] Last Admin: 05/14/24 18:07 Dose: 324 mg Lactulose (Lactulose 20 Gm/30 Ml Solution) 10 gm PO DAILY [facility] Last Admin: 05/14/24 07:59 Dose: 10 gm Lidocaine (Lidocaine 4 % Patch Adh..Patch) 2 patch TRANSDERMA DAILY [facility]; Protocol Last Admin: 05/14/24 08:01 Dose: 2 patch Lisinopril (Lisinopril 5 Mg Tablet) 5 mg PO DAILY [facility]; Protocol Lorazepam (Lorazepam 0.5 Mg Tablet) 0.5 mg PO BID PRN PRN Reason: anxiety Last Admin: 05/14/24 15:00 Dose: 0.5 mg Magnesium Hydroxide (Milk Of Magnesia 30 Ml Oral.Susp) 30 ml PO DAILY PRN PRN Reason: Constipation Methadone HCl (Methadone Hcl 20 Mg/2 Ml Oral.Conc) 45 mg PO DAILY@0800 [facility] Last Admin: 05/14/24 07:48 Dose: 45 mg Nicotine (Nicotine 14 Mg Patch.Td24) 14 mg TRANSDERMA DAILY [facility] Last Admin: 05/14/24 08:00 Dose: 14 mg Nicotine Polacrilex (Nicotine Polacrilex 2 Mg Gum) 4 mg BUCCAL Q2H PRN PRN Reason: Nicotine Cravings Olanzapine (Olanzapine Odt 10 Mg Tab.Rapdis) 30 mg TRANSLINGU BEDTIME [facility] Last Admin: 05/13/24 20:58 Dose: 30 mg Olanzapine (Olanzapine 5 Mg Tablet) 5 mg PO Q4H PRN PRN Reason: psychosis,agitation Ondansetron HCl (Ondansetron Odt 4 Mg Tab.Rapdis) 4 mg TRANSLINGU Q6H PRN PRN Reason: Nausea And Vomiting Last Admin: 05/11/24 21:46 Dose: 4 mg Trazodone HCl (Trazodone Hcl 50 Mg Tablet) 50 mg PO BEDTIME PRN PRN Reason: Insomnia Last Admin: 05/13/24 21:01 Dose: 50 mg Allergies Allergies Allergy/AdvReac Type Severity Reaction Status Date / Time No Known Allergies Allergy Verified 04/05/24 18:41 Assessment & Plan Assessment & Plan (1) Schizophrenia, acute undifferentiated: Status: Acute Code(s): F20.3 - Undifferentiated schizophrenia (2) Opioid use disorder: Status: Acute Code(s): F11.90 - Opioid use, unspecified, uncomplicated (3) Left leg cellulitis: Status: Resolved Code(s): L03.116 - Cellulitis of left lower limb (4) HIV (human immunodeficiency virus infection): Status: Acute Code(s): Z21 - Asymptomatic human immunodeficiency virus [HIV] infection status (5) Left cuboid fracture: Status: Acute Code(s): S92.212A - Displaced fracture of cuboid bone of left foot, initial encounter for closed fracture Plan HPI: Patient is a 44-year-old woman with history of HIV, liver cirrhosis, anemia polysubstance abuse and recently psychotic symptoms (full history unknown) returns to following treatment on the medical floor for left leg cellulitis with IV antibiotics. Initially, patient 1st presented to the ED days after discharged from [facility] with continued bizarre, disorganized behavior and thoughts, delusional thinking that she is on a TV show called Killers. Patient was saying she own million dollar homes, 1 of which she bought while she was at [facility]... Patient was disorganized in both speech and behavior, delusional, thinking staff was stealing 20,000,000 dollars, calling 911 from the unit to report the theft...Attempts at any collateral were unsuccessful. Patient continued with delusional and paranoid thinking, continuing to say saying she own million dollar homes which she bought the week prior while she was psychiatrically admitted at [facility]..., she continued to think she was despite negative test; reported to administrative underwriter that she had a device implanted in her skin that informs her family of things... She remained on Abilify (which was increased) and low-dose Depakote but eventually was willing to start Zyprexa and taper down from Abilify; she wanted off Depakote which was discontinued. Pt found with medial cuboid avulsion fracture. Patient developed cellulitis of left lower leg, started on antibiotics but became septic and was transferred to the medical floor. Patient treated with antibiotics and medically cleared and returned back to the psychiatric for ongoing psychotic symptoms, maintained on her psychotropic medication regimen now on p.o. antibiotics. Back on M5 she was initially talking more clearly however remained delusional. Patient was intermittently refusing p.o. antibiotics (and was found spitting medications into the trash), refusing to let staff look at her leg; she remained with paranoid delusions, talking about her the home she own, the reality TV show the killers, hearing what her friends were saying via a device implanted in her dot dot set a occ ther was put into her vagina...harassing staff, following staff up and down the jones, demanding staff give her their money and also give her her own money... Told staff that there is carmax in her ear. Patient had catatonic symptoms and was briefly started on Ativan. She continued to intermittently refuse antibiotics and both this administrative underwriter and nursing that she refused because was worried people were poisoning her. Her leg became swollen, cellulitis infection worsened and patient was sent back to the medical floor for IV antibiotics. She was cleared and now returns to on a Section 7. Back again on M5, Patient remains wanting discharge. She wants to go to her house which she says [address], in [place]; she says it is a million dollar home, worth 1.5 million which she owns by herself. She can not explain where she got the money for this given her long history of homelessness and collateral provided that the statements are untrue. Industrial Welder showed patient numerous Google searches for this home which could not be found. Industrial Welder expressed significant concern where she be discharged, saying she will end up in [place], without any money, without any intermediate, alone with a broken foot; she denies this whenever happened because she said she has a becker hit in where she can get into this house. Industrial Welder reminded patient that earlier in her admission she told administrative underwriter that she bought this million dollar home while she was on the inpatient unit at [facility]; she clarified that she has own this house for 10 years however she corrected administrative underwriter saying that while she was at [facility], she bought [id number], thinking it was a good investment however then sold it to her friend Herlinda Barrios. Formulation/clinical reasoning: History of HIV; not clear on adherence with antiretrovirals and this could be a possible contribution to confusion. SW able to get more hx from collateral from her Ex-boyfriend and his mother with whom patient lived. Long hx of both opioid and alcohol abuse. They reports she had episodes with similar presentation...hard to move, latent speech, disorganized, unable to attend to ADL's, unable to do tasks, internally preoccupied...during one such episode pt was admitted to ICU for a metabolic encephalopathy from toxic level of alcohol ingestion and was in a coma for 2 months.. -it remains unclear her history of psychotic illness and it is possible that she has had delusional thinking that was simply under the radar or obscured by long history of substance abuse and then for whatever reason it has become more pronounced at this time. IMPRESSION: Patient remains delusional, without any insight, and with delusional thinking, rendering her unable to take care of herself in the community (this was also the case when she was discharged from [facility] but picked up by police as she was just standing outside [facility] confused and disorganized;) Currently, Patient says she wants to leave the hospital and that she will taking over to her house in [place], which he says she owns herself and is a million dollar home. Patient is delusional and If discharged now, she will end up in somewhere on [facility] in [place], alone, without intermediate, without money, with a broken foot, no support, vulnerable, at risk for exposure and predation and without the organizational skills to take care of herself. Will continue to pursue involuntary commitment 05/06 Patient sitting in the room on her bed with towels laid on the bed. Patient has been sitting there talking to herself for a while; on approach patient said that she is contemplating taking a shower. She then gets up and mutters to herself for a bit. Industrial Welder asked about her thoughts on last week's conversation. Patient sometimes is wandering about the milieu seemingly without purpose; put her face down on the nursing station led and looked like she was falling asleep Patient says that everything still stands as is... She discussed where she go and said that she is not ready to go to [facility] because there are some problems there.. and that she won't got to this place until she talks to her CM Leslie (says she can't remember last name)...she explains this is the reason she wants to go to house here in [place] (that does not seem to exist). She also said she can go to [facility] since her sister has a place there but patient is not sure where and has not talked to her sister... She also says she can go to her boyfriend's or his mother's and says she talked to him last week. -Discussed medications and she agrees to get rid of Abilify as it has not seem to do much. -Team will try to clarify if patient has talked to her boyfriend; At this time it is not clear if Leslie her rehabilitation case coordinator from [place] exists or not. But if she does exist and team is able to get a hold of her, this will signify improvement. During discussion, patient implied she may be amenable to going back to her house in [place]; right now she is too disorganized to figure this out but if she improves in her organization this might be an option for his far as team knows, this is her only actual residents. 05/07 patient open to discussing discharge plans and amenable to going to her house in [place]. However remains with delusional thoughts. Approach administrative underwriter and said he could talk to her sister and all that administrative underwriter had to do his lean in and talk to her via the device that is implanted in her; at administrative underwriter's hesitation patient said that her sister has now decided otherwise and it is too late to talk to her -do not really know patient's baseline. In some ways she is functional despite being delusional. Concern remains that she will be able to take care of herself in the community 05/10 Patient able to talk clearly about certain topics; remains internally preoccupied and with some delusional thoughts. Agrees to call Kodi, her ex-boyfriend who is interested in supporting. 05/11: Continue current regime/plan. 05/13 overall more organized, brighter; logical and linear discussion; no expressed delusions (though they remain but only expressed if solicited); behaviors overall mostly organized; intermittently patient can appear befuddled, however per collateral this is part of her baseline. Contact made with outpatient rehabilitation case coordinator who helps her with housing and dispo planning continues Plan: Section 7 Q 15 minute checks Discussed case with hospitalist; patient has completed antibiotics; ortho consult says to wear both the boot and continue weight-bearing exercise as tolerated; can monitor H&H but it has remained stable Continue Zydis to 30 mg q.h.s.; DC Abilify has not seem to do much at plan has been to taper off and use Zyprexa instead Continue methadone Continue Rifaximin 550 mg b.i.d. Continue Biktarvy 1 mg daily Continue lactulose which patient says she takes regularly for liver cirrhosis Continue baclofen Continue Clonidine 0.1 mg Hold Gabapentin; was discontinued on medical floor; may restart Hold Prazosin; was discontinued on medical floor Reports history of taking Vyvanse/Adderall cellulitis:resolved; completed course of abx medial cuboid avulsion fracture - walking boot, weight-bear as tolerated, follow up with Orthopedics in 1-2 weeks knee effusion - recommend consider X-ray and Orthopedic consultation after overlying cellulitis resolves. HIV infection - continue Biktarvy. CD4 count 216. viral load pending. - syphilis T. pallidum EIA negative. urine gonorrhea/chlamydia PCR negative Patient educated on: medical condition Informed Consent: understands Reason for continued inpatient stay Substantial Risk for: stable for discharge Time Spent With Patient Time: Total time managing care of this patient today ____ minutes.
[2024-05-14 19:43] VITALS: BP 132/84; PULSE 128; RESP 16; TEMP 36.7; O2SAT 100
[2024-05-14] MEDS: OLANZapine ODT 10 MG TAB.RAPDIS 30 MG TRANSLINGU (22:02)
[2024-05-15] MEDS: Nicotine 14 MG PATCH.TD24 TRANSDERMA (07:55)
[2024-05-15] MEDS: Lidocaine 4 % Patch ADH..PATCH 2 PATCH TRANSDERMA (07:55)
[2024-05-15] MEDS: Lactulose 20 GM/30 ML SOLUTION 10 GM PO (07:55)
[2024-05-15 07:56] VITALS: BP 123/75
[2024-05-15] MEDS: Ferrous Sulfate 324 MG TABLET.DR PO ×2 (07:56→16:11)
[2024-05-15] MEDS: lisinopriL 5 MG TABLET PO (07:56)
[2024-05-15] MEDS: Diclofenac Sodium Delayed Rel 50 MG TABLET.DR PO ×2 (07:56→16:11)
[2024-05-15] MEDS: Bictegrav/Emtricit/Tenofov Ala TABLET 1 TAB PO (07:57)
[2024-05-15] MEDS: methADONE HCl 20 MG/2 ML ORAL.CONC 45 MG PO (07:58)
[2024-05-15 08:00] VITALS: BP 123/75; PULSE 98; TEMP 36.6; O2SAT 97
[2024-05-15] MEDS: Baclofen 10 MG TABLET PO ×2 (08:12→21:53)
--- NOTE | 2024-05-15 10:12 | HO.PSYCHPN ---
Subjective Subjective Date of Service: 05/15/24 Reason For Visit: psych Interim History: Met with patient; discussed with team Patient the most organized and conversation thus far; patient says she is overall feeling better from when she 1st came in, saying that she feels more clear minded and has a better sense of well-being. She wanted to discuss medication regimen and agreed with having come off of Abilify and on Zyprexa only. Patient said that overall depression and anxiety are significantly improved and that yesterday's report of depression/anxiety was just a temporary feeling which self-resolved. She has some anxiety about remaining on only 45 mg of methadone saying that she used to be on 154 mg and would like to have this titrated since she wants to remain sober; check writer agreed. She also asked to restart gabapentin 300 mg t.i.d.; check writer expressed some hesitancy (due to concern for lower limb edema and hx of substance abuse) but agreed to consider verses letting her restart with outpatient provider Mental Status Exam Mental Status Exam Narrative: Pt is alert and oriented; behavior is calm, cooperative, friendly and overall more organized; intermittently can appear befuddled; dressed in casual attire, hair in dreadlocks; mood is described as good affect congruent, brighter; eye contact appropriate; Speech sometimes with latency but significantly less frequently and overall mostly normal rate, volume and prosody; not pressured; intermittent psychomotor retardation present; thought process goal-directed, logical; intermittently distracted by internal preoccupations; Thought content remains on discharge; delusional ideations only expressed if solicited; no SI/HI; intermittently seems to be internal preoccupation though not necessarily due to AH (which she denies); Patients insight and judgment impaired but much improved. Diagnostics Vital Signs (24Hr): Vital Signs - 24 hr 05/14/24 11:59 05/14/24 19:43 05/15/24 07:56 Temperature 98.0 F Pulse Rate 128 H Respiratory Rate 16 Blood Pressure 128/78 132/84 123/75 Pulse Oximetry 100 Oxygen Delivery Method Room Air Labs Labs: Laboratory Results - last 48 hr 05/09/24 14:59 HIV-1 Antibody POSITIVE A HIV-1 RNA, Qual (TMA) TNP HIV-2 Antibody NEGATIVE Medications Medications Current Medications Acetaminophen (Acetaminophen 325 Mg Tablet) 650 mg PO Q6H PRN PRN Reason: Headache/Pain Mild Scale (1-3) Last Admin: 05/14/24 22:02 Dose: 650 mg Al Hydroxide/Mg Hydroxide (Magnesium Hydrox/Alum Hydrox 30 Ml Oral.Susp) 30 ml PO Q6H PRN PRN Reason: Heartburn/Nausea Baclofen (Baclofen 10 Mg Tablet) 10 mg PO TID PRN PRN Reason: back/muscle spasm Last Admin: 05/15/24 08:12 Dose: 10 mg Bictegravir/Emtricitabine/Tenofovir (Bictegrav/Emtricit/Tenofov Ala Tablet) 1 tab PO DAILY [facility] Last Admin: 05/15/24 07:57 Dose: 1 tab Diclofenac Sodium (Diclofenac Sodium Delayed Rel 50 Mg Tablet.) 50 mg PO BIDWM [facility] Last Admin: 05/15/24 07:56 Dose: 50 mg Ferrous Sulfate (Ferrous Sulfate 324 Mg Tablet.) 324 mg PO BIDWM [facility] Last Admin: 05/15/24 07:56 Dose: 324 mg Lactulose (Lactulose 20 Gm/30 Ml Solution) 10 gm PO DAILY [facility] Last Admin: 05/15/24 07:55 Dose: 10 gm Lidocaine (Lidocaine 4 % Patch Adh..Patch) 2 patch TRANSDERMA DAILY [facility]; Protocol Last Admin: 05/15/24 07:55 Dose: 2 patch Lisinopril (Lisinopril 5 Mg Tablet) 5 mg PO DAILY [facility]; Protocol Last Admin: 05/15/24 07:56 Dose: 5 mg Lorazepam (Lorazepam 0.5 Mg Tablet) 0.5 mg PO BID PRN PRN Reason: anxiety Last Admin: 05/14/24 22:06 Dose: 0.5 mg Magnesium Hydroxide (Milk Of Magnesia 30 Ml Oral.Susp) 30 ml PO DAILY PRN PRN Reason: Constipation Methadone HCl (Methadone Hcl 20 Mg/2 Ml Oral.Conc) 45 mg PO DAILY@0800 [facility] Last Admin: 05/15/24 07:58 Dose: 45 mg Nicotine (Nicotine 14 Mg Patch.Td24) 14 mg TRANSDERMA DAILY [facility] Last Admin: 05/15/24 07:55 Dose: 14 mg Nicotine Polacrilex (Nicotine Polacrilex 2 Mg Gum) 4 mg BUCCAL Q2H PRN PRN Reason: Nicotine Cravings Olanzapine (Olanzapine Odt 10 Mg Tab.Rapdis) 30 mg TRANSLINGU BEDTIME [facility] Last Admin: 05/14/24 22:02 Dose: 30 mg Olanzapine (Olanzapine 5 Mg Tablet) 5 mg PO Q4H PRN PRN Reason: psychosis,agitation Ondansetron HCl (Ondansetron Odt 4 Mg Tab.Rapdis) 4 mg TRANSLINGU Q6H PRN PRN Reason: Nausea And Vomiting Last Admin: 05/11/24 21:46 Dose: 4 mg Trazodone HCl (Trazodone Hcl 50 Mg Tablet) 50 mg PO BEDTIME PRN PRN Reason: Insomnia Last Admin: 05/13/24 21:01 Dose: 50 mg Allergies Allergies Allergy/AdvReac Type Severity Reaction Status Date / Time No Known Allergies Allergy Verified 04/05/24 18:41 Assessment & Plan Assessment & Plan (1) Schizophrenia, acute undifferentiated: Status: Acute Code(s): F20.3 - Undifferentiated schizophrenia (2) Opioid use disorder: Status: Acute Code(s): F11.90 - Opioid use, unspecified, uncomplicated (3) Left leg cellulitis: Status: Resolved Code(s): L03.116 - Cellulitis of left lower limb (4) HIV (human immunodeficiency virus infection): Status: Acute Code(s): Z21 - Asymptomatic human immunodeficiency virus [HIV] infection status (5) Left cuboid fracture: Status: Acute Code(s): S92.212A - Displaced fracture of cuboid bone of left foot, initial encounter for closed fracture Plan HPI: Patient is a 44-year-old woman with history of HIV, liver cirrhosis, anemia polysubstance abuse and recently psychotic symptoms (full history unknown) returns to following treatment on the medical floor for left leg cellulitis with IV antibiotics. Initially, patient 1st presented to the ED days after discharged from [facility] with continued bizarre, disorganized behavior and thoughts, delusional thinking that she is on a TV show called Killers. Patient was saying she own million dollar homes, 1 of which she bought while she was at [facility]... Patient was disorganized in both speech and behavior, delusional, thinking staff was stealing 20,000,000 dollars, calling 911 from the unit to report the theft...Attempts at any collateral were unsuccessful. Patient continued with delusional and paranoid thinking, continuing to say saying she own million dollar homes which she bought the week prior while she was psychiatrically admitted at [facility]..., she continued to think she was despite negative test; reported to check writer that she had a device implanted in her skin that informs her family of things... She remained on Abilify (which was increased) and low-dose Depakote but eventually was willing to start Zyprexa and taper down from Abilify; she wanted off Depakote which was discontinued. Pt found with medial cuboid avulsion fracture. Patient developed cellulitis of left lower leg, started on antibiotics but became septic and was transferred to the medical floor. Patient treated with antibiotics and medically cleared and returned back to the psychiatric for ongoing psychotic symptoms, maintained on her psychotropic medication regimen now on p.o. antibiotics. Back on M5 she was initially talking more clearly however remained delusional. Patient was intermittently refusing p.o. antibiotics (and was found spitting medications into the trash), refusing to let staff look at her leg; she remained with paranoid delusions, talking about her the home she own, the reality TV show the killers, hearing what her friends were saying via a device implanted in her dot dot set a skein yarn drier was put into her vagina...harassing staff, following staff up and down the jones, demanding staff give her their money and also give her her own money... Told staff that there is carmax in her ear. Patient had catatonic symptoms and was briefly started on Ativan. She continued to intermittently refuse antibiotics and both this check writer and nursing that she refused because was worried people were poisoning her. Her leg became swollen, cellulitis infection worsened and patient was sent back to the medical floor for IV antibiotics. She was cleared and now returns to on a Section 7. Back again on M5, Patient remains wanting discharge. She wants to go to her house which she says [address] [facility], in [place]; she says it is a million dollar home, worth 1.5 million which she owns by herself. She can not explain where she got the money for this given her long history of homelessness and collateral provided that the statements are untrue. Gang Worker showed patient numerous Google searches for this home which could not be found. Gang Worker expressed significant concern where she be discharged, saying she will end up in [place], without any money, without any chcf, alone with a broken foot; she denies this whenever happened because she said she has a becker hit in where she can get into this house. Gang Worker reminded patient that earlier in her admission she told check writer that she bought this million dollar home while she was on the inpatient unit at [facility]; she clarified that she has own this house for 10 years however she corrected check writer saying that while she was at [facility], she bought [address] [place], thinking it was a good investment however then sold it to her friend Herlinda Barrios. Formulation/clinical reasoning: History of HIV; not clear on adherence with antiretrovirals and this could be a possible contribution to confusion. SW able to get more hx from collateral from her Ex-boyfriend and his mother with whom patient lived. Long hx of both opioid and alcohol abuse. They reports she had episodes with similar presentation...hard to move, latent speech, disorganized, unable to attend to ADL's, unable to do tasks, internally preoccupied...during one such episode pt was admitted to ICU for a metabolic encephalopathy from toxic level of alcohol ingestion and was in a coma for 2 months.. -it remains unclear her history of psychotic illness and it is possible that she has had delusional thinking that was simply under the radar or obscured by long history of substance abuse and then for whatever reason it has become more pronounced at this time. IMPRESSION: Patient remains delusional, without any insight, and with delusional thinking, rendering her unable to take care of herself in the community (this was also the case when she was discharged from [facility] but picked up by police as she was just standing outside [facility] confused and disorganized;) Currently, Patient says she wants to leave the hospital and that she will taking over to her house in [place], which he says she owns herself and is a million dollar home. Patient is delusional and If discharged now, she will end up in somewhere on [facility] in [place], alone, without chcf, without money, with a broken foot, no support, vulnerable, at risk for exposure and predation and without the organizational skills to take care of herself. Will continue to pursue involuntary commitment 05/06 Patient sitting in the room on her bed with towels laid on the bed. Patient has been sitting there talking to herself for a while; on approach patient said that she is contemplating taking a shower. She then gets up and mutters to herself for a bit. Gang Worker asked about her thoughts on last week's conversation. Patient sometimes is wandering about the milieu seemingly without purpose; put her face down on the nursing station [facility] and looked like she was falling asleep Patient says that everything still stands as is... She discussed where she go and said that she is not ready to go to [facility] in [facility] because there are some problems there.. and that she won't got to this place until she talks to her CM Leslie (says she can't remember last name)...she explains this is the reason she wants to go to house here in [place] (that does not seem to exist). She also said she can go to [facility] since her sister has a place there but patient is not sure where and has not talked to her sister... She also says she can go to her boyfriend's or his mother's and says she talked to him last week. -Discussed medications and she agrees to get rid of Abilify as it has not seem to do much. -Team will try to clarify if patient has talked to her boyfriend; At this time it is not clear if Leslie her pillowcase maker from [place] exists or not. But if she does exist and team is able to get a hold of her, this will signify improvement. During discussion, patient implied she may be amenable to going back to her house in [place]; right now she is too disorganized to figure this out but if she improves in her organization this might be an option for his far as team knows, this is her only actual residents. 05/07 patient open to discussing discharge plans and amenable to going to her house in [place]. However remains with delusional thoughts. Approach check writer and said he could talk to her sister and all that check writer had to do his lean in and talk to her via the device that is implanted in her; at check writer's hesitation patient said that her sister has now decided otherwise and it is too late to talk to her -do not really know patient's baseline. In some ways she is functional despite being delusional. Concern remains that she will be able to take care of herself in the community 05/10 Patient able to talk clearly about certain topics; remains internally preoccupied and with some delusional thoughts. Agrees to call Kodi, her ex-boyfriend who is interested in supporting. 05/11: Continue current regime/plan. 05/13 overall more organized, brighter; logical and linear discussion; no expressed delusions (though they remain but only expressed if solicited); behaviors overall mostly organized; intermittently patient can appear befuddled, however per collateral this is part of her baseline. Contact made with outpatient pillowcase maker who helps her with housing and dispo planning continues 05/15/24 Patient the most organized and conversation thus far; patient says she is overall feeling better from when she 1st came in, saying that she feels more clear minded and has a better sense of well-being. She wanted to discuss medication regimen and agreed with having come off of Abilify and on Zyprexa only. Patient said that overall depression and anxiety are significantly improved and that yesterday's report of depression/anxiety was just a temporary feeling which self-resolved. She has some anxiety about remaining on only 45 mg of methadone saying that she used to be on 154 mg and would like to have this titrated since she wants to remain sober; check writer agreed. She also asked to restart gabapentin 300 mg t.i.d.; check writer expressed some hesitancy (due to concern for lower limb edema and hx of substance abuse) but agreed to consider verses letting her restart with outpatient provider Plan: Section 7 Q 15 minute checks Discussed case with hospitalist; patient has completed antibiotics; ortho consult says to wear both the boot and continue weight-bearing exercise as tolerated; can monitor H&H but it has remained stable Continue Zydis to 30 mg q.h.s.; DC Abilify has not seem to do much at plan has been to taper off and use Zyprexa instead Increase methadone to 55 mg; patient on 154 in the past Continue Rifaximin 550 mg b.i.d. Continue Biktarvy 1 mg daily Continue lactulose which patient says she takes regularly for liver cirrhosis Continue baclofen Continue Clonidine 0.1 mg Hold Gabapentin; was discontinued on medical floor; may restart Hold Prazosin; was discontinued on medical floor Reports history of taking Vyvanse/Adderall cellulitis:resolved; completed course of abx medial cuboid avulsion fracture - walking boot, weight-bear as tolerated, follow up with Orthopedics in 1-2 weeks knee effusion - recommend consider X-ray and Orthopedic consultation after overlying cellulitis resolves. HIV infection - continue Biktarvy. CD4 count 216. viral load pending. - syphilis T. pallidum EIA negative. urine gonorrhea/chlamydia PCR negative Patient educated on: diagnosis, medication risk/benefits, substance abuse and therapeutic strategies Informed Consent: understands, does not understand and further education needed Reason for continued inpatient stay Substantial Risk for: stable for discharge and rapid decompensation Time Spent With Patient Time: Total time managing care of this patient today ____ minutes.
[2024-05-15] MEDS: methADONE HCl 20 MG/2 ML ORAL.CONC 5 MG PO (16:11)
[2024-05-15 19:57] VITALS: BP 98/58; PULSE 119; RESP 16; TEMP 36.8; O2SAT 99
[2024-05-15] MEDS: OLANZapine ODT 10 MG TAB.RAPDIS 30 MG TRANSLINGU (21:52)
[2024-05-15] MEDS: LORazepam 0.5 MG TABLET PO (21:53)
[2024-05-15] MEDS: Acetaminophen 325 MG TABLET 650 MG PO (21:58)
[2024-05-16] MEDS: methADONE HCl 20 MG/2 ML ORAL.CONC 55 MG PO (07:43)
[2024-05-16 08:00] VITALS: BP 143/79; PULSE 112; TEMP 36.6; O2SAT 99
[2024-05-16] MEDS: Lactulose 20 GM/30 ML SOLUTION 10 GM PO (08:38)
[2024-05-16] MEDS: Acetaminophen 325 MG TABLET 650 MG PO ×3 (08:38→21:44)
[2024-05-16 08:39] VITALS: BP 143/79
[2024-05-16] MEDS: lisinopriL 5 MG TABLET PO (08:39)
[2024-05-16] MEDS: Nicotine 14 MG PATCH.TD24 TRANSDERMA (08:39)
[2024-05-16] MEDS: Bictegrav/Emtricit/Tenofov Ala TABLET 1 TAB PO (08:39)
[2024-05-16] MEDS: Lidocaine 4 % Patch ADH..PATCH 2 PATCH TRANSDERMA (08:39)
[2024-05-16] MEDS: Diclofenac Sodium Delayed Rel 50 MG TABLET.DR PO ×2 (08:40→15:07)
[2024-05-16] MEDS: Ferrous Sulfate 324 MG TABLET.DR PO ×2 (08:40→15:07)
[2024-05-16] MEDS: Baclofen 10 MG TABLET PO ×2 (15:09→21:44)
[2024-05-16 20:00] VITALS: BP 138/76; PULSE 89; TEMP 36.8; O2SAT 100
[2024-05-16] MEDS: LORazepam 0.5 MG TABLET PO (21:45)
[2024-05-16] MEDS: OLANZapine ODT 10 MG TAB.RAPDIS 30 MG TRANSLINGU (21:45)
[2024-05-17 08:00] VITALS: BP 107/57; PULSE 94; RESP 16; TEMP 36.8; O2SAT 98
[2024-05-17] MEDS: methADONE HCl 20 MG/2 ML ORAL.CONC 55 MG PO (08:20)
--- NOTE | 2024-05-17 09:04 | P.PNPSI_ITS ---
Subjective Subjective Date of Service: 05/16/24 Reason For Visit: psych Interim History: Late entry note for patient seen on 05/16/2024; discussed with team Diagnostics Vital Signs (24Hr): Vital Signs - 24 hr 05/16/24 20:00 05/17/24 08:00 Temperature 98.2 F 98.3 F Pulse Rate 89 94 Respiratory Rate 16 Blood Pressure 138/76 107/57 L Pulse Oximetry 100 98 Oxygen Delivery Method Room Air Room Air Medications Medications Current Medications Acetaminophen (Acetaminophen 325 Mg Tablet) 650 mg PO Q6H PRN PRN Reason: Headache/Pain Mild Scale (1-3) Last Admin: 05/16/24 21:44 Dose: 650 mg Al Hydroxide/Mg Hydroxide (Magnesium Hydrox/Alum Hydrox 30 Ml Oral.Susp) 30 ml PO Q6H PRN PRN Reason: Heartburn/Nausea Baclofen (Baclofen 10 Mg Tablet) 10 mg PO TID PRN PRN Reason: back/muscle spasm Last Admin: 05/16/24 21:44 Dose: 10 mg Bictegravir/Emtricitabine/Tenofovir (Bictegrav/Emtricit/Tenofov Ala Tablet) 1 tab PO DAILY [facility] Last Admin: 05/16/24 08:39 Dose: 1 tab Diclofenac Sodium (Diclofenac Sodium Delayed Rel 50 Mg Tablet.) 50 mg PO BIDWM [facility] Last Admin: 05/16/24 15:07 Dose: 50 mg Ferrous Sulfate (Ferrous Sulfate 324 Mg Tablet.) 324 mg PO BIDWM [facility] Last Admin: 05/16/24 15:07 Dose: 324 mg Lactulose (Lactulose 20 Gm/30 Ml Solution) 10 gm PO DAILY [facility] Last Admin: 05/16/24 08:38 Dose: 10 gm Lidocaine (Lidocaine 4 % Patch Adh..Patch) 2 patch TRANSDERMA DAILY [facility]; Pro tocol Last Admin: 05/16/24 08:39 Dose: 2 patch Lisinopril (Lisinopril 5 Mg Tablet) 5 mg PO DAILY [facility]; Protocol Last Admin: 05/16/24 08:39 Dose: 5 mg Lorazepam (Lorazepam 0.5 Mg Tablet) 0.5 mg PO BID PRN PRN Reason: anxiety Last Admin: 05/16/24 21:45 Dose: 0.5 mg Magnesium Hydroxide (Milk Of Magnesia 30 Ml Oral.Susp) 30 ml PO DAILY PRN PRN Reason: Constipation Methadone HCl (Methadone Hcl 20 Mg/2 Ml Oral.Conc) 55 mg PO DAILY@0800 [facility] Last Admin: 05/17/24 08:20 Dose: 55 mg Nicotine (Nicotine 14 Mg Patch.Td24) 14 mg TRANSDERMA DAILY [facility] Last Admin: 05/16/24 08:39 Dose: 14 mg Nicotine Polacrilex (Nicotine Polacrilex 2 Mg Gum) 4 mg BUCCAL Q2H PRN PRN Reason: Nicotine Cravings Olanzapine (Olanzapine Odt 10 Mg Tab.Rapdis) 30 mg TRANSLINGU BEDTIME [facility] Last Admin: 05/16/24 21:45 Dose: 30 mg Olanzapine (Olanzapine 5 Mg Tablet) 5 mg PO Q4H PRN PRN Reason: psychosis,agitation Ondansetron HCl (Ondansetron Odt 4 Mg Tab.Rapdis) 4 mg TRANSLINGU Q6H PRN PRN Reason: Nausea And Vomiting Last Admin: 05/11/24 21:46 Dose: 4 mg Trazodone HCl (Trazodone Hcl 50 Mg Tablet) 50 mg PO BEDTIME PRN PRN Reason: Insomnia Last Admin: 05/13/24 21:01 Dose: 50 mg Allergies Allergies Allergy/AdvReac Type Severity Reaction Status Date / Time No Known Allergies Allergy Verified 04/05/24 18:41 Assessment & Plan Assessment & Plan (1) Schizophrenia, acute undifferentiated: Status: Acute Code(s): F20.3 - Undifferentiated schizophrenia (2) Opioid use disorder: Status: Acute Code(s): F11.90 - Opioid use, unspecified, uncomplicated (3) Left leg cellulitis: Status: Resolved Code(s): L03.116 - Cellulitis of left lower limb (4) HIV (human immunodeficiency virus infection): Status: Acute Code(s): Z21 - Asymptomatic human immunodeficiency virus [HIV] infection status (5) Left cuboid fracture: Status: Acute Code(s): S92.212A - Displaced fracture of cuboid bone of left foot, initial encounter for closed fracture Plan HPI: Patient is a 44-year-old woman with history of HIV, liver cirrhosis, anemia polysubstance abuse and recently psychotic symptoms (full history unknown) returns to following treatment on the medical floor for left leg cellulitis with IV antibiotics. Initially, patient 1st presented to the ED days after discharged from [facility] with continued bizarre, disorganized behavior and thoughts, delusional thinking that she is on a TV show called Jen. Patient was saying she own million dollar homes, 1 of which she bought while she was at [facility]... Patient was disorganized in both speech and behavior, delusional, thinking staff was stealing 20,000,000 dollars, calling 911 from the unit to report the theft...Attempts at any collateral were unsuccessful. Patient continued with delusional and paranoid thinking, continuing to say saying she own million dollar homes which she bought the week prior while she was psychiatrically admitted at [facility]..., she continued to think she was despite negative test; reported to rfp writer that she had a device implanted in her skin that informs her family of things... She remained on Abilify (which was increased) and low-dose Depakote but eventually was willing to start Zyprexa and taper down from Abilify; she wanted off Depakote which was discontinued. Pt found with medial cuboid avulsion fracture. Patient developed cellulitis of left lower leg, started on antibiotics but became septic and was transferred to the medical floor. Patient treated with antibiotics and medically cleared and returned back to the psychiatric for ongoing psychotic symptoms, maintained on her psychotropic medication regimen now on p.o. antibiotics. Back on M5 she was initially talking more clearly however remained delusional. Patient was intermittently refusing p.o. antibiotics (and was found spitting medications into the trash), refusing to let staff look at her leg; she remained with paranoid delusions, talking about her the home she own, the reality TV show the jen, hearing what her friends were saying via a device implanted in her dot dot set a paper products printer was put into her vagina...harassing staff, following staff up and down the jones, demanding staff give her their money and also give her her own money... Told staff that there is carmax in her ear. Patient had catatonic symptoms and was briefly started on Ativan. She continued to intermittently refuse antibiotics and both this rfp writer and nursing that she refused because was worried people were poisoning her. Her leg became swollen, cellulitis infection worsened and patient was sent back to the medical floor for IV antibiotics. She was cleared and now returns to on a Section 7. Back again on M5, Patient remains wanting discharge. She wants to go to her house which she says either on [address], in [place]; she says it is a million dollar home, worth 1.5 million which she owns by herself. She can not explain where she got the money for this given her long history of homelessness and collateral provided that the statements are untrue. Territory Sales Manager Medical showed patient numerous Google searches for this home which could not be found. Territory Sales Manager Medical expressed significant concern where she be discharged, saying she will end up in [place], without any money, without any nursing home, alone with a broken foot; she denies this whenever happened because she said she has a becker hit in where she can get into this house. Territory Sales Manager Medical reminded patient that earlier in her admission she told rfp writer that she bought this million dollar home while she was on the inpatient unit at [facility]; she clarified that she has own this house for 10 years however she corrected rfp writer saying that while she was at [facility], she bought [employer], thinking it was a good investment however then sold it to her friend Herlinda Barrios. Formulation/clinical reasoning: History of HIV; not clear on adherence with antiretrovirals and this could be a possible contribution to confusion. SW able to get more hx from collateral from her Ex-boyfriend and his mother with whom patient lived. Long hx of both opioid and alcohol abuse. They reports she had episodes with similar presentation...hard to move, latent speech, disorganized, unable to attend to ADL's, unable to do tasks, internally preoccupied...during one such episode pt was admitted to ICU for a metabolic encephalopathy from toxic level of alcohol ingestion and was in a coma for 2 months.. -it remains unclear her history of psychotic illness and it is possible that she has had delusional thinking that was simply under the radar or obscured by long history of substance abuse and then for whatever reason it has become more pronounced at this time. IMPRESSION: Patient remains delusional, without any insight, and with delusional thinking, rendering her unable to take care of herself in the community (this was also the case when she was discharged from [facility] but picked up by police as she was just standing outside [facility] confused and disorganized;) Currently, Patient says she wants to leave the hospital and that she will taking over to her house in [place], which he says she owns herself and is a million dollar home. Patient is delusional and If discharged now, she will end up in somewhere on [facility] in [place], alone, without nursing home, without money, with a broken foot, no support, vulnerable, at risk for exposure and predation and without the organizational skills to take care of herself. Will continue to pursue involuntary commitment 05/06 Patient sitting in the room on her bed with towels laid on the bed. Patient has been sitting there talking to herself for a while; on approach patient said that she is contemplating taking a shower. She then gets up and mutters to herself for a bit. Territory Sales Manager Medical asked about her thoughts on last week's conversation. Patient sometimes is wandering about the milieu seemingly without purpose; put her face down on the nursing station ledge and looked like she was falling asleep Patient says that everything still stands as is... She discussed where she go and said that she is not ready to go to [facility] in [facility] because there are some problems there.. and that she won't got to this place until she talks to her CM Leslie (says she can't remember last name)...she explains this is the reason she wants to go to house here in [place] (that does not seem to exist). She also said she can go to [facility] since her sister has a place there but patient is not sure where and has not talked to her sister... She also says she can go to her boyfriend's or his mother's and says she talked to him last week. -Discussed medications and she agrees to get rid of Abilify as it has not seem to do much. -Team will try to clarify if patient has talked to her boyfriend; At this time it is not clear if Leslie her renal case manager from [place] exists or not. But if she does exist and team is able to get a hold of her, this will signify improvement. During discussion, patient implied she may be amenable to going back to her house in [place]; right now she is too disorganized to figure this out but if she improves in her organization this might be an option for his far as team knows, this is her only actual residents. 05/07 patient open to discussing discharge plans and amenable to going to her house in [place]. However remains with delusional thoughts. Approach rfp writer and said he could talk to her sister and all that rfp writer had to do his lean in and talk to her via the device that is implanted in her; at rfp writer's hesitation patient said that her sister has now decided otherwise and it is too late to talk to her -do not really know patient's baseline. In some ways she is fun ctional despite being delusional. Concern remains that she will be able to take care of herself in the community 05/10 Patient able to talk clearly about certain topics; remains internally preoccupied and with some delusional thoughts. Agrees to call Kodi, her ex- boyfriend who is interested in supporting. 05/12: Continue tx Plan: Section 7 Q 15 minute checks Discussed case with hospitalist; patient has completed antibiotics; ortho consult says to wear both the boot and continue weight-bearing exercise as tolerated; can monitor H&H but it has remained stable Continue Zydis to 30 mg q.h.s.; DC Abilifxu has not seem to do much at plan has been to taper off and use Zyprexa instead Continue methadone Continue Rifaximin 550 mg b.i.d. Continue Biktarvy 1 mg daily Continue lactulose which patient says she takes regularly for liver cirrhosis Continue baclofen Continue Clonidine 0.1 mg Hold Gabapentin; was discontinued on medical floor; may restart Hold Prazosin; was discontinued on medical floor Reports history of taking Vyvanse/Adderall cellulitis:resolved; completed course of abx medial cuboid avulsion fracture - walking boot, weight-bear as tolerated, follow up with Orthopedics in 1-2 weeks knee effusion - recommend consider X-ray and Orthopedic consultation after overlying cellulitis resolves. HIV infection - continue Biktarvy. CD4 count 216. viral load pending. - syphilis T. pallidum EIA negative. urine gonorrhea/chlamydia PCR negative Time Spent With Patient Time: Total time managing care of this patient today ____ minutes.
[2024-05-17] MEDS: Lidocaine 4 % Patch ADH..PATCH 2 PATCH TRANSDERMA (09:19)
[2024-05-17] MEDS: Diclofenac Sodium Delayed Rel 50 MG TABLET.DR PO (09:26)
[2024-05-17] MEDS: Acetaminophen 325 MG TABLET 650 MG PO (09:27)
[2024-05-17] MEDS: Bictegrav/Emtricit/Tenofov Ala TABLET 1 TAB PO (09:27)
[2024-05-17] MEDS: Baclofen 10 MG TABLET PO (09:27)
[2024-05-17] MEDS: Ferrous Sulfate 324 MG TABLET.DR PO (09:27)
[2024-05-17] MEDS: lisinopriL 5 MG TABLET PO (09:27)
--- NOTE | 2024-05-17 10:36 | PM.PSYDC ---
DS: Providers Provider Date of Service: 05/17/24 Date of admission: 05/03/24 16:02 Date of discharge: 05/17/24 Primary care physician: Unknown Physician Attending physician on admission: Long Reddy Consults: 05/06/24 14:52 Consult to Wound Care Routine Reason for consultation: assess; recs Attending physician on discharge: Long Reddy DS: Diagnosis Discharge Diagnosis (1) Schizophrenia, acute undifferentiated: Status: Acute (2) Opioid use disorder: Status: Acute (3) Left leg cellulitis: Status: Resolved (4) HIV (human immunodeficiency virus infection): Status: Acute (5) Left cuboid fracture: Status: Acute DS: Medications Discharge Medications Home Medications: Home Medications ?Medication ?Instructions ?Recorded ?Confirmed aluminum-mag hydroxide-simethicone 30 ml PO Q6H PRN heartburn/gas 04/28/24 05/03/24 200 mg-200 mg-20 mg/5 mL oral susp magnesium hydroxide 400 mg/5 mL 30 ml PO DAILY PRN Constipation 04/28/24 05/03/24 oral suspension (Milk of Magnesia) Previous Rx's ?Medication ?Instructions ?Recorded acetaminophen 325 mg tablet 650 mg (2 x 325 mg) PO Q6H PRN 05/17/24 Headache/Pain Mild Scale (1-3) #0 tabs baclofen 10 mg tablet 10 mg PO TID PRN back/muscle spasm 05/17/24 30 days #90 tabs bictegravir 50 mg-emtricitabine 1 tab PO DAILY 30 days #30 tabs 05/17/24 200 mg-tenofovir alafenam 25 mg tablet diclofenac sodium 50 mg 50 mg PO BIDWM 30 days #60 tabs 05/17/24 tablet,delayed release ferrous sulfate 324 mg (65 mg 324 mg PO BIDWM 30 days #60 tabs 05/17/24 iron) tablet,delayed release lactulose 20 gram/30 mL oral 10 g (15 mL) PO DAILY 30 days #450 05/17/24 solution mL lidocaine 4 % topical patch 2 patch transdermal DAILY 30 days 05/17/24 (Lidocaine Pain Relief) #60 ea lisinopril 5 mg tablet 5 mg PO DAILY 30 days #30 tabs 05/17/24 lorazepam 0.5 mg tablet 0.5 mg PO BID PRN anxiety 30 days 05/17/24 #60 tabs methadone 10 mg/mL oral 55 mg (5.5 mL) PO DAILY@0800 #0 mL 05/17/24 concentrate (Methadose) nicotine 14 mg/24 hr daily 14 mg transdermal DAILY PRN 05/17/24 transdermal patch nicotine cravings 28 days #28 ea olanzapine 15 mg tablet (Zyprexa) 30 mg (2 x 15 mg) PO BEDTIME 30 05/17/24 days #60 tabs ondansetron 4 mg disintegrating 4 mg translingual Q6H PRN Nausea 05/17/24 tablet And Vomiting 30 days #30 tabs rifaximin 550 mg tablet 550 mg PO BID 30 days #60 tabs 05/17/24 trazodone 50 mg tablet 50 mg PO BEDTIME PRN Insomnia 30 05/17/24 days #30 tabs Data Data Completed and Pending Completed studies during hospitalization [Text1]: 05/09/24 14:59 HIV-1 Antibody POSITIVE A HIV-1 RNA, Qual (TMA) TNP HIV-2 Antibody NEGATIVE DS: Summary Hospital Course Hospital Course: HPI: Patient is a 44-year-old woman with history of HIV, liver cirrhosis, anemia polysubstance abuse and recently psychotic symptoms (full history unknown) returns to following treatment on the medical floor for left leg cellulitis with IV antibiotics. Initially, patient 1st presented to the ED days after discharged from [facility] with continued bizarre, disorganized behavior and thoughts, delusional thinking that she is on a TV show called Killers. Patient was saying she own million dollar homes, 1 of which she bought while she was at [facility]... Patient was disorganized in both speech and behavior, delusional, thinking staff was stealing 20,000,000 dollars, calling 911 from the unit to report the theft...Attempts at any collateral were unsuccessful. Patient continued with delusional and paranoid thinking, continuing to say saying she own million dollar homes which she bought the week prior while she was psychiatrically admitted at [facility]..., she continued to think she was despite negative test; reported to casualty underwriter that she had a device implanted in her skin that informs her family of things... She remained on Abilify (which was increased) and low-dose Depakote but eventually was willing to start Zyprexa and taper down from Abilify; she wanted off Depakote which was discontinued. Pt found with medial cuboid avulsion fracture. Patient developed cellulitis of left lower leg, started on antibiotics but became septic and was transferred to the medical floor. Patient treated with antibiotics and medically cleared and returned back to the psychiatric for ongoing psychotic symptoms, maintained on her psychotropic medication regimen now on p.o. antibiotics. Back on M5 she was initially talking more clearly however remained delusional. Patient was intermittently refusing p.o. antibiotics (and was found spitting medications into the trash), refusing to let staff look at her leg; she remained with paranoid delusions, talking about her the home she own, the reality TV show the killers, hearing what her friends were saying via a device implanted in her dot dot set a gas well drilling manager was put into her vagina...harassing staff, following staff up and down the jones, demanding staff give her their money and also give her her own money... Told staff that there is carmax in her ear. Patient had catatonic symptoms and was briefly started on Ativan. She continued to intermittently refuse antibiotics and both this casualty underwriter and nursing that she refused because was worried people were poisoning her. Her leg became swollen, cellulitis infection worsened and patient was sent back to the medical floor for IV antibiotics. She was cleared and now returns to M5 on a Section 7. Back again on M5, Patient remains wanting discharge. She wants to go to her house which she says [address] on [address] [facility], in [place]; she says it is a million dollar home, worth 1.5 million which she owns by herself. She can not explain where she got the money for this given her long history of homelessness and collateral provided that the statements are untrue. Diabetic Educator showed patient numerous Google searches for this home which could not be found. Diabetic Educator expressed significant concern where she be discharged, saying she will end up in [place], without any money, without any snf, alone with a broken foot; she denies this whenever happened because she said she has a becker hit in where she can get into this house. Diabetic Educator reminded patient that earlier in her admission she told casualty underwriter that she bought this million dollar home while she was on the inpatient unit at [facility]; she clarified that she has own this house for 10 years however she corrected casualty underwriter saying that while she was at [facility], she bought [address], thinking it was a good investment however then sold it to her friend Herlinda Barrios. Formulation/clinical reasoning: History of HIV; not clear on adherence with antiretrovirals and this could be a possible contribution to confusion. SW able to get more hx from collateral from her Ex-boyfriend and his mother with whom patient lived. Long hx of both opioid and alcohol abuse. They reports she had episodes with similar presentation...hard to move, latent speech, disorganized, unable to attend to ADL's, unable to do tasks, internally preoccupied...during one such episode pt was admitted to ICU for a metabolic encephalopathy from toxic level of alcohol ingestion and was in a coma for 2 months.. -it remains unclear her history of psychotic illness and it is possible that she has had delusional thinking that was simply under the radar or obscured by long history of substance abuse and then for whatever reason it has become more pronounced at this time. IMPRESSION: Patient remains delusional, without any insight, and with delusional thinking, rendering her unable to take care of herself in the community (this was also the case when she was discharged from [facility] but picked up by police as she was just standing outside [facility] confused and disorganized;) Currently, Patient says she wants to leave the hospital and that she will taking over to her house in [place], which he says she owns herself and is a million dollar home. Patient is delusional and If discharged now, she will end up in somewhere on [facility] in [place], alone, without snf, without money, with a broken foot, no support, vulnerable, at risk for exposure and predation and without the organizational skills to take care of herself. Will continue to pursue involuntary commitment 05/06 Patient sitting in the room on her bed with towels laid on the bed. Patient has been sitting there talking to herself for a while; on approach patient said that she is contemplating taking a shower. She then gets up and mutters to herself for a bit. Diabetic Educator asked about her thoughts on last week's conversation. Patient sometimes is wandering about the milieu seemingly without purpose; put her face down on the nursing station [facility] and looked like she was falling asleep Patient says that everything still stands as is... She discussed where she go and said that she is not ready to go to [facility] in [facility] because there are some problems there.. and that she won't got to this place until she talks to her CM Leslie (says she can't remember last name)...she explains this is the reason she wants to go to house here in [place] (that does not seem to exist). She also said she can go to [facility] since her sister has a place there but patient is not sure where and has not talked to her sister... She also says she can go to her boyfriend's or his mother's and says she talked to him last week. -Discussed medications and she agrees to get rid of Abilify as it has not seem to do much. -Team will try to clarify if patient has talked to her boyfriend; At this time it is not clear if Leslie her pillowcase folder from [place] exists or not. But if she does exist and team is able to get a hold of her, this will signify improvement. During discussion, patient implied she may be amenable to going back to her house in [place]; right now she is too disorganized to figure this out but if she improves in her organization this might be an option for his far as team knows, this is her only actual residents. 05/07 patient open to discussing discharge plans and amenable to going to her house in [place]. However remains with delusional thoughts. Approach casualty underwriter and said he could talk to her sister and all that casualty underwriter had to do his lean in and talk to her via the device that is implanted in her; at casualty underwriter's hesitation patient said that her sister has now decided otherwise and it is too late to talk to her -do not really know patient's baseline. In some ways she is fun ctional despite being delusional. Concern remains that she will be able to take care of herself in the community 05/10 Patient able to talk clearly about certain topics; remains internally preoccupied and with some delusional thoughts. Agrees to call Kodi, her ex-boyfriend who is interested in supporting. 05/12: Continue tx Plan: Section 7 Q 15 minute checks Discussed case with hospitalist; patient has completed antibiotics; ortho consult says to wear both the boot and continue weight-bearing exercise as tolerated; can monitor H&H but it has remained stable Continue Zydis to 30 mg q.h.s.; DC Abilify has not seem to do much at plan has been to taper off and use Zyprexa instead Continue methadone Continue Rifaximin 550 mg b.i.d. Continue Biktarvy 1 mg daily Continue lactulose which patient says she takes regularly for liver cirrhosis Continue baclofen Continue Clonidine 0.1 mg Hold Gabapentin; was discontinued on medical floor; may restart Hold Prazosin; was discontinued on medical floor Reports history of taking Vyvanse/Adderall cellulitis:resolved; completed course of abx medial cuboid avulsion fracture - walking boot, weight-bear as tolerated, follow up with Orthopedics in 1-2 weeks knee effusion - recommend consider X-ray and Orthopedic consultation after overlying cellulitis resolves. HIV infection - continue Biktarvy. CD4 count 216. viral load pending. - syphilis T. pallidum EIA negative. urine gonorrhea/chlamydia PCR negative Time Spent with Patient Time attestation: Total time managing care of this patient today ____ minutes. Discharge Plan Discharge Anticipated Discharge Date/Time: 05/17/24 11:00 Patient Disposition: Home, Self-Care Discharge Diagnosis: Schizoaffective disorder Referrals: [facility] [Other] - 05/31/24 10:00 am (Appointment with your PCP- in office ) [facility] [Other] - 05/17/24 1:00 pm (Please call if you have trouble getting into your apartment ) [facility] [Other] - 05/18/24 (Dispensing Hours: Monday-Monday 6:00 am - 12:00 pm ) [facility] [Other] - 05/31/24 9:00 am ( Counseling appointment with Mai (in person)) Discharge Medications: New lisinopril 5 mg Tablet 5 mg PO DAILY 30 Days Qty: 30 0RF Protocol: Hold for SBP< HOLD for SBP < : 90 acetaminophen 325 mg Tablet 650 mg PO Q6H PRN (Reason: Headache/Pain Mild Scale (1-3)) Qty: 0 0RF methadone [Methadose] 10 mg/mL Concentrate 55 mg PO DAILY@0800 Qty: 0 0RF Rx Instructions: Partial Fill upon patient request. olanzapine [Zyprexa] 15 mg tablet 30 mg PO BEDTIME 30 Days Qty: 60 0RF Continued magnesium hydroxide [Milk of Magnesia] 400 mg/5 mL Suspension 30 ml PO DAILY PRN (Reason: Constipation) alum-mag hydroxide-simeth 200-200-20 mg/5 mL Suspension 30 ml PO Q6H PRN (Reason: heartburn/gas) Rx Instructions: administer between meals and at bedtime baclofen 10 mg Tablet 10 mg PO TID PRN (Reason: back/muscle spasm) 30 Days Qty: 90 0RF diclofenac sodium 50 mg Tablet,Delayed Release (Dr/Ec) 50 mg PO BIDWM 30 Days Qty: 60 0RF ferrous sulfate 324 mg (65 mg iron) Tablet,Delayed Release (Dr/Ec) 324 mg PO BIDWM 30 Days Qty: 60 0RF hpcccohhg-pzxaxtbn-czlesnq ala 50-200-25 mg Tablet 1 tab PO DAILY 30 Days Qty: 30 0RF trazodone 50 mg Tablet 50 mg PO BEDTIME PRN (Reason: Insomnia) 30 Days Qty: 30 0RF lidocaine [Lidocaine Pain Relief] 4 % Adhesive Patch,Medicated 2 patch transdermal DAILY 30 Days Qty: 60 0RF Protocol: Apply to: Apply to: back ondansetron 4 mg Tablet,Disintegrating 4 mg translingual Q6H PRN (Reason: Nausea And Vomiting) 30 Days Qty: 30 0RF lactulose 20 gram/30 mL Solution 10 g PO DAILY 30 Days Qty: 450 0RF Changed nicotine 14 mg/24 hr Patch 24 Hour 14 mg transdermal DAILY PRN (Reason: nicotine cravings) 28 Days Qty: 28 0RF rifaximin 550 mg Tablet 550 mg PO BID 30 Days Qty: 60 0RF lorazepam 0.5 mg Tablet 0.5 mg PO BID PRN (Reason: anxiety) 30 Days Qty: 60 0RF Discontinued aripiprazole [Abilify] 10 mg Tablet 10 mg PO DAILY hydroxyzine HCl 25 mg Tablet 25 mg PO Q6H PRN (Reason: Anxiety) methadone [Methadone Intensol] 10 mg/mL Concentrate 45 mg PO DAILY@0800 acetaminophen 325 mg Tablet 975 mg PO Q6H PRN (Reason: pain (pain scale 1-10)) Qty: 0 0RF nicotine (polacrilex) 2 mg Gum 4 mg buccal Q2H PRN (Reason: Nicotine Cravings) Qty: 0 0RF olanzapine 5 mg Tablet 5 mg PO Q4H PRN (Reason: psychosis,agitation) Qty: 0 0RF Discharge Orders: Discharge Order (Routine); Ordered 05/17/24 Ordered By: Long Reddy Diet: Regular diet Activity on Discharge: As tolerated Stand Alone Forms: Patient Portal Discharge page, Community Support Print Language: Azeri Activity Restrictions/Additional Instructions: Wound Care Left Leg: Cleanse with normal saline, pat dry Apply skin prep to periwound around open wound Apply Durafiber to open wounds Cover Durafiber with foam dressings Cover area with Tarun wrap Change every other day Elevate lower leg on pillows throughout the day Remove boot when in bed Care Plan Goals: Maintain mood and safe behaviors Take medications as prescribed Continue to pursue sobriety Practice coping skills Continue with outpatient providers and reach out to them as needed Health Concerns: Mood stability and behaviors Sobriety HIV Liver Cirrhosis, unspecified Chronic low back pain foot fracture of the medial cuboid Plan of Treatment: Follow up with your PCP, psychiatric provider and other outpatient providers regarding above concerns Take medications as prescribed Assessment: Risk assessment at time of discharge:? Patient was interviewed prior to discharge and found to be fully oriented and without any SI or HI. Patient has improved insight and judgment and wants to continue treatment. Patient is not in imminent risk of harm to self or others and has a safety plan that includes presenting to the closest ER or calling 911 if feeling unsafe.? Patient has been observed closely by nursing and unit staff throughout admission; patient has not engaged in any behaviors that suggest dangerousness to self or others and has demonstrated appropriate behaviors and impulse control
[2024-05-17] MEDS: Naloxone HCl Nasal TAKE HOME 4 MG SPRAY 8 MG NOSTRILALT (11:42)
== END 2024-05-17 11:45 | disposition home or self-care (01) | DRG 750 ==
PROVIDERS: Clinical Nurse Specialist Psychiatric/Mental Health, Adult; Admitting Provider Psychiatry & Neurology Psychiatry; Visit Provider Psychiatry & Neurology Psychiatry
DX: F20.3 Undifferentiated schizophrenia (principal); Z21 Asymptomatic human immunodeficiency virus [HIV] infection status; F11.20 Opioid dependence, uncomplicated; F17.210 Nicotine dependence, cigarettes, uncomplicated; S92.212A Displaced fracture of cuboid bone of left foot, initial encounter for closed fracture; X58.XXXA Exposure to other specified factors, initial encounter; Z59.02 Unsheltered homelessness; Z71.6 Tobacco abuse counseling; Z79.899 Other long term (current) drug therapy
CPT/HCPCS: 0352U; 36415; 86701; 86702; 86780; 87389; 87491; 87591

== ENCOUNTER → 2024-05-03 16:02 | Outpatient (BNV) | payer OTHER, SELFPAY | PROVIDERS: Admitting Provider Psychiatry & Neurology Psychiatry; Visit Provider Psychiatry & Neurology Psychiatry | DX: F20.3 Undifferentiated schizophrenia (principal); F11.90 Opioid use, unspecified, uncomplicated; L03.116 Cellulitis of left lower limb; Z21 Asymptomatic human immunodeficiency virus [HIV] infection status; S92.212A Displaced fracture of cuboid bone of left foot, initial encounter for closed fracture | CPT/HCPCS: 99231; 99232 ==